=== PATIENT | female | born 1935 | race Caucasian/White ===

== ENCOUNTER 2025-04-20 13:11 | Outpatient (AMB) | payer MEDICARE, BC, SELFPAY ==
--- NOTE | 2025-04-20 13:12 | HO.SPINEOV ---
Intake Visit Reasons: low back pain Intake Note: Mrs. Lozoya is here today c/o low back pain. MRI done @ [facility] (brought disc). 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 HPI: This 89-year-old female states that she is having difficulty with her left leg since approximately 1-2 years. She has radiating pain from the left side order back radiating to the lower leg into her foot. The pain is severe with walking and standing. Sitting down or leaning forward alleviates his symptoms. She had a spinal cord stimulator placed in September 2024 that initially gave her some relief but this has stopped working. She is under the care of Dr. Milton, who apparently did aMILD procedure without success. She had an L4-5 fusion done in the past. She comes into see me for 2nd opinion. The following conservative treatment options were tried without success antiinflammatories, tylenol, physical therapy, cortisone shots Physical Exam: Pleasant female. She is describing the pattern of pain in the left leg. She can reproduce it when standing. Sitting down she seems comfortable. On inspection of the lumbar spine there is a well-healed midline incision and a small right side incision around L3-4 with a spinal cord stimulator was placed. 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 In addition there is a lumbar degenerative scoliosis with the apex at L2-3 and L3-4. Impression/Plan: This patient is suffering from unilateral neurogenic claudication most likely related to the severe L3-4 spinal stenosis. I think a small laminotomy may be beneficial in this patient. I would not recommend a correction of the scoliosis. I would like to discuss the case with Dr. Milton to see if he agrees with my observation and findings and possible treatment plan. I will call the patient afterwards. Thank you for allowing me to participate in your patients care. 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
--- OUTSIDE RECORDS SUMMARY | 2025-04-20 13:29 | XMS_ITS | Data Portability ---
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 Her strength has been gradually improving. Pain control and swelling control have been variable. She is completing her HEP as well as riding a stationary bicycle and walking. She feels comfortable and confident that she can continue with her current program independently. No further PT is planned. isabel Not available 10/02/2016 15:04:11 Plan of Treatment Reminders Order Date Submit Date Provider Last Modified By Organization Details Last Modified Time Details Appointments None recorded. Lab None recorded. Referral None recorded. Procedures None recorded. Surgeries None recorded. Imaging None recorded. Medication Orders temazepam 15 mg capsule 2021 022 XIMENA Amado [id number] ([facility]), [address] [place] [address], [id number], 14:16:29 Patient Targets Encounter Date Encounter Id Patient Goals Patient Target Last Modified By Organization Details Last Modified Time 10/02/2016 [id number] Mobility, walking and moving around ([id number]) 0 CH % limitation Not available Not available Not available Patient Instructions Encounter Date Encounter Id Patient Instructions Last Modified By Organization Details Last Modified Time 08/22/2020 [id number] After a discussi on of treatment options, which included consideration of best practices and patient preferences, the following treatment plan and objectives were adopted: as above. [email or web address] Not available 08/22/2020 15:35:18 10/01/2022 [id number] high blood pressure: care instructions yoli Not available 10/01/2022 14:14:12 learning about high blood pressure yoli Not available 10/01/2022 14:14:12 Sleep hygiene advice: Read in another room before bed, not in the bed. Bedroom is for sleep. No TV in the bedroom! No TV, computer, iPad, phone 30-60 min prior to bed, consider f-lux for computer Turn down ambient light in house 1 hour before bed, avoid fluorescents Develop a routine and stick to it. Herbal tea (sleepy time type blend) 30 to 120 min before bed, avoid too much volume though. Consider a ? W orry Journal? to be done 1 hour before bed. Bedroom should be Cool, Quiet, Dark and Safe feeling. Avoid exercise late in the evening. Conceal clocks in the bedroom. Continue this routine even on weekends. yoli Not available 10/01/2022 14:06:07 CCM: The provide r and patient discussed the Chronic Care Management program, including the services provided, and any fees associated with them. Not available 10/01/2022 08:13:33 Reason for Referral None Reported. Results Created Date Observation Date Name Description Value Unit Range Abnormal Flag Note LastModifiedBy Organization Detail LastModifiedTime 10/03/20 22 10/03/2022 LIPID PANEL HDL 88 mg/dL Inter preta tion <40 mg/dL : Low HDL fernie stero l (huseyin r risk facto r for CHD) Great er than or equal to 60 mg/dL : High HDL fernie stero l ( neg ative risk facto r for CHD) HDL - fernie stero l is affec ellen by cosmo gonge christopher of facto rs, e.g. heriberto pino, robert dempsey, sex and age. Not Available [facility] (Outpatient) [address] [place], [address], 10/03/2022 14:02:31 10/03/20 22 10/03/2022 LIPID PANEL cholesterol 173 mg/dL 0-240 Not Available [facility] (Outpatient) [address] [place], [address], 10/03/2022 14:02:31 10/03/20 22 10/03/2022 LIPID PANEL triglyceride s 99 mg/dL 30-160 Not Available [facility] (Outpatient) [address] [place], [address], 10/03/2022 14:02:31 10/03/20 22 10/03/2022 LIPID PANEL LDL 65 mg/dL 50-129 LDL level s in terms of risk for coron nai heart disea se: <100 mg/dL : Optim al 100-1 29 mg/dL : Near or above optim al 130-1 59 mg/dL : Borde rline high 160-1 89 mg/dL : High >190 mg/dL : Very High Not Available [facility] (Outpatient) [address] [place], [address], 10/03/2022 14:02:31 10/03/20 22 10/03/2022 LIPID PANEL cardiac risk ratio 2.0 3.3-4. 4 low Not Available [facility] (Outpatient) [address] [place], [address], 10/03/2022 14:02:31 10/03/20 22 10/03/2022 BASIC METAB OLIC PANEL sodium 133 mmol/ L 133-14 6 Not Available [facility] (Outpatient) [address] [place], [address], 10/03/2022 14:08:04 10/03/20 22 10/03/2022 BASIC METAB OLIC PANEL chloride 98 mmol/ L 96-108 Not Available [facility] (Outpatient) [address] [place], [address], 10/03/2022 14:08:04 10/03/20 22 10/03/2022 BASIC METAB OLIC PANEL potassium 4.3 mmol/ L 3.3-5. 1 Not Available [facility] (Outpatient) [address] [place], [address], 10/03/2022 14:08:04 10/03/20 22 10/03/2022 BASIC METAB OLIC PANEL CO2 27 mmol/ L 21-35 Not Available [facility] (Outpatient) [address] [place], [address], 10/03/2022 14:08:04 10/03/20 22 10/03/2022 BASIC METAB OLIC PANEL BUN 29 mg/dL 6-19 high Not Available [facility] (Outpatient) [address] [place], [address], 10/03/2022 14:08:04 10/03/20 22 10/03/2022 BASIC METAB OLIC PANEL creatinine 0.80 mg/dL 0.5-1. 5 Not Available [facility] (Outpatient) [address] [place], [address], 10/03/2022 14:08:04 10/03/20 22 10/03/2022 BASIC METAB OLIC PANEL glucose 121 mg/dL 70-99 high Not Available [facility] (Outpatient) [address] [place], [address], 10/03/2022 14:08:04 10/03/20 22 10/03/2022 BASIC METAB OLIC PANEL calcium 9.7 mg/dL 8.4-10 .3 Not Available [facility] (Outpatient) [address] [place], [address], 10/03/2022 14:08:04 10/03/20 22 10/03/2022 BASIC METAB OLIC PANEL eGFR 72 mL/mi n/1.7 3m2 >59 Estim ated glome rular filtr ation rate calcu lated using the CKD-E PI refit equat ion. Not Available [facility] (Outpatient) [address] [place], [address], 10/03/2022 14:08:04 10/03/20 22 10/03/2022 BASIC METAB OLIC PANEL anion gap 12 mmol/ L 10-20 Not Available [facility] (Outpatient) [address] [place], [address], 10/03/2022 14:08:04 10/03/20 22 10/03/2022 TSH TSH 0.75 uIU/m L 0.27-4 .20 Not Available [facility] (Outpatient) [address] [place], [address], 10/03/2022 14:08:05 10/03/20 22 10/03/2022 URIC ACID uric acid 3.6 mg/dL 2.4-7. 0 Not Available [facility] (Outpatient) [address] [place], [address], 10/03/2022 14:08:07 10/03/20 22 10/03/2022 URINA LYSIS color Yellow yellow Not Available [facility] (Outpatient) [address] [place], [address], 10/03/2022 14:31:04 10/03/20 22 10/03/2022 URINA LYSIS clarity Clear Not Available [facility] (Outpatient) [address] [place], [address], 10/03/2022 14:31:04 10/03/20 22 10/03/2022 URINA LYSIS glucose Negati ve negati ve Not Available [facility] (Outpatient) [address] [place], [address], 10/03/2022 14:31:04 10/03/20 22 10/03/2022 URINA LYSIS bili Negati ve negati ve Not Available [facility] (Outpatient) [address] [place], [address], 10/03/2022 14:31:04 10/03/20 22 10/03/2022 URINA LYSIS ketones Negati ve negati ve Not Available [facility] (Outpatient) [address] [place], [address], 10/03/2022 14:31:04 10/03/20 22 10/03/2022 URINA LYSIS specific gravity 1.015 1.005- 1.030 Not Available [facility] (Outpatient) [address] [place], [address], 10/03/2022 14:31:04 10/03/20 22 10/03/2022 URINA LYSIS blood Negati ve negati ve Not Available [facility] (Outpatient) [address] [place], [address], 10/03/2022 14:31:04 10/03/20 22 10/03/2022 URINA LYSIS pH 6.0 5.0-8. 0 Not Available [facility] (Outpatient) [address] [place], [address], 10/03/2022 14:31:04 10/03/20 22 10/03/2022 URINA LYSIS protein Negati ve negati ve Not Available [facility] (Outpatient) [address] [place], [address], 10/03/2022 14:31:04 10/03/20 22 10/03/2022 URINA LYSIS nitrite Negati ve negati ve Not Available [facility] (Outpatient) [address] [place], [address], 10/03/2022 14:31:04 10/03/20 22 10/03/2022 URINA LYSIS leukocyte esterase, ur Negati ve negati ve Not Available [facility] (Outpatient) [address] [place], [address], 10/03/2022 14:31:04 10/03/20 22 10/03/2022 OSMOL INÉS GARCIA M URINE urine osmolality 677 mOsm/ kg_wa ter Not Available [facility] (Outpatient) [address] [place], [address], 10/03/2022 14:45:04 10/03/20 22 10/03/2022 CREAT ININÉS RUGGIERO URINE urine creatinine 64 mg/dL Not Available [facility] (Outpatient) [address] [place], [address], 10/03/2022 14:53:02 10/03/20 22 10/03/2022 SODIU INÉS Garcia URINE urine sodium 67 mmol/ L Not Available [facility] (Outpatient) [address] [place], [address], 10/03/2022 14:53:04 06/07/20 22 06/06/2022 US, retro perit oneum CLINIC AL HISTOR Y: Urinar y retent ion TECHNI QUE: 2D sonogr aphy of the kidney s and bladde r. COMPAR DEO: None. FINDIN GS: Right kidney 4.1 x 10.5 cm The right kidney is normal in echote xture. There are no solid masses , stones , or hydron ephros is. There is a 1.4 x 1.1 x 1.0 cm simple appear ing interp olar region cyst. There are additi onal smalle r simple appear ing cysts. Left kidney 4.6 x 9.7 cm The left kidney is normal in echote xture. There are no solid masses , stones , or hydron ephros is. There is a 7 mm simple appear ing exophy tic upper pole cyst. There are additi onal smalle r simple appear ing cysts. Ureter al jets are not visual ized. The bladde r is normal in appear ance. The prevoi d bladde r volume is 453.5 mL. The post void bladde r volume is 288.9 mL. IMPRES KLEBER: 1. Bilate ral renal cysts, at least 5 on the right and 3 on the left 2. 288.9 mL postvo id residu al. Readin g Physic rolanda: Remington Yost ms [facility] (Imaging) [address] [place], [address], 06/07/2022 10:46:17 08/07/20 23 08/07/2023 US, retro perit oneum CLINIC AL HISTOR Y: Histor y of renal cysts. Incomp lete bladde r emptyi ng. TECHNI QUE: 2D sonogr aphy of the kidney s and bladde r. COMPAR DEO: 022 FINDIN GS: Right kidney 4.1 x 10.5 cm The right kidney is normal in echote xture. There are no solid masses , stones , or hydron ephros is. There is a 0.8 x 0.5 x 0.6 cm simple -appea ring upper pole cyst. Left kidney 5.6 x 11.4 cm The left kidney is normal in echote xture. There are no solid masses , stones , or hydron ephros is. There is a 0.7 x 0.6 x 1.0 cm simple appear ing exophy tic interp olar region cyst. Ureter al jets are not visual ized. The bladde r appear s trabec ulated . No focal wall lesion is seen. The prevoi d bladde r volume is 325.1 mL. The post void bladde r volume is 179.2 mL. IMPRES KLEBER: 1. Bilate ral simple renal cysts. Bladde r trabec ulatio n. 2. Abnorm ally large 179.2 mL postvo id residu al. Readin g Physic rolanda: Remington Yost ms [facility] (Imaging) [address] [place], [address], 08/07/2023 13:25:14 Result Notes None recorded. Problems Name Problem SNOMED Code Status Onset Date Resolution Date Notes Provider Name and Address Organization Details Recorded Time Benign essential hypertensio n 3360358 Active 2019 Janny Hernández MD [address] [place] [address] [place], [address] , [facility] 15:31:56 Gastroesoph ageal reflux disease without esophagitis 144039372 Active 2019 Janny Hernández MD [address] [place] [address] [place], [address], [facility] 0 15:32:06 Persistent insomnia 848362811 Active 2021 Janny Hernández MD [address] [place], [place] [address], [address], [facility] 2 14:05:18 Left side sciatica 9270171071999 04 Active 2021 Janny Hernández MD [address] [place], [address], [facility] 2 14:11:41 Problem Notes None recorded. Procedures Surgical History Date Name Laterality Status Provider Name and Address Organization Details Recorded Time 6 45596: Therapeutic Exercise completed Shukri Bloom, PT [address] [place], [address], [facility] 10/02/2016 14:59:19 6 Treatment and Advice completed Shukri Bloom, PT [address] [place], [address], [facility] 10/02/2016 14:56:15 6 [address]: Therapeutic Exercise completed Shukri Bloom, PT [address] [place], [address], [facility] 09/25/2016 14:10:58 6 Treatment and Advice completed Shukri Bloom, PT [address] [place], [address], [facility] 09/25/2016 14:39:41 6 26518: Therapeutic Exercise completed Shukri Bloom, PT [address] [place], [address], [facility] 09/19/2016 11:03:51 6 Treatment and Advice completed Shukri Bloom, PT [address] [place], [address], [facility] 09/19/2016 11:05:46 6 81063: Therapeutic Exercise completed Shukri Bloom, PT [address] [place], [address], [facility] 09/16/2016 13:39:54 6 Treatment and Advice completed Shukri Bloom, PT [address] [place], [address], [facility] 09/16/2016 13:38:05 6 [address]97: Therapeutic Exercise completed Shukri Bloom, PT [address] [place], [address], [facility] 09/12/2016 11:03:22 6 [address]79[address]: Manual Therapy completed Shukri Bloom, PT [address] [place], [address], [facility] 09/12/2016 11:04:03 6 Treatment and Advice completed Shukri Bloom, PT [address] [place], [address], [facility] 09/12/2016 11:02:04 6 26102: Therapeutic Exercise completed Shukri Bloom, PT [address] [place], [address], [facility] 09/09/2016 14:04:15 6 Treatment and Advice completed Shukri Bloom, PT [address] [place], [address], [facility] 09/09/2016 14:27:21 6 [address]80: Therapeutic Exercise completed Shukri Bloom, PT [address] [place], [address], [facility] 09/04/2016 09:13:46 6 Treatment and Advice completed Shukri Bloom, PT [address] [place], [address], [facility] 09/04/2016 09:14:25 6 [address]96: PT Evaluation completed Shukri Bloom, PT [address] [place], [address], [facility] 09/02/2016 13:45:02 6 Physical Activity Counselling completed Shukri Bloom, PT [address] [facility], [place], [address], [facility] 09/02/2016 13:45:05 Imaging Results None recorded. Procedure Notes None recorded. Medical Equipment None Reported. Allergies No known drug allergies Medications Name Sig Start Date Stop Date Status Note LastModified by Organization Details LastModified Time p-4 k-10 pain formulation w/o bupivacaine ssls APPLY TWO GRAMS TO THE AFFECTED AREA FOUR TIMES DAILY. APPLY FIRST, RUB IN WELL active Not Available Not Available No t Available amoxicillin 500 mg capsule TAKE 4 CAPSULES BY MOUTH 1 HOUR BEFORE INJECTION active Not Available Not Available No t Available atorvastati n 80 mg tablet TK 1 T PO D 08/22 completed Not Available Not Available Not Available esterified estrogens-m ethyltestos terone 0.625 mg-1.25 mg tablet TK 1 T PO QD 08/22 completed Not Available Not Available Not Available clindamycin HCl 300 mg capsule STARTING 5 DAYS BEFORE SURGERY TK 1 C PO TID UNTIL FINISHED. USE WITH PROBIOTIC S. 08/22 completed Not Available Not Available Not Available atorvastati n 10 mg tablet TAKE 1 TABLET BY MOUTH EVERY DAY active Not Available Not Available No t Available azithromyci n 250 mg tablet 08/22 completed Not Available Not Available Not Available meloxicam 15 mg tablet TAKE 1 TABLET BY MOUTH EVERY DAY 10/01 completed Not Available Not Available Not Available sucralfate 1 gram tablet TK 1 T PO B MEALS 08/22 completed Not Available Not Available Not Available ondansetron HCl 4 mg tablet TK 1 T PO UP TO TID PRF NAUSEA 10/01 completed prn Not Available Not Available Not Available famotidine 40 mg tablet TAKE 2 TABLETS BY MOUTH EVERY DAY AT BEDTIME active Not Available Not Available No t Available isosorbide mononitrate ER 30 mg tablet,exte nded release 24 hr TK 1 T PO D HS 08/22 completed Not Available Not Available Not Available clonazepam 0.5 mg tablet TK 1 T PO QD PRN 08/22 completed Not Available Not Available Not Available valsartan 80 mg tablet 08/22 completed Not Available Not Available Not Available amlodipine 2.5 mg tablet 08/22 completed Not Available Not Available Not Available amlodipine 5 mg tablet 10/06 /2020 completed Not Available Not Available Not Available aspirin 81 mg tablet,melisa yed release TK 1 T PO QD 08/22 completed Not Available Not Available Not Available tramadol 50 mg tablet TAKE 1 TABLET BY MOUTH EVERY 6 HOURS NEEDED FOR PAIN 10/01 completed Not Available Not Available Not Available spironolact one 25 mg tablet TAKE 1 TABLET BY MOUTH EVERY MORNING 10/01 completed Not Available Not Available Not Available amoxicillin 500 mg tablet TAKE 1 TABLET BY MOUTH THREE TIMES DAILY 10/01 completed Not Available Not Available Not Available amoxicillin 875 mg tablet TAKE 1 TABLET BY MOUTH TWICE DAILY active Not Available Not Available No t Available Vitamin D3 10 mcg (400 unit) tablet TAKE 2 TABLETS BY MOUTH EVERY DAY active Not Available Not Available No t Available temazepam 15 mg capsule active Not Available Not Available Not Available lidocaine HCl 4 % (40 mg/mL) mucosal solution APPLY A QUARTER SIZED DOLLUP MIXED WITH DICLOFENA C GEL TO AFFECTED AREA THREE TIMES DAILY 10/01 completed Not Available Not Available Not Available tamsulosin 0.4 mg capsule TAKE 1 CAPSULE BY MOUTH AT BEDTIME active Not Available Not Available No t Available trazodone 100 mg tablet TK 1 T PO HS PRF M[employer]IC[employer] JUDGE 08/22 completed Not Available Not Available Not Available temazepam 30 mg capsule TK 1 C PO QHS UTD 08/22 completed Not Available Not Available Not Available cephalexin 500 mg capsule TAKE 1 CAPSULE BY MOUTH TWICE DAILY active Not Available Not Available No t Available esomeprazol e magnesium 40 mg capsule,del ayed release TAKE 1 CAPSULE BY MOUTH TWICE DAILY active Not Available Not Available No t Available ranitidine 150 mg tablet 08/22 completed Not Available Not Available Not Available lidocaine 5 % topical patch PLACE 1 PATCH ONTO SKIN DAILY FOR 12 HOURS THEN REMOVE FOR 12 HOURS DIRECTED BY 10/01 completed Not Available Not Available Not Available valsartan 320 mg tablet TAKE 1 TABLET BY MOUTH EVERY EVENING active Not Available Not Available No t Available Menest 0.625 mg tablet TK 1 T PO D 08/22 completed Not Available Not Available Not Available docusate sodium 100 mg capsule TAKE 1 CAPSULE BY MOUTH TWICE DAILY. 10/01 completed Not Available Not Available Not Available oxybutynin chloride ER 5 mg tablet,exte nded release 24 hr TK 1 T PO QD 08/22 completed Not Available Not Available Not Available omeprazole 20 mg capsule,del ayed release TK 1 C PO TID 08/22 completed Not Available Not Available Not Available morphine ER 15 mg tablet,exte nded release TK 1 T PO BID 08/22 completed Not Available Not Available Not Available hydrochloro thiazide 25 mg tablet 08/22 completed Not Available Not Available Not Available zolpidem 5 mg tablet TK 1 T PO HS PRF SLEEP 08/22 completed Not Available Not Available Not Available gabapentin 100 mg capsule active Not Available Not Available Not Available metoprolol succinate ER 25 mg tablet,exte nded release 24 hr TAKE 1 TABLET BY MOUTH EVERY DAY active Not Available Not Available No t Available warfarin 1 mg tablet 08/22 completed Not Available Not Available Not Available methylpredn isolone 4 mg tablets in a dose pack TAKE 1 TABLET BY MOUTH DIRECTED. FOLLOW PACKAGE DIRECTION S. 10/01 completed Not Available Not Available Not Available ketoconazol e 2 % topical cream 08/22 completed Not Available Not Available Not Available diazepam 5 mg tablet TAKE 1 TABLET BY MOUTH AT ARRIVAL THE DAY OF PROCEDURE 10/01 completed Not Available Not Available Not Available valsartan 160 mg tablet TK 1 T PO D 08/22 completed Not Available Not Available Not Available ciclopirox 0.77 % topical suspension APPLY TO AFFETED TOENAILS ONE TIME DAILY active Not Available Not Available No t Available cyclobenzap rine 5 mg tablet TK 1 T PO TID WITH FOOD PRF MUSCLE SPASMS 08/22 completed Not Available Not Available Not Available cholestyram ine (with sugar) 4 gram powder for susp in a packet MIX 1 PACKET WITH LIQUID AND DRINK BY MOUTH ONCE A DAY 10/01 completed Not Available Not Available Not Available temazepam 22.5 mg capsule TAKE 1 CAPSULE BY MOUTH EVERY NIGHT AT BEDTIME NEEDED FOR ANXIETY OR INSOMNIA active Not Available Not Available No t Available chlorhexidi ne gluconate 0.12 % mouthwash SWISH AND SPIT 10 ML BY MOUTH THREE TIMES DAILY 10/01 completed Not Available Not Available Not Available diclofenac 1 % topical gel APPLY A QUARTER SIZED DOLLUP MIXED WITH LIDOCAINE TO AFFECTED AREA THREE TIMES DAILY 10/01 completed Not Available Not Available Not Available Butrans 5 mcg/hour transdermal patch APPLY 1 PATCH TO SKIN ONCE Q WEEK 08/22 completed Not Available Not Available Not Available lidocaine 5 % topical ointment APPLY 1-3G (INCHES) TO THE AFFECTED AREA 3-4 TIMES A DAY (SHOULDER S/ARMS) APPLY SECOND active Not Available Not Available No t Available Myrbetriq 50 mg tablet,exte nded release TK 1 T PO QD 10/01 completed Not Available Not Available Not Available Spiriva Respimat 2.5 mcg/actuati on solution for inhalation 08/22 completed Not Available Not Available Not Available Paxlovid 300 mg (150 mg x 2)-100 mg tablets in a dose pack TAKE 3 TABLETS BY MOUTH 2 (TWO) TIMES A DAY FOR 5 DAYS. 10/01 completed Not Available Not Available Not Available Vitals Date Recorded Body weight Body mass index (BMI) Body height Heart rate Systolic blood pressure Diastolic blood pressure Provider Name and Address Organization Details Last Updated DateTime 0 [address]05.0 5 g 22.9 kg/m2 157.48 cm 60 /min 157 mm[Hg] 77 mm[Hg] KHANH Pastrana [facility] 0 15:20:56 Date Recorded Body height Body mass index (BMI) Body weight Body temperature Oxygen saturation Oxygen saturation in Arterial blood by Pulse oximetry Heart rate Systolic blood pressure Diastolic blood pressure Provider Name and Address Organization Details Last Updated DateTime 2 157.48 cm 22 kg/m2 84227.1 8 g 96.8 [degF] 96 % 96 % 73 /min 128 mm[Hg] 64 mm[Hg] Janny Lopez MA [facility] 2 13:48:58 Social History Question Answer Notes LastModified by Organizat ion Details LastModified Time Tobacco Smoking Status Never Smoker KHANH Pastrana [facility] 08/22/2020 15:17:17 What Is Your Level Of Caffeine Consumption? None Information not available 08/22/2020 What Type Of Diet Are You Following? REGULAR Information not available 08/22/2020 Which Illicit Or Recreational Drugs Have You Used? No Information not available 08/22/2020 Are There Any Guns Present In Your Home? No Information not available 08/22/2020 Live Alone Or With Others? With Others Information not available 08/22/2020 CCM Consent Discussion 10/01/2022 [email or web address] Information not available 10/08/2022 Marital Status Informatio n not available 08/22/2020 Mosquito Repellent Used Routinely Yes Information not available 08/22/2020 What Was The Date Of Your Most Recent Tobacco Screening? 10/01/2022 Information not available 10/01/2022 How Many Children Do You Have? 3 Information not available 08/22/2020 Do You Use Your Seat Belt Or Car Seat Routinely? Yes Information not available 10/01/2022 Seat Belts Used Routinely Yes Information not available 08/22/2020 Smoke Alarm In Home Yes Information not available 08/22/2020 General Stress Level Low Information not available 08/22/2020 Do You Use Sunscreen Routinely? Yes Information not available 08/22/2020 Sex: Unknown Functional Status Question Answer Note LastModified by Organizat ion Details LastModified Time Do you or have you ever used any other forms of tobacco or nicotine? No Information not available 10/01/2022 What is your level of alcohol consumption? None Information not available 08/22/2020 Do you or have you ever used smokeless tobacco? Never used smokeless tobacco Information not available 08/22/2020 What is your occupation? retired Information not available 08/22/2020 Do you or have you ever used e-cigarettes or vape? Never used electronic cigarettes Information not available 08/22/2020 Mental Status None recorded. Family History Nothing Reported. Medical History No medical history recorded. Gynecological HistoryNo gynecological history recorded. Obstetrics History GPAL:G 0 P 0 0 0 0 Immunizations Vaccine Type Date Status Note Provider Nam e and Address Organization Details Recorded Time COVID-19, mRNA, LNP-S, PF, 100 mcg/0.5mL dose or 50 mcg/0.25mL dose [facility]21[facility]2020 [facility] 10:[facility]:12 COVID-19, mRNA, LNP-S, PF, 100 mcg/0.5mL dose or 50 mcg/0.25mL dose 01/18/2021 completed Jamaica Urena LPN null, [facility] 01/18/2021 11:46:29 Influenza, high-dose, quadrivalent, PF 08/31/2022 completed LAURA Rob, [facility] 08/31/2022 15:26:01 COVID-19, mRNA, LNP-S, bivalent, PF, 50 mcg/0.5 mL or 25mcg/0.25 mL dose 09/06/2022 completed NAVEEN Roper, [facility] 09/06/2022 13:45:10 Past Encounters Encounter ID Performer Location Encounter Start Date Encounter Closed Date Diagnosis/Indication Diagnosis SNOMED-CT Code Diagnosis ICD10 Code Diagnosis Note [id number] Shukri Bloom , PT Physical Therapy, [address] [address] 09/02/2016 13:18:27 09/04/2016 07:06:17 Replacement of total knee joint 509628531 Z96.134 [id number] Shukri Bloom , PT Physical Therapy, [address] [address] 09/04/2016 08:26:55 09/04/2016 09:16:28 Replacement of total knee joint 940085835 Z96.512 [id number] Shukri Bloom , PT Physical Therapy, [address] [address] 09/09/2016 13:59:59 09/09/2016 15:26:27 Replacement of total knee joint 037735518 Z96.268 [id number] Shukri Bloom , PT Physical Therapy, [address] [address] 09/12/2016 10:20:07 09/12/2016 11:13:56 Replacement of total knee joint 992100303 Z96.584 [id number] Shukri Bloom , PT Physical Therapy, [address] [address] 09/16/2016 12:39:12 09/16/2016 13:43:59 Replacement of total knee joint 212894911 Z96.135 [id number] hSukri Bloom , PT Physical Therapy, [address] [address] 09/19/2016 10:24:57 09/19/2016 11:07:02 Replacement of total knee joint 721474263 Z96.347 [id number] Shukri Bloom , PT Physical Therapy, [facility] [address] [place] [address] 09/25/2016 13:48:14 09/25/2016 14:52:03 Replacement of total knee joint 433326444 Z96.216 [id number] Shukri Bloom , PT Physical Therapy, [facility] [address] [place] [address] 10/02/2016 10:58:32 10/02/2016 15:31:02 Replacement of total knee joint 229357312 Z96.487 [id number] Skip Carrillo MD , [facility], OFFICE [address] [place] [address] 08/22/2020 15:04:02 08/23/2020 09:39:33 Benign essential hypertension 0496801 I10 reports tx with Dr Solis appt with him this weekshe will think about wether to continue care with Dr Webb or transfer to [facility] transfer she will need to get her medical records sentrather poor historian Gastroesop hageal reflux disease without esophagitis 210205460 K21.9 reports hard to controlmul tiple agents Dyspnea 120922859 R06.00 pt reports SOB and weakness for about four years with various medication s and tx and testswould need medical reacods to evalpt unclear she is not staying with Dr Benjamin d to please choose PCPwe are happy to care for her if she transfers and she would need in person exam in addition to records sent [id number] Juancarlos Phillips MD , [facility], [address] [place] [address] 08/31/2022 10:16:31 09/30/2022 12:15:30 Active or passive immunization [id number] Z23 [id number] Juancarlos Phillips MD , [facility], [address] [place] [address] 09/06/2022 13:23:13 09/06/2022 17:38:17 Active immunization 22736292 Z23 [id number] Janny Hernández MD , [facility], [address] [place] [address] 10/01/2022 13:29:49 10/01/2022 14:13:40 Persistent insomnia 354564240 G47.09 reports 60 years hx on tranquili zers or sleep medicinere ports last MD increased dosereport s she has been referred to sleep doctor, see HPI, but didn't like the therapy, felt they were regurgita ting her past to hershe denies depression or anxietyand reports good mental funciton and capacity for ageshe drivesshe has not done other non pharm tx for sleepintro to CBT todaycould resume therapy with sleep doctor or otherhando ut givenwill wean temazepami nstr NO benadryl/a dvil PMinstr can discuss other safer sleep med options in futuref/u 3 weeks Benign ess ential hypertension 5954291 I10 at goalno changes mgmtget labsgoal < 130/80 Left side sciatica 07055 39792 70943 M54.32 reports by hxfrom 1980sstate s sleep medicine helps her not have pain at night Active or passive immunization 582229067 Z23 Health Concerns Section Related Observation LastModified by Organization Detai ls LastModified Time None Recorded Concern Status LastModified by Organization Details LastModified Time None Recorded Advance Directives Directive None Recorded Payers Encounter Date Sequence Insurance Name Policy Number Policy Coy Covered Member ID Coy Member ID Guarantor Name 10/02/2016 1 [place] Shay Lozoya [id number] Shay Lozoya 10/02/2016 2 [place] Shay Lozoya [id number] Shay Lozoya 08/22/2020 2 [place] Shay Lozoya [id number] Shay Lozoya 08/22/2020 1 [place] Shay Lozoya [id number] Shay Lozoya 08/31/2022 2 [place] Shay Lozoya [id number] Shay Lozoya 08/31/2022 1 [place] [facility] Shay Lozoya [id number] Shay Lozoya 09/06/2022 2 [place] Edjoann Lozoya [id number] Shay Lozoya 09/06/2022 1 [place] [facility] Shay Lozoya [id number] Shay Lozoya 10/01/2022 2 [place] Edjoann Lozoya [id number] Shay Lozoya 10/01/2022 1 [place] [facility] Shay Lozoya [id number] 5 Shay Lozoya Notes Date Note Type Note Provider Name and Address Organization Details Recorded Time 10/02/2016 text/html Daily progress note*Reported bypatient.How are you feeling?I was able to walk around [place] with a few stops and it felt OK. I ma still having good and bad days Function:sleeping poorly due to symptoms Medications:still waiting for medication adjustments from Dr. Webb. Home program:Performing regularly (also using the stationary bike and walking)PT Functional and ADL Assessment*Reported bypatient.Pyxgdzut00-23 % limitation (OPTIMAL: Walk long distances and kneeling with 50% difficulty) Shukri Bloom, PT [address] [place], [address], [facility] 10/02/2016 15:05:36 08/22/2020 text/html Patient agreed t o this visit via phone or secure telehealth platform due to the COVID -19 pandemic. Patient understands this is a scheduled visit and the usual procedures with regard to billing and confidentiality apply. Patient was notified that the provider location is home Patient location: home During the visit the patient? s medical history and medical record were reviewed. The patient was notified to call our office for worsening or urgent symptoms. To establish care today. Was a patient of Dr Webb. Hasn't seen him since before COVID. He has been managing her HTN. Had knee replacement four years ago and things have changed so much. Has a hard time breathing and has severe GERD. Looking for a good physical by a good female doctor. She has an appointment of Dr Webb this Friday. Has had some SOB over that past four years. Not new. Doesn't have new symptoms. Notes activity intolerance. Doesn't sleep well. She has an inhaler that Dr Webb gave her but says she was tried on different things that didn't work; doesn't think she has asthma. Reports terrible nausea for a year that resolved. Janny Hernández MD [address] [place], [address], [facility] 08/22/2020 15:38:14 10/01/2022 text/html pt is here to es kingsley yenifer was seen her virtually in 2019she was seeing Dr Webb who left and then she saw another provider Dr Bella is here today regarding temazepam prescriptionstates she has one pill left for tonightshe states she has read about it that it is not great for elders and not useful after a whileshe went up from 15 mg to 22.[address] [facility] Advil PM in addition to the temazepamher sleep is okay with both the medicationswithout her eyes are open all night longhas not tried nonpharm measures for sleep she states her cognition is good for her ageshe lives with her hsbdshe has some forgetfulnessbut not impairing her functionshe and her hsbd are independent at homeshe manages some finances, he does manage the household moniesshe does the cooking and cleaningshe is driving and no accidents no other active complaints today she wishes she could conk out and go to sleep like her hsbd denies anxiety or depression she has seen a sleep therapist in the past states she has been on some sort of tranquilizers or sleep medicine for 60 yearsstates she has a hx of sciatica that caused pain at night she states she did see a sleep doctor Dr Acevedo stopped the tx, didn't find it helpful Janny Hernández MD [address] [place], [address], [facility] 10/01/2022 14:16:40 OBGyn Episode No OBEpisode recorded.
== END 2025-04-20 13:57 | disposition home or self-care (01) ==
PROVIDERS: Visit Provider Neurological Surgery
DX: M48.061 Spinal stenosis, lumbar region without neurogenic claudication (principal); M51.369 Other intervertebral disc degeneration, lumbar region without mention of lumbar back pain or lower extremity pain; Z98.1 Arthrodesis status
CPT/HCPCS: 99204

== ENCOUNTER → 2025-04-20 13:11 | Outpatient (BNVA) | payer MEDICARE, BC, SELFPAY | PROVIDERS: Visit Provider Neurological Surgery | DX: M48.061 Spinal stenosis, lumbar region without neurogenic claudication (principal); M51.369 Other intervertebral disc degeneration, lumbar region without mention of lumbar back pain or lower extremity pain; Z98.1 Arthrodesis status | CPT/HCPCS: 99202 ==

== ENCOUNTER 2025-07-13 05:54 | Day surgery (SDC) | payer MEDICARE, BC, SELFPAY ==
--- OUTSIDE RECORDS SUMMARY | 2025-07-05 16:14 | XMS_ITS | Encounter Summary ---
Author Organization [facility] Address [address] [place] [address] Phone Care Team Providers Care Early Childhood Coordinator Name Role Phone Larisa Treviño Primary Care Provider [phone] Encounter Details Date Type Department Care Team (Late st Contact Info) Description 10/03/2022 Telephone [facility] [address] [place] [address] Luis Miguel Long MD Social History Tobacco Use Types Packs/Day Years Used Date Smoking Tobacco: Never Smokeless Tobacco: Never Alcohol Use Standard Drinks/Week Comments Never 0 (1 standard drink = 0.6 oz pur e alcohol) Comments Unknown Sex and Gender Information Value Date Recorded Sex Assigned at Not on file Legal Sex Female 4:46 PM EST Gender Identity Not on file Sexual Orientation Not on file documented as of this encounter Miscellaneous Notes * Telephone Encounter - Maggie Pacheco - 10/03/2022 1:18 PM EST Please advise * Telephone Encounter - Ciera Viera - 10/03/2022 11:59 AM EST Pt called, she had to r/s her appt from 10/17/22 to December. She would like to know if she can be booked sooner because Dr. Langston requested to see her in 4 weeks from her August appt. Please advise Thank you documented in this encounter Plan of Treatment Not on file documented as of this encounter Visit Diagnoses Not on filedocumented in this encounter Care Teams Early Childhood Coordinator Relationship Specialty Start Date End Date Larisa Treviño [address] [id number] PCP - General 08/13/22 documented as of this encounter
--- OUTSIDE RECORDS SUMMARY | 2025-07-05 16:14 | XMS_ITS ---
[facility] Name [facility] Encounters Encounter Type Encounter Reason Primary Diagnosis Location Date Ambulatory [facility] 05/26/2023 Ambulatory [facility] 05/14/2023 Care Team Organization Name Specialty Phone Email Start Date End Adalberto maria [facility] 07/03/2023 07/03/2023
--- OUTSIDE RECORDS SUMMARY | 2025-07-05 16:14 | XMS_ITS | Encounter Summary ---
Author Organization [facility] Address [address] [place] [address] Phone Care Team Providers Care Machine Sander Name Role Phone JonShay MD Unavailable [phone] Jaiden Esparza DO Unavailable [phone] Larisa Navarro MD Unavailable [phone] Colt Steele APPLICATIONS SYSTEMS ANALYST Primary Care Provider [phone] Rocco Alvarenga DO Unavailable Encounter Details Date Type Department Care Team (Latest Contact Info) Description 04/21/2025 Transcribe Orders Virtual Department [address] [place] [address] Cedric Milton MD [address] [place] [address] [phone] Low back pain, unspecified back pain laterality, unspecified chronicity, unspecified whether sciatica present (Primary Dx) Social History Tobacco Use Types Packs/Day Years Used Date Smoking Tobacco: Never Smokeless Tobacco: Never Alcohol Use Standard Drinks/Week Comments Not Currently 0 (1 standard drink = 0.6 oz pur e alcohol) Child or Family Care Answer Date Record ed Do you have problems with on e of the following making it difficult for you to work, study, or receive health care? No 05/12/2023 Education Answer Date Recorded Are you interested in more education? Not on moises e 04/25/2024 Are you concerned about learning? Not on file 04/25/2024 No 04/25/2024 No 04/25/2024 Food Answer Date Recorded Worried food would run out Not on file 05/12 Within the past 6 months the food we bought just didn't last and we didn't have enough money to get more. Never True 04/18 Residential Stability Answer Date Recor ded What is your housing situation today? I have darryl sing 05/12/2023 How many times have you move d in the past 12 months? Zero (I did not move) 05/12/2023 Paying for Meds Answer Date Recorded Do you have trouble paying for medicines? No 05/12/2023 Paying Utility Bills Answer Date Record ed Do you have trouble paying your heating or elect ricity bill? No 05/12/2023 Transportation Answer Date Recorded Has the lack of transportati on kept you from medical appointments or from getting medications? No 05/12/2023 Unemployment Answer Date Recorded Are you currently unemployed or working on a part-time or temporary basis, and looking for work? No 04/19/2022 Digital Access Answer Date Recorded No 05/12/2023 Yes 05/12/2023 Do you have reliable internet access at home? Ye s 05/12/2023 Do you have a device (e.g., phone, tablet, computer) with a working camera? Yes 05/12/2023 Intimate Partner Violence Answer Date R ecorded Are you denied basic needs s uch as food, clothing, or medical care? No 01/05/2024 In the past 12 months have y ou been in a relationship with a person who hurts, threatens, or tries to control you? No 01/05/2024 Are you denied basic needs s uch as food, clothing, or medical care? No 01/05/2024 In the past 12 months have y ou been in a relationship with a person who hurts, threatens, or tries to control you? No 01/05/2024 Comments No Sex and Gender Information Value Date Recorded Sex Assigned at Female 01/05/2024 5:36 PM EST Legal Sex Female 5:40 PM EST Gender Identity Female 01/05/2024 5:36 PM EST Sexual Orientation Straight 01/05/2024 5: 36 PM EST documented as of this encounter Plan of Treatment Scheduled Orders Name Type Priority Associated Diagnoses Orde r Schedule XR Lumbar Spine Imaging Routine Low back pain, unspecified back pain laterality, unspecified chronicity, unspecified whether sciatica present Expected: 04/21/2025, Expires: 04/21/2026 documented as of this encounter Visit Diagnoses Diagnosis Low back pain, unspecified back pain laterality, unspecified chronicity, unspecified whether sciatica present- Primary documented in this encounter Additional Health Concerns Assessment Noted Time PHQ-2 Depression Total Score: 0 04/19/20 12:42 PM EDT documented as of this encounter Care Teams Machine Sander Relationship Specialty Start Date End Date Colt Steele CNP [address] [facility] [place] [address] PCP - General Family Medicine 10/22/22 Jon, Shay Garcia MD [address] [address] [email or web address] Historical LMR Provider 09/02/17 Jaiden Esparza DO [address] [place] [address] Orthopedics & Sports Medicine, [facility] [place] [address] Historical LMR Provider 09/02/17 Larisa Navarro MD [address], [place] [address] Historical LMR Provider 09/02/17 Rocco Alvarenga DO [address] [place] [address] [email or web address] Geriatric Medicine 05/23/25 documented as of this encounter Additional Source Comments The information contained in this document represents components of the legal health record. It is not the complete legal health record.[facility]
--- OUTSIDE RECORDS SUMMARY | 2025-07-05 16:14 | XMS_ITS | Clinical Summary ---
Author Organization [facility] Address [facility] [place] [address] Care Team Providers Care Landscape Manager Name Role Phone Jon, Shay MOSQUERA Primary Care Provider Allergies Active Allergy Reactions Criticality Noted Date Comments Codeine Phosphate Rash Gluten Milk Mold Extracts Other (See Comments) Low 08/11/2012 SINUSES Nsaids (Non-Steroidal Anti-Inflammatory Drug) Opioids-Methadone And Related Medium Nausea/Vomiting Phenazopyridine Hcl High Hives Sulfa (Sulfonamide Antibiotics) High Hives Unclassified Drug 08/11/2012 COX1 ACTING NSAIDS, TOLERATES CELEBREX Medications esomeprazole (NEXIUM) 40 mg capsule 03/30/2010 Active temazepam (RESTORIL) 30 mg capsule 03/30/2010 Active clonAZEpam (KLONOPIN) 1 mg tablet 03/30/2010 Active ESTROGEN,MARIA ELENA/M E-TESTOSTERONE (ESTRATEST ORAL) Take by mouth. Active aspirin 81 mg tablet Take 81 mg by mouth daily. Active Cholecalciferol, Vitamin D3, (VITAMIN D-3) 2,000 unit Tab Take by mouth. Active DOCOSAHEXANOIC ACID/EPA (FISH OIL ORAL) Take by mouth. Active Active Problems Problem Noted Date Diagnosed Date History of total knee arthroplasty 08/11/2012 Overview (08/11/2012): Dr. Parks 2004- right Social History Tobacco Use Types Packs/Day Years Used Date Smoking Tobacco: Former Cigarettes 0 11/17/1958 - 11/17/1959 Smokeless Tobacco: Never Comments:VERY LITTLE Alcohol Use Standard Drinks/Week Comments Yes 0 (1 standard drink = 0.6 oz pur e alcohol) ONCE EVERY THREE MONTHS Comments Unknown Sex and Gender Information Value Date Recorded Sex Assigned at Not on file Legal Sex Female 6:41 AM EST Gender Identity Not on file Sexual Orientation Not on file Last Filed Vital Signs Vital Sign Reading Time Taken Comments Blood Pressure 140/84 08/11/2012 2:46 PM EDT Pulse 67 08/11/2012 2:46 PM EDT Temperature - - Respiratory Rate - - Oxygen Saturation - - Inhaled Oxygen Concentration - - Weight 60.6 kg (133 lb 9.6 oz) 08/11/2012 2:46 P M EDT Height 162.6 cm (5' 4 ) 08/11/2012 2:46 PM EDT Body Mass Index 22.93 08/11/2012 2:46 PM EDT Plan of Treatment Health Maintenance Due Date Last Done Comments Tetanus/Diphtheria/Pertussis Vaccines (1 - Tdap) 08/16 Pneumoccocal Vaccine: 50+ (1 of 1 - PCV) 1987 Zoster vaccine (1 of 2) 1987 Advance Directive 1992 Bone Density Scan 2002 RSV Vaccine (1 - 1-dose 75+ series) 2012 Covid-19 Vaccine (1 - season) 2024 Influenza (Flu) vaccine (1 o f 1 - Influenza standard series) 07/18/2025 Care Teams Landscape Manager Relationship Specialty Start Date End Date JonShay MD [address] [address] PCP - General 10/09/10
[2025-07-06 13:40] VITALS: BMI 24.7
--- NOTE | 2025-07-12 09:25 | HO.ANESPROP2 ---
Documented by User: Nely Nye NP 07/12/25 09:32 HPI - Anesthesia Eval Consult details Narrative: 89yo F for L3-4 decompression and SCS Exploration Medically optimized per PCP PONV: good effect with zofran. 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 Spinal stenosis of lumbar region without neurogenic claudication Chronic back pain Surgical History Surgical History (Updated 07/06/25 @ 13:38 by Merari Najera, JOSEFA) Hx of cervical spine surgery (~1993) Hx of shoulder surgery Hx of elbow surgery (~1999) Hx of hysterectomy (~1991) Hx of cholecystectomy History of lateral meniscus repair of right knee History of lateral meniscus repair of left knee Hx of spinal surgery (09/2024) History of back surgery History of total bilateral knee replacement (TKR) Social History Social History Are you a primary rn managed care to a significant other at home: No Do you presently have visiting nurse or other home services: No Patient Tobacco Use Status: Never used Tobacco Use of substances other than those prescribed or required for medical reasons: No Have you been hit, kicked, punched, or otherwise hurt by someone within the past year? If so, by whom?: No Are you DNR?: No Advance Directives: No Advance Directives Information Provided: Yes Advance Directives on File: No Poor oral hygiene: No Meds Allergies Allergy/AdvReac Type Severity Reaction Status Date / Time No Known Allergies Allergy Verified 07/06/25 13:07 Home Medications ?Medication ?Instructions ?Recorded ?Confirmed ?Last Taken ?Type alendronate 70 mg tablet 70 mg PO QWEEK 07/05/25 07/13/25 07/12/25 History amlodipine 5 mg tablet 5 mg PO BEDTIME 07/05/25 07/13/25 07/12/25 History atorvastatin 10 mg tablet 10 mg PO BEDTIME 07/05/25 07/13/25 07/12/25 History famotidine 40 mg tablet 80 mg PO BEDTIME 07/05/25 07/13/25 07/12/25 History metoprolol succinate 25 mg 25 mg PO DAILY 07/05/25 07/13/25 07/12/25 History tablet,extended release 24 hr temazepam 22.5 mg capsule 22.5 mg PO BEDTIME PRN anxiety 07/05/25 07/13/25 07/12/25 History valsartan 320 mg tablet 320 mg PO DAILY 07/05/25 07/13/25 07/12/25 History cholecalciferol (vitamin D3) 125 125 mcg PO DAILY 07/06/25 07/13/25 07/12/25 History mcg (5,000 unit) tablet (Vitamin D3) multivitamin 1 tab PO DAILY 07/06/25 07/13/25 07/12/25 History zinc 07/06/25 Unknown History Exam Height,Weight and Vital Signs: Height 5 ft 2 in Weight 61.235 kg Pertinent Lab Results Pertinent Lab Results: CBC 06/27/25 from outside facility: WNL BMP 06/27/25 from outside facility: Na @ 132, Cl @ 92 Narrative Narrative: EKG 06/2025 SR @ 61 Low volt QRS Assessment and Plan Assessment Anesthesia Assessment: Chart Reviewed Documented by User: Antonieta Mercedes MD 07/13/25 07:29 [facility] Past Medical History Medical History (Updated 07/06/25 @ 13:40 by Merari Najera, JOSEFA) Hx of bad fall (~2022) Back pain Spinal stenosis GERD (gastroesophageal reflux disease) HLD (hyperlipidemia) HTN (hypertension) PONV (postoperative nausea and vomiting) Pancreatic cyst 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 Spinal stenosis of lumbar region without neurogenic claudication Chronic back pain Family History Family history of problems with anesthesia: No Surgical History Surgical History (Updated 07/06/25 @ 13:38 by Merari Najera, JOSEFA) Hx of cervical spine surgery (~1993) Hx of shoulder surgery Hx of elbow surgery (~1999) Hx of hysterectomy (~1991) Hx of cholecystectomy History of lateral meniscus repair of right knee History of lateral meniscus repair of left knee Hx of spinal surgery (09/2024) History of back surgery History of total bilateral knee replacement (TKR) History of Problems with Anesthesia: No Social History Social History Are you a primary rn managed care to a significant other at home: No Do you presently have visiting nurse or other home services: No Patient Tobacco Use Status: Never used Tobacco Use of substances other than those prescribed or required for medical reasons: No Have you been hit, kicked, punched, or otherwise hurt by someone within the past year? If so, by whom?: No Are you DNR?: No Advance Directives: No Advance Directives Information Provided: Yes Advance Directives on File: No Poor oral hygiene: No Meds Allergies Allergy/AdvReac Type Severity Reaction Status Date / Time No Known Allergies Allergy Verified 07/06/25 13:07 Home Medications ?Medication ?Instructions ?Recorded ?Confirmed ?Last Taken ?Type alendronate 70 mg tablet 70 mg PO QWEEK 07/05/25 07/13/25 07/12/25 History amlodipine 5 mg tablet 5 mg PO BEDTIME 07/05/25 07/13/25 07/12/25 History atorvastatin 10 mg tablet 10 mg PO BEDTIME 07/05/25 07/13/25 07/12/25 History famotidine 40 mg tablet 80 mg PO BEDTIME 07/05/25 07/13/25 07/12/25 History metoprolol succinate 25 mg 25 mg PO DAILY 07/05/25 07/13/25 07/12/25 History tablet,extended release 24 hr temazepam 22.5 mg capsule 22.5 mg PO BEDTIME PRN anxiety 07/05/25 07/13/25 07/12/25 History valsartan 320 mg tablet 320 mg PO DAILY 07/05/25 07/13/25 07/12/25 History cholecalciferol (vitamin D3) 125 125 mcg PO DAILY 07/06/25 07/13/25 07/12/25 History mcg (5,000 unit) tablet (Vitamin D3) multivitamin 1 tab PO DAILY 07/06/25 07/13/25 07/12/25 History zinc 07/06/25 Unknown History Exam Airway Mallampati Class: III (small mouth opening, implants top, ) TM Dist: >3cm Neck ROM: Limited Heart: rrr Lungs: cta Assessment and Plan Assessment Anesthesia Assessment: Anesthesia Plan Discussed Final Anesthetic Review Family History of Problems with Anesthesia: No History of Problems with Anesthesia: No NPO: Yes ASA Class: III Final Preanesthetic Review: No Changes in Pt Med Stat, Meds/Allgs Chart Reviewed and Consent Obtained/Reviewed Patient Risk: Intermediate Procedure Risk: Low Anesthetic Plan Anesthetic Plan: GA Disposition: Standard PACU
[2025-07-13] VITALS (11 sets, daily range): BP systolic 110–159; BP diastolic 51–83; PULSE 59–85; RESP 13–18; TEMP 36.1–36.2; O2SAT 96–100
--- NOTE | ~2025-07-13 | FL_ITS ---
EXAMINATION: FL GUIDANCE ONLY HISTORY: l3-4 decompression, left COMPARISON: None available. TECHNIQUE: Fluoroscopy time: 4.7 seconds. Cumulative Dose: 1.5096 mGy. DAP: 0.514 mGym2 Images: 1. FINDINGS: A single fluoroscopic spot film of the lumbar spine demonstrates a probe directed toward the lower lumbar vertebral body. It is difficult to determine the exact level on the basis of this image. FL/FL guidance in OR IMPRESSION: Fluoroscopy during procedure. Please see procedure report for additional information. Electronically signed by: Regis Lara MD 07/13/2025 09:04 AM EDT
[2025-07-13] MEDS: Lactated Ringers 1,000 ML 100 ML IVCONT (06:53)
--- NOTE | 2025-07-13 06:57 | MHC.SHP ---
Pre-Procedural Eval Section A - 24 Hr Update-Section A only Date of Service: 07/13/25 Section B - Complete if H&P > 30 days Chief Complaint: Lumbar Stenosis, Disc degeneration, Low back Pain Allergies: Allergies Allergy/AdvReac Type Severity Reaction Status Date / Time No Known Allergies Allergy Verified 07/06/25 13:07 Review of Systems Sugical H&P ROS: Negative: Constitution, Cardiovascular, Respiratory, Neurological, Psychiatric, Hem-Onc, Allergic/Immunologic, Gastrointestinal, Genitourinary, Musculoskeletal, Integumentary, Endocrine and Eyes/Ears/Nose/Throat Exam Surgical H&P Exam: Not Evaluated: HEENT, Not Evaluated: Heart, Not Evaluated: Lungs, Not Evaluated: Extremities, Not Evaluated: Abdomen, Not Evaluated: Skin and Not Evaluated: Neurological Exam Comment: The patient is awake, alert, no acute distress. Proposed surgical incision site is clean, dry, with no signs of recent trauma. Plan Diagnosis/Plan: Unchanged I have reviewed the history and physical and performed a pertinent physical examination on my patient. No changes have occurred unless specified. Plan remains the same, L3-4 lumbar decompression with SCS exploration Time Spent With Patient Time: Total time managing care of this patient today __7__ minutes.
--- NOTE | 2025-07-13 09:21 | PM.DS ---
DS: Providers Provider Date of Service: 07/13/25 Date of discharge: 07/13/25 Primary care physician: FLAKITA Mahan DS: Summary Time Attestation Discharge Coordination Time (in mins): 15 Quality: Safe Use of Opioids Does Pt have an Active Cancer Diagnosis on the Problem List?: No Quality: Stroke Does the patient have a stroke diagnosis?: No Physical Exam Vital Signs: Vital Signs: Last Vital Signs Temp 97.2 F 07/13/25 06:40 Pulse 60 07/13/25 06:40 Resp 16 07/13/25 06:40 BP 155/83 H 07/13/25 06:40 Pulse Ox 99 07/13/25 06:40 O2 Del Method Room Air 07/13/25 06:40 BMI result Body Mass Index 24.7 Discharge Plan Discharge Patient Disposition: Home, Self-Care Referrals: Rodney Steele FNP-BC [Primary Care Provider, Internal Medicine] - 1 Week Discharge Medications: New tramadol 50 mg tablet 50 mg PO Q6H PRN (Reason: pain) Qty: 30 0RF Continued atorvastatin 10 mg tablet 10 mg PO BEDTIME famotidine 40 mg tablet 80 mg PO BEDTIME alendronate 70 mg tablet 70 mg PO QWEEK amlodipine 5 mg tablet 5 mg PO BEDTIME valsartan 320 mg tablet 320 mg PO DAILY metoprolol succinate 25 mg tablet extended release 24 hr 25 mg PO DAILY temazepam 22.5 mg capsule 22.5 mg PO BEDTIME PRN (Reason: anxiety) multivitamin Tablet 1 tab PO DAILY cholecalciferol (vitamin D3) [Vitamin D3] 125 mcg (5,000 unit) Tablet 125 mcg PO DAILY zinc Discharge Orders: Discharge Order (Routine); Ordered 07/13/25 Ordered By: Anthony Rees Diet: Advance to usual diet Activity on Discharge: As tolerated Activity Restrictions/Additional Instructions: After your spinal surgery we ask you to observe the following restrictions/guidelines: Activity: It is normal to feel some discomfort as you increase your activity, but that will improve with time. We ask you avoid heavy lifting or acitivities that cause pain. As a general rule, 8lbs is a safe limit for lifting right after surgery. Walk as much as you feel comfortable but not to exhaustion. You will feel extra tired the first few days after surgery. Stay well hydrated. It is OK to walk up and down stairs You may return to driving when you are off narcotics (such as vicodin, oxycodone, dilaudid, etc), and you are back to normal functional capacity. If you have any concerns please check with office before driving. Return to work is specific to each patient and each surgery, so please speak with your doctor/PA at first follow up. Please bring paperwork such as FMLA at that time if you need it filled out. Medications: We recommend you take 1,000mg Tylenol every 8 hours for the first few weeks after surgery, if you do not have any liver issues and can tolerate this medication. Do not exceed 4,000mg daily. You may also use Advil starting tomorrow (07/13/25) if this medication is tolerated well and not contraindicated. We will also give you a short supply of narcotics after surgery (usually one weeks worth). If you need more please call the office but do not use more than prescribed. You will need to give our office 48 hours notice if you need narcotics refilled and we do not fill narcotics on weekends or evenings. If you are on a narcotic, it is a good idea to take a stool softener such as colace or senna to avoid constipation If you take blood thinner such as aspirin, Plavix, Coumadin, Effient, Eliquis etc for conditions such as Afib, DVT, Pulmonary embolus, coronary disease, stents etc please speak with your surgeon about specific details as to when you can resume these medications. You can resume NSAIDs on post op day 1 (eg: Motrin, Naproxen, etc). Follow up: Please call the office, , after surgery to arrange a 3 week follow up for wound check. Wound Care: You may remove your dressing on the first day after surgery. ?You may ?leave open to air. Please do not remove the steri strips underneath. they will fall off on their own in one week. IT IS NORMAL FOR THE WOUND TO OOZE OR BE BLOODY FOR A FEW DAYS AFTER SURGERY. ?IF THIS HAPPENS JUST PLACE NEW DRESSING OVER IT TO AVOID STAINING CLOTHES. You may shower on post op day # 1 We ask that you do not let the water soak the wound. If it does get wet, just towel dry lightly. Please do not scrub your incision or place any type of chemical/ointment on the wound. No tub baths, pools or jacuzzis for one month. If you have any leaking or redness from your wound, or fevers, please call the office. Print Language: [place] Korean
--- NOTE | 2025-07-13 09:24 | W.PM.OPN ---
Operative Note Operative Note Date of Service: 07/13/25 Narrative: Preop diagnosis: NALO generator dysfunction Postop diagnosis: Same Procedure: Spinal cord stimulator battery replacement Surgeon: Claudio Gonzalez MD Assist: LASHAWN Dsouza Description of procedure: This 89-year-old female had a NALU spinal cord stimulator inserted in [place]. She came to see me for symptoms of neurogenic claudication which were explained from severe L3-4 spinal stenosis. She then told me that the spinal cord stimulator has not been working due to kinking of the subcutaneous battery paddle. I offered her to reposition the paddle during the surgery for the spinal stenosis. The procedure and complications were explained. The patient was consented. The patient was brought to the operating room and intubated Patient was turned in a prone position. Prepping and draping was done followed by time-out. A horizontal incision was made over the paddle with the leads. The paddle with the extension leads were exposed and taken out. The wires were disconnected and a new paddle with battery was connected then secured. It was tested intraoperatively and working appropriately. A subcutaneous paddle was made in a vertical position paraspinal on the right side and the battery with extension paddles were placed in the subcutaneous pocket. The product representative of the company tested the device again and everything was working appropriately. The physician assistant reading teacher close the incision with an 0 Vicryl and a 3-0 Vicryl for the subdermal layer. Steri-Strips were used to approximate the incision. An upside were taken down was used to cover the incision. Anesthesia: General Estimated blood loss: Minimal Surgical time: 30 minutes Deposition: Discharged home
--- NOTE | 2025-07-13 09:31 | P.OP_ITS ---
Operative Note Operative Note Date of Service: 07/13/25 Narrative: Preoperative Diagnosis: L3-4 spinal stenosis/lateral recess stenosis/neural foraminal stenosis Operation: Left L3-4 Laminotomy, Partial facetectomy and foraminotomy with use of microscope Consent Informed Consent was obtained for this operation. I have explained the nature, purpose and benefits of the operation. I have discussed the risks and benefit of the operation including possible complications or adverse events with patient/family. Alternative(s) were discussed with the patient with their relative benefits and risks as well as the consequences of not accepting the operation were included in obtaining consent. Surgeon: RUSTY FAROQO MD, PHD Procedure Assisted By: LASHAWN Dsouza Description of Procedure This 89-year-old female suffering from unilateral neurogenic claudication due to severe L3-4 spinal stenosis seen on MRI. She is status post L4-5 lumbar fusion. The patient was offered a left-sided decompression. The procedure complications were explained. The patient was consented. The patient was brought to the operating room and endotracheally intubated. The patient was turned in prone position on the Franky frame. Prep and drape was done followed by timeout. First, we revised a spinal cord generator which was dictated in his separate report. The Physician preschool teacher's assistant provided access. A mid lumbar incision was made followed by release of the paravertebral muscle bilaterally to expose the left L3-4 lamina and facet joints. An intraoperative x-ray was obtained to confirm the correct level. The microscope was brought in. I took over the procedure. The high-speed drill was used to do a L3-4 laminotomy until flavum ligament was reached. A #2 Kerrison was used to expand the laminotomy near flush to the pedicles and to include a partial facetectomy. The flavum ligament was opened and resected with a #3 Kerrison to decompress the underlying thecal sac. The flavum ligament was removed to decompress the lateral recess and the exiting L4 nerve root. A long nerve hook could be easily passed along the medial side of the pedicle as a sign of adequate decompression. The microscope was removed. Hemostasis was done. The physician preschool teacher's assistant close the Incision in 2 layers. Steri-Strips were used to approximate incision. An OpSite with Tegaderm was used to cover the incision. All sponge needle counts were correct. Patient was extubated and transported in stable is to recovery room. Anesthesia: General Estimated Blood Loss (ml): Minimal Complications: None Duration of Surgery: Under 60 Minutes Postoperative Plan: Discharge to home
== END 2025-07-13 12:15 | disposition home or self-care (01) ==
PROVIDERS: PCP Registered Nurse; Visit Provider Neurological Surgery
PROC: (CPT 63047; principal; 2025-07-13 07:30)
DX: M48.062 Spinal stenosis, lumbar region with neurogenic claudication (principal); M51.360 Other intervertebral disc degeneration, lumbar region with discogenic back pain only; Z98.1 Arthrodesis status; I25.10 Atherosclerotic heart disease of native coronary artery without angina pectoris; I10 Essential (primary) hypertension; F51.04 Psychophysiologic insomnia; Z79.899 Other long term (current) drug therapy
CPT/HCPCS: 63047; 63688; 99499; C1778; C1820; J0131; J0690; J1100; J2003; J2250; J2405; J2704; J3010

== ENCOUNTER → 2025-07-13 05:54 | Outpatient (BNV) | payer MEDICARE, BC, SELFPAY | PROVIDERS: PCP Registered Nurse; Visit Provider Neurological Surgery | DX: M48.062 Spinal stenosis, lumbar region with neurogenic claudication (principal); T85.113A Breakdown (mechanical) of implanted electronic neurostimulator, generator, initial encounter | CPT/HCPCS: 63047; 63688 ==

== ENCOUNTER 2025-08-10 14:03 | Outpatient (AMB) | payer MEDICARE, BC, SELFPAY ==
--- NOTE | 2025-08-10 14:54 | A.SPINEOV_ITS ---
Intake Visit Reasons: 1st post op Intake Note: Mrs. Lozoya is here today for her 1st post op. 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 She is status post left L3-4 laminotomy to decompress the L4 nerve root and a repositioning of her spinal cord stimulator for back pain. She states that the left leg pain has not improved. However, she moves much better in the office and her facial expression is less painful than it was preoperatively. The spinal cord stimulator has not been turned on as of yet. On exam, the incisions are healed. I would like to follow-up in 6 weeks for 2nd postoperative visit . Thank you for allowing me take care of your patient. 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
--- OUTSIDE RECORDS SUMMARY | 2025-08-10 16:30 | XMS_ITS | Encounter Summary ---
Author Organization [facility] Address [address] [place] [address] Phone Care Team Providers Care Long Winder Tender Name Role Phone Shay Webb MD Unavailable [phone] Jaiden Esparza DO Unavailable Larisa Navarro MD Unavailable [phone] Colt Steele [facility] Primary Care Provider [phone] Rao Arzate DO Unavailable Rocco Alvarenga DO Unavailable Encounter Details Date Type Department Care Team (Latest Contact Info) Description 07/06/2024 Transcribe Orders [facility] Laboratory [address] [address] Regis Montanez MD [address] [place] [address] Osteoporosis, senile (Primary Dx) Social History Tobacco Use Types [...] as of this encounter Plan of Treatment Not on file documented as of this encounter Results * ALKALINE PHOSPHATASE, BONE (07/06/2024 10:56 AM EDT) Pathologist [facility] BONE ALKALINE PHOS 19 mcg/L [facility] Comment: (NOTE) REFERENCE VALUE <=14 (Premenopausal) <=22 (Postmenopausal) ADDITIONAL INFORMATION Liver-derived alkaline phosphatase (ALP) increases apparent measured bone alkaline phosphatase (BAP) in this assay by 2.5 mcg/L to 5.8 mcg/L for every 100 U/L of liver ALP. Accordingly, serum specimens with significant elevations of liver ALP activity may yield artificially elevated results in the BAP assay. Blood 07/06/2024 10:5 6 AM EDT 07/06/2024 11:02 AM EDT us Regis Montanez MD LAB BLOOD ORDERABLES Final Resu lt Performing Organization Address City/[facility]/ZIP Co de Phone Number [facility] MED/[facility] [address] [place] [address] * Calcium (07/06/2024 10:56 AM EDT) Pathologist [facility] CALCIUM 9.3 8.4 - 10.3 mg/dL [facility] Blood 07/06/2024 10:5 6 AM EDT 07/06/2024 11:03 AM EDT Regis Montanez MD LAB BLOOD ORDERABLES Final Resu lt [address] [address] * 25-OH vitamin D (07/06/2024 10:56 AM EDT) 25 OH VIT D (TOTAL) 54 30 - 60 ng/mL [facility] Blood 07/06/2024 10:5 6 AM EDT 07/06/2024 11:03 AM EDT us Regis Montanez MD LAB BLOOD ORDERABLES Final Resu lt Performing Organization Address City/[facility]/ZIP Co de Phone Number [address] [address] * Parathyroid hormone (PTH) (07/06/2024 10:56 AM EDT) PARATHYROID HORMONE 47 15 - 65 pg/mL [facility] Blood 07/06/2024 10:5 6 AM EDT 07/06/2024 11:02 AM EDT us Regis Montanez MD LAB BLOOD ORDERABLES Final Resu lt Performing Organization Address City/[facility]/ZIP Co de Phone Number [address] [address] documented in this encounter Visit Diagnoses Diagnosis Osteoporosis, senile- Primary Senile osteoporosis documented in this encounter Additional Health Concerns Assessment Noted Time PHQ-2 Depression Total Score: 0 04/19/20 22 12:42 PM EDT documented as of this encounter Care Teams Long Winder Tender Relationship Specialty Start Date End Date Colt Steele CNP [address] [facility] [place] [address] [email or web address] PCP - General Family Medicine 10/22/22 Jon, Shay Garcia MD [address] [facility] [address] [place] [address] [email or web address] Historical LMR Provider 09/02/17 Jaiden Esparza DO [address] [place] [address] Orthopedics & Sports Medicine, [place] [address] Historical LMR Provider 09/02/17 Larisa Navarro MD [address] [place] [id number] Historical LMR Provider 09/02/17 Rao Arzate DO [address] [place] [address] Insurance Assigned Provider 02/21/24 11/22/24 Rocco Alvarenga DO [address] [place] [address] Geriatric Medicine 05/23/25 documented as of this encounter Additional Source Comments The information contained in this document represents components of the legal health record. It is not the complete legal health record.[facility]
--- OUTSIDE RECORDS SUMMARY | 2025-08-10 16:30 | XMS_ITS | Encounter Summary ---
Author Organization [facility] Address [address] [place] [address] Phone Care Team Providers Care Appraisal Specialist Name Role Phone JonShay MD Unavailable [phone] Jaiden Esparza DO Unavailable Larisa Navarro MD Unavailable [phone] Colt Steele [facility] Primary Care Provider [phone] Rocco Alvarenga DO Unavailable [phone] Encounter Details Date Type Department Care Team (Latest Contact Info) Description 06/02/2025 Ancillary Orders [address] [address] Madelaine Piña MD [address] [place] [address] Orthopedics & Sports Medicine, [facility] [place], [place] [id number] [email or web address] Osteoarthritis of left hip, unspecified osteoarthritis type (Primary Dx) Social History Tobacco Use Types [...] 04/19/2022 Digital Access Answer Date Recorded No 05/17/2025 No 05/17/2025 Reliable internet access at home? Not on file 05/17/2025 Device with a working camera? Not on file Intimate Partner Violence Answer Date R ecorded [...] as of this encounter Plan of Treatment Pending Results Name Type Priority Associated Diagnoses Date /Time FL Guidance Needle Placement Non-Spine Imaging Routine Osteoarthritis of left hip, unspecified osteoarthritis type 06/07/2025 10:25 AM EDT Scheduled Orders Name Type Priority Associated Diagnoses Orde r Schedule FL Guidance Needle Placement Non-Spine Imaging Routine Osteoarthritis of left hip, unspecified osteoarthritis type 1 Occurrences starting 06/02/2025 until 09/02/2025 documented as of this encounter Visit Diagnoses Diagnosis Osteoarthritis of left hip, unspecified osteoarthritis type- Primary documented in this encounter Additional Health Concerns Assessment Noted Time PHQ-2 Depression Total Score: 0 04/19/20 12:42 PM EDT documented as of this encounter Care Teams Appraisal Specialist Relationship Specialty Start Date End Date Colt Steele CNP 29 [facility] [place] [address] PCP - General Family Medicine 10/22/22 Jon, Shay Garcia MD [address] [address] [email or web address] Historical LMR Provider 09/02/17 Jaiden Esparza DO [address] [place] [address] [facility] [place] [address] Historical LMR Provider 09/02/17 Larisa Navarro MD [address] [address] Historical LMR Provider 09/02/17 Rocco Alvarenga DO [address] [place] [address] [email or web address] Geriatric Medicine 05/23/25 documented as of this encounter Additional Source Comments The information contained in this document represents components of the legal health record. It is not the complete legal health record.[facility]
--- OUTSIDE RECORDS SUMMARY | 2025-08-10 16:30 | XMS_ITS | Encounter Summary ---
Author Organization [facility] Address [address] [place] [address] Phone Care Team Providers Care Customer Training Specialist Name Role Phone Shay Webb MD Unavailable [phone] Jaiden Esparza DO Unavailable Larisa Navarro MD Unavailable [phone] Colt Steele [facility] Primary Care Provider [phone] Rao Arzate DO Unavailable Rocco Alvarenga DO Unavailable [phone] Encounter Details Date Type Department Care Team (Latest Contact Info) Description 05/07/2024 Transcribe Orders [facility] [address] [place] [address] Oralia Kaur MD [address] [facility] 3 [place], [place] [id number] Micturition frequency (Primary Dx) Social History Tobacco Use Types [...] documented as of this encounter Results * (ABNORMAL) Urine Culture (05/07/2024 3:19 PM EDT) Special Requests None 05/07/2024 3:19 PM EDT [facility] Urine Culture >100,000 colony forming units per mL MIXED VIRGILIO (3 OR MORE COLONY TYPES) Culture indicates contamination . Please resubmit if necessary.(A) 05/09/2024 10:10 AM EDT [facility] Urine (Urine) 05/07/2024 3:1 9 PM EDT 05/07/2024 3:27 PM EDT Oralia Kaur MD MICROBIOLOGY - GENERAL ORD ERABLES Final Result Performing Organization Address City/[facility]/ZIP Co de Phone Number [address] [address] * Urinalysis (05/07/2024 3:19 PM EDT) COLOR Yellow Yellow [facility] CLARITY Clear [facility] GLUCOSE Negative Negative [facility] BILI Negative Negative [facility] KETONES Negative Negative [facility] SPECIFIC GRAVITY <1.005 1.005 - 1.030 [facility] BLOOD Negative Negative [facility] PH 6.0 5.0 - 8.0 [facility] Protein-UA Negative Negative [facility] NITRITE Negative Negative [facility] Leukocyte esterase, ur Negative Negative [facility] Urine (Urine) 05/07/2024 3:1 9 PM EDT 05/07/2024 7:07 PM EDT Oralia Kaur MD URINE ORDERABLES Final Res ult Performing Organization Address City/[facility]/ZIP Co de Phone Number [address] [address] documented in this encounter Visit Diagnoses Diagnosis Micturition frequency- Primary Urinary frequency documented in this encounter Additional Health Concerns Assessment Noted Time PHQ-2 Depression Total Score: 0 04/19/20 22 12:42 PM EDT documented as of this encounter Care Teams Customer Training Specialist Relationship Specialty Start Date End Date Colt SteeleDANIELLE [address] [place] [address] PCP - General Family Medicine 10/22/22 Shay Webb MD [address] [address] & [address] [place] [address] [email or web address] Historical LMR Provider 09/02/17 Jaiden Esparza DO [address] [place] [address] Orthopedics & Sports Medicine, [place] [address] Historical LMR Provider 09/02/17 Larisa Navarro MD [address], [place] [address] Historical LMR Provider 09/02/17 Rao Arzate DO [address] [place] [address] Insurance Assigned Provider 02/21/24 11/22/24 Rocco Alvarenga DO 22 [place] [address] Geriatric Medicine 05/23/25 documented as of this encounter Additional Source Comments The information contained in this document represents components of the legal health record. It is not the complete legal health record.[facility]
--- OUTSIDE RECORDS SUMMARY | 2025-08-10 16:30 | XMS_ITS | Encounter Summary ---
Author Organization [facility] Address [address] [place] [address] Phone Care Team Providers Care Ruffling Hemmer Automatic Name Role Phone JonShay MD Unavailable [phone] Jaiden Esparza DO Unavailable Larisa Navarro MD Unavailable [phone] Colt Steele MIX CRUSHER OPERATOR Primary Care Provider [phone] Rocco Alvarenga DO Unavailable [phone] Encounter Details Date Type Department Care Team (Latest Contact Info) Description 04/21/2025 Transcribe Orders Virtual Department 30 [place] [address] Cedric Milton MD [address] [place] [id number] Low back pain, unspecified back pain laterality, [...] documented as of this encounter Care Teams Ruffling Hemmer Automatic Relationship Specialty Start Date End Date Colt Steele CNP 29 [facility] [place] [address] [email or web address] PCP - General Family Medicine 10/22/22 Jon, Shay Garcia MD [address] [address] [email or web address] Historical LMR Provider 09/02/17 Jaiden Esparza DO [address] [place] [address] Orthopedics & Sports Medicine, [facility] [place] [address] Historical LMR Provider 09/02/17 Larisa Navarro MD [address], [place] [address] Historical LMR Provider 09/02/17 Rocco Alvarenga DO 22 [place] [address] [email or web address] Geriatric Medicine 05/23/25 documented as of this encounter Additional Source Comments The information contained in this document represents components of the legal health record. It is not the complete legal health record.[facility]
--- OUTSIDE RECORDS SUMMARY | 2025-08-10 16:30 | XMS_ITS | Encounter Summary ---
Author Organization [facility] Address [address] [place] [address] Phone Care Team Providers Care Childcare Teacher Name Role Phone Shay Webb MD Unavailable [phone] Jaiden Esparza DO Unavailable Larisa Navarro MD Unavailable [phone] Colt Steele SKETCH ARTIST Primary Care Provider [phone] Rao Arzate DO Unavailable Rocco Alvarenga DO Unavailable [phone] Encounter Details Date Type Department Care Team (Late st Contact Info) Description 05/12/2024 Ancillary Orders [facility], X-Ray - Alexia [address] [place] [address] Cedric Milton MD [address] [place] [address] Fracture of superior pubic ramus, left, closed, initial encounter (Primary Dx) Social History Tobacco Use Types [...] documented as of this encounter Results * XR HIP 2 VW LEFT PLUS PELVIS (05/13/2024 11:57 AM EDT) Anatomical Region Laterality Modality Hip, Pelvis Computed Radiogr aphy 05/16/2024 1:13 AM EDT Impressions 05/16/2024 1:15 AM EDT 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 Moderate sacroiliac joint bony proliferative change. Narrative 05/16/2024 1:15 AM EDT XR HIP 2 VW LEFT PLUS PELVIS Referring clinician's provided indication for this examination in Epic: Fracture REQUESTED INDICATION: Fracture COMPARISON: XR HIP 2 VW LEFT PLUS PELVIS FINDINGS: PELVIS: Pelvic ring intact. No displaced fracture. Degenerative changes of the lower lumbar spine, sacroiliac joints, and pubic symphysis. Moderate sacroiliac joint bony proliferative change. Gluteal enthesopathy at the iliac crests. Partially visualized dextroconvex lumbar scoliosis. Partially visualized L4-5 fixation construct. RIGHT HIP: Mild to moderate joint space narrowing. Lateral acetabular bony proliferative change. Chondrocalcinosis. Gluteal enthesopathy at the greater trochanter. LEFT HIP: Moderate hip joint space narrowing. Lateral acetabular bony proliferative change. Chondrocalcinosis. Gluteal enthesopathy at the greater trochanter. Moderate sacroiliac joint Procedure Note Romana Ayers MD - 05/16/2024 XR HIP 2 VW LEFT PLUS PELVIS Referring clinician's provided indication for this examination in [facility]:Fracture REQUESTED INDICATION: Fracture COMPARISON: XR HIP 2 VW LEFT PLUS PELVIS FINDINGS: PELVIS: Pelvic ring intact. No displaced fracture. Degenerative changes ofthe lower lumbar spine, sacroiliac joints, and pubic symphysis. Moderatesacroiliac joint bony proliferative change. Gluteal enthesopathy at theiliac crests. Partially visualized dextroconvex lumbar scoliosis.Partially visualized L4-5 fixation construct. RIGHT HIP: Mild to moderate joint space narrowing. Lateral acetabular bonyproliferative change. Chondrocalcinosis. Gluteal enthesopathy at thegreater trochanter. LEFT HIP: Moderate hip joint space narrowing. Lateral acetabular bonyproliferative change. Chondrocalcinosis. Gluteal enthesopathy at thegreater trochanter. 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 Moderate sacroiliac joint bony proliferative change. us Cedric Milton MD IMG XR PELVIS Final Re sult documented in this encounter Visit Diagnoses Diagnosis Fracture of superior pubic ramus, left, closed, initial encounter- Primary Fracture of superior pubic ramus, left, closed, initial encounter documented in this encounter Additional Health Concerns Assessment Noted Time PHQ-2 Depression Total Score: 0 04/19/20 22 12:42 PM EDT documented as of this encounter Care Teams Childcare Teacher Relationship Specialty Start Date End Date Colt Steele CNP 29 [facility] [place] [address] [email or web address] PCP - General Family Medicine 10/22/22 JonShay MD [address] [place] [address] & [address] [place] [address] [email or web address] Historical LMR Provider 09/02/17 Jaiden Esparza DO [address] [place] [address] [facility] [place] [address] Historical LMR Provider 09/02/17 Larisa Navarro MD [address] [place] [address] Historical LMR Provider 09/02/17 Rao Arzate DO [address] [place] [address] [email or web address] Insurance Assigned Provider 02/21/24 11/22/24 Rocco Alvarenga DO [address] [place] [address] [email or web address] Geriatric Medicine 05/23/25 documented as of this encounter Additional Source Comments The information contained in this document represents components of the legal health record. It is not the complete legal health record.[facility]
--- OUTSIDE RECORDS SUMMARY | 2025-08-10 16:31 | XMS_ITS | Encounter Summary ---
Author Organization [facility] Address [address] [place] [address] Phone Care Team Providers Care Credit Collections Rep Name Role Phone JonShay MD Unavailable [phone] Jaiden Esparza DO Unavailable Larisa Navarro MD Unavailable [phone] Colt Steele RIPRAP PLACING SUPERVISOR Primary Care Provider [phone] Rocco Alvarenga DO Unavailable [phone] Reason for Visit * Reason Onset Date Comments Pre-op Visit 06/21/2025 [facility] + 07/13 + Pop k surgery Encounter Details Date Type Department Care Team (Late st Contact Info) Description 06/21/[address] [facility] 29 [place] [address] Colt Steele, RIPRAP PLACING SUPERVISOR 29 [place], [place] [id number] [email or web address] Pre-op Visit ([facility] + 07/13 + Back surgery) Social History Tobacco Use Types Packs/Day Years [...] PM EST documented as of this encounter Progress Notes * Santa Allen - 06/21/2025 12:54 PM EDT [facility] PEN Top Smart Phrases: Pre-op Appointment Request Type of Anesthesia: n/a Procedure / Surgery Type: Back Surgery Location of Procedure: [facility] Is EKG needed:YES/NO: yes Is Lab Work needed:YES/NO: yes Procedure Date: 07/13 Name of Surgeon (First, Last): Dr. Dempsey Name of person to contact with Pre-op info, including contact number: n/a Confirm you have informed the patient that the Pre-op Paperwork must be faxed to the office before the appt.:yes or no or NA: N/A [facility] CSS Agent (Please do not reply to this user, as this inbox is not monitored.) Thank you documented in this encounter Plan of Treatment Not on file documented as of this encounter Visit Diagnoses Not on filedocumented in this encounter Additional Health Concerns Assessment Noted Time PHQ-2 Depression Total Score: 0 04/19/20 22 12:42 PM EDT documented as of this encounter Care Teams Credit Collections Rep Relationship Specialty Start Date End Date Colt Steele CNP 29 [facility] [place] [address] [email or web address] PCP - General Family Medicine 10/22/22 JonShay MD [address] [facility] [address] & [address] [place] [address] [email or web address] Historical LMR Provider 09/02/17 Jaiden Esparza DO [address] [place] [address] Orthopedics & Sports Medicine, [facility] [place] [address] [email or web address] Historical LMR Provider 09/02/17 Larisa Navarro MD [address] [place] [address] Historical LMR Provider 09/02/17 Rocco Alvarenga DO [address] [place] [address] [email or web address] Geriatric Medicine 05/23/25 documented as of this encounter Additional Source Comments The information contained in this document represents components of the legal health record. It is not the complete legal health record.[facility]
--- OUTSIDE RECORDS SUMMARY | 2025-08-10 16:31 | XMS_ITS | Encounter Summary ---
Author Organization [facility] Address [address] [place] [address] Phone Care Team Providers Care Quality Improvement Engineer Name Role Phone Shay Webb MD Unavailable [phone] Jaiden Esparza DO Unavailable Larisa Navarro MD Unavailable [phone] Colt Steele DISTRICT ADMINISTRATOR Primary Care Provider [phone] Rao Arzate DO Unavailable Rocco Alvarenga DO Unavailable Encounter Details Date Type Department Care Team (Latest Contact Info) Description 02/12/2023 Transcribe Orders Virtual Department 30 [place] [address] Colt Peters, PSYCHOLOGIST [address] [place] [address] [email or web address] Radiculopathy, lumbar region (Primary Dx) Social History Tobacco Use Types [...] work, study, or receive health care? No 04/19/2022 Education Answer Date Recorded Are you interested in help w ith more adult education (for example, completing high school, GED, job training, learning the Dominican language, technical skills, or developing parenting skills)? No 04/19/2022 Food Answer Date Recorded Within the past 6 months we worried whether our food would run out before we got money to buy more. Never True 04/19/2022 Within the past 6 months the food we bought just didn't last and we didn't have enough money to get more. Never True Residential Stability Answer Date Recor ded What is your housing situation today? I have darryl head 04/19/2022 How many times have you move d in the past 12 months? Zero (I did not move) 04/19/2022 Paying for Meds Answer Date Recorded Do you have trouble paying for medicines? No 04/19/2022 Paying Utility Bills Answer Date Record ed Do you have trouble paying your heating or elect ricity bill? No 04/19/2022 Transportation Answer Date Recorded Has the lack of transportati on kept you from medical appointments or from getting medications? No 04/19/2022 Unemployment Answer Date Recorded Are you currently unemployed or working on a part-time or temporary basis, and looking for work? No 04/19/2022 Comments No Sex and Gender Information Value Date Recorded Sex Assigned at Female 01/05/2024 5:36 PM EST Legal Sex Female 5:40 PM EST Gender Identity Female 01/05/2024 5:36 PM EST Sexual Orientation Straight 01/05/2024 5: 36 PM EST documented as of this encounter Plan of Treatment Not on file documented as of this encounter Visit Diagnoses Diagnosis Radiculopathy, lumbar region- Primary Thoracic or lumbosacral neuritis or radiculitis, unspecified documented in this encounter Additional Health Concerns Infection Onset Date Last Indicated Resolved Time CoV-Risk 07/18/2023 07/18/2023 07/29/2023 1:22 AM EDT CoV-Risk 10/06/2023 10/06/2023 10/17/2023 1:22 AM EST Assessment Noted Time PHQ-2 Depression Total Score: 0 04/19/20 12:42 PM EDT documented as of this encounter Care Teams Quality Improvement Engineer Relationship Specialty Start Date End Date Colt Steele CNP [address] [place] [address] PCP - General Family Medicine 10/22/22 JonShay MD [address] [address] & [address] [place] [address] [email or web address] Historical LMR Provider 09/02/17 Jaiden Esparza DO [address] [place] [address] Orthopedics & Sports Medicine, [place] [address] Historical LMR Provider 09/02/17 Larisa Navarro MD [address] [address] Historical LMR Provider 09/02/17 Rao Arzate DO [address] [place] [address] Insurance Assigned Provider 02/21/24 11/22/24 Rocco Alvarenga DO [address] [place] [address] Geriatric Medicine 05/23/25 documented as of this encounter Additional Source Comments The information contained in this document represents components of the legal health record. It is not the complete legal health record.[facility]
--- OUTSIDE RECORDS SUMMARY | 2025-08-10 16:31 | XMS_ITS | Encounter Summary ---
Author Organization [facility] Address [address] [place] [address] Phone Care Team Providers Care Brake Drum Molder Name Role Phone Shay Webb MD Unavailable [phone] Jaiden Esparza DO Unavailable Larisa Navarro MD Unavailable [phone] Colt Steele [facility] Primary Care Provider [phone] Rao Arzate DO Unavailable Rocco Alvarenga DO Unavailable Encounter Details Date Type Department Care Team (Late st Contact Info) Description 01/05/2024 Procedure [facility] Scan - [address] [address] Social History Tobacco Use Types Packs/Day Years [...] high school, GED, job training, learning the [place] language, technical skills, or developing parenting skills)? No 04/19/2022 Food Answer Date Recorded Worried food would run out Not on file 05/12 Within the past 6 months the food we bought just didn't last and we didn't have enough money to get more. Never True 04/18 Residential Stability Answer Date Recor ded What is your housing situation today? I have darryl head 05/12/2023 How many times have you move [...] PM EST documented as of this encounter Functional Status * Calculated C-SSRS Risk Score (Lifetime/Recent) Answer Date of Assessment Author No Risk Indicated 01/05/2024 7:12 PM EST Nerissa Castillo RN * [place] Suicide Severity Rating Scale (Screener/Recent Self-Report) Question Answer Date of Assessment Author 1. Wish to be (Past 1 Month) No 01/05/2024 7:12 PM Nerissa Zaidi RN 2. Non-Specific Active Suicidal Thoughts (Past 1 Month) No 01/05/2024 7:12 PM EST Nerissa Arriaga RN 6. Suicidal Behavior (Lifetime) No 01/05/2024 7:12 PM EST Nerissa Arriaga RN documented as of this encounter Plan of Treatment Not on file documented as of this encounter Visit Diagnoses Not on filedocumented in this encounter Additional Health Concerns Assessment Noted Time PHQ-2 Depression Total Score: 0 04/19/20 22 12:42 PM EDT documented as of this encounter Care Teams Brake Drum Molder Relationship Specialty Start Date End Date Colt Steele CNP 29 [facility] [place] [address] PCP - General Family Medicine 10/22/22 Jon, Shay Garcia MD [address] [address] & [address] [place] [address] [email or web address] Historical LMR Provider 09/02/17 Jaiden Esparza DO [address] [place] [address] Orthopedics & Sports [place], [place] [address] Historical LMR Provider 09/02/17 Larisa Navarro MD [address] [place] [address] Historical LMR Provider 09/02/17 Rao Arzate DO [address] [place] [address] [email or web address] Insurance Assigned Provider 02/21/24 11/22/24 Rocco Alvarenga DO [address] [place] [address] [email or web address] Geriatric Medicine 05/23/25 documented as of this encounter Additional Source Comments The information contained in this document represents components of the legal health record. It is not the complete legal health record.[facility]
--- OUTSIDE RECORDS SUMMARY | 2025-08-10 16:31 | XMS_ITS | Encounter Summary ---
Author Organization [facility] Address [address] [place] [address] Phone Care Team Providers Care Information Systems Operator Name Role Phone Shay Webb MD Primary Care Provider Stanley Castro MD Unavailable Shay Webb MD Unavailable [phone] Jaiden Esparza DO Unavailable Larisa Navarro MD Unavailable [phone] Oziel Archibald MD Unavailable [phone] Larisa Treviño MD Primary Care Provid er Janny Zavala MD Primary Care Provider [phone] Colt Steele CNP Primary Care Provider [phone] Rao Arzate DO Unavailable Rocco Alvarenga DO Unavailable Encounter Details Date Type Department Care Team (Late st Contact Info) Description 08/24/2021 Procedure Pass [facility], [address] [id number] Social History Tobacco Use Types Packs/Day Years Used Date Smoking Tobacco: Never Smokeless Tobacco: Never Alcohol Use Standard Drinks/Week Comments Not Currently 0 (1 standard drink = 0.6 oz pur e alcohol) Comments No Sex and Gender Information Value [...] filedocumented in this encounter Additional Health Concerns Infection Onset Date Last Indicated Resolved Time CoV-Risk 07/18/2023 07/18/2023 07/29/2023 1:22 AM EDT CoV-Risk 10/06/2023 10/06/2023 10/17/2023 1:22 AM EST documented as of this encounter Care Teams Information Systems Operator Relationship Specialty Start Date End Date JonShay MD [address] [place] [address] & [address] [place] [address] [email or web address] PCP - General 05/17/14 03/25/22 Larisa Treviño MD [address] [place] [address] [email or web address] PCP - General Family Medicine 03/26/22 09/19/22 Janny Zavala MD [address] [place] [email or web address] PCP - General Family Medicine 10/03/22 10/21/22 Colt Steele CNP 29 [facility] [place] [address] [email or web address] PCP - General Family Medicine 10/22/22 Stanley Castro MD 22 [place] [address] [email or web address] Historical LMR Provider 09/02/17 11/24/21 Shay Webb MD 264 [facility] [address] & [address] [place] [address] [email or web address] Historical LMR Provider 09/02/17 Jaiden Esparza DO [address] [place] [address] Orthopedics & Sports Medicine, [place] [address] [email or web address] Historical LMR Provider 09/02/17 Larisa Navarro MD [address], [place] [address] Historical LMR Provider 09/02/17 Oziel Archibald MD 22 [place] [address] Historical LMR Provider 09/02/17 2 Rao Arzate DO 29 [facility] [place] [address] [email or web address] Insurance Assigned Provider 02/21/24 11/22/24 Rocco Alvarenga DO 22 [place] [address] [email or web address] Geriatric Medicine 05/23/25 documented as of this encounter Additional Source Comments The information contained in this document represents components of the legal health record. It is not the complete legal health record.[facility]
--- OUTSIDE RECORDS SUMMARY | 2025-08-10 16:31 | XMS_ITS | Encounter Summary ---
Author Organization [facility] Address [address] [place] [address] Phone Care Team Providers Care Hemstitcher Name Role Phone JonShay MD Unavailable [phone] Jaiden Esparza DO Unavailable [phone] Larisa Navarro MD Unavailable [phone] Larisa Treviño MD Primary Care Provid er Janny Zavala MD Primary Care Provider Colt Steele [facility] Primary Care Provider [phone] Rao Arzate DO Unavailable Rocco Alvarenga DO Unavailable Encounter Details Date Type Department Care Team (Late st Contact Info) Description 08/07/2022 Procedure Pass [facility], Ct Scan - [address] [id number] Social History Tobacco Use Types Packs/Day Years [...] high school, GED, job training, learning the [place] language, technical skills, or developing parenting skills)? [...] housing situation today? I have darryl sing 04/19/2022 How many times have you move [...] documented as of this encounter Care Teams Hemstitcher Relationship Specialty Start Date End Date Safarpour, Larisa Ila, MD [address] [address] [email or web address] PCP - General Family Medicine 03/26/22 09/19/22 Janny Zavala MD [address] [address] [email or web address] PCP - General Family Medicine 10/03/22 10/21/22 Colt Steele CNP 29 [place] [address] PCP - General Family Medicine 10/22/22 Shay Webb MD [address] [place] [address] & [address] [place] [address] [email or web address] Historical LMR Provider 09/02/17 Jaiden Esparza DO [address] [place] [address] Orthopedics & Sports Medicine, [place] [address] [email or web address] Historical LMR Provider 09/02/17 Larisa Navarro MD [address] [place] [address] Historical LMR Provider 09/02/17 Rao Arzate DO 29 [place] [address] [email or web address] Insurance Assigned Provider 02/21/24 11/22/24 Rocco Alvarenga DO 22 [place] [address] [email or web address] Geriatric Medicine 05/23/25 documented as of this encounter Additional Source Comments The information contained in this document represents components of the legal health record. It is not the complete legal health record.[facility]
--- OUTSIDE RECORDS SUMMARY | 2025-08-10 16:31 | XMS_ITS | Encounter Summary ---
Author Organization [facility] Address [address] [place] [address] Phone Care Team Providers Care Cylinder Devalver Name Role Phone Shay Webb MD Unavailable [phone] Jaiden Esparza DO Unavailable Larisa Navarro MD Unavailable [phone] Colt Steele [facility] Primary Care Provider [phone] Rao Arzate DO Unavailable Rocco Alvarenga DO Unavailable [phone] Encounter Details Date Type Department Care Team (Latest Contact Info) Description 01/16/2023 Transcribe Orders Virtual Department [address] [place] [address] Kristina Denise MD [address] [place] [address] Loss of height (Primary Dx) Social History Tobacco Use Types [...] high school, GED, job training, learning the [place] language, technical skills, or developing parenting skills)? [...] documented as of this encounter Results * BD DXA SPINE AND HIP WITH FOREARM (06/03/2024 3:40 PM EDT) Anatomical Region Laterality Modality Bone Density Bone Density 06/03/2024 3:36 PM EDT Impressions 06/07/2024 7:59 AM EDT Interpretation: Osteoporosis. Narrative 06/07/2024 7:59 AM EDT Referred By: KRISTINA DENISE Scanner: [employer](BHI) A with serial# of [id number] located at [facility] Bone Density Scan (DXA) 06/03/24 Details of prior DXA scans are available by clicking View Image BMD T- Z- Skeletal Site gm/cm2 score score BMD Change Since Prior Scan ------ ----- ----- PA Spine (L1 L2 L3) 1.020 0.00 2.80 -0.147 (-12.6%)* since 07/11/2021 Total Hip (Left) 0.672 -2.20 0.10 -0.108 (-13.8%)* since 07/11/2021 Femoral Neck (Left) 0.551 -2.70 -0.20 -0.070 (-11.3%)* since 07/11/2021 1/3 Radius (Left) 0.560 -2.10 N/A -0.110 (-16.4%)* since 07/11/2021 ------ ----- ----- * Denotes significant change when >= 0.022 g/cm2 for the spine, 0.027 g/cm2 for the total hip, 0.029 g/cm2 for the femoral neck, 0.023 g/cm2 for the forearm (1/3 radius). Interpretation: Osteoporosis. Technical Quality: The PA Spine scan was of marginal quality because of scoliosis (which can decrease or increase BMD) and sclerosis or fracture (which increase BMD). FRAX: A FRAX(r) score is not provided because the patient has osteoporosis, which is generally an indication for treatment. Additional Information: -World Health Organization criteria classify adults based on lowest T-score at PA spine, hip or forearm: Normal (T-score >= -1.0), Osteopenia (T-score between -1 and -2.5), or Osteoporosis (T-score <= -2.5). At [facility], T-scores are compared to peak bone density of a young white gender matched reference population. - For premenopausal women and men under the age of 50, Z-scores (comparison to age, gender, and ethnicity matched reference population) are used: Above expected range for age (Z-score >= 2.0), Within expected range of age (Z-score 1.9 to -1.9), or Below expected range for age (Z-score <= -2.0). - The Bone Health and Osteoporosis Foundation recommends that treatment be considered in men aged more than 50 years and in postmenopausal women with ANY of the following: Prior hip or vertebral fractures; T-score of <= -2.5 at the PA spine or hip; or 10 year fracture probability by FRAX of >= 3% for the hip or >= 20% for major osteoporotic fracture. - The FRAX algorithm (https://www.eriberto.ac.uk/FRAX/tool.aspx) is designed to predict 10-year fracture risk in treatment-naive adults between the ages of 40 and 90. It is not intended to be used in those receiving pharmacologic osteoporosis treatment. - Including race/ethnicity in the generation of T- or Z-scores or in the FRAX calculation is complicated, and currently undergoing active review to ensure that we can give patients the best information on their risk of fracture. -Some prior studies may not be compatible with our comparison software. -Click on View Full Report to see subsequent pages with images and prior bone density results. Reviewed By: Paresh Burk MD on 06/07/2024 07:59:10 Procedure Note Paresh Burk MD - 06/07/2024 Referred By: KRISTINA DENISE Scanner: [employer](BHI) A with serial# of [id number] located at [facility] Bone Density Scan (DXA) 06/03/24 Details of prior DXA scans are available by clicking View Image BMD T- Z- Skeletal Site gm/cm2 score score BMD Change Since Prior Scan ------ ----- PA Spine (L1 L2 L3) 1.020 0.00 2.80 -0.147 (-12.6%)* 07/11/2021 Total Hip (Left) 0.672 -2.20 0.10 -0.108 (-13.8%)* 07/11/2021 Femoral Neck (Left) 0.551 -2.70 -0.20 -0.070 (-11.3%)* 07/11/2021 1/3 Radius (Left) 0.560 -2.10 N/A -0.110 (-16.4%)* 07/11/2021 ------ ----- * Denotes significant change when >= 0.022 g/cm2 for the spine, 0.027g/cm2 for the total hip, 0.029 g/cm2 for the femoral neck, 0.023 g/cm2 for the forearm (1/3 radius). Interpretation: Osteoporosis. Technical Quality: The PA Spine scan was of marginal quality because of scoliosis (which can decrease or increase BMD) and sclerosis or fracture (which increase BMD). FRAX: A FRAX(r) score is not provided because the patient hasosteoporosis, which is generally an indication for treatment. Additional Information: -World Health Organization criteria classify adults based on lowestT-score at PA spine, hip or forearm: Normal (T-score >= -1.0), Osteopenia (T-score between -1 and -2.5), or Osteoporosis (T-score <= -2.5). At [facility], T-scores are compared to peak bone density of a young white gender matched reference population. - For premenopausal women and men under the age of 50, Z-scores(comparison to age, gender, and ethnicity matched reference population) are used:Above expected range for age (Z-score >= 2.0), Within expected range of age (Z-score 1.9 to -1.9), or Below expected range for age (Z-score <= -2.0). - The Bone Health and Osteoporosis Foundation recommends that treatment be considered in men aged more than 50 years and in postmenopausal women with ANY of the following: Prior hip or vertebral fractures; T-score of <= -2.5 at the PA spine or hip; or 10 year fracture probability by FRAX of >= 3%for the hip or >= 20% for major osteoporotic fracture. - The FRAX algorithm (https://www.eriberto.ac.uk/FRAX/tool.aspx) is designed to predict 10-year fracture risk in treatment-naive adultsbetween the ages of 40 and 90. It is not intended to be used in those receiving pharmacologic osteoporosis treatment. - Including race/ethnicity in the generation of T- or Z-scores or in the FRAX calculation is complicated, and currently undergoing active review to ensure that we can give patients the best information on their risk of fracture. -Some prior studies may not be compatible with our comparison software. -Click on View Full Report to see subsequent pages with images and prior bone density results. Reviewed By: Paresh Burk MD on 06/07/2024 07:59:10 IMPRESSION: Interpretation: Osteoporosis. Kristina Denise MD [facility] BD BONE DENSITY DEXA Final Result documented in this encounter Visit Diagnoses Diagnosis Loss of height- Primary Loss of height documented in this encounter Additional Health Concerns Infection Onset Date Last Indicated Resolved Time CoV-Risk 07/18/2023 07/18/2023 07/29/2023 1:22 AM EDT CoV-Risk 10/06/2023 10/06/2023 10/17/2023 1:22 AM EST Assessment Noted Time PHQ-2 Depression Total Score: 0 04/19/20 12:42 PM EDT documented as of this encounter Care Teams Cylinder Devalver Relationship Specialty Start Date End Date Colt Steele CNP 29 [facility] [place] [address] [email or web address] PCP - General Family Medicine 10/22/22 JonShay MD 264 [facility] [address] [place] [address] [email or web address] Historical LMR Provider 09/02/17 Jaiden Esparza DO 4 [facility] Orthopedics & Sports Medicine, [facility] [place] [place] [address] [email or web address] Historical LMR Provider 09/02/17 Larisa Navarro MD [address] [place] [address] Historical LMR Provider 09/02/17 Rao Arzate DO [address] [place] [address] Insurance Assigned Provider 02/21/24 11/22/24 Rocco Alvarenga DO 22 [place] [address] Geriatric Medicine 05/23/25 documented as of this encounter Additional Source Comments The information contained in this document represents components of the legal health record. It is not the complete legal health record.[facility]
--- OUTSIDE RECORDS SUMMARY | 2025-08-10 16:31 | XMS_ITS | Encounter Summary ---
Author Organization [facility] Address [address] [place] [address] Phone Care Team Providers Care Green Jobs Trainer Name Role Phone JonShay MD Unavailable [phone] Jaiden Esparza DO Unavailable Larisa Navarro MD Unavailable [phone] Colt Steele [facility] Primary Care Provider [phone] Rao Arzate DO Unavailable Rocco Alvarenga DO Unavailable Reason for Referral * MRI/CAT Scan - Closed Specialty Diagnoses / Procedures Referred By Contac t Referred To Contact Radiology Diagnoses IPMN (intraductal papillary mucinous neoplasm) Procedures MRI Cholangiopancreatography (MRCP) Jaime Woodward MD Phone: tel: fax: [email or web address] Referral ID Status Reason Start Date Expiration Date Visits Re quested Visits Authorized [id number] Closed 10/20/2023 1 1 Encounter Details Date Type Department Care Team (Latest Contact Info) Description 10/20/2023 Transcribe Orders Virtual Department [address] [place] [address] Jaime Woodward MD [address] [place] [address] [email or web address] IPMN (intraductal papillary mucinous neoplasm) (Primary Dx) Social History Tobacco Use Types [...] high school, GED, job training, learning the [place]vian language, technical skills, or developing parenting skills)? No 04/19/2022 Food Answer Date Recorded Worried food would run out Not on file 05/12 Within the past 6 months the food we bought just didn't last and we didn't have enough money to get more. Never True 04/18 Residential Stability Answer Date Recor ded What is your housing situation today? I have darrly sing 05/12/2023 How many times have you [...] computer) with a working camera? Yes 05/12/2023 Comments No Sex and Gender Information Value Date Recorded Sex Assigned at Female 01/05/2024 5:36 PM EST Legal Sex Female 5:40 PM EST Gender Identity Female 01/05/2024 5:36 PM EST Sexual Orientation Straight 01/05/2024 5: 36 PM EST documented as of this encounter Plan of Treatment Not on file documented as of this encounter Results * MRI CHOLANGIOPANCREATOGRAPHY (MRCP) WITH AND WITHOUT CONTRAST (11/15/2023 8:34 AM EST) Anatomical Region Laterality Modality Pancreas, Biliary Magnetic Reson ance 11/17/2023 9:07 AM EST Impressions 11/18/2023 6:07 AM EST No significant change in 3.0 cm tubular cystic structure in pancreatic tail compared to 04/13/2023. This could represent a branch-duct IPMN or segmental involvement of the main duct IPMN. Additional smaller branch-duct IPMNs without worrisome features are also unchanged. Narrative 11/18/2023 6:07 AM EST MRI CHOLANGIOPANCREATOGRAPHY (MRCP) WITH AND WITHOUT CONTRAST Referring clinician's provided indication for this examination in Epic: Outside Radiology Order; IPMN TECHNIQUE: Multiplanar MR imaging of the abdomen was performed using T1, T2, fat saturated, and diffusion weighted techniques. 2D and 3D MRCP sequences were performed. Dynamic multiphase imaging was also performed after administration of an intravenous gadolinium contrast agent. COMPARISON: MRI CHOLANGIOPANCREATOGRAPHY (MRCP) WITH AND WITHOUT CONTRAST FINDINGS: Lower Chest: Within normal limits. Liver: No global signal abnormality or suspicious focal lesion. Biliary: Bile duct caliber is within normal limits for postcholecystectomy state with mild central intrahepatic and extrahepatic bile duct prominence. No biliary filling defect. Spleen: No splenomegaly or suspicious focal lesion. Pancreas: No solid mass. Unchanged tubular cystic structure in the pancreatic tail measuring 3.0 cm in length and 0.7 cm transverse diameter, not definitely separate from the main pancreatic duct. Additional smaller cysts measuring up to 0.9 cm in the body are also unchanged. No internal enhancement/solid components. Adrenal Glands: No nodule. Kidneys/Ureters: No solid renal mass or hydronephrosis. Simple appearing bilateral cortical cysts. Bowel: Colonic diverticula. Peritoneum/Retroperitoneum: No abdominal free fluid or mass. Lymph Nodes: No lymphadenopathy. Vessels: No abdominal aortic aneurysm. Bones/Soft Tissues: No suspicious osseous lesion. Degenerative changes. Susceptibility artifact related to lower lumbar fusion hardware. Small fat- containing umbilical hernia. Procedure Note Marc Bull MD - 11/18/2023 MRI CHOLANGIOPANCREATOGRAPHY (MRCP) WITH AND WITHOUT CONTRAST Referring clinician's provided indication for this examination in Epic:Outside Radiology Order; IPMN TECHNIQUE: Multiplanar MR imaging of the abdomen was performed using T1,T2, fat saturated, and diffusion weighted techniques. 2D and 3D MRCPsequences were performed. Dynamic multiphase imaging was also performedafter administration of an intravenous gadolinium contrast agent. COMPARISON: MRI CHOLANGIOPANCREATOGRAPHY (MRCP) WITH AND WITHOUT [id number] FINDINGS: Lower Chest: Within normal limits. Liver: No global signal abnormality or suspicious focal lesion. Biliary: Bile duct caliber is within normal limits for postcholecystectomystate with mild central intrahepatic and extrahepatic bile ductprominence. No biliary filling defect. Spleen: No splenomegaly or suspicious focal lesion. Pancreas: No solid mass. Unchanged tubular cystic structure in thepancreatic tail measuring 3.0 cm in length and 0.7 cm transverse diameter,not definitely separate from the main pancreatic duct. Additional smallercysts measuring up to 0.9 cm in the body are also unchanged. No internalenhancement/solid components. Adrenal Glands: No nodule. Kidneys/Ureters: No solid renal mass or hydronephrosis. Simple appearingbilateral cortical cysts. Bowel: Colonic diverticula. Peritoneum/Retroperitoneum: No abdominal free fluid or mass. Lymph Nodes: No lymphadenopathy. Vessels: No abdominal aortic aneurysm. Bones/Soft Tissues: No suspicious osseous lesion. Degenerative changes.Susceptibility artifact related to lower lumbar fusion hardware. Smallfat-containing umbilical hernia. IMPRESSION: No significant change in 3.0 cm tubular cystic structure in pancreatictail compared to 04/13/2023. This could represent a branch-duct IPMN orsegmental involvement of the main duct IPMN. Additional smallerbranch-duct IPMNs without worrisome features are also unchanged. us Jaime Woodward MD IMG MR ABDOMEN Final Result documented in this encounter Visit Diagnoses Diagnosis IPMN (intraductal papillary mucinous neoplasm)- Primary Neoplasm of unspecified nature of digestive system IPMN (intraductal papillary mucinous neoplasm) Neoplasm of unspecified nature of digestive system documented in this encounter Additional Health Concerns Assessment Noted Time PHQ-2 Depression Total Score: 0 04/19/20 22 12:42 PM EDT documented as of this encounter Care Teams Green Jobs Trainer Relationship Specialty Start Date End Date Colt Steele CNP [address] [place] [address] PCP - General Family Medicine 10/22/22 Shay Webb MD [address] [address] [email or web address] Historical LMR Provider 09/02/17 Jaiden Esparza DO [address] [place] [address] Orthopedics & Sports Medicine, [place] [address] Historical LMR Provider 09/02/17 Larisa Navarro MD [address] [place] [address] Historical LMR Provider 09/02/17 Rao Arzate DO [address] [place] [address] Insurance Assigned Provider 02/21/24 11/22/24 Rocco Alvarenga DO [address] [place] [address] [email or web address] Geriatric Medicine 05/23/25 documented as of this encounter Additional Source Comments The information contained in this document represents components of the legal health record. It is not the complete legal health record.[facility]
--- OUTSIDE RECORDS SUMMARY | 2025-08-10 16:31 | XMS_ITS | Encounter Summary ---
Author Organization [facility] Address [address] [place] [address] Phone Care Team Providers Care Band Sawyer Name Role Phone Shay Webb MD Primary Care Provider Stanley Castro MD Unavailable Shay Webb MD Unavailable [phone] Jaiden Esparza DO Unavailable Larisa Navarro MD Unavailable [phone] Oziel Archibald MD Unavailable [phone] Larisa Treviño MD Primary Care Provid er Janny Zavala MD Primary Care Provider Colt Steele [facility] Primary Care Provider Rao Arzate DO Unavailable Rocco Alvarenga DO Unavailable [phone] Reason for Referral * MRI/CAT Scan - Closed Specialty Diagnoses / Procedures Referred By Contac t Referred To Contact Radiology Diagnoses Post-traumatic headache, not intractable, unspecified chronicity pattern Procedures MRI Brain Shay Webb MD Phone: tel: fax: mailto:[email or web address] Referral ID Status Reason Start Date Expiration Date Visits Re quested Visits Authorized [id number] Closed 08/24/2021 08/24/2022 1 1 Encounter Details Date Type Department Care Team (Latest Contact Info) Description 08/24/2021 Transcribe Orders Virtual Department 30 [place] [address] Shay Webb MD 264 [facility] 10 & [address] [place] [address] [email or web address] Left shoulder pain, unspecified chronicity (Primary Dx); Post-traumatic headache, not intractable, unspecified chronicity pattern Social History Tobacco Use Types Packs/Day Years [...] as of this encounter Results * MRI BRAIN WITHOUT CONTRAST (09/07/2021 8:29 PM EDT) Anatomical Region Laterality Modality Head Magnetic Resonan ce 09/08/2021 3:34 PM EDT Impressions 09/08/2021 4:02 PM EDT 1.No evidence of acute infarction, hemorrhage, or a mass lesion. Chronic changes as described above. Narrative 09/08/2021 4:02 PM EDT MRI BRAIN WITHOUT CONTRAST TECHNIQUE: Multi-sequence, multi-planar MRI of the brain was performed without intravenous contrast. COMPARISON: CT HEAD WITHOUT CONTRAST ; CT HEAD WO ; MR BRAIN C- FINDINGS: Brain Parenchyma: No evidence of acute infarct, mass lesion, or hemorrhage. There is prominence of ventricles and sulci likely representing age-related parenchymal volume loss. There is no evidence of focal or disproportionate volume loss involving any of the lobes to suggest a specific neurodegenerative process. There are scattered foci of T2/FLAIR hyperintensity in subcortical and periventricular white matter that likely represent chronic microangiopathic white matter ischemic changes in a patient of this age. The perimesencephalic cisterns are patent. A punctate focus of susceptibility within the left periventricular white matter likely represents a chronic microhemorrhage. A small focus of susceptibility is also noted within the right thalamus. Otherwise, there is no evidence of sulcal or parenchymal susceptibility within the visualized brain parenchyma to suggest an acute process. Ventricular System and Extra-Axial Spaces: There is no evidence of hydrocephalus, midline shift, or mass effect from any lesion. Extracranial Structures: Arterial flow voids in the skull base are present. There have been bilateral lens implants. The globes and orbits are otherwise unremarkable. The visualized temporal bone structures are normal. The mastoid air cells are clear. Procedure Note Montez Bravo MD, PhD - 09/08/2021 MRI BRAIN WITHOUT CONTRAST TECHNIQUE: Multi-sequence, multi-planar MRI of the brain was performed withoutintravenous contrast. COMPARISON: CT HEAD WITHOUT CONTRAST ; CT HEAD WO ;MR BRAIN C- FINDINGS: Brain Parenchyma: No evidence of acute infarct, mass lesion, orhemorrhage. There is prominence of ventricles and sulci likely representingage-related parenchymal volume loss. There is no evidence of focal ordisproportionate volume loss involving any of the lobes to suggest aspecific neurodegenerative process. There are scattered foci of T2/FLAIR hyperintensity in subcortical andperiventricular white matter that likely represent chronicmicroangiopathic white matter ischemic changes in a patient of this age. The perimesencephalic cisterns are patent. A punctate focus ofsusceptibility within the left periventricular white matter likelyrepresents a chronic microhemorrhage. A small focus of susceptibility isalso noted within the right thalamus. Otherwise, there is no evidence ofsulcal or parenchymal susceptibility within the visualized brainparenchyma to suggest an acute process. Ventricular System and Extra-Axial Spaces: There is no evidence ofhydrocephalus, midline shift, or mass effect from any lesion. Extracranial Structures: Arterial flow voids in the skull base arepresent. There have been bilateral lens implants. The globes and orbitsare otherwise unremarkable. The visualized temporal bone structures are normal. The mastoid air cells are clear. IMPRESSION: 1.No evidence of acute infarction, hemorrhage, or a mass lesion. Chronicchanges as described above. Shay Webb MD IMG MR HEAD/NECK Final Result * XR SHOULDER 2 VIEWS (LEFT) (08/24/2021 3:56 PM EDT) Anatomical Region Laterality Modality Shoulder Left Computed Radiogr aphy 08/24/2021 4:11 PM EDT Impressions 08/24/2021 4:13 PM EDT 1.Nondisplaced distal clavicle fracture of indeterminate age. 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 Narrative 08/24/2021 4:13 PM EDT HISTORY: As above. COMPARISON: 09/01/2018. LEFT SHOULDER RADIOGRAPH FINDINGS: 4 images obtained. Stable osteopenia. New nondisplaced fracture of the distal clavicle. No malalignment. Joint spaces are preserved. No destructive or suspicious bone lesions. Stable AC joint and glenohumeral joint and rotator cuff soft tissue calcification. Imaged left lung is clear. Procedure Note Daniel Baldears MD - 08/24/2021 HISTORY: As above. COMPARISON: 09/01/2018. LEFT SHOULDER RADIOGRAPH FINDINGS: 4 images obtained. Stable osteopenia. New nondisplaced fracture of the distal clavicle. Nomalalignment. Joint spaces are preserved. No destructive or suspiciousbone lesions. Stable AC joint and glenohumeral joint and rotator cuff softtissue calcification. Imaged left lung is clear. IMPRESSION: 1.Nondisplaced distal clavicle fracture of indeterminate age. 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 Shay Webb MD IMG XR UPPER EXTREMITY Final Re sult documented in this encounter Visit Diagnoses Diagnosis Left shoulder pain, unspecified chronicity- Primary Post-traumatic headache, not intractable, unspecified chronicity pattern Left shoulder pain, unspecified chronicity Post-traumatic headache, not intractable, unspecified chronicity pattern documented in this encounter Additional Health Concerns Infection Onset Date Last Indicated Resolved Time CoV-Risk 07/18/2023 07/18/2023 07/29/2023 1:22 AM EDT CoV-Risk 10/06/2023 10/06/2023 10/17/2023 1:22 AM EST documented as of this encounter Care Teams Band Sawyer Relationship Specialty Start Date End Date Jon, Shay Garcia MD [address] [place] [address] [address] [place] [address] [email or web address] PCP - General 05/17/14 03/25/22 Larisa Treviño MD [address] [place] [address] [email or web address] PCP - General Family Medicine 03/26/22 09/19/22 Janny Zavala MD [address] [place] [address] [email or web address] PCP - General Family Medicine 10/03/22 10/21/22 Colt Steele CNP 29 [place] [address] PCP - General Family Medicine 10/22/22 Stanley Castro MD [address] [place] [address] [email or web address] Historical LMR Provider 09/02/17 11/24/21 Shay Webb MD [address] [address] & [address] [place] [address] [email or web address] Historical LMR Provider 09/02/17 Jaiedn Esparza DO [address] [place] [address] Orthopedics [facility] Sports Medicine, [place] [address] [email or web address] Historical LMR Provider 09/02/17 Larisa Navarro MD [address], [place] [address] Historical LMR Provider 09/02/17 Oziel Archibald MD [address] [place] [address] Historical LMR Provider 09/02/17 2 Rao Arzate DO [address] [place] [address] [email or web address] Insurance Assigned Provider 02/21/24 11/22/24 Rocco Alvarenga DO 22 [place] [address] [email or web address] Geriatric Medicine 05/23/25 documented as of this encounter Additional Source Comments The information contained in this document represents components of the legal health record. It is not the complete legal health record.[facility]
--- OUTSIDE RECORDS SUMMARY | 2025-08-10 16:31 | XMS_ITS | Encounter Summary ---
Author Organization [facility] Address [address] [place] [address] Phone Care Team Providers Care Photographer Apprentice Lithographic Name Role Phone Shay Webb MD Primary Care Provider Stanley Castro MD Unavailable Shay Webb MD Unavailable [phone] Jaiden Esaprza DO Unavailable Larisa Navarro MD Unavailable [phone] Oziel Archibald MD Unavailable [phone] Larisa Treviño MD Primary Care Provid er Janny Zavala MD Primary Care Provider Colt Steele CNP Primary Care Provider [phone] Rao Arzate DO Unavailable Rocco Alvarenga DO Unavailable Encounter Details Date Type Department Care Team (Latest Contact Info) Description 10/10/2021 Transcribe Orders [facility] [address] [phone] Shay Webb MD [address] [place] [address] 10 & 12 [place] [address] [email or web address] Hypertension, unspecified type (Primary Dx) Social History Tobacco Use [...] as of this encounter Results * (ABNORMAL) Basic metabolic panel (10/10/2021 8:31 AM EST) SODIUM 128(L) 133 - 146 mmol/L [facility] CHLORIDE 90(L) 96 - 108 mmol/L [facility] POTASSIUM 4.4 3.3 - 5.1 mmol/L [facility] CO2 27 21 - 35 mmol/L [facility] BUN 11 6 - 19 mg/dL [facility] CREATININE 0.70 0.5 - 1.5 mg/dL [facility] GLUCOSE 91 70 - 99 mg/dL [facility] CALCIUM 9.5 8.4 - 10.3 mg/dL [facility] EGFR 80 >59 mL/min/1.7 3m2 [facility] Comment:Estimated glomerular filtration rate calculated using the CKD-EPI equation. ANION GAP 15 10 - 20 mmol/L [facility] Blood 10/10/2021 8:31 AM EST 10/10/2021 8:35 AM EST us Shay Webb MD LAB BLOOD ORDERABLES Final Resu lt [facility] 30 [place] [address] documented in this encounter Visit Diagnoses Diagnosis Hypertension, unspecified type- Primary documented in this encounter Additional Health Concerns Infection Onset Date Last Indicated Resolved Time CoV-Risk 07/18/2023 07/18/2023 07/29/2023 1:22 AM EDT CoV-Risk 10/06/2023 10/06/2023 10/17/2023 1:22 AM EST documented as of this encounter Care Teams Photographer Apprentice Lithographic Relationship Specialty Start Date End Date Shay Webb MD [address] [address] & [address] [place] [address] [email or web address] PCP - General 05/17/14 03/25/22 Larisa Treviño MD [address] [address] [email or web address] PCP - General Family Medicine 03/26/22 09/19/22 Janny Zavala MD [address] [place] [address] [email or web address] PCP - General Family Medicine 10/03/22 10/21/22 Colt Steele CNP 29 [facility] [place] [address] [email or web address] PCP - General Family Medicine 10/22/22 Stanley Castro MD [address] [place] [address] [email or web address] Historical LMR Provider 09/02/17 11/24/21 Shay Webb MD [address] [place] [address] & [address] [place] [address] [email or web address] Historical LMR Provider 09/02/17 Jaiden Esparza DO [address] [place] [address] Orthopedics & Sports Medicine, [place] [address] Historical LMR Provider 09/02/17 Larisa Navarro MD [address], [place] [address] Historical LMR Provider 09/02/17 Oziel Archibald MD 22 [place] [address] Historical LMR Provider 09/02/17 2 Rao Arzate DO [address] [place] [address] Insurance Assigned Provider 02/21/24 11/22/24 Rocco Alvarenga DO 22 [place] [address] Geriatric Medicine 05/23/25 documented as of this encounter Additional Source Comments The information contained in this document represents components of the legal health record. It is not the complete legal health record.[facility]
--- OUTSIDE RECORDS SUMMARY | 2025-08-10 16:31 | XMS_ITS | Encounter Summary ---
Author Organization [facility] Address [address] [place] [address] Phone Care Team Providers Care Chemical Plant Worker Name Role Phone Shay Webb MD Unavailable [phone] Jaiden Esparza DO Unavailable Larisa Navarro MD Unavailable [phone] Colt Steele NURSING ADMIN Primary Care Provider [phone] Rocco Alvarenga DO Unavailable [phone] Reason for Visit * Reason Comments Medication Refill Encounter Details Date Type Department Care Team (Late st Contact Info) Description 06/29/2025 Refill [facility] 29 [place], [place] [phone] Colt Steele, NURSING ADMIN 29 [place] [address] [email or web address] Medication Refill Social History Tobacco Use Types Packs/Day Years [...] as of this encounter Visit Diagnoses Diagnosis Chronic insomnia Insomnia, unspecified documented in this encounter Additional Health Concerns Assessment Noted Time PHQ-2 Depression Total Score: 0 04/19/20 12:42 PM EDT documented as of this encounter Care Teams Chemical Plant Worker Relationship Specialty Start Date End Date Colt Steele CNP 29 [facility] [place] [address] [email or web address] PCP - General Family Medicine 10/22/22 Shay Webb MD [address] [address] & [address] [place] [address] [email or web address] Historical LMR Provider 09/02/17 Jaiden Esparza DO [address] [place] [address] Orthopedics & Sports Medicine, [place] [address] Historical LMR Provider 09/02/17 Larisa Navarro MD [address] [place] [address] Historical LMR Provider 09/02/17 Rocco Alvarenga DO 22 [place] [address] Geriatric Medicine 05/23/25 documented as of this encounter Additional Source Comments The information contained in this document represents components of the legal health record. It is not the complete legal health record.[facility]
--- OUTSIDE RECORDS SUMMARY | 2025-08-10 16:31 | XMS_ITS | Encounter Summary ---
Author Organization [facility] Address [address] [place] [address] Phone Care Team Providers Care Geophysical Prospecting Permit Agent Name Role Phone Shay Webb MD Unavailable [phone] Jaiden Esparza DO Unavailable [phone] Larisa Navarro MD Unavailable [phone] Colt Steele [facility] Primary Care Provider [phone] Rao Arzate DO Unavailable Rocco Alvarenga DO Unavailable [phone] Encounter Details Date Type Department Care Team (Late st Contact Info) Description 10/20/2023 Procedure Pass [facility], [address] [address] Social History Tobacco Use Types Packs/Day Years [...] high school, GED, job training, learning the Georgian language, technical skills, or developing parenting skills)? [...] documented as of this encounter Care Teams Geophysical Prospecting Permit Agent Relationship Specialty Start Date End Date Colt Steele CNP 29 [facility] [place] [address] [email or web address] PCP - General Family Medicine 10/22/22 Shay Webb MD 264 [facility] [address] [place] [address] [email or web address] Historical LMR Provider 09/02/17 Jaiden Esparza DO [address] [place] [address] Orthopedics & Sports Medicine, [facility] [place] [address] Historical LMR Provider 09/02/17 Larisa Navarro MD [address] [place] [address] Historical LMR Provider 09/02/17 Rao Arzate DO 29 [place] [address] Insurance Assigned Provider 02/21/24 11/22/24 Rocco Alvarenga DO 22 [place] [address] Geriatric Medicine 05/23/25 documented as of this encounter Additional Source Comments The information contained in this document represents components of the legal health record. It is not the complete legal health record.[facility]
--- OUTSIDE RECORDS SUMMARY | 2025-08-10 16:31 | XMS_ITS | Encounter Summary ---
Author Organization [facility] Address [address] [place] [address] Phone Care Team Providers Care Fac Engineer Name Role Phone JonShay MD Unavailable [phone] Jaiden Esparza DO Unavailable Larisa Navarro MD Unavailable [phone] Colt Steele [facility] Primary Care Provider [phone] Rocco Alvarenga DO Unavailable [phone] Reason for Referral * MRI/CAT Scan - Closed Specialty Diagnoses / Procedures Referred By Contac t Referred To Contact Radiology Diagnoses IPMN (intraductal papillary mucinous neoplasm) Procedures MRI Cholangiopancreatography (MRCP) Jaime Woodward MD Phone: tel: fax: [email or web address] Referral ID Status Reason Start Date Expiration Date Visits Re quested Visits Authorized [id number] Closed 01/17/2025 01/17/2026 1 1 Encounter Details Date Type Department Care Team (Latest Contact Info) Description 01/17/2025 Transcribe Orders Virtual Department 30 [place] [address] Jaime Woodward MD [address] [address] [email or web address] IPMN (intraductal papillary mucinous neoplasm) (Primary Dx) [...] MRI CHOLANGIOPANCREATOGRAPHY (MRCP) WITH AND WITHOUT CONTRAST (03/23/2025 11:53 AM EDT) Anatomical Region Laterality Modality Pancreas, Biliary Magnetic Reson ance 03/28/2025 1:03 PM EDT Impressions 03/28/2025 1:15 PM EDT 1. Tubulocystic structure of the pancreatic tail is similar to May 2022. Other small unilocular cystic lesions of the pancreatic body and head are similar to May 2022. None of these have enhancing components or other suspicious features. Narrative 03/28/2025 1:15 PM EDT MRI CHOLANGIOPANCREATOGRAPHY (MRCP) WITH AND WITHOUT CONTRAST INDICATION: Pancreatic lesion. IPMN TECHNIQUE: Multiplanar MR imaging of the abdomen was performed using T1, T2, fat saturated, and diffusion weighted techniques. 2D and 3D MRCP sequences were performed. Dynamic multiphase imaging was also performed after administration of an intravenous gadolinium contrast agent. COMPARISON: MRI abdomen from October 2023. MRI abdomen from May 2022. FINDINGS: Lower Chest: No effusion. Liver: No global signal abnormality or no new focal lesion. Biliary: Unchanged prominent intrahepatic and extrahepatic bile ducts after cholecystectomy. No choledocholithiasis. Spleen: Normal. Pancreas: No solid mass or other abnormal enhancement. Unchanged tubulocystic structure in the tail measuring up to 0.7 cm caliber which could be segmental dilatation of the main pancreatic duct or a separate lesion. Other small cystic foci, including a 9 mm unilocular T2 hyperintense lesion in the body (3:21) are also unchanged. Adrenal Glands: No nodule. Kidneys/Ureters: Both kidneys have small benign cysts. No hydronephrosis. Bowel: No abnormal dilatation. Colonic diverticulosis. Peritoneum/Retroperitoneum: Trace free intraperitoneal fluid in the low pelvis. Lymph Nodes: No adenopathy. Vessels: No AAA. Bones/Soft Tissues: No suspicious bone lesion. Postoperative findings in the spine. Scoliosis. Trace joint effusion of the left hip. Procedure Note Jamie Hernandez MD - 03/28/2025 MRI CHOLANGIOPANCREATOGRAPHY (MRCP) WITH AND WITHOUT CONTRAST INDICATION: Pancreatic lesion. IPMN TECHNIQUE: Multiplanar MR imaging of the abdomen was performed using T1,T2, fat saturated, and diffusion weighted techniques. 2D and 3D MRCPsequences were performed. Dynamic multiphase imaging was also performedafter administration of an intravenous gadolinium contrast agent. COMPARISON: MRI abdomen from October 2023. MRI abdomen from May 2022. FINDINGS: Lower Chest: No effusion. Liver: No global signal abnormality or no new focal lesion. Biliary: Unchanged prominent intrahepatic and extrahepatic bile ductsafter cholecystectomy. No choledocholithiasis. Spleen: Normal. Pancreas: No solid mass or other abnormal enhancement. Unchangedtubulocystic structure in the tail measuring up to 0.7 cm caliber whichcould be segmental dilatation of the main pancreatic duct or a separatelesion. Other small cystic foci, including a 9 mm unilocular H0cziyvxirhnch lesion in the body (3:21) are also unchanged. Adrenal Glands: No nodule. Kidneys/Ureters: Both kidneys have small benign cysts. Nohydronephrosis. Bowel: No abnormal dilatation. Colonic diverticulosis. Peritoneum/Retroperitoneum: Trace free intraperitoneal fluid in the lowpelvis. Lymph Nodes: No adenopathy. Vessels: No AAA. Bones/Soft Tissues: No suspicious bone lesion. Postoperative findings inthe spine. Scoliosis. Trace joint effusion of the left hip. IMPRESSION: 1. Tubulocystic structure of the pancreatic tail is similar to May 2022.Other small unilocular cystic lesions of the pancreatic body and head aresimilar to May 2022. None of these have enhancing components or othersuspicious features. us Jaime Woodward MD IMG MR ABDOMEN [...] documented as of this encounter Care Teams Fac Engineer Relationship Specialty Start Date End Date Colt Steele CNP 29 [facility] [place] [address] [email or web address] PCP - General Family Medicine 10/22/22 JonShay MD [address] [address] & [address] [place] [address] [email or web address] Historical LMR Provider 09/02/17 Jaiden Esparza DO 4 [facility] Orthopedics & Sports Medicine, [facility] [place] [address] Historical LMR Provider 09/02/17 Larisa Navarro MD [address] [place] [address] Historical LMR Provider 09/02/17 Rocco Alvarenga DO 22 [place] [address] Geriatric Medicine 05/23/25 documented as of this encounter Additional Source Comments The information contained in this document represents components of the legal health record. It is not the complete legal health record.[facility]
--- OUTSIDE RECORDS SUMMARY | 2025-08-10 16:31 | XMS_ITS | Encounter Summary ---
Author Organization [facility] Address [address] [place] [address] Phone Care Team Providers Care Cane Flume Watchman Name Role Phone Shay Webb MD Unavailable [phone] Jaiden Esparza DO Unavailable [phone] Larisa Navarro MD Unavailable [phone] Colt Steele [facility] Primary Care Provider [phone] Rao Arzate DO Unavailable Rocco Alvarenga DO Unavailable Encounter Details Date Type Department Care Team (Late st Contact Info) Description 07/18/2023 Procedure Pass [facility], Ct Scan - [address] [address] Social History Tobacco Use Types Packs/Day Years [...] high school, GED, job training, learning the Malagasy language, technical skills, or developing parenting skills)? [...] Date of Assessment Author No Risk Indicated 07/18/2023 11:21 AM Celena Staton RN * [place] Suicide Severity Rating Scale (Screener/Recent Self-Report) Question Answer Date of Assessment Author 1. Wish to be (Past 1 Month) No 07/18/2023 11:21 AM Celena Staton RN 2. Non-Specific Active Suici nathalie Thoughts (Past 1 Month) No 07/18/2023 11:21 AM EDT Loreta Gillette RN 6. Suicidal Behavior (Lifetime) No 11:21 AM EDT Celena Gillette RN documented as of this encounter Plan [...] documented as of this encounter Care Teams Cane Flume Watchman Relationship Specialty Start Date End Date Colt Steele CNP [address] [place] [address] PCP - General Family Medicine 10/22/22 JonShay MD [address] [address] [email or web address] Historical LMR Provider 09/02/17 Jaiden Esparza DO [address] [place] [address] Orthopedics & Sports Medicine, [place] [address] Historical LMR Provider 09/02/17 Larisa Navarro MD [address], [place] [address] Historical LMR Provider 09/02/17 Rao Arzate DO [address] [place] [address] Insurance Assigned Provider 02/21/24 11/22/24 Rocco Alvarenga DO [address] [place] [address] [email or web address] Geriatric Medicine 05/23/25 documented as of this encounter Additional Source Comments The information contained in this document represents components of the legal health record. It is not the complete legal health record.[facility]
--- OUTSIDE RECORDS SUMMARY | 2025-08-10 16:31 | XMS_ITS | Encounter Summary ---
Author Organization [facility] Address [address] [place] [address] Phone Care Team Providers Care Family Development Specialist Name Role Phone Shay Webb MD Unavailable [phone] Jaiden Esparza DO Unavailable Larisa Navarro MD Unavailable [phone] Colt Steele [facility] Primary Care Provider [phone] Rao Arzate DO Unavailable Rocco Alvarenga DO Unavailable Encounter Details Date Type Department Care Team (Late st Contact Info) Description 07/18/2023 Procedure Pass [facility], Ct Scan - [address] [address] Social History Tobacco Use Types Packs/Day Years [...] high school, GED, job training, learning the Macedonian language, technical skills, or developing parenting skills)? [...] 07/18/2023 11:21 AM Celena Staton RN * [place] Suicide Severity Rating Scale (Screener/Recent Self-Report) Question [...] documented as of this encounter Care Teams Family Development Specialist Relationship Specialty Start Date End Date Colt Steele CNP [address] [place] [address] PCP - General Family Medicine 10/22/22 JonShay MD [address] [address] [email or web address] Historical LMR Provider 09/02/17 Jaiden Esparza DO [address] [place] [address] Orthopedics & Sports Medicine, [place] [address] Historical LMR Provider 09/02/17 Larisa Navarro MD [address], [place] [address] Historical LMR Provider 09/02/17 Rao Arzate DO [address] [place] [address] Insurance Assigned Provider 02/21/24 11/22/24 Rocco Alvarenga DO [address] [place] [address] [email or web address] Geriatric Medicine 05/23/25 documented as of this encounter Additional Source Comments The information contained in this document represents components of the legal health record. It is not the complete legal health record.[facility]
--- OUTSIDE RECORDS SUMMARY | 2025-08-10 16:31 | XMS_ITS | Encounter Summary ---
Author Organization [facility] Address [address] [place] [address] Phone Care Team Providers Care Mainspring Torque Tester Name Role Phone Shay Webb MD Primary Care Provider Stanley Castro MD Unavailable Shay Webb MD Unavailable [phone] Jaiden Esparza DO Unavailable Larisa Navarro MD Unavailable [phone] Oziel Archibald MD Unavailable [phone] Larisa Treviño MD Primary Care Provid er Janny Zavala MD Primary Care Provider Colt Steele [facility] Primary Care Provider Rao Arzate DO Unavailable Rocco Alvarenga DO Unavailable [phone] Reason for Referral * Physical Therapy (Routine) - Closed Specialty Diagnoses / Procedures Referred By Contac t Referred To Contact Physical Therapy Diagnoses Encounter for rehabilitation System, Provider Not In, PhD [place] [address] [place] [address] Phone: tel: Referral ID Status Reason Start Date Expiration Date Visits Re quested Visits Authorized [id number] Closed 07/11/2021 11/16/2022 41 41 Encounter Details Date Type Department Care Team (Latest Contact Info) Description 07/11/2021 Transcribe Orders [facility] [address] [place] [address] System, Provider Not In, PhD Partners [address] [address] Encounter for rehabilitation (Primary Dx) Social History Tobacco Use Types [...] on file documented as of this encounter Procedures Procedure Name Priority Date/Time Associated Diagnosis Comments AMB REFERRAL TO [facility] PHYSICAL THERAPY Routine 07/30/2021 11:30 AM EDT Encounter for rehabilitation documented in this encounter Results * Ambulatory referral to [facility] Physical Therapy (07/30/2021 11:30 AM EDT) Other us Provider Not In System PhD AMB [facility] REFERRALS Fin al Result documented in this encounter Visit Diagnoses Diagnosis Encounter for rehabilitation- Primary documented in this encounter Additional Health Concerns Infection Onset Date Last Indicated Resolved Time CoV-Risk 07/18/2023 07/18/2023 07/29/2023 1:22 AM EDT CoV-Risk 10/06/2023 10/06/2023 10/17/2023 1:22 AM EST documented as of this encounter Care Teams Mainspring Torque Tester Relationship Specialty Start Date End Date Jon, Shay Garcia MD [address] [place] [address] [address] [place] [address] [email or web address] PCP - General 05/17/14 03/25/22 Larisa Treviño MD [address] [address] [email or web address] PCP - General Family Medicine 03/26/22 09/19/22 Janny Zavala MD [address] [address] [email or web address] PCP - General Family Medicine 10/03/22 10/21/22 Colt Steele CNP [address] [place] [address] [place] [address] [email or web address] PCP - General Family Medicine 10/22/22 Stanley Castro MD [address] [place] [address] [email or web address] Historical LMR Provider 09/02/17 11/24/21 Shay Webb MD [address] [place] [address] & [address] [place] [address] [email or web address] Historical LMR Provider 09/02/17 Jaiden Esparza DO [address] [place] [address] Orthopedics & Sports Medicine, [facility] [place] [address] [email or web address] Historical LMR Provider 09/02/17 Larisa Navarro MD [address] [place] [address] Historical LMR Provider 09/02/17 Oziel Archibald MD [address] [place] [address] Historical LMR Provider 09/02/17 2 Rao Arzate DO [address] [place] [address] [email or web address] Insurance Assigned Provider 02/21/24 11/22/24 Rocco Alvarenga DO [address] [place] [address] Geriatric Medicine 05/23/25 documented as of this encounter Additional Source Comments The information contained in this document represents components of the legal health record. It is not the complete legal health record.[facility]
--- OUTSIDE RECORDS SUMMARY | 2025-08-10 16:31 | XMS_ITS | Encounter Summary ---
Author Organization [facility] Address [address] [place] [address] Phone Care Team Providers Care Deputy Fire Marshal Name Role Phone JonShay MD Unavailable [phone] Jaiden Esparza DO Unavailable Larisa Navarro MD Unavailable [phone] Colt Steele MEDICAL NURSE Primary Care Provider [phone] Rocco Alvarenga DO Unavailable Reason for Visit * Reason Onset Date Comments Nausea 06/09/2025 Encounter Details Date Type Department Care Team (Late st Contact Info) Description 06/09/2025 Nurse Triage [address] [address] Colt Steele, MEDICAL NURSE [address] [place] [address] [email or web address] Nausea Social History Tobacco Use Types Packs/Day Years [...] as of this encounter Progress Notes * Chanda Gates RN - 06/09/2025 4:43 PM EDT Spoke with Pratima, updated her on prescription for zofran being sent to [facility]. Will call back ifshe is not improving. Also asked about handi-cap placalexa, she has filled out the form and is wondering if PCP is okay signing it. * Colt Steele CNP - 06/09/2025 4:39 PM EDT Ok for Zofran, rx sent. Use sparingly. Follow-up if no improvement and/or worsening symptoms * Chanda Gates RN - 06/09/2025 4:30 PM EDT Spoke with Pratima, patient's daughter (on reg and consent). Reports Reji has had nausea all day, and diarrhea. Is able to eat small bland foods, and some fluids. Denies any fevers, abdominal pain or vomiting. Reports she has had zofran before, because she gets severe nausea. Is asking for a prescription to be called into [facility] since they can't deliver after 6 pm. Nurse Triage Encounter Note Reason for Triage Pratima Lara contacted office for Nausea Call Disposition See Within 2 Weeks In Office Disposition Comments: Patient/caregiver understands and will follow disposition: Yes Care Advice Patient/Caregiver understands and will follow care advice?: Yes, plans to follow advice [id number] Chanda Gaets RN [facility] Jun 09, 2025 04:34 PM Care Advice CLEAR FLUIDS: * Take clear fluids in small amounts until the nausea is resolved for 8 hours: * Sip water or rehydration liquid (Gatorade or Powerade) * Other options: 1/2 strength flat lemon-hoonah soda or cortez bernabe SOLIDS: * Gradually return to a normal diet. Start with saltine crackers, white bread, rice, mashed potatoes, cereal, apple sauce etc. Patient will call back with additional questions or if symptoms change or worsen Chanda Gates RN Reason for Disposition and Assessment Reason for Disposition Nausea is a chronic symptom (recurrent or ongoing AND present > 4 weeks) Protocols used: [id number] * Paresh Chisholm - 06/09/2025 3:54 PM EDT Yellow Call Intake Call Back Number: (if not patient, name/relationship) Pratima [phone] Yellow Symptom: Triage (Yellow call - severe nausea today with diarrhea. ) When did these symptoms start? today Have you ever experienced these symptoms before? YES Any additional information: Want to know if ondansetron (ZOFRAN) 4 MG tablet is appropriate. Route Normal Priority Encounter to senior materials planner Reason for Call = TRIAGE Comment = YELLOW + symptom Scripting: We're creating a note and routing it to your care team. They will contact you as soon as possible. If your symptoms worsen or change before your visit, please call back. documented in this encounter Plan of Treatment Not on file documented as of this encounter Visit Diagnoses Diagnosis Nausea- Primary Nausea alone documented in this encounter Additional Health Concerns Assessment Noted Time PHQ-2 Depression Total Score: 0 04/19/20 22 12:42 PM EDT documented as of this encounter Care Teams Deputy Fire Marshal Relationship Specialty Start Date End Date Colt Steele CNP [address] [facility] [place] [address] PCP - General Family Medicine 10/22/22 Shay Webb MD 264 [facility] [address] [place] [address] [email or web address] Historical LMR Provider 09/02/17 Jaiden Esparza DO [address] [place] [address] Orthopedics & Sports Medicine, [place] [address] [email or web address] Historical LMR Provider 09/02/17 Larisa Navarro MD [address] [place] [address] Historical LMR Provider 09/02/17 Rocco Alvarenga DO [address] [place] [address] [email or web address] Geriatric Medicine 05/23/25 documented as of this encounter Additional Source Comments The information contained in this document represents components of the legal health record. It is not the complete legal health record.[facility]
--- OUTSIDE RECORDS SUMMARY | 2025-08-10 16:32 | XMS_ITS | Encounter Summary ---
Author Organization [facility] Address [address] [place] [address] [place] [address] Phone Care Team Providers Care Flight Software Test Engineer Name Role Phone Shay Webb MD Primary Care Provider Stanley Castro MD Unavailable Shay Webb MD Unavailable [phone] Jaiden Esparza DO Unavailable Larisa Navarro MD Unavailable [phone] Oziel Archibald MD Unavailable [phone] Larisa Treviño MD Primary Care Provid er Janny Zavala MD Primary Care Provider Colt Steele CNP Primary Care Provider [phone] Rao Arzate DO Unavailable Rocco Alvarenga DO Unavailable Encounter Details Date Type Department Care Team (Latest Contact Info) Description 08/19/2018 Transcribe Orders [facility] [address] [place] [address] Shay Webb MD [address] [place] [address] [address] [place] [address] [email or web address] Low sodium levels (Primary Dx) Social History Tobacco Use Types Packs/Day Years Used Date Smoking Tobacco: Never Smokeless Tobacco: Never Alcohol Use Standard Drinks/Week Comments Not Asked 0 (1 standard drink = 0.6 oz [...] encounter Results * (ABNORMAL) Basic metabolic panel (08/19/2018 12:38 PM EDT) SODIUM 133 133 - 146 mmol/L [facility] CHLORIDE 94(L) 96 - 108 mmol/L [facility] POTASSIUM 4.5 3.3 - 5.1 mmol/L [facility] CO2 25 21 - 35 mmol/L [facility] BUN 14 6 - 19 mg/dL [facility] CREATININE 0.60 0.5 - 1.5 mg/dL [facility] GLUCOSE 117(H) 70 - 99 mg/dL [facility] CALCIUM 9.3 8.4 - 10.3 mg/dL [facility] EGFR 85 >59 mL/min/1.7 3m2 [facility] Comment:If patient is black, multiply result by 1.159. Estimated glomerular filtration rate calculated using the CKD-EPI equation. ANION GAP 19 10 - 20 mmol/L [facility] Blood 08/19/2018 12:3 8 PM EDT 08/19/2018 12:41 PM EDT Shay Webb MD LAB BLOOD ORDERABLES Final Resu lt [facility] [address] [place] [address] documented in this encounter Visit Diagnoses Diagnosis Low sodium levels- Primary Hyposmolality and/or hyponatremia documented in this encounter Additional Health Concerns Infection Onset Date Last Indicated Resolved Time CoV-Exposed Comment:Recent close contact documented in the COVID-19 PCR/PRO order Pt denied exposure 12/13/2020 12/13/2020 12/18/2020 10:54 AM EST CoV-Risk 07/18/2023 07/18/2023 07/29/2023 1:22 AM EDT CoV-Risk 10/06/2023 10/06/2023 10/17/2023 1:22 AM EST documented as of this encounter Care Teams Flight Software Test Engineer Relationship Specialty Start Date End Date JonShay MD 264 [facility] [address] [place] [address] [email or web address] PCP - General 05/17/14 03/25/22 Larisa Treviño MD [address] [place] [address] [email or web address] PCP - General Family Medicine 03/26/22 09/19/22 Janny Zavala MD [address] [place] [address] [email or web address] PCP - General Family Medicine 10/03/22 10/21/22 Colt Steele, DANIELLE [address] [place] [address] [email or web address] PCP - General Family Medicine 10/22/22 Stanley Castro MD 22 [place] [address] [email or web address] Historical LMR Provider 09/02/17 11/24/21 Shay Webb MD 264 [facility] [address] [place] [address] [email or web address] Historical LMR Provider 09/02/17 Jaiden Esparza DO [address] [place] [address] Orthopedics & Sports Medicine, [place] [address] Historical LMR Provider 09/02/17 Larisa Navarro MD [address], [place] [address] Historical LMR Provider 09/02/17 Oziel Archibald MD 22 [place] [address] Historical LMR Provider 09/02/17 2 Rao Arzate DO [address] [place] [address] Insurance Assigned Provider 02/21/24 11/22/24 Rocco Alvarenga DO 22 [place] [address] Geriatric Medicine 05/23/25 documented as of this encounter Additional Source Comments The information contained in this document represents components of the legal health record. It is not the complete legal health record.[facility]
--- OUTSIDE RECORDS SUMMARY | 2025-08-10 16:32 | XMS_ITS | Encounter Summary ---
Author Organization [facility] Address [address] [place] [address] Phone Care Team Providers Care Stitch Welder Name Role Phone Shay Webb MD Unavailable [phone] Jaiden Esparza DO Unavailable Larisa Navarro MD Unavailable [phone] Colt Steele [facility] Primary Care Provider [phone] Rao Arzate DO Unavailable Rocco Alvarenga DO Unavailable Encounter Details Date Type Department Care Team (Late st Contact Info) Description 03/04/2024 Procedure Pass [facility], Ct Scan - [address] [address] Social History Tobacco Use Types Packs/Day Years [...] high school, GED, job training, learning the Emirati language, technical skills, or developing parenting skills)? [...] documented as of this encounter Care Teams Stitch Welder Relationship Specialty Start Date End Date Cedric Colt WeissDANIELLE [address] [place] [address] PCP - General Family Medicine 10/22/22 Shay Webb MD [address] [address] [email or web address] Historical LMR Provider 09/02/17 Jaiden Esparza DO [address] [place] [address] Orthopedics & Sports Medicine, [place] [address] Historical LMR Provider 09/02/17 Larisa Navarro MD [address], [place] [address] Historical LMR Provider 09/02/17 Rao Arzate DO [address] [place] [address] Insurance Assigned Provider 02/21/24 11/22/24 Rocco Alvarenga DO [address] [place] [address] Geriatric Medicine 05/23/25 documented as of this encounter Additional Source Comments The information contained in this document represents components of the legal health record. It is not the complete legal health record.[facility]
--- OUTSIDE RECORDS SUMMARY | 2025-08-10 16:32 | XMS_ITS | Encounter Summary ---
Author Organization [facility] Address [address] [place] [address] Phone Care Team Providers Care Transition Lead Name Role Phone Shay Webb MD Primary Care Provider Stanley Castro MD Unavailable Shay Webb MD Unavailable [phone] Jaiden Esparza DO Unavailable [phone] Larisa Navarro MD Unavailable [phone] Oziel Archibald MD Unavailable [phone] Larisa Treviño MD Primary Care Provid er Janny Zavala MD Primary Care Provider Colt Steele CNP Primary Care Provider [phone] Rao Arzate DO Unavailable Rocco Alvarenga DO Unavailable Encounter Details Date Type Department Care Team (Late st Contact Info) Description 01/09/2018 Procedure Pass [facility], Ct Scan - [address] [address] Social History Tobacco Use Types Packs/Day Years [...] documented as of this encounter Care Teams Transition Lead Relationship Specialty Start Date End Date JonShay gamez MD [address] [place] [address] [address] [place] [address] [email or web address] [facility] PCP - General 05/17/14 03/25/22 Larisa Treviño MD [address] [place] [address] [email or web address] PCP - General Family Medicine 03/26/22 09/19/22 Janny Zavala MD [address] [place] [address] [email or web address] PCP - General Family Medicine 10/03/22 10/21/22 Colt Steele, CHEESE GRADER [address] [place] [address] [email or web address] PCP - General Family Medicine 10/22/22 Stanley Castro MD [address] [place] [address] [email or web address] Historical LMR Provider 09/02/17 11/24/21 Shay Webb MD [address] [place] [address] [address] [place] [address] [email or web address] Historical LMR Provider 09/02/17 Jaiden Esparza DO [address] [place] [address] Orthopedics & Sports Medicine, [place] [address] [email or web address] Historical LMR Provider 09/02/17 Larisa Navarro MD [address] [place] [address] Historical LMR Provider 09/02/17 Oziel Archibald MD 22 [place] [address] Historical LMR Provider 09/02/17 2 Rao Arzate DO [address] [place] [address] [email or web address] Insurance Assigned Provider 02/21/24 11/22/24 Rocco Alvarenga DO 22 [place] [address] [email or web address] Geriatric Medicine 05/23/25 documented as of this encounter Additional Source Comments The information contained in this document represents components of the legal health record. It is not the complete legal health record.[facility]
--- OUTSIDE RECORDS SUMMARY | 2025-08-10 16:32 | XMS_ITS | Encounter Summary ---
Author Organization [facility] Address [address] [place] [address] [place] [address] Phone Care Team Providers Care Pot Maker Name Role Phone Shay Webb MD Primary Care Provider Stanley Castro MD Unavailable Sahy Webb MD Unavailable [phone] Jaiden Esparza DO Unavailable Larisa Navarro MD Unavailable [phone] Oziel Archibald MD Unavailable [phone] Larisa Treviño MD Primary Care Provid er Janny Zavala MD Primary Care Provider Colt Steele CNP Primary Care Provider [phone] Rao Arzate DO Unavailable Rocco Alvarenga DO Unavailable Encounter Details Date Type Department Care Team (Late st Contact Info) Description 12/08/2017 Ancillary Orders Virtual Department 30 [place] [address] Shay Webb MD 264 [facility] [address] [place] [address] [email or web address] Breast screening Social History Tobacco Use Types Packs/Day Years [...] documented as of this encounter Results * BI MAMMOGRAM SCREENING WITH TOMOSYNTHESIS WITH CAD (BILATERAL) (01/14/2018 2:42 PM EST) Anatomical Region Laterality Modality Breast Left, Breast Right, Breast Bilateral Bila teral Mammography 01/14/2018 4:54 PM EST Impressions 01/14/2018 5:01 PM EST No mammographic signs of malignancy. Annual screening is recommended. BI-RADS CATEGORY: 2 - Benign finding. DENSITY: There are scattered fibroglandular densities. POS - CDHMAMA Narrative 01/14/2018 5:01 PM EST Bilateral mammography is performed in conjunction with computed aided detection. 3-D tomography along with 2-D C view imaging was also performed. Comparison made to previous dated as far back as 11/19/2011 and as recent as 01/13/2017 . No suspicious masses, areas of architectural distortion or suspicious microcalcifications. Stable vascular calcifications on the right. Procedure Note Jaime Case MD - 01/14/2018 Bilateral mammography is performed in conjunction with computed aideddetection. 3-D tomography along with 2-D C view imaging was alsoperformed. Comparison made to previous dated as far back as 11/19/2011 andas recent as 01/13/2017 . No suspicious masses, areas of architectural distortion or suspiciousmicrocalcifications. Stable vascular calcifications on the right. IMPRESSION: No mammographic signs of malignancy. Annual screening is recommended. BI-RADS CATEGORY: 2 - Benign finding. DENSITY: There are scattered fibroglandular densities. POS - CDHMAMA Shay Webb MD IMG MG EXAMS Final Result documented in this encounter Visit Diagnoses Diagnosis Breast screening Breast screening, unspecified Breast screening Breast screening, unspecified documented in this encounter Additional Health Concerns Infection Onset Date Last Indicated Resolved Time CoV-Exposed Comment:Recent close contact documented in the COVID-19 PCR/PRO order Pt denied exposure 12/13/2020 12/13/2020 12/18/2020 10:54 AM EST CoV-Risk 07/18/2023 07/18/2023 07/29/2023 1:22 AM EDT CoV-Risk 10/06/2023 10/06/2023 10/17/2023 1:22 AM EST documented as of this encounter Care Teams Pot Maker Relationship Specialty Start Date End Date Shay Webb MD 264 [facility] [address] [place] [address] [email or web address] PCP - General 05/17/14 03/25/22 Larisa Treviño MD 22 [facility] 201 [place] [address] [email or web address] PCP - General Family Medicine 03/26/22 09/19/22 Janny Zavala MD 22 [facility] 201 [place] [address] [email or web address] PCP - General Family Medicine 10/03/22 10/21/22 Colt Steele, DANIELLE 29 [facility] [place] [address] [email or web address] PCP - General Family Medicine 10/22/22 Stanley Castro MD 22 [place] [address] [email or web address] Historical LMR Provider 09/02/17 11/24/21 Shay Webb MD 264 [facility] [address] [place] [address] [email or web address] Historical LMR Provider 09/02/17 Jaiden Esparza DO [address] [place] [address] Orthopedics & Sports Medicine, [place] [address] [email or web address] Historical LMR Provider 09/02/17 Larisa Navarro MD [address] [place] [address] Historical LMR Provider 09/02/17 Oziel Archibald MD 22 [place] [address] Historical LMR Provider 09/02/17 2 Rao Arzate DO [address] [place] [address] [email or web address] Insurance Assigned Provider 02/21/24 11/22/24 Rocco Alvarenga DO 22 [place] [address] [email or web address] Geriatric Medicine 7/7/25 documented as of this encounter Additional Source Comments The information contained in this document represents components of the legal health record. It is not the complete legal health record.[facility]
--- OUTSIDE RECORDS SUMMARY | 2025-08-10 16:32 | XMS_ITS | Encounter Summary ---
Author Organization [facility] Address [address] [place] [address] Phone Care Team Providers Care Turnaround Engineer Name Role Phone Shay Webb MD Primary Care Provider Stanley Castro MD Unavailable Shay Webb MD Unavailable [phone] Jaiden Esparza DO Unavailable Larisa Navarro MD Unavailable Oziel Archibald MD Unavailable [phone] Larisa Treviño MD Primary Care Provid er Janny Zavala MD Primary Care Provider Colt Steele CNP Primary Care Provider [phone] Rao Arzate DO Unavailable Rocco Alvarenga DO Unavailable Encounter Details Date Type Department Care Team (Late st Contact Info) Description 12/16/2017 Ancillary Orders Virtual Department 30 [place] [address] Oralia Kaur MD [address] [place] [address] [email or web address] Urgency of urination; Frequency of urination; Acquired cyst of kidney Social History Tobacco Use Types Packs/Day Years [...] documented as of this encounter Results * US Kidneys and Bladder (01/20/2018 10:34 AM EST) Anatomical Region Laterality Modality Abdomen, Kidney Ultrasound 01/20/2018 11:0 6 AM EST Impressions 01/20/2018 11:13 AM EST No hydronephrosis or nephrolithiasis. Decreasing size of a complex right renal cyst which now has the appearance of a simple cyst. Subcentimeter cyst again noted on the left. Urinary retention with post void residual bladder volume of 72%. POS - [id number] Narrative 01/20/2018 11:13 AM EST COMPARISON: None FINDINGS: Kidneys are within normal limits for size measuring 11.4 x 4.2 cm on the right and 11.5 x 5.8 cm on the left. Cortical thickness and echogenicity are within normal limits. No hydronephrosis or shadowing stones. Decreasing size of a complex cyst in the right upper/mid kidney which now has the appearance of a simple cyst and measures up to 0.7 cm. No significant change in a subcentimeter mid left kidney cyst allowing for normal variant in measurement. Prevoid bladder volume measures 196 cc and post void measures 140 cc for a 72% post void residual bladder volume. No evidence of an intraluminal mass or stone. No definite bladder wall thickening. Both ureteral jets are visualized. Procedure Note Dannielle Winchester MD - 01/20/2018 COMPARISON: None FINDINGS: Kidneys are within normal limits for size measuring 11.4 x 4.2 cm on theright and 11.5 x 5.8 cm on the left. Cortical thickness and echogenicityare within normal limits. No hydronephrosis or shadowing stones.Decreasing size of a complex cyst in the right upper/mid kidney which nowhas the appearance of a simple cyst and measures up to 0.7 cm. Nosignificant change in a subcentimeter mid left kidney cyst allowing fornormal variant in measurement. Prevoid bladder volume measures 196 cc and post void measures 140 cc for a72% post void residual bladder volume. No evidence of an intraluminalmass or stone. No definite bladder wall thickening. Both ureteral jetsare visualized. IMPRESSION: No hydronephrosis or nephrolithiasis. Decreasing size of a complex right renal cyst which now has the appearanceof a simple cyst. Subcentimeter cyst again noted on the left. Urinary retention with post void residual bladder volume of 72%. POS - [id number] Oralia Kaur MD [facility] Final Resu lt documented in this encounter Visit Diagnoses Diagnosis Urgency of urination Frequency of urination Urinary frequency Acquired cyst of kidney Urgency of urination Frequency of urination Urinary frequency Acquired cyst of kidney documented in this encounter Additional Health Concerns Infection Onset Date Last Indicated Resolved Time CoV-Exposed Comment:Recent close contact documented in the COVID-19 PCR/PRO order Pt denied exposure 12/13/2020 12/13/2020 12/18/2020 10:54 AM EST CoV-Risk 07/18/2023 07/18/2023 07/29/2023 1:22 AM EDT CoV-Risk 10/06/2023 10/06/2023 10/17/2023 1:22 AM EST documented as of this encounter Care Teams Turnaround Engineer Relationship Specialty Start Date End Date Jon, Shay Garcia MD [address] [place] [address] [address] [place] [address] [email or web address] PCP - General 05/17/14 03/25/22 Larisa Treviño MD [address] [address] [email or web address] PCP - General Family Medicine 03/26/22 09/19/22 Janny Zavala MD [address] [place] [address] [email or web address] PCP - General Family Medicine 10/03/22 10/21/22 Colt Steele CNP 29 [place] [address] [email or web address] PCP - General Family Medicine 10/22/22 Stanley Castro MD [address] [place] [address] [email or web address] Historical LMR Provider 09/02/17 11/24/21 Shay Webb MD [address] [place] [address] [address] [place] [address] [email or web address] Historical LMR Provider 09/02/17 Jaiden Esparza DO [address] [place] [address] Orthopedics & Sports Medicine, [place] [address] [email or web address] Historical LMR Provider 09/02/17 Larisa Navarro MD [address] [place] [address] Historical LMR Provider 09/02/17 Oziel Archibald MD 22 [place] [address] Historical LMR Provider 09/02/17 2 Rao Arzate DO [address] [place] [address] [email or web address] Insurance Assigned Provider 02/21/24 11/22/24 Rocco Alvarenga DO [address] [place] [address] [email or web address] Geriatric Medicine 05/23/25 documented as of this encounter Additional Source Comments The information contained in this document represents components of the legal health record. It is not the complete legal health record.[facility]
--- OUTSIDE RECORDS SUMMARY | 2025-08-10 16:32 | XMS_ITS | Encounter Summary ---
Author Organization [facility] Address [address] [place] [address] Phone Care Team Providers Care Chip Machine Operator Name Role Phone Shay Webb MD Primary Care Provider Stanley Castro MD Unavailable Shay Webb MD Unavailable [phone] Jaiden Esparza DO Unavailable Larisa Navarro MD Unavailable [phone] Oziel Archibald MD Unavailable [phone] Larisa Treviño MD Primary Care Provid er Janny Zavala MD Primary Care Provider Colt Steele CNP Primary Care Provider [phone] Rao Arzate DO Unavailable Rocco Alvarenga DO Unavailable Encounter Details Date Type Department Care Team (Latest Contact Info) Description 09/22/2020 Transcribe Orders Virtual Department [address] [place] [address] Shay Webb MD [address] [place] [address] [address] [place] [address] [email or web address] Low back pain, unspecified back pain laterality, unspecified chronicity, unspecified whether sciatica present (Primary Dx); Leg pain, bilateral Social History Tobacco Use Types Packs/Day Years [...] as of this encounter Results * XR LUMBOSACRAL SPINE 4 OR MORE VIEWS (09/26/2020 11:50 AM EST) Anatomical Region Laterality Modality L-spine Computed Radiogr aphy 09/26/2020 12:0 4 PM EST Impressions 09/26/2020 12:20 PM EST Progressive lumbar scoliosis, interval L4-5 posterior fusion and new severe L2-3 disc disease since 2012 as above. Narrative 09/26/2020 12:20 PM EST HISTORY: As above. COMPARISON: Lumbar spine x-rays 02/17/2013. LUMBAR SPINE RADIOGRAPH FINDINGS: 8 images obtained. Chronic osteopenia. Progressive moderate mid lumbar dextroscoliosis. Interval posterior fusion hardware at L4-5. No hardware fracture or evidence of loosening. Chronic severe L5-S1 disc space narrowing, new severe L2-3 disc space narrowing. Stable grade 1 spondylolisthesis of L4 (5 mm) and multilevel facet arthropathy. No compression fractures. 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 No destructive or suspicious bone lesions. Right upper quadrant cholecystectomy clips. Procedure Note Daniel Baldears MD - 09/26/2020 HISTORY: As above. COMPARISON: Lumbar spine x-rays 02/17/2013. LUMBAR SPINE RADIOGRAPH FINDINGS: 8 images obtained. Chronic osteopenia. Progressive moderate mid lumbar dextroscoliosis.Interval posterior fusion hardware at L4-5. No hardware fracture orevidence of loosening. Chronic severe L5-S1 disc space narrowing, newsevere L2-3 disc space narrowing. Stable grade 1 spondylolisthesis of L4(5 mm) and multilevel facet arthropathy. No compression fractures. Stablemild bilateral inferior SI joint arthritis. No destructive or suspiciousbone lesions. Right upper quadrant cholecystectomy clips. IMPRESSION: Progressive lumbar scoliosis, interval L4-5 posterior fusion and newsevere L2-3 disc disease since 2012 as above. Shay Webb MD IMG XR SPINE Final Result documented in this encounter Visit Diagnoses Diagnosis Low back pain, unspecified back pain laterality, unspecified chronicity, unspecified whether sciatica present- Primary Leg pain, bilateral Pain in soft tissues of limb Low back pain, unspecified back pain laterality, unspecified chronicity, unspecified whether sciatica present Leg pain, bilateral Pain in soft tissues of limb documented in this encounter Additional Health Concerns Infection Onset Date Last Indicated Resolved Time CoV-Exposed Comment:Recent close contact documented in the COVID-19 PCR/PRO order Pt denied exposure 12/13/2020 12/13/2020 12/18/2020 10:54 AM EST CoV-Risk 07/18/2023 07/18/2023 07/29/2023 1:22 AM EDT CoV-Risk 10/06/2023 10/06/2023 10/17/2023 1:22 AM EST documented as of this encounter Care Teams Chip Machine Operator Relationship Specialty Start Date End Date Jon, Shay Garcia MD [address] [place] [address] [address] [place] [address] [email or web address] PCP - General 05/17/14 03/25/22 Larisa Treviño MD [address] [place] [address] [email or web address] PCP - General Family Medicine 03/26/22 09/19/22 Janny Zavala MD [address] [address] [email or web address] PCP - General Family Medicine 10/03/22 10/21/22 Colt Steele CNP [address] [place] [address] [email or web address] PCP - General Family Medicine 10/22/22 Stanley Castro MD 22 [place] [address] [email or web address] Historical LMR Provider 09/02/17 11/24/21 Shay Webb MD 264 [facility] [address] [place] [address] [email or web address] Historical LMR Provider 09/02/17 Jaiden Esparza DO [address] [place] [address] Orthopedics & Sports Medicine, [facility] [place] [address] [email or web address] Historical LMR Provider 09/02/17 Larisa Navarro MD [address], [place] [address] Historical LMR Provider 09/02/17 Oziel Archibald MD 22 [place] [address] Historical LMR Provider 09/02/17 2 Rao Arzate DO [address] [place] [address] [email or web address] Insurance Assigned Provider 02/21/24 11/22/24 Rocco Alvarenga DO 22 [place] [address] [email or web address] Geriatric Medicine 05/23/25 documented as of this encounter Additional Source Comments The information contained in this document represents components of the legal health record. It is not the complete legal health record.[facility]
--- OUTSIDE RECORDS SUMMARY | 2025-08-10 16:32 | XMS_ITS | Encounter Summary ---
Author Organization [facility] Address [address] [place] [address] Phone Care Team Providers Care Corporate Director Name Role Phone Shay Webb MD Primary Care Provider Stanley Castro MD Unavailable Shay Webb MD Unavailable [phone] Jaiden Esparza DO Unavailable Larisa Navarro MD Unavailable [phone] Oziel Archibald MD Unavailable [phone] Larisa Treviño MD Primary Care Provid er Janny Zavala MD Primary Care Provider Colt Steele CNP Primary Care Provider [phone] Rao Arzate DO Unavailable Rocco Alvarenga DO Unavailable Encounter Details Date Type Department Care Team (Latest Contact Info) Description 07/28/2018 Ancillary Orders Virtual Department 30 [place] [address] Cedric Milton MD [address] [place] [address] Age-related osteoporosis without current pathological fracture Social History Tobacco Use Types Packs/Day Years [...] BD DXA SPINE AND HIP WITH FOREARM (12/03/2018 3:45 PM EST) Anatomical Region Laterality Modality Bone Density Bone Density 12/03/2018 3:53 PM EST Impressions 12/03/2018 3:57 PM EST Osteopenia evident in both hips with a statistically significant improvement in bone density in the right hip and lumbar spine since the last exam. S/S: Estrogen deficiency, bone density screening, height loss, osteopenia POS - [id number] Narrative 12/03/2018 3:57 PM EST This is a 83-year-old postmenopausal patient with 2 inches of height loss reported.. Evaluation of the lumbar spine, left forearm and both hips is obtained and appears appropriate. The lumbar spine from L1 through L3 discloses a total bone mineral density of 1.021 g/cm2 with a T-score of 0.0. This is in the normal range. The change in bone mineral density since January 11, 2005 is 12.5% and is significant. The increase of bone density may be secondary to some minor sclerosis. The right hip has a total bone mineral density of 0.772 g/cm2 with a T-score of -1.4 this is in the osteopenia range. The change in bone mineral density since January 11, 2005 is 6.0% and is significant. The left hip has a total bone mineral density of 0.784 g/cm2 for a T-score of -1.3. This is in the osteopenia range. The change in bone mineral density since 03/11/2005 is 1.1% and is not significant. The left forearm has a total bone mineral density of 0.513 g/cm2 for a T-score of -1.0. This is in the normal range. Procedure Note Hola Scherer MD - 12/03/2018 This is a 83-year-old postmenopausal patient with 2 inches of height lossreported.. Evaluation of the lumbar spine, left forearm and both hips is obtained andappears appropriate. The lumbar spine from L1 through L3 discloses a total bone mineral densityof 1.021 g/cm2 with a T-score of 0.0. This is in the normal range. Thechange in bone mineral density since January 11, 2005 is 12.5% and issignificant. The increase of bone density may be secondary to some minorsclerosis. The right hip has a total bone mineral density of 0.772 g/cm2 with aT-score of - 1.4 this is in the osteopenia range. The change in bonemineral density since January 11, 2005 is 6.0% and is significant. The left hip has a total bone mineral density of 0.784 g/cm2 for a T-scoreof - 1.3. This is in the osteopenia range. The change in bone mineraldensity since 03/11/2005 is 1.1% and is not significant. The left forearm has a total bone mineral density of 0.513 g/cm2 for aT-score of -1.0. This is in the normal range. IMPRESSION: Osteopenia evident in both hips with a statistically significantimprovement in bone density in the right hip and lumbar spine since thelast exam. S/S: Estrogen deficiency, bone density screening, height loss, osteopenia POS - [id number] Cedric Milton MD IM BD BONE DENSITY DEXA Final Result documented in this encounter Visit Diagnoses Diagnosis Age-related osteoporosis without current pathological fracture Age-related osteoporosis without current pathological fracture documented in this encounter Additional Health Concerns Infection Onset Date Last Indicated Resolved Time CoV-Exposed Comment:Recent close contact documented in the COVID-19 PCR/PRO order Pt denied exposure 12/13/2020 12/13/2020 12/18/2020 10:54 AM EST CoV-Risk 07/18/2023 07/18/2023 07/29/2023 1:22 AM EDT CoV-Risk 10/06/2023 10/06/2023 10/17/2023 1:22 AM EST documented as of this encounter Care Teams Corporate Director Relationship Specialty Start Date End Date Shay Webb MD [address] [place] [address] [address] [place] [address] [email or web address] PCP - General 05/17/14 03/25/22 Larisa Treviño MD [address] [address] [email or web address] PCP - General Family Medicine 03/26/22 09/19/22 Janny Zavala MD [address] [address] [email or web address] PCP - General Family Medicine 10/03/22 10/21/22 Colt Steele CNP 29 [facility] [place] [address] [email or web address] PCP - General Family Medicine 10/22/22 Stanley Castro MD 22 [place] [address] [email or web address] Historical LMR Provider 09/02/17 11/24/21 Shay Webb MD [address] [place] [address] & [address] [place] [address] [email or web address] Historical LMR Provider 09/02/17 Jaiden Esparza DO [address] [place] [address] Orthopedics & Sports Medicine, [facility] [place] [address] Historical LMR Provider 09/02/17 Larisa Navarro MD [address] [address] Historical LMR Provider 09/02/17 Oziel Archibald MD 22 [place] [address] Historical LMR Provider 09/02/17 2 Rao Arzate DO [address] [place] [address] Insurance Assigned Provider 02/21/24 11/22/24 Rocco Alvarenga DO 22 [place] [address] Geriatric Medicine 05/23/25 documented as of this encounter Additional Source Comments The information contained in this document represents components of the legal health record. It is not the complete legal health record.[facility]
--- OUTSIDE RECORDS SUMMARY | 2025-08-10 16:32 | XMS_ITS | Encounter Summary ---
Author Organization [facility] Address [address] [place] [address] [place] [address] Phone Care Team Providers Care Quarantine Officer Name Role Phone Shay Webb MD Primary Care Provider Stanley Castro MD Unavailable Shay Webb MD Unavailable [phone] Jaiden Esparza DO Unavailable Larisa Navarro MD Unavailable [phone] Oziel Archibald MD Unavailable [phone] Larisa Treviño MD Primary Care Provid er Janny Zavala MD Primary Care Provider Colt Steele CNP Primary Care Provider [phone] Rao Arzate DO Unavailable Rocco Alvarenga DO Unavailable Encounter Details Date Type Department Care Team (Late st Contact Info) Description 10/10/2020 Ancillary Orders Virtual Department 30 [place] [address] Shay Webb MD 264 [facility] [address] [place] [address] [email or web address] Neck pain; Thoracic back pain, unspecified back pain laterality, unspecified chronicity; Rib pain Social History Tobacco Use Types Packs/Day Years [...] as of this encounter Results * XR RIBS 3 OR MORE VIEWS WITH PA CHEST (RIGHT) (10/13/2020 11:53 AM EST) Anatomical Region Laterality Modality Chest Computed Radiogr aphy 10/13/2020 12:0 0 PM EST Impressions 10/13/2020 12:04 PM EST No acute cardiopulmonary process. No right rib abnormalities. Narrative 10/13/2020 12:04 PM EST EXAM: XR RIBS 3 OR MORE VIEWS WITH PA CHEST (RIGHT) Comparison: None Study notes from technologist: Right posterior rib pain, marked with BB marker. FINDINGS: Lines and tubes/ support devices/ implants: None Lungs and pleura: No confluent lung consolidations or lung masses. No pneumothorax or pleural effusion. No pulmonary vascular congestion. Cardiomediastinal silhouette: Cardiomediastinal silhouette is within normal limits. Bones: Osseous structures are grossly intact. Surgical anchors in the right humeral head. Right ribs appear unremarkable, without fractures. Miscellaneous findings: None Procedure Note Ryan Iqbal MD - 10/13/2020 EXAM: XR RIBS 3 OR MORE VIEWS WITH PA CHEST (RIGHT) Comparison: None Study notes from technologist: Right posterior rib pain, marked with BBmarker. FINDINGS: Lines and tubes/ support devices/ implants: None Lungs and pleura: No confluent lung consolidations or lung masses. Nopneumothorax or pleural effusion. No pulmonary vascular congestion. Cardiomediastinal silhouette: Cardiomediastinal silhouette is withinnormal limits. Bones: Osseous structures are grossly intact. Surgical anchors in theright humeral head. Right ribs appear unremarkable, without fractures. Miscellaneous findings: None IMPRESSION: No acute cardiopulmonary process. No right rib abnormalities. us Sahy Webb MD IMG XR CHEST Final Result * XR THORACIC SPINE 3 VIEW (10/13/2020 11:51 AM EST) Anatomical Region Laterality Modality T-spine Computed Radiogr aphy 10/13/2020 12:1 2 PM EST Impressions 10/13/2020 12:15 PM EST Mild degenerative changes. Narrative 10/13/2020 12:15 PM EST EXAM: XR THORACIC SPINE 3 VIEW COMPARISON: Chest CT on April 19, 2020 FINDINGS: Respiratory motion and overlapping structures partially limit evaluation on the lateral views. The scoliotic curvature of the included thoracolumbar spine. No compression fracture deformities. No definite anterior/posterior subluxations. Disc spaces appear preserved. Small marginal osteophytes at multiple levels. Included portions of the lungs are clear. Procedure Note Ryan Iqbal MD - 10/13/2020 EXAM: XR THORACIC SPINE 3 VIEW COMPARISON: Chest CT on April 19, 2020 FINDINGS: Respiratory motion and overlapping structures partially limit evaluationon the lateral views. The scoliotic curvature of the included thoracolumbar spine. Nocompression fracture deformities. No definite anterior/posteriorsubluxations. Disc spaces appear preserved. Small marginal osteophytes atmultiple levels. Included portions of the lungs are clear. IMPRESSION: Mild degenerative changes. us Shay PRADHAN XR SPINE Final Result * XR CERVICAL SPINE 4-5 VIEWS (10/13/2020 11:50 AM EST) Anatomical Region Laterality Modality C-spine Computed Radiogr aphy 10/13/2020 12:0 4 PM EST Impressions 10/13/2020 12:11 PM EST Overall unchanged from 2018, with fusion at C5-C7, mild anterolisthesis of the upper cervical spine and neuroforaminal narrowing on the left at C5-C6. Narrative 10/13/2020 12:11 PM EST EXAM: XR CERVICAL SPINE 4-5 VIEWS COMPARISON: Prior cervical spine radiographs on June 16, 2018 FINDINGS: Stable fusion of C5-C6-C7 vertebral bodies. Mild anterolisthesis of C4 on C5 and minimal anterolisthesis of C3 on C4 are similar to 2018. Mild neuroforaminal narrowing on the left at C5-C6, similar to 2018. Visualized portion of the odontoid process appears unremarkable. Prevertebral soft tissues are unremarkable. Lung apices are clear. Procedure Note Ryan Iqbal MD - 10/13/2020 EXAM: XR CERVICAL SPINE 4-5 VIEWS COMPARISON: Prior cervical spine radiographs on June 16, 2018 FINDINGS: Stable fusion of C5-C6-C7 vertebral bodies. Mild anterolisthesis of C4 onC5 and minimal anterolisthesis of C3 on C4 are similar to 2018. Mildneuroforaminal narrowing on the left at C5-C6, similar to 2018. Visualizedportion of the odontoid process appears unremarkable. Prevertebral softtissues are unremarkable. Lung apices are clear. IMPRESSION: Overall unchanged from 2018, with fusion at C5-C7, mild anterolisthesis ofthe upper cervical spine and neuroforaminal narrowing on the left atC5-C6. us Shay Webb MD IMG XR SPINE Final Result documented in this encounter Visit Diagnoses Diagnosis Neck pain Cervicalgia Thoracic back pain, unspecified back pain laterality, unspecified chronicity Rib pain Unspecified chest pain Neck pain Cervicalgia Thoracic back pain, unspecified back pain laterality, unspecified chronicity Rib pain Unspecified chest pain documented in this encounter Additional Health Concerns Infection Onset Date Last Indicated Resolved Time CoV-Exposed Comment:Recent close contact documented in the COVID-19 PCR/PRO order Pt denied exposure 12/13/2020 12/13/2020 12/18/2020 10:54 AM EST CoV-Risk 07/18/2023 07/18/2023 07/29/2023 1:22 AM EDT CoV-Risk 10/06/2023 10/06/2023 10/17/2023 1:22 AM EST documented as of this encounter Care Teams Quarantine Officer Relationship Specialty Start Date End Date Shay Webb MD 264 [facility] [address] [place] [address] [email or web address] PCP - General 05/17/14 03/25/22 Larisa Treviño MD [address] [address] [email or web address] PCP - General Family Medicine 03/26/22 09/19/22 Janny Zavala MD [address] [place] [address] [email or web address] PCP - General Family Medicine 10/03/22 10/21/22 Colt Steele CNP 29 [place] [address] [email or web address] PCP - General Family Medicine 10/22/22 Stanley Castro MD [address] [place] [address] [email or web address] Historical LMR Provider 09/02/17 11/24/21 Shay Webb MD 264 [facility] [address] [place] [address] [email or web address] Historical LMR Provider 09/02/17 Jaiden Esparza DO 4 [facility], [facility] [place] [address] Historical LMR Provider 09/02/17 Larisa Navarro MD [address] [place] [address] Historical LMR Provider 09/02/17 Oziel Archibald MD 22 [place] [address] Historical LMR Provider 09/02/17 2 Rao Arzate DO 29 [place] [address] Insurance Assigned Provider 02/21/24 11/22/24 Rocco Alvarenga DO 22 [place] [address] Geriatric Medicine 05/23/25 documented as of this encounter Additional Source Comments The information contained in this document represents components of the legal health record. It is not the complete legal health record.[facility]
--- OUTSIDE RECORDS SUMMARY | 2025-08-10 16:32 | XMS_ITS | Encounter Summary ---
Author Organization [facility] Address [address] [place] [address] [place] [address] Phone Care Team Providers Care Repair Clerk Name Role Phone Shay Webb MD Primary Care Provider Stanley Castro MD Unavailable Shay Webb MD Unavailable [phone] Jaiden Esparza DO Unavailable Larisa Navarro MD Unavailable [phone] Oziel Archibald MD Unavailable Larisa Treviño MD Primary Care Provid er Janny Zavala MD Primary Care Provider [phone] Colt Steele CNP Primary Care Provider [phone] Rao Arzate DO Unavailable Rocco Alvarenga DO Unavailable Encounter Details Date Type Department Care Team (Latest Contact Info) Description 07/13/2018 Transcribe Orders [facility] [address] [address] Shay Webb MD [address] [place] [address] [address] [place] [address] [email or web address] Routine general medical examination at a health care facility (Primary Dx); Fatigue, unspecified type; High cholesterol Social History Tobacco Use Types Packs/Day Years [...] as of this encounter Results * (ABNORMAL) CBC and differential (07/13/2018 8:42 AM EDT) WBC 4.94 3.40 - 11.20 K/uL [facility] RBC 4.62 3.80 - 4.80 M/uL [facility] HGB 13.9 12.0 - 15.0 g/dL [facility] HCT 40.2 36.0 - 46.0 % [facility] PLT 282 130 - 400 K/uL [facility] MCV 87.0 79.0 - 98.0 fL [facility] MCH 30.1 27.0 - 34.8 pg [facility] MCHC 34.6 31.5 - 36.0 g/dL [facility] RDW 12.6 10.8 - 14.6 % [facility] MPV 8.6(L) 9.4 - 12.4 fl [facility] NRBC 0.00 /100 WBCs [facility] ABSOLUTE NRBC 0.00 K/uL [facility] DIFF METHOD Auto [facility] NEUTS 53.7 45.30 - 77.70 % [facility] LYMPHS 34.2 12.30 - 39.70 % [facility] MONOS 8.7 4.10 - 12.80 % [facility] EOS 2.4 0 - 7.2 % [facility] BASOS 0.8 0 - 2.80 % [facility] Granulocytes, immature (%) 0.2 0.0 - 0.9 % [facility] ABSOLUTE NEUTS 2.65 1.40 - 7.70 K/uL [facility] ABSOLUTE LYMPHS 1.69 0.60 - 3.20 K/uL [facility] ABSOLUTE MONOS 0.43 0.11 - 0.59 K/uL [facility] ABSOLUTE EOS 0.12 0.01 - 0.50 K/uL [facility] ABSOLUTE BASOS 0.04 0.00 - 0.08 K/uL [facility] Granulocytes, immature 0.01 0.00 - 0.05 K/uL [facility] Blood 07/13/2018 8:42 AM EDT 07/13/2018 8:47 AM EDT Shay Webb MD LAB BLOOD ORDERABLES Final Resu lt Performing Organization Address [facility] Co de Phone Number [address] [address] * TSH with reflex (07/13/2018 8:42 AM EDT) TSH 1.20 0.27 - 4.20 uIU/mL [facility] Blood 07/13/2018 8:42 AM EDT 07/13/2018 8:47 AM EDT Shay Webb MD LAB BLOOD ORDERABLES Final Resu lt Performing Organization Address City/[facility] Co de Phone Number [address] [address] * (ABNORMAL) Lipid panel (07/13/2018 8:42 AM EDT) HDL 114 mg/dL [facility] Comment: Interpretation: Risk Level Females Decreased >55mg/dL Average 50-55 mg/dL Increased <50 mg/dL CHOLESTEROL 207 0 - 240 mg/dL [facility] TRIGLYCERIDES 85 30 - 160 mg/dL [facility] LDL 76 50 - 129 mg/dL [facility] Comment: LDL levels in terms of risk for coronary heart disease: <100 mg/dL: Optimal 100-129 mg/dL: Near or above optimal 130-159 mg/dL: Borderline high 160-189 mg/dL: High >190 mg/dL: Very High CARDIAC RISK RATIO 1.8(L) 3.3 - 4.4 C [facility] Blood 07/13/2018 8:42 AM EDT 07/13/2018 8:47 AM EDT us Shay Webb MD LAB BLOOD ORDERABLES Final Resu lt [facility] [address] [place] [address] * (ABNORMAL) Comprehensive metabolic panel (07/13/2018 8:42 AM EDT) SODIUM 130(L) 133 - 146 mmol/L [facility] POTASSIUM 4.5 3.3 - 5.1 mmol/L [facility] CHLORIDE 94(L) 96 - 108 mmol/L [facility] CO2 22 21 - 35 mmol/L [facility] BUN 18 6 - 19 mg/dL [facility] CREATININE 0.60 0.5 - 1.5 mg/dL [facility] GLUCOSE 100(H) 70 - 99 mg/dL [facility] ALBUMIN 3.7(L) 3.9 - 4.8 g/dL [facility] TOTAL PROTEIN 6.7 6.5 - 8.0 g/dL [facility] CALCIUM 9.0 8.4 - 10.3 mg/dL [facility] ALKALINE PHOSPHATASE 70 39 - 117 U/L [facility] TOTAL BILIRUBIN 0.4 0.0 - 1.2 mg/dL [facility] AST 21 0 - 37 U/L [facility] ALT 17 0 - 40 U/L [facility] GLOBULIN 3.0 1 - 4.8 g/dL [facility] EGFR 86 >59 mL/min/1.7 3m2 [facility] Comment:If patient is black, multiply result by 1.159. Estimated glomerular filtration rate calculated using the CKD-EPI equation. ANION GAP 19 10 - 20 mmol/L [facility] Blood 07/13/2018 8:42 AM EDT 07/13/2018 8:47 AM EDT Shay Webb MD LAB BLOOD ORDERABLES Final Resu lt [facility] [address] [place] [address] documented in this encounter Visit Diagnoses Diagnosis Routine general medical examination at a health care facility- Primary Fatigue, unspecified type High cholesterol Pure hypercholesterolemia documented in this encounter Additional Health Concerns Infection Onset Date Last Indicated Resolved Time CoV-Exposed Comment:Recent close contact documented in the COVID-19 PCR/PRO order Pt denied exposure 12/13/2020 12/13/2020 12/18/2020 10:54 AM EST CoV-Risk 07/18/2023 07/18/2023 07/29/2023 1:22 AM EDT CoV-Risk 10/06/2023 10/06/2023 10/17/2023 1:22 AM EST documented as of this encounter Care Teams Repair Clerk Relationship Specialty Start Date End Date Shay Webb MD 264 [facility] [address] [place] [address] [email or web address] PCP - General 05/17/14 03/25/22 Larisa Treviño MD [address] [address] [email or web address] PCP - General Family Medicine 03/26/22 09/19/22 Janny Zavala MD 22 [facility] [address] [place] [address] [email or web address] PCP - General Family Medicine 10/03/22 10/21/22 Colt Steele, DANIELLE 29 [facility] [place] [address] [email or web address] PCP - General Family Medicine 10/22/22 Stanley [place] MD 22 [place] [address] [email or web address] Historical LMR Provider 09/02/17 11/24/21 Shay Webb MD 264 [place] [address] [address] [place] [address] [email or web address] Historical LMR Provider 09/02/17 Jaiden Esparza DO [address] [place] [address] Orthopedics & Sports Medicine, [place] [address] [email or web address] Historical LMR Provider 09/02/17 Larisa Navarro MD [address] [address] Historical LMR Provider 09/02/17 Oziel Archibald MD 22 [place] [address] Historical LMR Provider 09/02/17 2 Rao Arzate DO 29 [place] [address] [email or web address] Insurance Assigned Provider 02/21/24 11/22/24 Rocco Alvarenga DO 22 [place] [address] Geriatric Medicine 05/23/25 documented as of this encounter Additional Source Comments The information contained in this document represents components of the legal health record. It is not the complete legal health record.[facility]
--- OUTSIDE RECORDS SUMMARY | 2025-08-10 16:32 | XMS_ITS | Encounter Summary ---
Author Organization [facility] Address [address] [place] [address] Phone Care Team Providers Care Radiology Technician Name Role Phone Shay Webb MD Primary Care Provider Stanley Castro MD Unavailable Shay Webb MD Unavailable [phone] Jaiden Esparza DO Unavailable [phone] Larisa Navaror MD Unavailable [phone] Oziel Archibald MD Unavailable [phone] Larisa Treviño MD Primary Care Provid er Janny Zavala MD Primary Care Provider Colt Steele CNP Primary Care Provider [phone] Rao Arzate DO Unavailable Rocco Alvarenga DO Unavailable Encounter Details Date Type Department Care Team (Latest Contact Info) Description 01/26/2018 Transcribe Orders [facility] [address] [place] [address] Shay Webb MD [address] [place] [address] 10 [address] [place] [address] [email or web address] hospital MCGRAW (dyspnea on exertion) (Primary Dx) Social History Tobacco Use Types [...] as of this encounter Visit Diagnoses Diagnosis MCGRAW (dyspnea on exertion)- Primary Other dyspnea and respiratory abnormality documented in this encounter Additional Health Concerns Infection Onset Date Last Indicated Resolved Time CoV-Exposed Comment:Recent close contact documented in the COVID-19 PCR/PRO order Pt denied exposure 12/13/2020 12/13/2020 12/18/2020 10:54 AM EST CoV-Risk 07/18/2023 07/18/2023 07/29/2023 1:22 AM EDT CoV-Risk 10/06/2023 10/06/2023 10/17/2023 1:22 AM EST documented as of this encounter Care Teams Radiology Technician Relationship Specialty Start Date End Date JonShay MD [address] [place] [address] [address] [place] [address] [email or web address] PCP - General 05/17/14 03/25/22 Larisa Treviño MD [address] [place] [address] [email or web address] PCP - General Family Medicine 03/26/22 09/19/22 Janny Zavala MD [address] [place] [address] [email or web address] PCP - General Family Medicine 10/03/22 10/21/22 Colt Steele CNP [address] [place] [address] [email or web address] PCP - General Family Medicine 10/22/22 Stanley Castro MD 22 [place] [address] [email or web address] Historical LMR Provider 09/02/17 11/24/21 Shay Webb MD 264 [facility] [address] [place] [address] [email or web address] Historical LMR Provider 09/02/17 Jaiden Esparza DO [address] [place] [address] Orthopedics & Sports Medicine, [place] [address] [email or web address] Historical LMR Provider 09/02/17 Larisa Navarro MD [address] [place] [address] Historical LMR Provider 09/02/17 Oziel Archibald MD 22 [place] [address] Historical LMR Provider 09/02/17 2 Rao Arzate DO 29 [place] [address] [email or web address] Insurance Assigned Provider 02/21/24 11/22/24 Rocco Alvarenga DO [address] [place] [address] [email or web address] Geriatric Medicine 05/23/25 documented as of this encounter Additional Source Comments The information contained in this document represents components of the legal health record. It is not the complete legal health record.[facility]
--- OUTSIDE RECORDS SUMMARY | 2025-08-10 16:32 | XMS_ITS | Encounter Summary ---
Author Organization [facility] Address [address] [place] [address] Phone Care Team Providers Care Senior Regulatory Affairs Specialist Name Role Phone Shay Webb MD Primary Care Provider Stanley Castro MD Unavailable Shay Webb MD Unavailable [phone] Jaiden Esparza DO Unavailable Larisa Navarro MD Unavailable [phone] Oziel Archibald MD Unavailable [phone] Larisa Treviño MD Primary Care Provid er Janny Zavala MD Primary Care Provider [phone] Colt Steele CNP Primary Care Provider [phone] Rao Arzate DO Unavailable Rocco Alvarenga DO Unavailable Encounter Details Date Type Department Care Team (Latest Contact Info) Description 12/12/2020 Transcribe Orders [facility] Department [address] [place] [address] Shay Webb MD 264 [facility] 10 [address] [place] [address] [email or web address] Exposure to SARS-associated coronavirus (Primary Dx) Social History Tobacco Use Types [...] documented as of this encounter Results * COVID-19 PCR Order (12/16/2020 7:58 AM EST) COVID Testing Status Specimen received in analyzing lab. Results should be available within 24 to 48 hrs. [facility] Symptomatic? NO [facility] 12/16/2020 7:58 AM EST 12/16/2020 12:14 PM EST Shay Webb MD BODY FLUIDS AND STOOLS ORDERABL ES Final Result Performing Organization Address City/State/[facility] Co de Phone Number [facility] [address] [place] [address] [facility] [address] [place] [address] documented in this encounter Visit Diagnoses Diagnosis Exposure to SARS-associated coronavirus- Primary documented in this encounter Additional Health Concerns Infection Onset Date Last Indicated Resolved Time CoV-Exposed Comment:Recent close contact documented in the COVID-19 PCR/PRO order Pt denied exposure 12/13/2020 12/13/2020 12/18/2020 10:54 AM EST CoV-Risk 07/18/2023 07/18/2023 07/29/2023 1:22 AM EDT CoV-Risk 10/06/2023 10/06/2023 10/17/2023 1:22 AM EST documented as of this encounter Care Teams Senior Regulatory Affairs Specialist Relationship Specialty Start Date End Date Shay Webb MD 264 [facility] [address] [place] [address] [email or web address] PCP - General 05/17/14 03/25/22 Larisa Treviño MD [address] [address] [email or web address] PCP - General Family Medicine 03/26/22 09/19/22 Janny Zavala MD [address] [address] [email or web address] PCP - General Family Medicine 10/03/22 10/21/22 Colt Steele [facility] 29 [place] [address] [email or web address] PCP - General Family Medicine 10/22/22 Stanley Castro MD [address] [place] [address] [email or web address] Historical LMR Provider 09/02/17 11/24/21 Shay Webb MD 264 [facility] [address] [place] [address] [email or web address] Historical LMR Provider 09/02/17 Jaiden Esparza DO [address] [place] [address] [facility] [place] [address] Historical LMR Provider 09/02/17 Larisa Navarro MD [address] [place] [address] Historical LMR Provider 09/02/17 Oziel Archibald MD 22 [place] [address] Historical LMR Provider 09/02/17 2 Rao Arzate DO [address] [place] [address] [email or web address] Insurance Assigned Provider 02/21/24 11/22/24 Rococ Alvarenga DO [address] [place] [address] [email or web address] Geriatric Medicine 05/23/25 documented as of this encounter Additional Source Comments The information contained in this document represents components of the legal health record. It is not the complete legal health record.[facility]
--- OUTSIDE RECORDS SUMMARY | 2025-08-10 16:32 | XMS_ITS | Encounter Summary ---
Author Organization [facility] Address [address] [place] [address] Phone Care Team Providers Care Pipe Smoking Machine Operator Name Role Phone Shay Webb MD Primary Care Provider Stanley Castro MD Unavailable Shay Webb MD Unavailable [phone] Jaiden Esparza DO Unavailable Larisa Navarro MD Unavailable [phone] Oziel Archibald MD Unavailable [phone] Larisa Treviño MD Primary Care Provid er Janny Zavala MD Primary Care Provider Colt Steele CNP Primary Care Provider [phone] Rao Arzate DO Unavailable Rocco Alvarenga DO Unavailable Encounter Details Date Type Department Care Team (Late st Contact Info) Description 12/23/2020 Procedure Pass [facility], [address] [id number] Social History Tobacco Use Types Packs/Day Years [...] documented as of this encounter Care Teams Pipe Smoking Machine Operator Relationship Specialty Start Date End Date JonShay MD [address] [place] [address] & [address] [place] [address] [email or web address] PCP - General 05/17/14 03/25/22 Larisa Treviño MD [address] [place] [address] [email or web address] PCP - General Family Medicine 03/26/22 09/19/22 Janny Zavala MD [address] [place] [email or web address] PCP - General Family Medicine 10/03/22 10/21/22 Colt Steele CNP [address] [facility] [place] [address] PCP - General Family Medicine 10/22/22 Stanley Castro MD [address] [place] [address] [email or web address] Historical LMR Provider 09/02/17 11/24/21 Shay Webb MD 264 [facility] [address] [place] [address] [email or web address] Historical LMR Provider 09/02/17 Jaiden Esparza DO [address] [place] [address] [facility], [place] [address] [email or web address] Historical LMR Provider 09/02/17 Larisa Navarro MD [address], [place] [address] Historical LMR Provider 09/02/17 Oziel Archibald MD [address] [place] [address] Historical LMR Provider 09/02/17 2 Rao Arzate DO [address] [facility] [place] [address] [email or web address] Insurance Assigned Provider 02/21/24 11/22/24 Rocco Alvarenga DO 22 [place] [address] [email or web address] Geriatric Medicine 05/23/25 documented as of this encounter Additional Source Comments The information contained in this document represents components of the legal health record. It is not the complete legal health record.[facility]
--- OUTSIDE RECORDS SUMMARY | 2025-08-10 16:32 | XMS_ITS | Encounter Summary ---
Author Organization [facility] Address [address] [place] [address] Phone Care Team Providers Care Machine Castings Plasterer Name Role Phone JonShay MD Unavailable [phone] Jaiden Esparza DO Unavailable Larisa Navarro MD Unavailable [phone] Colt Steele [facility] Primary Care Provider [phone] Rao Arzate DO Unavailable Rocco Alvarenga DO Unavailable Reason for Referral * MRI/CAT Scan - Closed Specialty Diagnoses / Procedures Referred By Contac t Referred To Contact Radiology Diagnoses IPMN (intraductal papillary mucinous neoplasm) Procedures MRI Cholangiopancreatography (MRCP) Jaime Woodward MD Phone: tel: fax: [email or web address] Referral ID Status Reason Start Date Expiration Date Visits Re quested Visits Authorized [id number] Closed 03/20/2023 1 1 Encounter Details Date Type Department Care Team (Latest Contact Info) Description 03/20/2023 Transcribe Orders Virtual Department [address] [place] [address] Jaime Woodward MD [address] [place] [id number] IPMN (intraductal papillary mucinous neoplasm) (Primary Dx) [...] high school, GED, job training, learning the Ukrainian language, technical skills, or developing parenting skills)? [...] MRI CHOLANGIOPANCREATOGRAPHY (MRCP) WITH AND WITHOUT CONTRAST (04/13/2023 8:11 AM EDT) Anatomical Region Laterality Modality Pancreas, Biliary Magnetic Reson ance 04/13/2023 8:53 PM EDT Impressions 04/14/2023 5:24 AM EDT Since 11/29/2022: -Similar 3.0 cm tubular cystic pancreatic tail lesion, with slight measurement differences from prior likely related to incomplete inclusion of the lesion in the mhuom-km-iqzo on prior MRCP. 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 Consider continued surveillance in 6 months. 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 Narrative 04/14/2023 5:24 AM EDT MRI CHOLANGIOPANCREATOGRAPHY (MRCP) WITH AND WITHOUT CONTRAST TECHNIQUE: Multiplanar MR imaging of the abdomen was performed using T1, T2, fat saturated, and diffusion weighted techniques. 2D and 3D MRCP sequences were performed. Dynamic multiphase imaging was also performed after administration of an intravenous gadolinium contrast agent. COMPARISON: MRCP 05/29/2022. FINDINGS: Lower Chest: Normal. No effusions. Liver: Normal. No focal lesions. Biliary: Prior cholecystectomy. Similar expected mild bile duct prominence. Spleen: Normal. No splenomegaly or focal lesions. Pancreas: A tubular, lobulated cystic lesion pancreatic tail measures approximately 3.0 x 0.8 cm on 401:1077, and is likely not significant changed since 11/29/2022, allowing for incomplete measurement of the lesion on prior imaging due to ksthq-fl-jcvy on MRCP images. As before, whether this is a branch duct lesion communicating with the main duct, or reflects a dilated main duct itself, is not well discerned by MRI. Additional cystic lesions are not significant changed, for example a 1.0 cm cystic focus in the pancreatic body is not significantly changed since 06/21/2021 (2:12). Adrenal Glands: Normal. No nodules. Kidneys/Ureters: Benign renal cysts. No solid masses or hydronephrosis. Bowel: Normal. No dilatation or wall thickening. Peritoneum/Retroperitoneum: Normal. No masses or fluid. Lymph Nodes: Normal. No lymphadenopathy. Vessels: Normal. No abdominal aortic aneurysm. Bones/Soft Tissues: Lumbar spinal fusion hardware. No focal marrow replacing lesions. Procedure Note Kj Jenkins MD - 04/14/2023 MRI CHOLANGIOPANCREATOGRAPHY (MRCP) WITH AND WITHOUT CONTRAST TECHNIQUE: Multiplanar MR imaging of the abdomen was performed using T1,T2, fat saturated, and diffusion weighted techniques. 2D and 3D MRCPsequences were performed. Dynamic multiphase imaging was also performedafter administration of an intravenous gadolinium contrast agent. COMPARISON: MRCP 05/29/2022. FINDINGS: Lower Chest: Normal. No effusions. Liver: Normal. No focal lesions. Biliary: Prior cholecystectomy. Similar expected mild bile ductprominence. Spleen: Normal. No splenomegaly or focal lesions. Pancreas: A tubular, lobulated cystic lesion pancreatic tail measuresapproximately 3.0 x 0.8 cm on 401:1077, and is likely not significantchanged since 11/29/2022, allowing for incomplete measurement of the lesionon prior imaging due to llntx-ae-ahra on MRCP images. As before, whetherthis is a branch duct lesion communicating with the main duct, or reflectsa dilated main duct itself, is not well discerned by MRI. Additionalcystic lesions are not significant changed, for example a 1.0 cm cysticfocus in the pancreatic body is not significantly changed since 06/21/2021(2:12). Adrenal Glands: Normal. No nodules. Kidneys/Ureters: Benign renal cysts. No solid masses or hydronephrosis. Bowel: Normal. No dilatation or wall thickening. Peritoneum/Retroperitoneum: Normal. No masses or fluid. Lymph Nodes: Normal. No lymphadenopathy. Vessels: Normal. No abdominal aortic aneurysm. Bones/Soft Tissues: Lumbar spinal fusion hardware. No focal marrowreplacing lesions. IMPRESSION: Since 11/29/2022: -Similar 3.0 cm tubular cystic pancreatic tail lesion, with slightmeasurement differences from prior likely related to incomplete inclusionof the lesion in the rwjff-kj-fhqy on prior MRCP. This is almost certainlyan IPMN; whether this is a branch duct lesion communicating with the mainduct, versus a dilated main duct itself (therefore a main duct IPMN)itself, is not well discerned by MRI, though statistically this is morelikely a branch duct IPMN. Consider continued surveillance in 6 months. 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 us Jaime Woodward MD IMG MR [...] as of this encounter Care Teams Machine Castings Plasterer Relationship Specialty Start Date End Date Colt Steele CNP 29 [facility] [place] [address] [email or web address] PCP - General Family Medicine 10/22/22 JonShay MD [address] [place] [address] 10 & [address] [place] [address] [email or web address] Historical LMR Provider 09/02/17 Jaiden Esparza DO [address] [place] [address] [facility] [place] [address] [email or web address] Historical LMR Provider 09/02/17 Larisa Navarro MD [address] [place] [address] Historical LMR Provider 09/02/17 Rao Arzate DO 29 [place] [address] [email or web address] Insurance Assigned Provider 02/21/24 11/22/24 Rocco Alvarenga DO [address] [place] [address] [email or web address] Geriatric Medicine 05/23/25 documented as of this encounter Additional Source Comments The information contained in this document represents components of the legal health record. It is not the complete legal health record.[facility]
--- OUTSIDE RECORDS SUMMARY | 2025-08-10 16:32 | XMS_ITS | Encounter Summary ---
Author Organization [facility] Address [address] [place] [address] Phone Care Team Providers Care Brake Lining Finisher Name Role Phone Shay Webb MD Primary Care Provider Stanley Castro MD Unavailable Shay Webb MD Unavailable [phone] Jaiden Esparza DO Unavailable Larisa Navarro MD Unavailable [phone] Oziel Archibald MD Unavailable [phone] Larisa Treviño MD Primary Care Provid er Janny Zavala MD Primary Care Provider Colt Steele CNP Primary Care Provider [phone] Rao Arzate DO Unavailable Rocco Alvarenga DO Unavailable Encounter Details Date Type Department Care Team (Latest Contact Info) Description 01/26/2018 Transcribe Orders [facility] PFT Lab [address] [place] [address] Shay Webb MD [address] [place] [address] 10 & [address] [place] [address] [email or web address] MCGRAW (dyspnea on exertion) (Primary Dx) [...] documented as of this encounter Results * Pulmonary Function Test Reason for Exam: Dyspnea/Shortness of Breath; Type of PFT Test: Spirometry with bronchodilator, Spirometry while seated and supine; Performing Location: [facility] (02/06/2018 10:33 AM EDT) FEV1 liters FVC liters FEV1/FVC liters TLC liters DLCO ml/mmHg sec Anatomical Region Laterality Modality Other Impressions 02/06/2018 10:33 AM EDT METHACHOLINE CHALLENGE TESTING A standard methacholine challenge study was performed according to ATS criteria on this 82 y.o. year-old female for evaluation of dyspnea on exertion. TECHNIQUE: After measurements of baseline spirometry, serial spirometry measurements were performed with the intervening administration of serially increasing doses of methacholine. RESULTS: Baseline spirometry is essentially normal, with an FEV1/FVC ratio of 71% and an FEV1 of 1.67 L or 98% predicted, though mid flows are moderately impaired. After the administration of serially increasing doses of methacholine, the FEV1 dropped by 21% after a dose of 2.5 mg/mL. PC-20 is reached at that dose. Spirometry performed in recovery is again normal, and grossly unchanged from baseline. IMPRESSION: This or presence of positive methacholine challenge study, with a PC 2 0 of 2.5 mg/mL. us Provider Not In System PhD PFT ORDERABLES Final Result documented in this encounter Visit Diagnoses Diagnosis MCGRAW (dyspnea on exertion)- Primary Other dyspnea and respiratory abnormality MCGRAW (dyspnea on exertion) Other dyspnea and respiratory abnormality documented in this encounter Additional Health Concerns Infection Onset Date Last Indicated Resolved Time CoV-Exposed Comment:Recent close contact documented in the COVID-19 PCR/PRO order Pt denied exposure 12/13/2020 12/13/2020 12/18/2020 10:54 AM EST CoV-Risk 07/18/2023 07/18/2023 07/29/2023 1:22 AM EDT CoV-Risk 10/06/2023 10/06/2023 10/17/2023 1:22 AM EST documented as of this encounter Care Teams Brake Lining Finisher Relationship Specialty Start Date End Date Shay Webb MD [address] [address] & [address] [place] [address] [email or web address] PCP - General 05/17/14 03/25/22 Larisa Treviño MD [address] [address] [email or web address] PCP - General Family Medicine 03/26/22 09/19/22 Janny Zavala MD [address] [address] [email or web address] PCP - General Family Medicine 10/03/22 10/21/22 Colt Steele CNP [address] [place] [address] [email or web address] PCP - General Family Medicine 10/22/22 Stanley Castro MD [address] [place] [address] [email or web address] Historical LMR Provider 09/02/17 11/24/21 Shay Webb MD 264 [facility] [address] & [address] [place] [address] [email or web address] Historical LMR Provider 09/02/17 Jaiden Esparza DO [address] [place] [address] [facility], [place] [address] [email or web address] Historical LMR Provider 09/02/17 Larisa Navarro MD [address] [place] [address] Historical LMR Provider 09/02/17 Oziel Archibald MD [address] [place] [address] Historical LMR Provider 09/02/17 2 Rao Arzate DO [address] [place] [address] Insurance Assigned Provider 02/21/24 11/22/24 oRcco Alvarenga DO 22 [place] [address] Geriatric Medicine 05/23/25 documented as of this encounter Additional Source Comments The information contained in this document represents components of the legal health record. It is not the complete legal health record.[facility]
--- OUTSIDE RECORDS SUMMARY | 2025-08-10 16:32 | XMS_ITS | Encounter Summary ---
Author Organization [facility] Address [address] [place] [address] Phone Care Team Providers Care Director Business Management Name Role Phone Shay Webb MD Primary Care Provider Shay Webb MD Unavailable [phone] Jaiden Esparza DO Unavailable [phone] Larisa Navarro MD Unavailable [phone] Larisa Treviño MD Primary Care Provid er Janny Zavala MD Primary Care Provider Colt Steele CNP Primary Care Provider [phone] Rao Arzate DO Unavailable Rocco Alvarenga DO Unavailable Encounter Details Date Type Department Care Team (Late st Contact Info) Description 01/16/2022 Procedure Pass [facility], [address] [address] Social History Tobacco Use Types Packs/Day Years [...] documented as of this encounter Care Teams Director Business Management Relationship Specialty Start Date End Date Shay Webb MD [address] [place] [address] & [address] [place] [address] [email or web address] PCP - General 05/17/14 03/25/22 Larisa Treviño MD [address] [address] [email or web address] PCP - General Family Medicine 03/26/22 09/19/22 Janny Zavala MD [address] [place] [address] [email or web address] PCP - General Family Medicine 10/03/22 10/21/22 Colt Steele CNP 29 [facility] [place] [address] PCP - General Family Medicine 10/22/22 Shay Webb MD [address] [place] [address] [address] [place] [address] [email or web address] Historical LMR Provider 09/02/17 Jaiden Esparza DO 4 [facility] [place] [address] [email or web address] Historical LMR Provider 09/02/17 Larisa Navarro MD [address] [place] [address] Historical LMR Provider 09/02/17 Rao Arzate DO 29 [place] [address] Insurance Assigned Provider 02/21/24 11/22/24 Rocco Alvarenga DO 22 [place] [address] Geriatric Medicine 05/23/25 documented as of this encounter Additional Source Comments The information contained in this document represents components of the legal health record. It is not the complete legal health record.[facility]
--- OUTSIDE RECORDS SUMMARY | 2025-08-10 16:32 | XMS_ITS | Encounter Summary ---
Author Organization [facility] Address [address] [place] [address] Phone Care Team Providers Care Brass Reclaimer Name Role Phone Shay Webb MD Unavailable [phone] Jaiden Esparza DO Unavailable [phone] Larisa Navarro MD Unavailable [phone] Colt Steele [facility] Primary Care Provider [phone] Rao Arzate DO Unavailable Rocco Alvarenga DO Unavailable Encounter Details Date Type Department Care Team (Late st Contact Info) Description 03/20/2023 Procedure Pass [facility], [address] [address] Social History Tobacco Use Types Packs/Day Years [...] high school, GED, job training, learning the Cambodian language, technical skills, or developing parenting skills)? [...] documented as of this encounter Care Teams Brass Reclaimer Relationship Specialty Start Date End Date Colt Steele CNP 29 [facility] [place] [address] PCP - General Family Medicine 10/22/22 JonShay MD [address] [address] [email or web address] Historical LMR Provider 09/02/17 Jaiden Esparza DO [address] [place] [address] Orthoped[facility], [facility] [place] [address] Historical LMR Provider 09/02/17 Larisa Navarro MD [address] [place] [address] Historical LMR Provider 09/02/17 Rao Arzate DO 29 [place] [address] Insurance Assigned Provider 02/21/24 11/22/24 Rocco Alvarenga DO 22 [place] [address] Geriatric Medicine 05/23/25 documented as of this encounter Additional Source Comments The information contained in this document represents components of the legal health record. It is not the complete legal health record.[facility]
--- OUTSIDE RECORDS SUMMARY | 2025-08-10 16:32 | XMS_ITS | Encounter Summary ---
Author Organization [facility] Address [address] [place] [address] Phone Care Team Providers Care Rest Room Attendant Name Role Phone Shay Webb MD Primary Care Provider Stanley Castro MD Unavailable Shay Webb MD Unavailable [phone] Jaiden Esparza DO Unavailable Larisa Navarro MD Unavailable [phone] Oziel Archibald MD Unavailable [phone] Larisa Treviño MD Primary Care Provid er Janny Zavala MD Primary Care Provider [phone] Colt Steele CNP Primary Care Provider Rao Arzate DO Unavailable Rocco Alvarenga DO Unavailable [phone] Reason for Referral * MRI/CAT Scan - Closed Specialty Diagnoses / Procedures Referred By Contac t Referred To Contact Radiology Diagnoses MCGRAW (dyspnea on exertion) Atypical chest pain Hormone replacement therapy (HRT) Procedures CT Angio Chest Shay Webb MD Phone: tel: fax: [email or web address] Referral ID Status Reason Start Date Expiration Date Visits Re quested Visits Authorized [id number] Closed 01/09/2018 01/09/2019 1 1 Encounter Details Date Type Department Care Team (Late st Contact Info) Description 01/09/2018 Ancillary Orders Virtual Department 30 [place] [address] Shay Webb MD [address] [facility] [address] [place] [address] [email or web address] MCGRAW (dyspnea on exertion); Atypical chest pain; Hormone replacement therapy (HRT) Social History Tobacco Use Types Packs/Day Years [...] documented as of this encounter Results * CT ANGIO CHEST WITH AND WITHOUT CONTRAST (01/12/2018 10:00 AM EST) Anatomical Region Laterality Modality Chest, Thoracic Vasculature Comp uted Tomography 01/12/2018 9:54 AM EST Impressions 01/12/2018 10:07 AM EST 1. No evidence of pulmonary embolism. 2. New mild cardiomegaly. 3. Stable 5 mm left lower lobe pulmonary nodule. TOTAL CTDIvol: 46.5 mGy N.B.: Calcification in the coronary arteries does not in itself have a high positive predictive value for near term cardiac events; however, in the appropriate clinical setting it may be an indication for further evaluation or cardiology consultation depending on the patient?s cardiac risk factors. POS - [id number] Narrative 01/12/2018 10:07 AM EST COMPARISON: Chest x-ray 07/23/2017. No prior chest CT. CT abdomen pelvis 07/29/2011. TECHNIQUE: Precontrast views were obtained for planning purposes. High density intravenous contrast is then administered and scanning obtained from lung apex to base. Multiplanar reformats and 3-D vascular reformats generated and study evaluated for specific evidence of pulmonary embolus. Automated exposure control utilized. CT PULMONARY ANGIOGRAM FINDINGS: Cardiovascular: New mild cardiomegaly. Trace pericardial effusion. Aortic tortuosity and ascending aortic ectasia. No aneurysm. Main pulmonary arteries are normal in size. No evidence of embolism. Mild aortic calcified plaque and mild coronary artery calcified plaque. Mediastinum: Esophagus is normal. No enlarged mediastinal or hilar lymph nodes. Abdomen: No acute findings. Musculoskeletal: No thyroid nodules. No supraclavicular or axillary lymphadenopathy. Mild thoracic kyphosis. Right rotator cuff postsurgical changes. No compression deformities or destructive bone lesions. Lungs: No airway masses or bronchiectasis. Mild bilateral bronchial wall thickening. No pulmonary masses or consolidation. Trace right pleural effusion. Bilateral dependent atelectasis. Stable 5 mm left lower lobe nodule. No new nodules. Procedure Note Pradip Balderas MD - 01/12/2018 COMPARISON: Chest x-ray 07/23/2017. No prior chest CT. CT abdomen pelvis07/29/2011. TECHNIQUE: Precontrast views were obtained for planning purposes. Highdensity intravenous contrast is then administered and scanning obtainedfrom lung apex to base. Multiplanar reformats and 3-D vascular reformatsgenerated and study evaluated for specific evidence of pulmonary embolus.Automated exposure control utilized. CT PULMONARY ANGIOGRAM FINDINGS: Cardiovascular: New mild cardiomegaly. Trace pericardial effusion.Aortic tortuosity and ascending aortic ectasia. No aneurysm. Mainpulmonary arteries are normal in size. No evidence of embolism. Mildaortic calcified plaque and mild coronary artery calcified plaque. Mediastinum: Esophagus is normal. No enlarged mediastinal or hilar lymphnodes. Abdomen: No acute findings. Musculoskeletal: No thyroid nodules. No supraclavicular or axillarylymphadenopathy. Mild thoracic kyphosis. Right rotator cuff postsurgicalchanges. No compression deformities or destructive bone lesions. Lungs: No airway masses or bronchiectasis. Mild bilateral bronchial wallthickening. No pulmonary masses or consolidation. Trace right pleuraleffusion. Bilateral dependent atelectasis. Stable 5 mm left lower lobenodule. No new nodules. IMPRESSION: 1. No evidence of pulmonary embolism. 2. New mild cardiomegaly. 3. Stable 5 mm left lower lobe pulmonary nodule. TOTAL CTDIvol: 46.5 mGy N.B.: Calcification in the coronary arteries does not in itself have ahigh positive predictive value for near term cardiac events; however, inthe appropriate clinical setting it may be an indication for furtherevaluation or cardiology consultation depending on the patient?s cardiacrisk factors. POS - [id number] Shay Webb MD IMG CT CHEST Final Result documented in this encounter Visit Diagnoses Diagnosis MCGRAW (dyspnea on exertion) Other dyspnea and respiratory abnormality Atypical chest pain Other chest pain Hormone replacement therapy (HRT) MCGRAW (dyspnea on exertion) Other dyspnea and respiratory abnormality Atypical chest pain Other chest pain Hormone replacement therapy (HRT) documented in this encounter Additional Health Concerns Infection Onset Date Last Indicated Resolved Time CoV-Exposed Comment:Recent close contact documented in the COVID-19 PCR/PRO order Pt denied exposure 12/13/2020 12/13/2020 12/18/2020 10:54 AM EST CoV-Risk 07/18/2023 07/18/2023 07/29/2023 1:22 AM EDT CoV-Risk 10/06/2023 10/06/2023 10/17/2023 1:22 AM EST documented as of this encounter Care Teams Rest Room Attendant Relationship Specialty Start Date End Date Shay Webb MD [address] [place] [address] & [address] [place] [phone] [email or web address] PCP - General 05/17/14 03/25/22 Larisa Treviño MD [address] [address] [email or web address] PCP - General Family Medicine 03/26/22 09/19/22 Janny Zavala MD [address] [address] [email or web address] PCP - General Family Medicine 10/03/22 10/21/22 Colt Steele, DANIELLE [address] [place] [address] [email or web address] PCP - General Family Medicine 10/22/22 Stanley Castro MD [address] [place] [address] [email or web address] Historical LMR Provider 09/02/17 11/24/21 Shay Webb MD [address] [place] [address] & [address] [place] [address] [email or web address] Historical LMR Provider 09/02/17 Jaiden Esparza DO [address] [place] [address] Orthopedics & Sports Medicine, [place] [address] [email or web address] Historical LMR Provider 09/02/17 Larisa Navarro MD [address] [address] Historical LMR Provider 09/02/17 Oziel Archibald MD [address] [place] [address] Historical LMR Provider 09/02/17 2 Rao Arzate DO [address] [place] [phone] [email or web address] Insurance Assigned Provider 02/21/24 11/22/24 Rocco Alvarenga DO 22 [place] [address] [email or web address] Geriatric Medicine 05/23/25 documented as of this encounter Additional Source Comments The information contained in this document represents components of the legal health record. It is not the complete legal health record.[facility]
--- OUTSIDE RECORDS SUMMARY | 2025-08-10 16:32 | XMS_ITS | Encounter Summary ---
Author Organization [facility] Address [address] [place] [address] [place] [address] Phone Care Team Providers Care Assistant To The Ceo Name Role Phone Shay Webb MD Primary Care Provider Stanley Castro MD Unavailable Shay Webb MD Unavailable [phone] Jaiden Esparza DO Unavailable Larisa Navarro MD Unavailable [phone] Oziel Archibald MD Unavailable [phone] Larisa Treviño MD Primary Care Provid er Janny Zavala MD Primary Care Provider Colt Steele CNP Primary Care Provider [phone] Rao Arzate DO Unavailable Rocco Alvarenga DO Unavailable Encounter Details Date Type Department Care Team (Latest Contact Info) Description 01/08/2018 Transcribe Orders [facility] Laboratory [address] [place] [address] Shay Webb MD [address] [place] [address] [address] [place] [address] [email or web address] Dyspnea, unspecified type (Primary Dx); Routine general medical examination at a health care facility; Fatigue, unspecified type Social History Tobacco Use Types Packs/Day Years [...] documented as of this encounter Results * Magnesium (01/08/2018 2:09 PM EST) MAGNESIUM 1.9 1.6 - 2.6 mg/dL [facility] Blood 01/08/2018 2:09 PM EST 01/08/2018 2:14 PM EST us Shay Webb MD LAB BLOOD ORDERABLES Final Resu lt Performing Organization Address City/State/[facility] Co de Phone Number [facility] [address] [place] [address] * (ABNORMAL) CBC and differential (01/08/2018 2:09 PM EST) WBC 7.39 3.40 - 11.20 K/uL [facility] RBC 4.66 3.80 - 4.80 M/uL [facility] HGB 13.9 12.0 - 15.0 g/dL [facility] HCT 41.3 36.0 - 46.0 % [facility] PLT 325 130 - 400 K/uL [facility] MCV 88.6 79.0 - 98.0 fL [facility] MCH 29.8 27.0 - 34.8 pg [facility] MCHC 33.7 31.5 - 36.0 g/dL [facility] RDW 12.7 10.8 - 14.6 % [facility] MPV 8.9(L) 9.4 - 12.4 fl [facility] NRBC 0.00 /100 WBCs [facility] ABSOLUTE NRBC 0.00 K/uL [facility] DIFF METHOD Auto [facility] NEUTS 65.8 45.30 - 77.70 % [facility] LYMPHS 25.2 12.30 - 39.70 % [facility] MONOS 7.0 4.10 - 12.80 % [facility] EOS 0.9 0 - 7.2 % [facility] BASOS 0.7 0 - 2.80 % [facility] Granulocytes, immature (%) 0.4 0.0 - 0.9 % [facility] ABSOLUTE NEUTS 4.86 1.40 - 7.70 K/uL [facility] ABSOLUTE LYMPHS 1.86 0.60 - 3.20 K/uL [facility] ABSOLUTE MONOS 0.52 0.11 - 0.59 K/uL [facility] ABSOLUTE EOS 0.07 0.01 - 0.50 K/uL [facility] ABSOLUTE BASOS 0.05 0.00 - 0.08 K/uL [facility] Granulocytes, immature 0.03 0.00 - 0.05 K/uL [facility] Blood 01/08/2018 2:09 PM EST 01/08/2018 2:14 PM EST Shay Webb MD LAB BLOOD ORDERABLES Final Resu lt [address] [address] * TSH with reflex (01/08/2018 2:09 PM EST) TSH 0.54 0.27 - 4.20 uIU/mL [facility] Blood 01/08/2018 2:09 PM EST 01/08/2018 2:14 PM EST Shay Webb MD LAB BLOOD ORDERABLES Final Resu lt [address] [address] * (ABNORMAL) Comprehensive metabolic panel (01/08/2018 2:09 PM EST) SODIUM 134 133 - 146 mmol/L [facility] POTASSIUM 4.5 3.3 - 5.1 mmol/L [facility] CHLORIDE 95(L) 96 - 108 mmol/L [facility] CO2 27 21 - 35 mmol/L [facility] BUN 18 6 - 19 mg/dL [facility] CREATININE 0.50 0.5 - 1.5 mg/dL [facility] GLUCOSE 87 70 - 99 mg/dL [facility] ALBUMIN 4.2 3.9 - 4.8 g/dL [facility] TOTAL PROTEIN 6.9 6.5 - 8.0 g/dL [facility] CALCIUM 8.9 8.4 - 10.3 mg/dL [facility] ALKALINE PHOSPHATASE 60 39 - 117 U/L [facility] TOTAL BILIRUBIN 0.5 0 - 1.2 mg/dL [facility] AST 22 0 - 37 U/L [facility] ALT 21 0 - 40 U/L [facility] GLOBULIN 2.7 1 - 4.8 g/dL [facility] EGFR >60 mL/min/1.7 3m2 [facility] Comment:Abnormal if <60. If patient is -Guamanian, multiply the result by 1.21. ANION GAP 17 10 - 20 mmol/L [facility] Blood 01/08/2018 2:09 PM EST 01/08/2018 2:14 PM EST us Shay Webb MD LAB BLOOD ORDERABLES Final Resu lt [address] [address] documented in this encounter Visit Diagnoses Diagnosis Dyspnea, unspecified type- Primary Routine general medical examination at a health care facility Fatigue, unspecified type documented in this encounter Additional Health Concerns Infection Onset Date Last Indicated Resolved Time CoV-Exposed Comment:Recent close contact documented in the COVID-19 PCR/PRO order Pt denied exposure 12/13/2020 12/13/202012/18/2020 10:54 AM EST CoV-Risk 07/18/2023 07/18/2023 07/29/2023 1:22 AM EDT CoV-Risk 10/06/2023 10/06/2023 10/17/2023 1:22 AM EST documented as of this encounter Care Teams Assistant To The Ceo Relationship Specialty Start Date End Date Shay Webb MD [address] [address] & [address] [place] [address] [email or web address] PCP - General 05/17/14 03/25/22 Larisa Treviño MD [address] [place] [address] [email or web address] PCP - General Family Medicine 03/26/22 09/19/22 Janny Zavala MD [address] [place] [email or web address] PCP - General Family Medicine 10/03/22 10/21/22 Colt Steele CNP 29 [facility] [place] [address] [email or web address] PCP - General Family Medicine 10/22/22 Stanley Castro MD [address] [place] [address] [email or web address] Historical LMR Provider 09/02/17 11/24/21 Shay Webb MD [address] [place] [address] & [address] [place] [address] [email or web address] Historical LMR Provider 09/02/17 Jaiden Esparza DO 4 [facility] Orthopedics & Sports Medicine, [place] [address] Historical LMR Provider 09/02/17 Larisa Navarro MD [address], [place] [address] Historical LMR Provider 09/02/17 Oziel Archibald MD [address] [place] [address] Historical LMR Provider 09/02/17 2 Rao Arzate DO [address] [place] [address] Insurance Assigned Provider 02/21/24 11/22/24 Rocco Alvarenga DO [address] [place] [address] Geriatric Medicine 05/23/25 documented as of this encounter Additional Source Comments The information contained in this document represents components of the legal health record. It is not the complete legal health record.[facility]
--- OUTSIDE RECORDS SUMMARY | 2025-08-10 16:32 | XMS_ITS | Encounter Summary ---
Author Organization [facility] Address [address] [place] [address] [place] [address] Phone Care Team Providers Care B2B Outside Sales Representative Name Role Phone Shay Webb MD Primary Care Provider Stanley Castro MD Unavailable Shay Webb MD Unavailable [phone] Jaiden Esparza DO Unavailable Larisa Navarro MD Unavailable [phone] Oziel Archibald MD Unavailable [phone] Larisa Treviño MD Primary Care Provid er Janny Zavala MD Primary Care Provider Colt Steele CNP Primary Care Provider [phone] Rao Arzate DO Unavailable Rocco Alvarenga DO Unavailable Encounter Details Date Type Department Care Team (Late st Contact Info) Description 01/16/2018 Ancillary Orders Virtual Department [address] [place] [address] Shay Webb MD 264 [facility] [address] [place] [address] [email or web address] Cardiomegaly Social History Tobacco Use Types Packs/Day Years [...] documented as of this encounter Results * TTE COMPREHENSIVE (01/22/2018 11:25 AM EST) Body Surface Area 1.6 m2 Height 161 m Weight 58 kg Systolic BP 110 mmHg Diastolic BP 70 mmHg Interventricular Septum Thickness 9 mm Left Ventricle Internal Diameter End Diastole 38 37 - 52 mm Left Ventricle Internal Diameter End Systole 23 22 - 35 mm Left Ventricular Outflow Tract Diameter 13.00 mm LVOT VTI REST 198.00 mm Left Ventricular Outflow Tract Velocity 931.00 mm/s Left Ventricular Outflow Tract Gradient at Rest 3.00 mmHg Left Ventricular Posterior Wall Thickness 10 mm Ejection Fraction 65 50 - 75 Percent Aortic Valve Mean Gradient 5.00 mmHg Aortic Valve Time Velocity Integral 337.00 mm Aortic Valve Peak Velocity 1,440.00 mm/s Aortic Valve Peak Gradient 8.00 mmHg Aortic Sinus Diameter 19 mm Ascending Aorta Diameter 28 mm Inferior Vena Cava Diameter 15 0.0 - 21 mm Mitral Valve Deceleration Time 327.00 ms Mitral Valve A Wave Speed 1,220.00 mm/s Mitral Valve E Wave Speed 827.00 mm/s Right Ventricle Basal Diameter 32.90 25 - 41 mm Tricuspid Valve Peak Velocity 2.66 mm/s Raw LV EF% 63 % Aortic Valve Sinus Index 1 12 20 - 32 mm Ascending Aorta Diameter 18 mm Aortic Sinus Index 12 mm Ascending Aorta Index 18 mm Anatomical Region Laterality Modality Heart Ultrasound Narrative 01/22/2018 3:11 PM EST Normal LV size and function EF 65%. There is mild left upper septal thickening. Trace mitral regurgitation. Mild tricuspid regurgitation with normal PA pressure. Left Ventricle The left ventricular cavity size and wall thickness are normal. Left ventricular systolic function is normal. The estimated ejection fraction is 65% (Normal 50- 75%). The left ventricular ejection fraction was measured by the bi-plane method of discs. Doppler profiles appear consistent with impaired left ventricular relaxation (a sign of diastolic dysfunction). Right Ventricle The right ventricular size is normal. Left Atrium The left atrium is normal in size. Right Atrium The right atrium is normal in size. Mitral Valve The mitral valve appears normal. MV E/A 0.7 There is trace mitral regurgitation detected by spectral and color Doppler. The jet of the mitral regurgitation is centrally directed. Tricuspid Valve The tricuspid valve appears normal. TV pk Nehemias 266 cm/s pk PG 28 mm Hg. Assuming RAP of 3 the RVSP is calculated at 31 mm Hg. Normal pulmonary artery pressures. There is evidence of trace to mild tricuspid regurgitation by color and spectral Doppler. Aortic Valve The aortic valve appears abnormal. The aortic valve is tricuspid. There is mild thickening of multiple aortic leaflets. The visualized portions of the thoracic aorta appear normal. Pulmonic Valve The pulmonary valve appears normal. There is evidence of trace to mild pulmonary regurgitation by color and spectral Doppler. Pericardium There is no evidence of pericardial effusion. There no evidence of a pleural effusion. Interatrial Septum The interatrial septum appears normal. Interventricular Septum Interventricular septal motion appears normal. General Findings The image quality was good (2). Comparison Findings No prior studies for comparison. Shay Webb MD CV ECHO ORDERABLES Final Result documented in this encounter Visit Diagnoses Diagnosis Cardiomegaly Cardiomegaly documented in this encounter Additional Health Concerns Infection Onset Date Last Indicated Resolved Time CoV-Exposed Comment:Recent close contact documented in the COVID-19 PCR/PRO order Pt denied exposure 12/13/2020 12/13/2020 12/18/2020 10:54 AM EST CoV-Risk 07/18/2023 07/18/2023 07/29/2023 1:22 AM EDT CoV-Risk 10/06/2023 10/06/2023 10/17/2023 1:22 AM EST documented as of this encounter Care Teams B2B Outside Sales Representative Relationship Specialty Start Date End Date Shay Webb MD [address] [place] [address] 10 & [address] [place] [address] [email or web address] PCP - General 05/17/14 03/25/22 Larisa Treviño MD [address] [place] [address] [email or web address] PCP - General Family Medicine 03/26/22 09/19/22 Janny Zavala MD [address] [place] [email or web address] PCP - General Family Medicine 10/03/22 10/21/22 Colt Steele [facility] [address] [place] [address] [place] [address] [email or web address] PCP - General Family Medicine 10/22/22 Stanley Castro MD [address] [place] [address] [email or web address] Historical LMR Provider 09/02/17 11/24/21 Shay Webb MD [address] [place] [address] [address] & [address] [place] [address] [email or web address] Historical LMR Provider 09/02/17 Jaiden Esparza DO [address] [place] [address] Orthopedics & Sports Medicine, [facility] [place] [address] Historical LMR Provider 09/02/17 Larisa Navarro MD [address] [place] [address] Historical LMR Provider 09/02/17 Oziel Archibald MD [address] [place] [address] Historical LMR Provider 09/02/17 2 Rao Arzate DO [address] [place] [address] [email or web address] Insurance Assigned Provider 02/21/24 11/22/24 Rocco Alvarenga DO [address] [place] [address] [email or web address] Geriatric Medicine 05/23/25 documented as of this encounter Additional Source Comments The information contained in this document represents components of the legal health record. It is not the complete legal health record.[facility]
--- OUTSIDE RECORDS SUMMARY | 2025-08-10 16:32 | XMS_ITS | Encounter Summary ---
Author Organization [facility] Address [address] [place] [address] Phone Care Team Providers Care Community Organization Worker Name Role Phone Shay Webb MD Unavailable [phone] Jaiden Esparza DO Unavailable [phone] Larisa Navarro MD Unavailable [phone] Colt Steele [facility] Primary Care Provider [phone] Rao Arzate DO Unavailable Rocco Alvarenga DO Unavailable [phone] Encounter Details Date Type Department Care Team (Late st Contact Info) Description 04/22/2023 Ancillary Orders [facility], X-Ray - [address] [address] Cedric Milton MD [address] [place] [address] [id number] Closed fracture of one rib of right side, initial encounter Social History Tobacco Use Types Packs/Day Years [...] high school, GED, job training, learning the [place]onese language, technical skills, or developing parenting skills)? [...] 04/19/2022 Digital Access Answer Date Recorded No 04/08/2023 No 04/08/2023 Reliable internet access at home? Not on file 04/08/2023 Device with a working camera? Not on file Comments No Sex and Gender Information Value [...] OR MORE VIEWS WITH PA CHEST (RIGHT) (04/22/2023 4:10 PM EDT) Anatomical Region Laterality Modality Chest Computed Radiogr aphy 04/24/2023 5:36 PM EDT Impressions 04/24/2023 5:37 PM EDT No displaced rib fracture. Narrative 04/24/2023 5:37 PM EDT XR RIBS 3 OR MORE VIEWS WITH PA CHEST (RIGHT) COMPARISON: XR RIBS 3 OR MORE VIEWS WITH PA CHEST (RIGHT) FINDINGS: No displaced rib fracture. PA evaluation of the chest demonstrates no focal consolidation, pleural effusion, pulmonary edema, or pneumothorax. Cardiomediastinal silhouette is normal. Incompletely visualized lumbar spine fixation hardware. Dextroconvex scoliosis of the upper lumbar spine. Procedure Note Rick Taveras MD - 04/24/2023 XR RIBS 3 OR MORE VIEWS WITH PA CHEST (RIGHT) COMPARISON: XR RIBS 3 OR MORE VIEWS WITH PA CHEST (RIGHT) FINDINGS: No displaced rib fracture. PA evaluation of the chest demonstrates no focal consolidation, pleuraleffusion, pulmonary edema, or pneumothorax. Cardiomediastinal silhouetteis normal. Incompletely visualized lumbar spine fixation hardware. Dextroconvexscoliosis of the upper lumbar spine. IMPRESSION: No displaced rib fracture. Cedric Milton MD IMG XR CHEST Final Re sult documented in this encounter Visit Diagnoses Diagnosis Closed fracture of one rib of right side, initial encounter Closed fracture of one rib of right side, initial encounter documented in this encounter Additional Health Concerns Infection Onset Date Last Indicated Resolved Time CoV-Risk 07/18/2023 07/18/2023 07/29/2023 1:22 AM EDT CoV-Risk 10/06/2023 10/06/2023 10/17/2023 1:22 AM EST Assessment Noted Time PHQ-2 Depression Total Score: 0 04/19/20 12:42 PM EDT documented as of this encounter Care Teams Community Organization Worker Relationship Specialty Start Date End Date Colt Steele CNP [address] [email or web address] PCP - General Family Medicine 10/22/22 Shay Webb MD [address] [address] [email or web address] Historical LMR Provider 09/02/17 Jaiden Esparza DO [address] [place] [address] Orthopedics & Sports Medicine, [place] [address] Historical LMR Provider 09/02/17 Larisa Navarro MD [address] [place] [address] Historical LMR Provider 09/02/17 Rao Arzate DO [address] [place] [address] Insurance Assigned Provider 02/21/24 11/22/24 Rocco Alvarenga DO [address] [place] [address] Geriatric Medicine 05/23/25 documented as of this encounter Additional Source Comments The information contained in this document represents components of the legal health record. It is not the complete legal health record.[facility]
--- OUTSIDE RECORDS SUMMARY | 2025-08-10 16:32 | XMS_ITS | Encounter Summary ---
Author Organization [facility] Address [address] [place] [address] Phone Care Team Providers Care Well Shooter Name Role Phone Shay Webb MD Primary Care Provider Stanley Castro MD Unavailable Shay Webb MD Unavailable [phone] Jaiden Esparza DO Unavailable Larisa Navarro MD Unavailable [phone] Oziel Archibald MD Unavailable [phone] Larisa Treviño MD Primary Care Provid er Janny Zavala MD Primary Care Provider Colt Steele CNP Primary Care Provider [phone] Rao Arzate DO Unavailable Rocco Alvarenga DO Unavailable Encounter Details Date Type Department Care Team (Late st Contact Info) Description 04/10/2018 Ancillary Orders [facility], X-Ray - [address] [id number] Cedric Milton MD [address] [place] [address] Incomplete tear of right rotator cuff Social History Tobacco Use Types Packs/Day Years [...] as of this encounter Results * XR SHOULDER 2 VIEWS (RIGHT) (04/10/2018 11:57 AM EDT) Anatomical Region Laterality Modality Shoulder Right Radiographic Laura ging 04/10/2018 12:3 7 PM EDT Impressions 04/10/2018 12:40 PM EDT Postsurgical changes evident without current significant subluxation or displacement seen. No acute bony injury is evident. Mild degenerative changes noted with periarticular calcifications seen. S/S: Right shoulder pain, incomplete tear of rotator cuff clinically, no trauma POS - [id number] Narrative 04/10/2018 12:40 PM EDT COMPARISON: Right shoulder x-ray May 03, 2013 FINDINGS: 4 views of the right shoulder are obtained. There is minimal spurring in the AC joint. The patient has had prior right shoulder surgery. No acute bony injury or bony displacement is noted. There are minimal degenerative changes in the glenohumeral articulation. Minor periarticular calcifications are present suggesting articular surface calcification. Procedure Note Hola Scherer MD - 04/10/2018 COMPARISON: Right shoulder x-ray May 03, 2013 FINDINGS: 4 views of the right shoulder are obtained. There is minimal spurring in the AC joint. The patient has had prior right shoulder surgery. No acute bony injury or bony displacement is noted. There are minimal degenerative changes in the glenohumeral articulation. Minor periarticular calcifications are present suggesting articularsurface calcification. IMPRESSION: Postsurgical changes evident without current significant subluxation ordisplacement seen. No acute bony injury is evident. Mild degenerative changes noted with periarticular calcifications seen. S/S: Right shoulder pain, incomplete tear of rotator cuff clinically, notrauma POS - [id number] Cedric Milton MD IMG XR UPPER EXTREMITY F inal Result documented in this encounter Visit Diagnoses Diagnosis Incomplete tear of right rotator cuff Incomplete tear of right rotator cuff documented in this encounter Additional Health Concerns Infection Onset Date Last Indicated Resolved Time CoV-Exposed Comment:Recent close contact documented in the COVID-19 PCR/PRO order Pt denied exposure 12/13/2020 12/13/2020 12/18/2020 10:54 AM EST CoV-Risk 07/18/2023 07/18/2023 07/29/2023 1:22 AM EDT CoV-Risk 10/06/2023 10/06/2023 10/17/2023 1:22 AM EST documented as of this encounter Care Teams Well Shooter Relationship Specialty Start Date End Date Jon, Shay Garcia MD [address] [facility] [address] [place] [address] [email or web address] PCP - General 05/17/14 03/25/22 Larisa Treviño MD [address] [place] [address] [email or web address] PCP - General Family Medicine 03/26/22 09/19/22 Janny Zavala MD [address] [place] [address] [email or web address] PCP - General Family Medicine 10/03/22 10/21/22 Colt Steele [facility] [address] [place] [address] [email or web address] PCP - General Family Medicine 10/22/22 Stanley Castro MD [address] [place] [address] [email or web address] Historical LMR Provider 09/02/17 11/24/21 Shay Webb MD [address] [address] & [address] [place] [address] [email or web address] Historical LMR Provider 09/02/17 Jaiden Esparza DO [address] [place] [address] Orthopedics & Sports Medicine, [place] [address] [email or web address] Historical LMR Provider 09/02/17 Larisa Navarro MD [address] [place] [address] Historical LMR Provider 09/02/17 Oziel Archibald MD [address] [place] [address] Historical LMR Provider 09/02/17 2 Rao Arzate DO [address] [place] [address] [email or web address] Insurance Assigned Provider 02/21/24 11/22/24 Rocco Alvarenga DO [address] [place] [address] [email or web address] Geriatric Medicine 05/23/25 documented as of this encounter Additional Source Comments The information contained in this document represents components of the legal health record. It is not the complete legal health record.[facility]
--- OUTSIDE RECORDS SUMMARY | 2025-08-10 16:32 | XMS_ITS | Encounter Summary ---
Author Organization [facility] Address [address] [place] [address] Phone Care Team Providers Care Librarian Specialist Name Role Phone Shay Webb MD Unavailable [phone] Jaiden Esparza DO Unavailable Larisa Navarro MD Unavailable [phone] Colt Steele [facility] Primary Care Provider [phone] Rao Arzate DO Unavailable Rocco Alvarenga DO Unavailable Encounter Details Date Type Department Care Team (Latest Contact Info) Description 03/20/2023 Transcribe Orders [facility] Laboratory [address] [place] [address] Jaime Woodward MD [address] [facility] [address] [place], [place] [id number] [email or web address] Chronic hyponatremia (Primary Dx); Malignant neoplasm of pancreatic duct Social History Tobacco Use Types Packs/Day Years [...] high school, GED, job training, learning the [place] language, technical skills, or developing parenting skills)? [...] documented as of this encounter Results * CA-19-9 (03/20/2023 2:20 PM EDT) CA 19-9 7 <35 U/mL [facility] Blood 03/20/2023 2:20 PM EDT 03/20/2023 2:25 PM EDT us Jaime Woodward MD LAB BLOOD ORDERABLES Final R esult [address] [address] * Lipase (03/20/2023 2:20 PM EDT) LIPASE 46 16 - 63 U/L [facility] Blood 03/20/2023 2:20 PM EDT 03/20/2023 2:25 PM EDT us Jaime Woodward MD LAB BLOOD ORDERABLES Final R esult Performing Organization Address [facility] Co de Phone Number [address] [address] * (ABNORMAL) Comprehensive metabolic panel (03/20/2023 2:20 PM EDT) SODIUM 122(L) 133 - 146 mmol/L [facility] POTASSIUM 4.4 3.3 - 5.1 mmol/L [facility] CHLORIDE 88(L) 96 - 108 mmol/L [facility] CO2 23 21 - 35 mmol/L [facility] BUN 21(H) 6 - 19 mg/dL [facility] CREATININE 0.70 0.5 - 1.5 mg/dL [facility] GLUCOSE 102(H) 70 - 99 mg/dL [facility] ALBUMIN 4.3 3.9 - 4.8 g/dL [facility] TOTAL PROTEIN 6.8 6.5 - 8.0 g/dL [facility] CALCIUM 9.2 8.4 - 10.3 mg/dL [facility] ALKALINE PHOSPHATASE 104 39 - 117 U/L [facility] TOTAL BILIRUBIN 0.4 0.0 - 1.2 mg/dL [facility] AST 34 0 - 37 U/L [facility] ALT 31 0 - 40 U/L [facility] GLOBULIN 2.5 1 - 4.8 g/dL [facility] EGFR 85 >59 mL/min/1.7 3m2 [facility] Comment:Estimated glomerular filtration rate calculated using the CKD-EPI refit equation. ANION GAP 15 10 - 20 mmol/L [facility] Blood 03/20/2023 2:20 PM EDT 03/20/2023 2:25 PM EDT us Jaime Woodward MD LAB BLOOD ORDERABLES Final R esult Performing Organization Address [facility] Co de Phone Number [address] [address] * CBC (03/20/2023 2:20 PM EDT) WBC 7.57 4.00 - 11.00 K/uL [facility] RBC 4.64 3.72 - 5.30 M/uL [facility] HGB 13.9 11.4 - 15.9 g/dL [facility] HCT 42.4 34.2 - 46.8 % [facility] PLT 345 140 - 430 K/uL [facility] MCV 91.4 78.0 - 97.0 fL [facility] MCH 30.0 25.0 - 33.0 pg [facility] MCHC 32.8 32.0 - 36.0 g/dL [facility] RDW 13.1 11.0 - 16.0 % [facility] MPV 9.3 8.4 - 12.8 fl [facility] Blood 03/20/2023 2:20 PM EDT 03/20/2023 2:25 PM EDT us Jaime Woodward MD LAB BLOOD ORDERABLES Final R esult Performing Organization Address City/[facility]/ZIP Co de Phone Number [address] [address] documented in this encounter Visit Diagnoses Diagnosis Chronic hyponatremia- Primary Hyposmolality and/or hyponatremia Malignant neoplasm of pancreatic duct documented in this encounter Additional Health Concerns Infection Onset Date Last Indicated Resolved Time CoV-Risk 07/18/2023 07/18/2023 07/29/2023 1:22 AM EDT CoV-Risk 10/06/2023 10/06/2023 10/17/2023 1:22 AM EST Assessment Noted Time PHQ-2 Depression Total Score: 0 04/19/20 12:42 PM EDT documented as of this encounter Care Teams Librarian Specialist Relationship Specialty Start Date End Date Colt SteeleDANIELLE [address] [place] [address] PCP - General Family Medicine 10/22/22 JonShay MD [address] [address] & [address] [place] [address] [email or web address] Historical LMR Provider 09/02/17 Jaiden Esparza DO [address] [place] [address] Orthopedics & Sports Medicine, [place] [address] Historical LMR Provider 09/02/17 Larisa Navarro MD [address] [place] [address] Historical LMR Provider 09/02/17 Rao Arzate DO [address] [place] [address] Insurance Assigned Provider 02/21/24 11/22/24 Rocco Alvarenga DO [address] [place] [address] Geriatric Medicine 05/23/25 documented as of this encounter Additional Source Comments The information contained in this document represents components of the legal health record. It is not the complete legal health record.[facility]
--- OUTSIDE RECORDS SUMMARY | 2025-08-10 16:32 | XMS_ITS | Encounter Summary ---
Author Organization [facility] Address [address] [place] [address] Phone Care Team Providers Care Senior Cognos Developer Name Role Phone JonShay MD Unavailable [phone] Jaiden Esparza DO Unavailable [phone] Larisa Navarro MD Unavailable [phone] Colt Steele [employer]IE[employer] POWER DISPATCH[employer] Primary Care Provider [phone] Rocco Alvarenga DO Unavailable Encounter Details Date Type Department Care Team (Latest Contact Info) Description 01/20/2025 Transcribe Orders Virtual Department [address] [place] [address] Cedric Milton MD [address] [place] [address] [phone] Low back pain, unspecified back pain laterality, [...] this encounter Results * XR LUMBOSACRAL SPINE 2-3 VIEWS (01/20/2025 1:20 PM EST) Anatomical Region Laterality Modality L-spine Computed Radiogr aphy 01/21/2025 1:20 PM EST Impressions 01/21/2025 1:22 PM EST Posterior fusion hardware at L4-5. Hardware appears intact and grossly well-positioned presumably with associated laminectomies. The hardware stabilizes grade 1 anterolisthesis at L4-5. Partial imaging of emergency medical tech lead extending proximally, likely a neurostimulator device. Moderate scoliosis. Moderate degenerative changes throughout the lumbar spine with most significant disc degeneration and disc space narrowing at L5-S1 and L2-3. Qualitative osteopenia with probable mild compression fracture involving the superior endplate of L1, without change in appearance compared to lumbar MR of 2021. Narrative 01/21/2025 1:22 PM EST XR LUMBOSACRAL SPINE 2-3 VIEWS Referring clinician's provided indication for this examination in [facility]: Outside Radiology Order; please place marker over site of max pain right mid lumbar COMPARISON: MRI LUMBAR SPINE (NEURO) WITH AND WITHOUT CONTRAST Procedure Note Paresh Burk MD - 01/21/2025 XR LUMBOSACRAL SPINE 2-3 VIEWS Referring clinician's provided indication for this examination in [facility]:Outside Radiology Order; please place marker over site of max pain rightmid lumbar COMPARISON: MRI LUMBAR SPINE (NEURO) WITH AND WITHOUT [id number] IMPRESSION: Posterior fusion hardware at L4-5. Hardware appears intact and grosslywell- positioned presumably with associated laminectomies. The hardwarestabilizes grade 1 anterolisthesis at L4-5. Partial imaging of medicaldevice lead extending proximally, likely a neurostimulator device.Moderate scoliosis. Moderate degenerative changes throughout the lumbarspine with most significant disc degeneration and disc space narrowing atL5-S1 and L2-3. Qualitative osteopenia with probable mild compressionfracture involving the superior endplate of L1, without change inappearance compared to lumbar MR of 2021. Cedric Milton MD IMG XR SPINE Final Re sult documented in this encounter Visit Diagnoses Diagnosis Low back pain, unspecified back pain laterality, unspecified chronicity, unspecified whether sciatica present- Primary Low back pain, unspecified back pain laterality, unspecified chronicity, unspecified whether sciatica present documented in this encounter Additional Health Concerns Assessment Noted Time PHQ-2 Depression Total Score: 0 04/19/20 12:42 PM EDT documented as of this encounter Care Teams Senior Cognos Developer Relationship Specialty Start Date End Date Colt Steele CNP [address] [facility] [place] [address] PCP - General Family Medicine 10/22/22 JonShay MD [address] [address] & [address] [place] [address] [email or web address] Historical LMR Provider 09/02/17 Jaiden Esparza DO [address] [place] [address] Orthopedics & Sports Medicine, [facility] [place] [address] Historical LMR Provider 09/02/17 Larisa Navarro MD [address] [place] [address] Historical LMR Provider 09/02/17 Rocco Alvarenga DO [address] [place] [address] Geriatric Medicine 7/7/25 documented as of this encounter Additional Source Comments The information contained in this document represents components of the legal health record. It is not the complete legal health record.[facility]
--- OUTSIDE RECORDS SUMMARY | 2025-08-10 16:32 | XMS_ITS | Encounter Summary ---
Author Organization [facility] Address [address] [place] [address] Phone Care Team Providers Care Dinkey Brakeman Name Role Phone Shay Webb MD Primary Care Provider Stanley Castro MD Unavailable Shay Webb MD Unavailable [phone] Jaiden Esparza DO Unavailable Larisa Navarro MD Unavailable [phone] Oziel Archibald MD Unavailable [phone] Larisa Treviño MD Primary Care Provid er Janny Zavala MD Primary Care Provider Colt Steele CNP Primary Care Provider [phone] Rao Arzate DO Unavailable Rocco Alvarenga DO Unavailable Encounter Details Date Type Department Care Team (Latest Contact Info) Description 06/05/2018 Ancillary Orders Virtual Department 30 [place] [address] Cedric Milton MD [address] [place] [address] Spondylosis of cervical region without myelopathy or radiculopathy Social History Tobacco Use Types Packs/Day Years [...] as of this encounter Results * XR CERVICAL SPINE 6 0R MORE VIEWS (06/16/2018 2:20 PM EDT) Anatomical Region Laterality Modality C-spine Radiographic Laura ging 06/16/2018 2:26 PM EDT Impressions 06/16/2018 2:30 PM EDT Cervical spondylosis with prior C5-C7 vertebral body centrum fusion noted. No abnormal motion is seen on flexion and extension views. The appearance is unchanged relative to prior imaging. S/S: Cervical spondylosis, prior cervical spinal fusion, neck pain times months POS - [id number] Narrative 06/16/2018 2:30 PM EDT COMPARISON: Cervical spine x-rays April 17, 2010 FINDINGS: Lateral neutral, flexion, and extension views are obtained as well as AP, both oblique, and odontoid views of the cervical spine. The odontoid appears intact. There has been prior fusion of the C5, C6, and C7 vertebral bodies. This is unchanged. There is facet joint sclerosis at C3-4 and C4-5 which is unchanged. Minor grade 1 anterior spondylolisthesis of C4 on C5 is evident and is unchanged. On lateral flexed extension views no abnormal motion is seen. On oblique views there is minor neural foraminal encroachment evident on the left at C5-6. This is unchanged. The lung apices are clear. Procedure Note Hola Scherer MD - 06/16/2018 COMPARISON: Cervical spine x-rays April 17, 2010 FINDINGS: Lateral neutral, flexion, and extension views are obtained as well as AP,both oblique, and odontoid views of the cervical spine. The odontoid appears intact. There has been prior fusion of the C5, C6, and C7 vertebral bodies. Thisis unchanged. There is facet joint sclerosis at C3-4 and C4-5 which is unchanged. Minor grade 1 anterior spondylolisthesis of C4 on C5 is evident and isunchanged. On lateral flexed extension views no abnormal motion is seen. On oblique views there is minor neural foraminal encroachment evident onthe left at C5-6. This is unchanged. The lung apices are clear. IMPRESSION: Cervical spondylosis with prior C5-C7 vertebral body centrum fusion noted.No abnormal motion is seen on flexion and extension views. The appearanceis unchanged relative to prior imaging. 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 documented in this encounter Additional Health Concerns Infection Onset Date Last Indicated Resolved Time CoV-Exposed Comment:Recent close contact documented in the COVID-19 PCR/PRO order Pt denied exposure 12/13/2020 12/13/2020 12/18/2020 10:54 AM EST CoV-Risk 07/18/2023 07/18/2023 07/29/2023 1:22 AM EDT CoV-Risk 10/06/2023 10/06/2023 10/17/2023 1:22 AM EST documented as of this encounter Care Teams Dinkey Brakeman Relationship Specialty Start Date End Date Jon, Shay Garcia MD [address] [place] [address] & [address] [place] [address] [email or web address] PCP - General 05/17/14 03/25/22 Larisa Treviño MD [address] [address] [email or web address] PCP - General Family Medicine 03/26/22 09/19/22 Janny Zavala MD [address] [address] PCP - General Family Medicine 10/03/22 10/21/22 Colt Steele CNP 29 [place] [address] [email or web address] PCP - General Family Medicine 10/22/22 Stanley Castro MD 22 [place] [address] [email or web address] Historical LMR Provider 09/02/17 11/24/21 Shay Webb MD 264 [facility] [address] & [address] [place] [address] [email or web address] Historical LMR Provider 09/02/17 Jaiden Esparza DO [address] [place] [address] Orthopedics [facility] Sports Medicine, [place] [address] [email or web address] Historical LMR Provider 09/02/17 Larisa Navarro MD [address], [place] [address] Historical LMR Provider 09/02/17 Oziel Archibald MD [address] [place] [address] Historical LMR Provider 09/02/17 2 Rao Arzate DO [address] [place] [address] [email or web address] Insurance Assigned Provider 02/21/24 11/22/24 Rocco Alvarenga DO 22 [place] [address] [email or web address] Geriatric Medicine 05/23/25 documented as of this encounter Additional Source Comments The information contained in this document represents components of the legal health record. It is not the complete legal health record.[facility]
--- OUTSIDE RECORDS SUMMARY | 2025-08-10 16:32 | XMS_ITS | Encounter Summary ---
Author Organization [facility] Address [address] [place] [address] Phone Care Team Providers Care Parking Attendant Name Role Phone Shay Webb MD Unavailable [phone] Jaiden Esparza DO Unavailable [phone] Larisa Navarro MD Unavailable [phone] Colt Steele BAG BLEACHER Primary Care Provider [phone] Rocco Alvarenga DO Unavailable [phone] Encounter Details Date Type Department Care Team (Late st Contact Info) Description 02/09/2025 Telephone Virtual [facility] 29 [place], [place] [id number] Colt Steele, BAG BLEACHER 29 [place] [address] [email or web address] Social History Tobacco Use Types Packs/Day Years [...] documented as of this encounter Care Teams Parking Attendant Relationship Specialty Start Date End Date Colt Steele CNP 29 [facility] [place] [address] [email or web address] PCP - General Family Medicine 10/22/22 Shay Webb MD [address] [address] & [address] [place] [address] [email or web address] Historical LMR Provider 09/02/17 Jaiden Esparza DO [address] [place] [address] Orthopedics & Sports Medicine, [place] [address] Historical LMR Provider 09/02/17 Larisa Navarro MD [address] [place] [address] Historical LMR Provider 09/02/17 Rocco Alvarenga DO 22 [place] [address] Geriatric Medicine 05/23/25 documented as of this encounter Additional Source Comments The information contained in this document represents components of the legal health record. It is not the complete legal health record.[facility]
--- OUTSIDE RECORDS SUMMARY | 2025-08-10 16:32 | XMS_ITS | Encounter Summary ---
Author Organization [facility] Address [address] [place] [address] Phone Care Team Providers Care Product Safety Technician Name Role Phone Shay Webb MD Primary Care Provider [phone] Stanley Castro MD Unavailable [phone] Shay Webb MD Unavailable [phone] Jaiden Esparza DO Unavailable Larisa Navarro MD Unavailable [phone] Oziel Archibald MD Unavailable [phone] Larisa Treviño MD Primary Care Provid er Janny Zavala MD Primary Care Provider Colt Steele CNP Primary Care Provider [phone] Rao Arzate DO Unavailable Rocco Alvarenga DO Unavailable [phone] Reason for Referral * Physical Therapy (Routine) - Closed Specialty Diagnoses / Procedures Referred By Contac t Referred To Contact Physical Therapy Diagnoses Encounter for rehabilitation Back Procedures Evaluate & Treat Shay Webb MD Phone: tel: fax: [email or web address] [facility] 30 [place] [address] Phone: tel: Referral ID Status Reason Start Date Expiration Date Visits Re quested Visits Authorized [id number] Closed 01/17/2021 03/17/2021 25 25 Encounter Details Date Type Department Care Team (Latest Contact Info) Description 01/16/2021 Transcribe Orders [facility] [address] [place] [address] Shay Webb MD 264 [facility] 10 & 12 [place] [address] [email or web address] Encounter for rehabilitation (Primary Dx) Social History [...] Date/Time Associated Diagnosis Comments AMB REFERRAL TO [facility] PHYSICAL THERAPY Routine 01/21/2021 8:39 PM EST Encounter for rehabilitation documented in this encounter Results * Ambulatory referral to [facility] Physical Therapy (01/21/2021 8:39 PM EST) Shay Webb MD AMB [facility] REFERRALS Final Result documented in this encounter Visit Diagnoses Diagnosis Encounter for rehabilitation- Primary documented in this encounter Additional Health Concerns Infection Onset Date Last Indicated Resolved Time CoV-Risk 07/18/2023 07/18/2023 07/29/2023 1:22 AM EDT CoV-Risk 10/06/2023 10/06/2023 10/17/2023 1:22 AM EST documented as of this encounter Care Teams Product Safety Technician Relationship Specialty Start Date End Date Shay Webb MD [address] [address] & [address] [place] [address] [email or web address] PCP - General 05/17/14 03/25/22 Larisa Treviño MD [address] [address] [email or web address] PCP - General Family Medicine 03/26/22 09/19/22 Janny Zavala MD [address] [place] [address] [email or web address] PCP - General Family Medicine 10/03/22 10/21/22 Colt Steele CNP 29 [facility] [place] [address] [email or web address] PCP - General Family Medicine 10/22/22 Stanley Castro MD [address] [place] [address] [email or web address] Historical LMR Provider 09/02/17 11/24/21 Shay Webb MD [address] [address] & [address] [place] [address] [email or web address] Historical LMR Provider 09/02/17 Jaiden Esparza DO [address] [place] [address] Orthopedics & Sports Medicine, [facility] [place] [address] Historical LMR Provider 09/02/17 Larisa Navarro MD [address] [place] [address] Historical LMR Provider 09/02/17 Oziel Archibald MD 22 [place] [address] Historical LMR Provider 09/02/17 2 Rao Arzate DO [address] [place] [address] Insurance Assigned Provider 02/21/24 11/22/24 Rocco Alvarenga DO [address] [place] [address] Geriatric Medicine 05/23/25 documented as of this encounter Additional Source Comments The information contained in this document represents components of the legal health record. It is not the complete legal health record.[facility]
--- OUTSIDE RECORDS SUMMARY | 2025-08-10 16:32 | XMS_ITS | Encounter Summary ---
Author Organization [facility] Address [address] [place] [address] Phone Care Team Providers Care Belt Machine Operator Name Role Phone Shay Webb MD Primary Care Provider Shay Webb MD Unavailable [phone] Jaiden Esparza DO Unavailable Larisa Navarro MD Unavailable Larisa Treviño MD Primary Care Provid er Janny Zavala MD Primary Care Provider Colt Steele CNP Primary Care Provider [phone] Rao Arzate DO Unavailable Rocco Alvarenga DO Unavailable Encounter Details Date Type Department Care Team (Late st Contact Info) Description 02/19/2022 Procedure Pass [facility], Ct Scan - [address] [address] Social History Tobacco Use Types Packs/Day Years [...] documented as of this encounter Care Teams Belt Machine Operator Relationship Specialty Start Date End Date Shay Webb MD [address] [place] [address] & [address] [place] [address] [email or web address] PCP - General 05/17/14 03/25/22 Larisa Treviño MD [address] [address] [email or web address] PCP - General Family Medicine 03/26/22 09/19/22 Janny Zavala MD [address] [place] [address] PCP - General Family Medicine 10/03/22 10/21/22 Colt Steele CNP 29 [facility] [place] [address] PCP - General Family Medicine 10/22/22 Shay Webb MD [address] [place] [address] & [address] [place] [address] [email or web address] Historical LMR Provider 09/02/17 Jaiden Esparza DO 4 [facility] Orthopedics & Sports Medicine, [facility] [place] [place] [address] Historical LMR Provider 09/02/17 Larisa Navarro MD [address] [place] [address] Historical LMR Provider 09/02/17 Rao Arzate DO 29 [place] [address] Insurance Assigned Provider 02/21/24 11/22/24 Rocco Alvarenga DO 22 [place] [address] Geriatric Medicine 05/23/25 documented as of this encounter Additional Source Comments The information contained in this document represents components of the legal health record. It is not the complete legal health record.[facility]
--- OUTSIDE RECORDS SUMMARY | 2025-08-10 16:32 | XMS_ITS | Encounter Summary ---
Author Organization [facility] Address [address] [place] [address] Phone Care Team Providers Care Creasing And Cutting Press Feeder Name Role Phone Shay Webb MD Primary Care Provider Shay Webb MD Unavailable [phone] Jaiden Esparza DO Unavailable Larisa Navarro MD Unavailable [phone] Larisa Treviño MD Primary Care Provid er Janny Zavala MD Primary Care Provider Colt Steele CNP Primary Care Provider [phone] Rao Arzate DO Unavailable Rocco Alvarenga DO Unavailable Encounter Details Date Type Department Care Team (Latest Contact Info) Description 01/22/2022 Transcribe Orders Virtual Department 30 [place] [address] Shay Webb MD 264 [facility] [address] [place] [address] [email or web address] Right foot pain (Primary Dx); Metatarsalgia, unspecified laterality Social History Tobacco Use Types Packs/Day Years [...] as of this encounter Results * XR FOOT 3 OR MORE VIEWS (RIGHT) (02/07/2022 11:12 AM EDT) Anatomical Region Laterality Modality Foot Right Computed Radiogr aphy 02/07/2022 3:55 PM EDT Impressions 02/07/2022 3:59 PM EDT No explanation for foot pain. Narrative 02/07/2022 3:59 PM EDT HISTORY: Pain. COMPARISON: None VIEWS: 3 views. FINDINGS: Joint spaces well-maintained. Minimal degenerative spurring. No evidence of erosions. No subluxations or dislocations. No suspicious lytic or blastic lesions within the bones. Enthesopathy at the distal Achilles tendon. No suspicious soft tissue calcifications. Procedure Note Jaime Moran MD - 02/07/2022 HISTORY: Pain. COMPARISON: None VIEWS: 3 views. FINDINGS: Joint spaces well-maintained. Minimal degenerative spurring. No evidenceof erosions. No subluxations or dislocations. No suspicious lytic orblastic lesions within the bones. Enthesopathy at the distal Achillestendon. No suspicious soft tissue calcifications. IMPRESSION: No explanation for foot pain. Shay Webb MD IMG XR LOWER EXTREMITY Final Re sult documented in this encounter Visit Diagnoses Diagnosis Right foot pain- Primary Pain in soft tissues of limb Metatarsalgia, unspecified laterality Right foot pain Pain in soft tissues of limb Metatarsalgia, unspecified laterality documented in this encounter Additional Health Concerns Infection Onset Date Last Indicated Resolved Time CoV-Risk 07/18/2023 07/18/2023 07/29/2023 1:22 AM EDT CoV-Risk 10/06/2023 10/06/2023 10/17/2023 1:22 AM EST documented as of this encounter Care Teams Creasing And Cutting Press Feeder Relationship Specialty Start Date End Date Shay Webb MD [address] [address] & [address] [place] [address] [email or web address] PCP - General 05/17/14 03/25/22 Larisa Treviño MD [address] [address] [email or web address] PCP - General Family Medicine 03/26/22 09/19/22 Janny Zavala MD [address] [place] [address] [email or web address] PCP - General Family Medicine 10/03/22 10/21/22 Colt Steele CNP 29 [facility] [place] [address] [email or web address] PCP - General Family Medicine 10/22/22 Shay Webb MD [address] [address] [email or web address] Historical LMR Provider 09/02/17 Jaiden Esparza DO [address] [place] [address] [facility] [place] [address] Historical LMR Provider 09/02/17 Larisa Navarro MD [address] [place] [address] Historical LMR Provider 09/02/17 Rao Arzate DO [address] [place] [address] Insurance Assigned Provider 02/21/24 11/22/24 Rocco Alvarenga DO [address] [place] [address] Geriatric Medicine 05/23/25 documented as of this encounter Additional Source Comments The information contained in this document represents components of the legal health record. It is not the complete legal health record.[facility]
--- OUTSIDE RECORDS SUMMARY | 2025-08-10 16:33 | XMS_ITS | Encounter Summary ---
Author Organization [facility] Address [address] [place] [address] Phone Care Team Providers Care Oval Or Circular Glass Cutter Name Role Phone Shay Webb MD Primary Care Provider Stanley Castro MD Unavailable Shay Webb MD Unavailable [phone] Jaiden Esparza DO Unavailable Larisa Navarro MD Unavailable [phone] Oziel Archibald MD Unavailable [phone] Larisa Treviño MD Primary Care Provid er Janny Zavala MD Primary Care Provider Colt Steele CNP Primary Care Provider [phone] Rao Arzate DO Unavailable Rocco Alvarenga DO Unavailable Encounter Details Date Type Department Care Team (Latest Contact Info) Description 06/14/2021 Transcribe Orders Virtual Department 30 [place] [address] Silver Tomlin, DO [address] [place] [address] [email or web address] Post laminectomy syndrome (Primary Dx); Neck pain Social History Tobacco Use Types Packs/Day [...] Date of Assessment Author No Risk Indicated 06/15/2021 10:11 PM EDT Hector Isaac, JOSEFA * [place] Suicide Severity Rating Scale (Screener/Recent Self-Report) Question Answer Date of Assessment Author 1. Wish to be (Past 1 Month) No 021 10:11 PM EDT Hector Isaac RN 2. Non-Specific Active Suici nathalie Thoughts (Past 1 Month) No 06/15/2021 10:11 PM EDT Joanne Isaac ea, RN 6. Suicidal Behavior (Lifetime) No 10:11 PM EDT Hector Isaac, JOSEFA documented as of this encounter Plan of Treatment Not on file documented as of this encounter Visit Diagnoses Diagnosis Post laminectomy syndrome- Primary Postlaminectomy syndrome, unspecified region Neck pain Cervicalgia documented in this encounter Additional Health Concerns Infection Onset Date Last Indicated Resolved Time CoV-Risk 07/18/2023 07/18/2023 07/29/2023 1:22 AM EDT CoV-Risk 10/06/2023 10/06/2023 10/17/2023 1:22 AM EST documented as of this encounter Care Teams Oval Or Circular Glass Cutter Relationship Specialty Start Date End Date JonShay MD [address] [place] [address] & [address] [place] [address] [email or web address] PCP - General 05/17/14 03/25/22 Larisa Treviño MD [address] [address] [email or web address] PCP - General Family Medicine 03/26/22 09/19/22 Janny Zavala MD [address] [place] [address] [email or web address] PCP - General Family Medicine 10/03/22 10/21/22 Colt Steele CNP [address] [place] [address] [email or web address] PCP - General Family Medicine 10/22/22 Stanley Castro MD [address] [place] [address] [email or web address] Historical LMR Provider 09/02/17 11/24/21 Shay Webb MD [address] [place] [address] [address] & [address] [place] [address] [email or web address] Historical LMR Provider 09/02/17 Jaiden Esparza DO [address] [place] [address] Orthopedics & Sports Medicine, [place] [address] [email or web address] Historical LMR Provider 09/02/17 Larisa Navarro MD [address] [place] [address] Historical LMR Provider 09/02/17 Oziel Archibald MD 22 [place] [address] Historical LMR Provider 09/02/17 2 Rao Arzate DO [address] [place] [address] [email or web address] Insurance Assigned Provider 02/21/24 11/22/24 Rocco Alvarenga DO [address] [place] [address] [email or web address] Geriatric Medicine 05/23/25 documented as of this encounter Additional Source Comments The information contained in this document represents components of the legal health record. It is not the complete legal health record.[facility]
--- OUTSIDE RECORDS SUMMARY | 2025-08-10 16:33 | XMS_ITS | Encounter Summary ---
Author Organization [facility] Address [address] [place] [address] Phone Care Team Providers Care Systems Technologist Name Role Phone JonShay MD Unavailable [phone] Jaiden Esparza DO Unavailable Larisa Navarro MD Unavailable [phone] Larisa Treviño MD Primary Care Provid er Janny Zavala MD Primary Care Provider Colt Steele [facility] Primary Care Provider [phone] Rao Arzate DO Unavailable Rocco Alvarenga DO Unavailable [phone] Encounter Details Date Type Department Care Team (Late st Contact Info) Description 05/09/2022 Procedure Pass [facility], [address] [address] Social History Tobacco Use Types Packs/Day Years [...] high school, GED, job training, learning the [place] language, technical skills, or developing parenting [...] documented as of this encounter Care Teams Systems Technologist Relationship Specialty Start Date End Date Safarpour, Larisa Ila, MD [address] [address] [email or web address] PCP - General Family Medicine 03/26/22 09/19/22 Janny Zavala MD [address] [address] [email or web address] PCP - General Family Medicine 10/03/22 10/21/22 Colt Steele CNP [address] [place] [address] PCP - General Family Medicine 10/22/22 Shay Webb MD [address] [address] & [address] [place] [address] [email or web address] Historical LMR Provider 09/02/17 Jaiden Esparza DO [address] [place] [address] Orthopedics & Sports Medicine, [place] [address] [email or web address] Historical LMR Provider 09/02/17 Larisa Navarro MD [address] [place] [address] Historical LMR Provider 09/02/17 Rao Arzate DO [address] [place] [address] [email or web address] Insurance Assigned Provider 02/21/24 11/22/24 Rocco Alvarenga DO 22 [place] [address] [email or web address] Geriatric Medicine 05/23/25 documented as of this encounter Additional Source Comments The information contained in this document represents components of the legal health record. It is not the complete legal health record.[facility]
--- OUTSIDE RECORDS SUMMARY | 2025-08-10 16:33 | XMS_ITS | Encounter Summary ---
Author Organization [facility] Address [address] [place] [address] Phone Care Team Providers Care Federal Air Marshal Name Role Phone Shay Webb MD Primary Care Provider Stanley Castro MD Unavailable Shay Webb MD Unavailable [phone] Jaiden Esparza DO Unavailable Larisa Navarro MD Unavailable [phone] Oziel Archibald MD Unavailable [phone] Larisa Treviño MD Primary Care Provid er Janny Zavala MD Primary Care Provider Colt Steele [facility] Primary Care Provider Rao Arzate DO Unavailable Rocco Alvarenga DO Unavailable [phone] Reason for Referral * MRI/CAT Scan - Closed Specialty Diagnoses / Procedures Referred By Contac t Referred To Contact Radiology Diagnoses Post laminectomy syndrome Neck pain Spondylosis of cervical region without myelopathy or radiculopathy Procedures MRI Cervical Spine MRI Cervical Spine Silver Tomlin DO Phone: tel: fax: [email or web address] Referral ID Status Reason Start Date Expiration Date Visits Re quested Visits Authorized [id number] Closed 06/14/2021 06/14/2022 1 1 Encounter Details Date Type Department Care Team (Latest Contact Info) Description 06/14/2021 Ancillary Orders Virtual Department 30 [place] [address] Silver Tomlin DO [address] [place] [address] [email or web address] Post laminectomy syndrome; Neck pain; Spondylosis of cervical region without myelopathy or [...] 10:11 PM EDT Hector Isaac, JOSEFA * [place] Suicide Severity Rating Scale (Screener/Recent Self-Report) Question Answer Date of Assessment Author 1. Wish to be (Past 1 Month) No 021 10:11 PM ROJELIOT Hector Isaac, JOSEFA 2. Non-Specific Active Suici nathalie Thoughts (Past 1 Month) No 06/15/2021 10:11 PM EDT Joanne Isaac ea, RN 6. Suicidal Behavior (Lifetime) No 10:11 PM ROJELIOT Hector Isaac, RN documented as of this encounter Plan of Treatment Not on file documented as of this encounter Results * MRI CERVICAL SPINE (NEURO) FOCUS WITHOUT CONTRAST (06/29/2021 6:42 PM EDT) Anatomical Region Laterality Modality C-spine Magnetic Resonan ce 06/29/2021 7:20 PM EDT Impressions 06/29/2021 8:00 PM EDT 1.Anterolisthesis of C4 on C5 and C7 on T1, minimally progressed from 2009. 2.Multilevel degenerative changes, not significantly progressed from 2009. 3.Moderate canal stenosis at C7-T1, improved from 2009. Narrative 06/29/2021 8:00 PM EDT MRI CERVICAL SPINE (NEURO) FOCUS WITHOUT CONTRAST TECHNIQUE: Multi-sequence, multi-planar MRI of the cervical spine was performed without intravenous contrast. COMPARISON: Radiographs of the cervical spine on October 13, 2020. Cervical spine MRI on May 18, 2010. FINDINGS: Motion degrades some of the images. CERVICAL SPINE: Vertebrae: Fusion of the C5-C6-C7 vertebral bodies. No compression fracture. No bone marrow replacing lesion. No scoliosis. Spinal Cord: No spinal cord compression. No abnormal signal cord. Prominence of the central canal at T4-T5 level appears similar to 2010. Soft Tissue: Normal. No prevertebral edema, mass or fluid collection. Findings by level: C2-C3: Normal disc height and contour. Normal uncovertebral and facet joints. No listhesis. No bone marrow edema. No stenosis or nerve impingement. C3-C4: Normal disc height. Small central disc protrusion. Right facet arthropathy contributes to mild right neuroforaminal stenosis. No listhesis. No bone marrow edema. No left foraminal or canal stenosis. C4-C5: Normal disc height and contour. Normal uncovertebral and facet joints. Minimal anterolisthesis of C4 on C5. No bone marrow edema. No stenosis or nerve impingement. C5-C6: Fused vertebral bodies. Posterior spurring and facet arthropathy contributes to moderate bilateral neuroforaminal stenosis. No listhesis. No bone marrow edema. No canal stenosis. C6-C7: Fused vertebral bodies. Facet arthropathy contributes to mild bilateral neuroforaminal stenosis. No listhesis. No bone marrow edema. No canal stenosis. C7-T1: Mild loss of discal height. Mild anterolisthesis and bilateral facet arthropathy contributes to mild bilateral neuroforaminal stenosis and moderate canal stenosis. Note that the degree of canal stenosis has mildly improved from 2010. No bone marrow edema. Procedure Note Ryan Iqbal MD - 06/29/2021 MRI CERVICAL SPINE (NEURO) FOCUS WITHOUT CONTRAST TECHNIQUE: Multi-sequence, multi-planar MRI of the cervical spine was performedwithout intravenous contrast. COMPARISON: Radiographs of the cervical spine on October 13, 2020.Cervical spine MRI on May 18, 2010. FINDINGS: Motion degrades some of the images. CERVICAL SPINE: Vertebrae: Fusion of the C5-C6-C7 vertebral bodies. No compressionfracture. No bone marrow replacing lesion. No scoliosis. Spinal Cord: No spinal cord compression. No abnormal signal cord.Prominence of the central canal at T4-T5 level appears similar to 2010. Soft Tissue: Normal. No prevertebral edema, mass or fluid collection. Findings by level: C2-C3: Normal disc height and contour. Normal uncovertebral and facetjoints. No listhesis. No bone marrow edema. No stenosis or nerveimpingement. C3-C4: Normal disc height. Small central disc protrusion. Right facetarthropathy contributes to mild right neuroforaminal stenosis. Nolisthesis. No bone marrow edema. No left foraminal or canal stenosis. C4-C5: Normal disc height and contour. Normal uncovertebral and facetjoints. Minimal anterolisthesis of C4 on C5. No bone marrow edema. Nostenosis or nerve impingement. C5-C6: Fused vertebral bodies. Posterior spurring and facet arthropathycontributes to moderate bilateral neuroforaminal stenosis. No listhesis.No bone marrow edema. No canal stenosis. C6-C7: Fused vertebral bodies. Facet arthropathy contributes to mildbilateral neuroforaminal stenosis. No listhesis. No bone marrow edema. Nocanal stenosis. C7-T1: Mild loss of discal height. Mild anterolisthesis and bilateralfacet arthropathy contributes to mild bilateral neuroforaminal stenosisand moderate canal stenosis. Note that the degree of canal stenosis hasmildly improved from 2010. No bone marrow edema. IMPRESSION: 1.Anterolisthesis of C4 on C5 and C7 on T1, minimally progressed [id number]. 2.Multilevel degenerative changes, not significantly progressed [id number]. 3.Moderate canal stenosis at C7-T1, improved from 2009. Silver Tomlin DO IMG MR XSPECIALTY Final Resu lt documented in this encounter Visit Diagnoses Diagnosis Post laminectomy syndrome Postlaminectomy syndrome, unspecified region Neck pain Cervicalgia Spondylosis of cervical region without myelopathy or radiculopathy Post laminectomy syndrome Postlaminectomy syndrome, unspecified region Neck pain Cervicalgia Spondylosis of cervical region without myelopathy or radiculopathy documented in this encounter Additional Health Concerns Infection Onset Date Last Indicated Resolved Time CoV-Risk 07/18/2023 07/18/2023 07/29/2023 1:22 AM EDT CoV-Risk 10/06/2023 10/06/2023 10/17/2023 1:22 AM EST documented as of this encounter Care Teams Federal Air Marshal Relationship Specialty Start Date End Date Jon, Shay Garcia MD 264 [facility] 10 & [address] [place] [address] [email or web address] PCP - General 05/17/14 03/25/22 Larisa Treviño MD [address] [address] [email or web address] PCP - General Family Medicine 03/26/22 09/19/22 Janny Zavala MD [address] [address] [email or web address] PCP - General Family Medicine 10/03/22 10/21/22 Colt Steele, DANIELLE [address] [place] [address] [email or web address] PCP - General Family Medicine 10/22/22 Stanley Castro MD 22 [place] [address] [email or web address] Historical LMR Provider 09/02/17 11/24/21 Shay Webb MD [address] [address] & [address] [place] [address] [email or web address] Historical LMR Provider 09/02/17 Jaiden Esparza DO [address] [place] [address] Orthopedics & Sports Medicine, [place] [address] [email or web address] Historical LMR Provider 09/02/17 Larisa Navarro MD [address] [place] [address] Historical LMR Provider 09/02/17 Oziel Archibald MD [address] [place] [address] Historical LMR Provider 09/02/17 2 Rao Arzate DO [address] [place] [address] [email or web address] Insurance Assigned Provider 02/21/24 11/22/24 oRcco Alvarenga DO 22 [place] [address] [email or web address] Geriatric Medicine 05/23/25 documented as of this encounter Additional Source Comments The information contained in this document represents components of the legal health record. It is not the complete legal health record.[facility]
--- OUTSIDE RECORDS SUMMARY | 2025-08-10 16:33 | XMS_ITS | Encounter Summary ---
Author Organization [facility] Address [address] [place] [address] Phone Care Team Providers Care Loop Puller Name Role Phone Shay Webb MD Primary Care Provider Stanley Castro MD Unavailable Shay Webb MD Unavailable [phone] Jaiden Esparza DO Unavailable [phone] Larisa Navarro MD Unavailable [phone] Oziel Archibald MD Unavailable [phone] Larisa Treviño MD Primary Care Provid er Janny Zavala MD Primary Care Provider Colt Steele CNP Primary Care Provider [phone] Rao Arzate DO Unavailable Rocco Alvarenga DO Unavailable Encounter Details Date Type Department Care Team (Late st Contact Info) Description 06/15/2021 Procedure Pass [facility], Ct Scan - [address] [id number] Social History Tobacco Use Types Packs/Day Years [...] Risk Indicated 06/15/2021 10:11 PM EDT Hector Isaac RN * [place] Suicide Severity Rating Scale (Screener/Recent Self-Report) Question Answer Date of Assessment Author 1. Wish to be (Past 1 Month) No 021 10:11 PM ROJELIOT Hector Isaac RN 2. Non-Specific Active Suici nathalie Thoughts (Past 1 Month) No 06/15/2021 10:11 PM EDT Joanne Isaac ea, RN 6. Suicidal Behavior (Lifetime) No 10:11 PM EDT Hector Isaac RN documented as of this encounter Plan of Treatment Not on file documented as of this encounter Visit Diagnoses Not on filedocumented in this encounter Additional Health Concerns Infection Onset Date Last Indicated Resolved Time CoV-Risk 07/18/2023 07/18/2023 07/29/2023 1:22 AM EDT CoV-Risk 10/06/2023 10/06/2023 10/17/2023 1:22 AM EST documented as of this encounter Care Teams Loop Puller Relationship Specialty Start Date End Date JonShay MD [address] [place] [address] 10 [address] [place] [address] [email or web address] [email or web address] PCP - General 05/17/14 03/25/22 Larisa Treviño MD [address] [place] [address] [email or web address] PCP - General Family Medicine 03/26/22 09/19/22 Janny Zavala MD [address] [address] PCP - General Family Medicine 10/03/22 10/21/22 Colt Steele CNP [address] [facility] [place] [address] PCP - General Family Medicine 10/22/22 Stanley Castro MD 22 [place] [address] [email or web address] Historical LMR Provider 09/02/17 11/24/21 Shay Webb MD 264 [facility] [address] [place] [address] [email or web address] Historical LMR Provider 09/02/17 Jaiden Esparza DO [address] [place] [address] Orthopedics & Sports Medicine, [place] [address] [email or web address] Historical LMR Provider 09/02/17 Larisa Navarro MD [address], [place] [address] Historical LMR Provider 09/02/17 Oziel Archibald MD 22 [place] [address] Historical LMR Provider 09/02/17 2 Rao Arzate DO 29 [place] [address] [email or web address] Insurance Assigned Provider 02/21/24 11/22/24 Rocco Alvarenga DO 22 [place] [address] [email or web address] Geriatric Medicine 05/23/25 documented as of this encounter Additional Source Comments The information contained in this document represents components of the legal health record. It is not the complete legal health record.[facility]
--- OUTSIDE RECORDS SUMMARY | 2025-08-10 16:33 | XMS_ITS | Encounter Summary ---
Author Organization [facility] Address [address] [place] [address] Phone Care Team Providers Care Social Media Analyst Name Role Phone Shay Webb MD Primary Care Provider Stanley Castro MD Unavailable Shay Webb MD Unavailable [phone] Jaiden Esparza DO Unavailable [phone] Larisa Navarro MD Unavailable [phone] Oziel Archibald MD Unavailable [phone] Larisa Treviño MD Primary Care Provid er Janny Zavala MD Primary Care Provider Colt Steele CNP Primary Care Provider [phone] Rao Arzate DO Unavailable Rocco Alvarenga DO Unavailable [phone] Reason for Referral * Physical Therapy (Routine) - Closed Specialty Diagnoses / Procedures Referred By Contac t Referred To Contact Physical Therapy Diagnoses Encounter for rehabilitation Shay Webb MD Phone: tel: fax: [email or web address] [address] [place] [address] Phone: tel: Referral ID Status Reason Start Date Expiration Date Visits Re quested Visits Authorized [id number] Closed 06/21/2021 11/16/2021 25 25 Encounter Details Date Type Department Care Team (Latest Contact Info) Description 06/21/2021 Transcribe Orders [facility] [address] [place] [address] Shay Webb MD [address] [place] [address] & [address] [place] [address] [email or web address] Encounter for rehabilitation (Primary Dx) Social History [...] of this encounter Plan of Treatment Scheduled Referrals Name Type Priority Associated Diagnoses Orde r Schedule Ambulatory referral to [facility] Physical Therapy Outpatient Referral Routine Encounter for rehabilitation Ordered: 06/21/2021 documented as of this encounter Visit Diagnoses Diagnosis Encounter for rehabilitation- Primary documented in this encounter Additional Health Concerns Infection Onset Date Last Indicated Resolved Time CoV-Risk 07/18/2023 07/18/2023 07/29/2023 1:22 AM EDT CoV-Risk 10/06/2023 10/06/2023 10/17/2023 1:22 AM EST documented as of this encounter Care Teams Social Media Analyst Relationship Specialty Start Date End Date Shay Webb MD 264 [facility] [address] & [address] [place] [address] [email or web address] PCP - General 05/17/14 03/25/22 Larisa Treviño MD [address] [address] [email or web address] PCP - General Family Medicine 03/26/22 09/19/22 Janny Zavala MD [address] [place] [address] [email or web address] PCP - General Family Medicine 10/03/22 10/21/22 Colt Steele CNP [address] [place] [address] [email or web address] PCP - General Family Medicine 10/22/22 Stanley Castro MD [address] [place] [address] [email or web address] Historical LMR Provider 09/02/17 11/24/21 Shay Webb MD [address] [place] [address] & [address] [place] [address] [email or web address] Historical LMR Provider 09/02/17 Jaiden Esparza DO [address] [place] [address] Orthopedics & Sports Medicine, [place] [address] [email or web address] Historical LMR Provider 09/02/17 Larisa Navarro MD [address] [place] [address] Historical LMR Provider 09/02/17 Oziel Archibald MD [address] [place] [address] Historical LMR Provider 09/02/17 2 Rao Arzate DO [address] [place] [address] Insurance Assigned Provider 02/21/24 11/22/24 Rocco Alvarenga DO [address] [place] [address] Geriatric Medicine 05/23/25 documented as of this encounter Additional Source Comments The information contained in this document represents components of the legal health record. It is not the complete legal health record.[facility]
--- OUTSIDE RECORDS SUMMARY | 2025-08-10 16:33 | XMS_ITS | Encounter Summary ---
Author Organization [facility] Address [address] [place] [address] Phone Care Team Providers Care Making Department Preparer Name Role Phone JonShay MD Unavailable [phone] Jaiden Esparza DO Unavailable [phone] Larisa Navarro MD Unavailable [phone] Larisa Treviño MD Primary Care Provid er Janny Zavala MD Primary Care Provider Colt Steele [facility] Primary Care Provider [phone] Rao Arzate DO Unavailable Rocco Alvarenga DO Unavailable Encounter Details Date Type Department Care Team (Late st Contact Info) Description 04/03/2022 Procedure Pass [facility], [address] [address] Social History Tobacco Use Types [...] PM EST documented as of this encounter Last Filed Vital Signs Vital Sign Reading Time Taken Comments Blood Pressure - - Pulse - - Temperature - - Respiratory Rate - - Oxygen Saturation - - Inhaled Oxygen Concentration - - Weight 53.1 kg (117 lb) 04/04/2022 9:03 AM EDT Height 154.9 cm (5' 1 ) 04/04/2022 9:03 AM EDT Body Mass Index 22.11 04/04/2022 9:03 AM EDT documented in this encounter Plan of Treatment Not on file documented as of this encounter Visit Diagnoses Not on filedocumented in this encounter Additional Health Concerns Infection Onset Date Last Indicated Resolved Time CoV-Risk 07/18/2023 07/18/2023 07/29/2023 1:22 AM EDT CoV-Risk 10/06/2023 10/06/2023 10/17/2023 1:22 AM EST documented as of this encounter Care Teams Making Department Preparer Relationship Specialty Start Date End Date Larisa Treviño MD [address] [address] [email or web address] PCP - General Family Medicine 03/26/22 09/19/22 Janny Zavala MD [address] [place] [address] PCP - General Family Medicine 10/03/22 10/21/22 Colt Steele CNP 29 [facility] [place] [address] PCP - General Family Medicine 10/22/22 Shay Webb MD [address] [place] [address] [place] [address] [email or web address] Historical LMR Provider 09/02/17 Jaiden Esparza DO 4 [facility] [place] [address] Historical LMR Provider 09/02/17 Larisa Navarro MD [address] [place] [address] Historical LMR Provider 09/02/17 Rao Arzate DO 29 [place] [address] Insurance Assigned Provider 02/21/24 11/22/24 Rocco Alvarenga DO [address] [place] [address] Geriatric Medicine 05/23/25 documented as of this encounter Additional Source Comments The information contained in this document represents components of the legal health record. It is not the complete legal health record.[facility]
--- OUTSIDE RECORDS SUMMARY | 2025-08-10 16:33 | XMS_ITS | Encounter Summary ---
Author Organization [facility] Address [address] [place] [address] [place] [address] Phone Care Team Providers Care Medical Record Consultant Name Role Phone Shay Webb MD Primary Care Provider Stanley Castro MD Unavailable Shay Webb MD Unavailable [phone] Jaiden Esparza DO Unavailable Larisa Navarro MD Unavailable [phone] Oziel Archibald MD Unavailable Larisa Treviño MD Primary Care Provid er Janny Zavala MD Primary Care Provider Colt Steele CNP Primary Care Provider [phone] Rao Arzate DO Unavailable Rocco Alvarenga DO Unavailable Encounter Details Date Type Department Care Team (Latest Contact Info) Description 10/29/2018 Ancillary Orders Virtual Department 30 [place] [address] Shay Webb MD 264 [facility] 10 & 12 [place] [address] [email or web address] Gastroesophageal reflux disease, esophagitis presence not specified; Dysphagia, unspecified type Social History Tobacco Use Types [...] documented as of this encounter Results * FL BARIUM SWALLOW ESOPHAGRAM SINGLE CONTRAST (11/06/2018 10:21 AM EST) Anatomical Region Laterality Modality Chest Radiographic Laura ging 11/06/2018 9:52 AM EST Impressions 11/06/2018 10:27 AM EST Severe gastroesophageal reflux and small hiatal hernia. FLUOROSCOPY TIME: 2 min. 42 sec; 33 IMAGES/FRAMES POS - [id number] Narrative 11/06/2018 10:27 AM EST COMPARISON: No prior barium swallow. CTPA 01/12/2018. Cervical spine radiographs 06/16/2018. BARIUM SWALLOW FINDINGS: House Decorator lateral neck radiograph was obtained. Prevertebral soft tissues are normal. Stable osteopenia, multilevel facet arthropathy C5-C7 fusion and retrolisthesis. A double contrast barium swallow was performed. Low dose pulsed fluoroscopy was utilized with limited exposures to reduce radiation dose. Small hiatal hernia. Small cricopharyngeal bar. No stricture, ulceration or mass. Normal motility. Severe gastroesophageal reflux with barium extending up to the upper thoracic esophagus. Patient was then administered a barium tablet. She could not initially swallow tablet and it remained in the patient's mouth but she subsequently was able to swallow it and it migrated into the stomach without difficulty. Procedure Note Pradip Balderas MD - 11/06/2018 COMPARISON: No prior barium swallow. CTPA 01/12/2018. Cervical spineradiographs 06/16/2018. BARIUM SWALLOW FINDINGS: House Decorator lateral neck radiograph was obtained. Prevertebral soft tissues arenormal. Stable osteopenia, multilevel facet arthropathy C5-C7 fusion andretrolisthesis. A double contrast barium swallow was performed. Low dosepulsed fluoroscopy was utilized with limited exposures to reduce radiationdose. Small hiatal hernia. Small cricopharyngeal bar. No stricture,ulceration or mass. Normal motility. Severe gastroesophageal reflux withbarium extending up to the upper thoracic esophagus. Patient was thenadministered a barium tablet. She could not initially swallow tablet andit remained in the patient's mouth but she subsequently was able toswallow it and it migrated into the stomach without difficulty. IMPRESSION: Severe gastroesophageal reflux and small hiatal hernia. FLUOROSCOPY TIME: 2 min. 42 sec; 33 IMAGES/FRAMES POS - [id number] Shay Webb MD IMG FL MISC Final Result documented in this encounter Visit Diagnoses Diagnosis Gastroesophageal reflux disease, esophagitis presence not specified Dysphagia, unspecified type Gastroesophageal reflux disease, esophagitis presence not specified Dysphagia, unspecified type documented in this encounter Additional Health Concerns Infection Onset Date Last Indicated Resolved Time CoV-Exposed Comment:Recent close contact documented in the COVID-19 PCR/PRO order Pt denied exposure 12/13/2020 12/13/2020 12/18/2020 10:54 AM EST CoV-Risk 07/18/2023 07/18/2023 07/29/2023 1:22 AM EDT CoV-Risk 10/06/2023 10/06/2023 10/17/2023 1:22 AM EST documented as of this encounter Care Teams Medical Record Consultant Relationship Specialty Start Date End Date Shay Webb MD [address] [place] [address] & [address] [place] [address] [email or web address] PCP - General 05/17/14 03/25/22 Larisa Treviño MD [address] [address] [email or web address] PCP - General Family Medicine 03/26/22 09/19/22 Janny Zavala MD [address] [address] [email or web address] PCP - General Family Medicine 10/03/22 10/21/22 Colt Steele, [employer] SALESPERSON [address] [place] [address] [email or web address] PCP - General Family Medicine 10/22/22 Stanley Castro MD [address] [place] [address] [email or web address] Historical LMR Provider 09/02/17 11/24/21 Shay Webb MD [address] [place] [address] & [address] [place] [address] [email or web address] Historical LMR Provider 09/02/17 Jaiden Esparza DO [address] [place] [address] [facility], [place] [address] [email or web address] Historical LMR Provider 09/02/17 Larisa Navarro MD [address] [place] [address] Historical LMR Provider 09/02/17 Oziel Archibald MD 22 [place] [address] Historical LMR Provider 09/02/17 2 Rao Arzate DO [address] [place] [address] [email or web address] Insurance Assigned Provider 02/21/24 11/22/24 Rocco Alvarenga DO 22 [place] [address] [email or web address] Geriatric Medicine 05/23/25 documented as of this encounter Additional Source Comments The information contained in this document represents components of the legal health record. It is not the complete legal health record.[facility]
--- OUTSIDE RECORDS SUMMARY | 2025-08-10 16:33 | XMS_ITS | Encounter Summary ---
Author Organization [facility] Address [address] [place] [address] Phone Care Team Providers Care Design Printer Balloon Name Role Phone Shay Webb MD Primary Care Provider Stanley Castro MD Unavailable Shay Webb MD Unavailable [phone] Jaiden Esparza DO Unavailable Larisa Navarro MD Unavailable Oziel Archibald MD Unavailable [phone] Larisa Treviño MD Primary Care Provid er Janny Zavala MD Primary Care Provider Colt Steele CNP Primary Care Provider [phone] Rao Arzate DO Unavailable Rocco Alvarenga DO Unavailable Encounter Details Date Type Department Care Team (Latest Contact Info) Description 03/01/2019 Transcribe Orders [facility] Department [address] [place] [address] Shay Webb MD 264 [facility] [address] [place] [address] [email or web address] Dyspnea, unspecified type (Primary Dx) Social History Tobacco [...] as of this encounter Results * XR CHEST PA AND LATERAL 2 VIEWS (03/08/2019 10:48 AM EDT) Anatomical Region Laterality Modality Chest Radiographic Laura ging 03/08/2019 11:4 0 AM EDT Impressions 03/08/2019 11:41 AM EDT No acute process. . . . . . . . . . . . . . . . . . . . . . . POS [id number] Narrative 03/08/2019 11:41 AM EDT PA and lateral chest, 2 views. Compared to 07/23/2017. . . . . . . . . . . . . . . . . . . . . . Heart and mediastinum are normal in size and contour. No infiltrate, effusion or interstitial changes. No nodules or masses. No pneumothorax. No acute or worrisome bony abnormalities. Procedure Note Reji Perrin MD - 03/08/2019 PA and lateral chest, 2 views. Compared to 07/23/2017. . . . . . . . . . . . . . . . . . . .. . Heart and mediastinum are normal in size and contour. No infiltrate, effusion or interstitial changes. No nodules or masses. No pneumothorax. No acute or worrisome bony abnormalities. IMPRESSION: No acute process. . . . . . . . . . . . . . . . . . . .. . . POS [id number] Shay Webb MD IMG XR CHEST Final Result documented in this encounter Visit Diagnoses Diagnosis Dyspnea, unspecified type- Primary Dyspnea, unspecified type documented in this encounter Additional Health Concerns Infection Onset Date Last Indicated Resolved Time CoV-Exposed Comment:Recent close contact documented in the COVID-19 PCR/PRO order Pt denied exposure 12/13/2020 12/13/2020 12/18/2020 10:54 AM EST CoV-Risk 07/18/2023 07/18/2023 07/29/2023 1:22 AM EDT CoV-Risk 10/06/2023 10/06/2023 10/17/2023 1:22 AM EST documented as of this encounter Care Teams Design Printer Balloon Relationship Specialty Start Date End Date Jon, Shay Garcia MD [address] [place] [address] & [address] [place] [address] [email or web address] PCP - General 05/17/14 03/25/22 Larisa Treviño MD [address] [place] [address] [email or web address] PCP - General Family Medicine 03/26/22 09/19/22 Janny Zavala MD [address] [address] [email or web address] PCP - General Family Medicine 10/03/22 10/21/22 Colt Steele, DANIELLE [address] [place] [address] PCP - General Family Medicine 10/22/22 Stanley Castro MD 22 [place] [address] [email or web address] Historical LMR Provider 09/02/17 11/24/21 Shay Webb MD [address] [place] [address] & [address] [place] [address] [email or web address] Historical LMR Provider 09/02/17 Jaiden Esparza DO [address] [place] [address] Orth[facility] Sports Medicine, [place] [address] [email or web address] Historical LMR Provider 09/02/17 Larisa Navarro MD [address], [place] [address] Historical LMR Provider 09/02/17 Oziel Archibald MD 22 [place] [address] Historical LMR Provider 09/02/17 2 Rao Arzate DO 29 [place] [address] [email or web address] Insurance Assigned Provider 02/21/24 11/22/24 Rocco Alvarenga DO 22 [place] [address] [email or web address] Geriatric Medicine 05/23/25 documented as of this encounter Additional Source Comments The information contained in this document represents components of the legal health record. It is not the complete legal health record.[facility]
--- OUTSIDE RECORDS SUMMARY | 2025-08-10 16:33 | XMS_ITS | Encounter Summary ---
Author Organization [facility] Address [address] [place] [address] Phone Care Team Providers Care Fish Hatchery Man Name Role Phone Shay Webb MD Primary Care Provider Stanley Castro MD Unavailable Shay Webb MD Unavailable [phone] Jaiden Esparza DO Unavailable Larisa Navarro MD Unavailable [phone] Oziel Archibald MD Unavailable [phone] Larisa Treviño MD Primary Care Provid er Janny Zavala MD Primary Care Provider [phone] Colt Steele SENIOR PRODUCT DESIGNER Primary Care Provider [phone] Rao Arzate DO Unavailable Rocco Alvarenga DO Unavailable [phone] Reason for Referral * MRI/CAT Scan - Closed Specialty Diagnoses / Procedures Referred By Contac t Referred To Contact Radiology Diagnoses Pancreatic ductal abnormality Gastroesophageal reflux disease, unspecified whether esophagitis present Dysphagia, pharyngoesophageal phase Procedures MRI Cholangiopancreatography (MRCP) Chanda Koroma PA-C Phone: tel: fax: mailto: . org Referral ID Status Reason Start Date Expiration Date Visits Re quested Visits Authorized [id number] Closed 06/04/2021 06/04/2022 1 1 Encounter Details Date Type Department Care Team (Latest Contact Info) Description 06/04/2021 Transcribe Orders Virtual Department 30 [place] [address] Chanda Koroma PA-C 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 Follow-up study in one year recommended. Other findings as above. Narrative 06/21/2021 10:24 AM EDT HISTORY: As provided COMPARISON: No prior abdominal imaging available TECHNIQUE: Exam performed on a 1.5 Vanesa high-field MRI scanner. The following sequences were obtained: Axial T1 in and out of phase and T2, coronal T2, radial thick slab MRCP, coronal oblique thin section 3-D MRCP sequences. Axial T1 in and out of phase, T1 with fat suppression and T2 with fat suppression, coronal T1 in and out of phase and T1 with fat suppression, followed by post-gadolinium multi-phase T1 series with fat suppression and coronal T1 with fat suppression sequences. Radial thick slab MRCP, coronal oblique thin section MRCP sequences were obtained. Reformatted axial and cholangiographic MIP images are available for review. FINDINGS: Lung bases: No findings of concern. Pancreas: Pancreatic body is a nonenhancing fluid intensity area consistent with pancreatic cyst, possibly range. Lesion measuring 9.8 x 6.0 mm. No other pancreatic masses seen. Follow-up MRI in one year is recommended. Gallbladder and biliary tree: Patient appears to be status-post cholecystectomy. No biliary dilatation of concern. No biliary stones seen. Liver: No findings of concern. Spleen: No finding of concern. Adrenals:No adrenal masses. Kidneys: Septated right renal cysts in the interpolar region does not have suspicious features. There may be a parapelvic cyst or slight calyceal dilatation in the interpolar right kidney. No worrisome masses or obstruction. Nodes: No ines lymphadenopathy is detected. Bowel: Very limited assessment by this technique. No obstruction. Vascular: No abdominal aortic aneurysm. Preserved portal venous and hepatic venous enhancement. Soft tissue: No ascites. No fluid collections or prominent inflammatory changes appreciated. Patient appears to be status-post hysterectomy on limited visualization of the pelvis on coronal T2 sequence. Musculoskeletal: Postoperative changes in the lumbar spine. Scoliosis and associated degenerative change. Procedure Note Stanley Portillo MD - 06/21/2021 HISTORY: As provided COMPARISON: No prior abdominal imaging available TECHNIQUE: Exam performed on a 1.5 Vanesa high-field MRI scanner. Thefollowing sequences were obtained: Axial T1 in and out of phase and T2,coronal T2, radial thick slab MRCP, coronal oblique thin section 3-D MRCPsequences. Axial T1 in and out of phase, T1 with fat suppression and T2with fat suppression, coronal T1 in and out of phase and T1 with fatsuppression, followed by post-gadolinium multi-phase T1 series with fatsuppression and coronal T1 with fat suppression sequences. Radial thickslab MRCP, coronal oblique thin section MRCP sequences were obtained.Reformatted axial and cholangiographic MIP images are available forreview. FINDINGS: Lung bases: No findings of concern. Pancreas: Pancreatic body is a nonenhancing fluid intensity areaconsistent with pancreatic cyst, possibly range. Lesion measuring 9.8 x6.0 mm. No other pancreatic masses seen. Follow-up MRI in one year isrecommended. Gallbladder and biliary tree: Patient appears to be status-postcholecystectomy. No biliary dilatation of concern. No biliary stonesseen. Liver: No findings of concern. Spleen: No finding of concern. Adrenals:No adrenal masses. Kidneys: Septated right renal cysts in the interpolar region does not havesuspicious features. There may be a parapelvic cyst or slight calycealdilatation in the interpolar right kidney. No worrisome masses orobstruction. Nodes: No ines lymphadenopathy is detected. Bowel: Very limited assessment by this technique. No obstruction. Vascular: No abdominal aortic aneurysm. Preserved portal venous andhepatic venous enhancement. Soft tissue: No ascites. No fluid collections or prominent inflammatorychanges appreciated. Patient appears to be status-post hysterectomy onlimited visualization of the pelvis on coronal T2 sequence. Musculoskeletal: Postoperative changes in the lumbar spine. Scoliosis andassociated degenerative change. 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 Follow-up study in one yearrecommended. Other findings as above. Chanda Koroma PA-C IMJose MR ABDOMEN Final Result documented in this encounter Visit Diagnoses Diagnosis Pancreatic ductal abnormality- Primary Gastroesophageal reflux disease, unspecified whether esophagitis present Dysphagia, pharyngoesophageal phase Pancreatic ductal abnormality Gastroesophageal reflux disease, unspecified whether esophagitis present Dysphagia, pharyngoesophageal phase documented in this encounter Additional Health Concerns Infection Onset Date Last Indicated Resolved Time CoV-Risk 07/18/2023 07/18/2023 07/29/2023 1:22 AM EDT CoV-Risk 10/06/2023 10/06/2023 10/17/2023 1:22 AM EST documented as of this encounter Care Teams Fish Hatchery Man Relationship Specialty Start Date End Date Shay Webb MD [address] [place] [address] & [address] [place] [address] [email or web address] PCP - General 05/17/14 03/25/22 Larisa Treviño MD [address] [place] [address] [email or web address] PCP - General Family Medicine 03/26/22 09/19/22 Janny Zavala MD [address] [place] [address] [email or web address] PCP - General Family Medicine 10/03/22 10/21/22 Colt Steele CNP [address] [place] [address] [place] [address] [email or web address] PCP - General Family Medicine 10/22/22 Stanley Castro MD [address] [place] [address] [email or web address] Historical LMR Provider 09/02/17 11/24/21 Shay Webb MD [address] [place] [address] & [address] [place] [address] [email or web address] Historical LMR Provider 09/02/17 Jaiden Esparza DO [address] [place] [address] [facility] [place] [address] Historical LMR Provider 09/02/17 Larisa Navarro MD [address] [place] [address] Historical LMR Provider 09/02/17 Oziel Archibald MD 22 [place] [address] Historical LMR Provider 09/02/17 2 aRo Arzate DO [address] [place] [address] [email or web address] Insurance Assigned Provider 02/21/24 11/22/24 Rocco Alvarenga DO 22 [place] [address] Geriatric Medicine 05/23/25 documented as of this encounter Additional Source Comments The information contained in this document represents components of the legal health record. It is not the complete legal health record.[facility]
--- OUTSIDE RECORDS SUMMARY | 2025-08-10 16:33 | XMS_ITS | Clinical Summary ---
Author Organization [facility] Address [facility] [place] [address] Care Team Providers Care Edi Manager Name Role Phone Jon, Shay MOSQUERA Primary Care Provider [phone] Allergies Active Allergy Reactions Criticality Noted Date [...] series) 2012 Covid-19 Vaccine (1 - season) 2025 Influenza (Flu) vaccine (1 o f 1 - Influenza standard series) 07/18/2025 Care Teams Edi Manager Relationship Specialty Start Date End Date JonShay MD [address] [address] PCP - General 10/09/10
--- OUTSIDE RECORDS SUMMARY | 2025-08-10 16:33 | XMS_ITS | Encounter Summary ---
Author Organization [facility] Address [address] [place] [address] Phone Care Team Providers Care Continuous Mining Machine Operator Name Role Phone Shay Webb MD Primary Care Provider Stanley Castro MD Unavailable Shay Webb MD Unavailable [phone] Jaiden Esparza DO Unavailable Larisa Navarro MD Unavailable [phone] Oziel Archibald MD Unavailable [phone] Larisa Treviño MD Primary Care Provid er Janny Zavala MD Primary Care Provider [phone] Colt Steele CNP Primary Care Provider [phone] Rao Arzate DO Unavailable Rocco Alvarenga DO Unavailable Encounter Details Date Type Department Care Team (Late st Contact Info) Description 06/15/2021 Procedure [facility], Ct Scan - [address] [id number] Social History Tobacco Use Types Packs/Day Years [...] 10:11 PM EDT Hector Isaac RN * [place] Suicide Severity Rating Scale (Screener/Recent Self-Report) Question [...] documented as of this encounter Care Teams Continuous Mining Machine Operator Relationship Specialty Start Date End Date JonShay MD [address] [place] [address] [address] [place] [address] [email or web address] PCP - General 05/17/14 03/25/22 Larisa Treviño MD [address] [place] [address] [email or web address] PCP - General Family Medicine 03/26/22 09/19/22 Janny Zavala MD [address] [address] PCP - General Family Medicine 10/03/22 10/21/22 Colt Steele CNP 29 [facility] [place] [place] [address] PCP - General Family Medicine 10/22/22 Stanley Castro MD 22 [place] [address] [email or web address] Historical LMR Provider 09/02/17 11/24/21 Shay Webb MD 264 [facility] [address] [place] [address] [email or web address] Historical LMR Provider 09/02/17 Jaiden Esparza DO [address] [place] [address] [facility], [place] [address] [email or web address] Historical LMR Provider 09/02/17 Larisa Navarro MD [address], [place] [address] Historical LMR Provider 09/02/17 Oziel Archibald MD 22 [place] [address] Historical LMR Provider 09/02/17 2 Rao Arzate DO 29 [place] [address] [email or web address] Insurance Assigned Provider 02/21/24 11/22/24 Rocco Alvarenga DO 22 [place] [address] [email or web address] Geriatric Medicine 05/23/25 documented as of this encounter Additional Source Comments The information contained in this document represents components of the legal health record. It is not the complete legal health record.[facility]
--- OUTSIDE RECORDS SUMMARY | 2025-08-10 16:33 | XMS_ITS | Encounter Summary ---
Author Organization [facility] Address [address] [place] [address] [place] [address] Phone Care Team Providers Care Tinner Automatic Name Role Phone Shay Webb MD Primary Care Provider Stanley Castro MD Unavailable Shay Webb MD Unavailable [phone] Jaiden Esparza DO Unavailable Larisa Navarro MD Unavailable [phone] Oziel Archibald MD Unavailable [phone] Larisa Treviño MD Primary Care Provid er Janny Zavala MD Primary Care Provider [phone] Colt Steele CNP Primary Care Provider [phone] Rao Arzate DO Unavailable Rocco Alvarenga DO Unavailable Encounter Details Date Type Department Care Team (Latest Contact Info) Description 02/19/2019 Transcribe Orders [facility] Laboratory [address] [address] Shay Webb MD [address] [place] [address] 10 & 12 [place] [address] [email or web address] Fatigue, unspecified type (Primary Dx); Dyspnea, unspecified type; Elevated cholesterol Social History Tobacco Use Types Packs/Day [...] as of this encounter Results * Magnesium (02/19/2019 7:46 AM EDT) MAGNESIUM 2.1 1.6 - 2.6 mg/dL [facility] Blood 02/19/2019 7:46 AM EDT 02/19/2019 8:00 AM EDT Shay Webb MD LAB BLOOD ORDERABLES Final Resu lt [facility] [address] [place] [address] * (ABNORMAL) CBC and differential (02/19/2019 7:46 AM EDT) WBC 5.12 3.40 - 11.20 K/uL [facility] RBC 4.82(H) 3.80 - 4.80 M/uL [facility] HGB 14.1 12.0 - 15.0 g/dL [facility] HCT 41.8 36.0 - 46.0 % [facility] PLT 296 130 - 400 K/uL [facility] MCV 86.7 79.0 - 98.0 fL [facility] MCH 29.3 27.0 - 34.8 pg [facility] MCHC 33.7 31.5 - 36.0 g/dL [facility] RDW 12.9 10.8 - 14.6 % [facility] MPV 9.4 9.4 - 12.4 fl [facility] NRBC 0.00 0.00 /100 WBCs [facility] ABSOLUTE NRBC 0.00 0.00 K/uL [facility] DIFF METHOD Auto [facility] NEUTS 50.9 45.30 - 77.70 % [facility] LYMPHS 36.5 12.30 - 39.70 % [facility] MONOS 9.4 4.10 - 12.80 % [facility] EOS 1.8 0 - 7.2 % [facility] BASOS 1.4 0 - 2.80 % [facility] Granulocytes, immature (%) 0.0 0.0 - 0.9 % [facility] ABSOLUTE NEUTS 2.61 1.40 - 7.70 K/uL [facility] ABSOLUTE LYMPHS 1.87 0.60 - 3.20 K/uL [facility] ABSOLUTE MONOS 0.48 0.11 - 0.59 K/uL [facility] ABSOLUTE EOS 0.09 0.01 - 0.50 K/uL [facility] ABSOLUTE BASOS 0.07 0.00 - 0.08 K/uL [facility] Granulocytes, immature 0.00 0.00 - 0.05 K/uL [facility] Blood 02/19/2019 7:46 AM EDT 02/19/2019 8:00 AM EDT Shay Webb MD LAB BLOOD ORDERABLES Final Resu lt [facility] [address] [place] [address] * (ABNORMAL) Lipid panel (02/19/2019 7:46 AM EDT) HDL 101 mg/dL [facility] Comment: Interpretation <40 mg/dL: Low HDL cholesterol (major risk factor for CHD) Greater than or equal to 60 mg/dL: High HDL cholesterol ( negative risk factor for CHD) HDL - cholesterol is affected by a number of factors, e.g. smoking, excerise, hormones, sex and age. CHOLESTEROL 210 0 - 240 mg/dL [facility] TRIGLYCERIDES 81 30 - 160 mg/dL [facility] LDL 93 50 - 129 mg/dL [facility] Comment: LDL levels in terms of risk for coronary heart disease: <100 mg/dL: Optimal 100-129 mg/dL: Near or above optimal 130-159 mg/dL: Borderline high 160-189 mg/dL: High >190 mg/dL: Very High CARDIAC RISK RATIO 2.1(L) 3.3 - 4.4 C [facility] Blood 02/19/2019 7:46 AM EDT 02/19/2019 8:00 AM EDT Shay Webb MD LAB BLOOD ORDERABLES Final Resu lt Performing Organization Address City/[facility]/ZIP Co de Phone Number [address] [address] * TSH with reflex (02/19/2019 7:46 AM EDT) TSH 1.73 0.27 - 4.20 uIU/mL [facility] Blood 02/19/2019 7:46 AM EDT 02/19/2019 8:00 AM EDT Shay Webb MD LAB BLOOD ORDERABLES Final Resu lt Performing Organization Address [facility] Co de Phone Number [address] [address] * (ABNORMAL) Comprehensive metabolic panel (02/19/2019 7:46 AM EDT) SODIUM 126(L) 133 - 146 mmol/L [facility] POTASSIUM 4.1 3.3 - 5.1 mmol/L [facility] CHLORIDE 87(L) 96 - 108 mmol/L [facility] CO2 28 21 - 35 mmol/L [facility] BUN 16 6 - 19 mg/dL [facility] CREATININE 0.70 0.5 - 1.5 mg/dL [facility] GLUCOSE 89 70 - 99 mg/dL [facility] ALBUMIN 4.2 3.9 - 4.8 g/dL [facility] TOTAL PROTEIN 7.0 6.5 - 8.0 g/dL [facility] CALCIUM 9.3 8.4 - 10.3 mg/dL [facility] ALKALINE PHOSPHATASE 64 39 - 117 U/L [facility] TOTAL BILIRUBIN 0.7 0.0 - 1.2 mg/dL [facility] Comment: Results from certain multiple myeloma patients may show a positive bias in recovery. Not all multiple myeloma patients show the bias and severity of the bias may vary between patients. In very rare cases, gammopathy, in particular type IgM (Waldenstrom's macroglobulinemia), may cause unreliable results. AST 28 0 - 37 U/L [facility] ALT 16 0 - 40 U/L [facility] GLOBULIN 2.8 1 - 4.8 g/dL [facility] EGFR 81 >59 mL/min/1.7 3m2 [facility] Comment:If patient is black, multiply result by 1.159. Estimated glomerular filtration rate calculated using the CKD-EPI equation. ANION GAP 15 10 - 20 mmol/L [facility] Blood 02/19/2019 7:46 AM EDT 02/19/2019 8:00 AM EDT us Shay Webb MD LAB BLOOD ORDERABLES Final Resu lt Performing Organization Address City/State/[facility] Co de Phone Number [address] [address] documented in this encounter Visit Diagnoses Diagnosis Fatigue, unspecified type- Primary Dyspnea, unspecified type Elevated cholesterol Pure hypercholesterolemia documented in this encounter Additional Health Concerns Infection Onset Date Last Indicated Resolved Time CoV-Exposed Comment:Recent close contact documented in the COVID-19 PCR/PRO order Pt denied exposure 12/13/2020 12/13/2020 12/18/2020 10:54 AM EST CoV-Risk 07/18/2023 07/18/2023 07/29/2023 1:22 AM EDT CoV-Risk 10/06/2023 10/06/2023 10/17/2023 1:22 AM EST documented as of this encounter Care Teams Tinner Automatic Relationship Specialty Start Date End Date Jon, Shay Garcia MD [address] [place] [address] [email or web address] PCP - General 05/17/14 03/25/22 Larisa Treviño MD [address] [address] [email or web address] PCP - General Family Medicine 03/26/22 09/19/22 Janny Zavala MD [address] [address] [email or web address] PCP - General Family Medicine 10/03/22 10/21/22 Colt Steele CNP [address] [place] [address] [email or web address] PCP - General Family Medicine 10/22/22 Stanley Castro MD [address] [place] [address] [email or web address] Historical LMR Provider 09/02/17 11/24/21 Shay Webb MD [address] [place] [address] [address] & [address] [place] [address] [email or web address] Historical LMR Provider 09/02/17 Jaiden Esparza DO [address] [place] [address] Orthopedics & Sports Medicine, [facility] [place] [address] [email or web address] Historical LMR Provider 09/02/17 Larisa Navarro MD [facility] [place] [address] Historical LMR Provider 09/02/17 Oziel Archibald MD [address] [place] [address] Historical LMR Provider 09/02/17 2 Rao Arzate DO [address] [place] [address] Insurance Assigned Provider 02/21/24 11/22/24 Rocco Alvarenga DO [address] [place] [address] Geriatric Medicine 05/23/25 documented as of this encounter Additional Source Comments The information contained in this document represents components of the legal health record. It is not the complete legal health record.[facility]
--- OUTSIDE RECORDS SUMMARY | 2025-08-10 16:33 | XMS_ITS | Encounter Summary ---
Author Organization [facility] Address [address] [place] [address] Phone Care Team Providers Care Steam Turbine Assembler Name Role Phone Shay Webb MD Primary Care Provider Stanley Castro MD Unavailable Shay Webb MD Unavailable [phone] Jaiedn Esparza DO Unavailable Larisa Navarro MD Unavailable [phone] Oziel Archibald MD Unavailable [phone] Larisa Treviño MD Primary Care Provid er Janny Zavala MD Primary Care Provider Colt Steele CNP Primary Care Provider [phone] Rao Arzate DO Unavailable Rocco Alvarenga DO Unavailable Encounter Details Date Type Department Care Team (Late st Contact Info) Description 10/23/2018 Ancillary Orders Virtual Department [address] [place] [address] Larisa Navarro MD [address] [place] [address] Visit for screening mammogram Social History Tobacco Use Types Packs/Day Years [...] MAMMOGRAM SCREENING WITH TOMOSYNTHESIS WITH CAD (BILATERAL) (01/15/2019 10:19 AM EST) Anatomical Region Laterality Modality Breast Left, Breast Right, Breast Bilateral Bila teral Mammography 01/15/2019 11:0 5 AM EST Impressions 01/15/2019 11:07 AM EST Stable appearance relative to prior imaging. No findings suggestive of malignancy are seen. BI-RADS CATEGORY: 2 - Benign finding. DENSITY: There are scattered fibroglandular densities. POS - [id number] Narrative 01/15/2019 11:07 AM EST Full-field digital mammography is obtained with computer-aided detection. Comparison with prior imaging from 01/14/2018 is made with older imaging dating back as far as 12/21/2012 also reviewed. There is scattered fibroglandular density evident in the breasts. In addition to 2-D C view imaging, tomosynthesis images are obtained in two projections of each breast. There are minor scattered punctate and vascular calcifications bilaterally.. No dominant soft tissue mass of concern, suspicious cluster of calcifications, significant interval skin changes, or architectural distortion is identified. Procedure Note Hola Scherer MD - 01/15/2019 Full-field digital mammography is obtained with computer-aided detection.Comparison with prior imaging from 01/14/2018 is made with older imagingdating back as far as 12/21/2012 also reviewed. There is scattered fibroglandular density evident in the breasts. Inaddition to 2-D C view imaging, tomosynthesis images are obtained in twoprojections of each breast. There are minor scattered punctate and vascular calcificationsbilaterally.. No dominant soft tissue mass of concern, suspicious clusterof calcifications, significant interval skin changes, or architecturaldistortion is identified. IMPRESSION: Stable appearance relative to prior imaging. No findings suggestive ofmalignancy are seen. BI-RADS CATEGORY: 2 - Benign finding. DENSITY: There are scattered fibroglandular densities. POS - [id number] Larisa Navarro MD IMG MG EXAMS Final Result documented in this encounter Visit Diagnoses Diagnosis Visit for screening mammogram Visit for screening mammogram documented in this encounter Additional Health Concerns Infection Onset Date Last Indicated Resolved Time CoV-Exposed Comment:Recent close contact documented in the COVID-19 PCR/PRO order Pt denied exposure 12/13/2020 12/13/2020 12/18/2020 10:54 AM EST CoV-Risk 07/18/2023 07/18/2023 07/29/2023 1:22 AM EDT CoV-Risk 10/06/2023 10/06/2023 10/17/2023 1:22 AM EST documented as of this encounter Care Teams Steam Turbine Assembler Relationship Specialty Start Date End Date Jon, Shay Garcia MD [address] [place] [address] 10 & 12 [place] [address] [email or web address] PCP - General 05/17/14 03/25/22 Larisa Treviño MD [address] [place] [address] [email or web address] PCP - General Family Medicine 03/26/22 09/19/22 Janny Zavala MD [address] [place] [address] [email or web address] PCP - General Family Medicine 10/03/22 10/21/22 Colt Steele CNP [address] [place] [address] [email or web address] PCP - General Family Medicine 10/22/22 Stanley Castro MD [address] [place] [address] [email or web address] Historical LMR Provider 09/02/17 11/24/21 Shay Webb MD [address] [address] & [address] [place] [address] [email or web address] Historical LMR Provider 09/02/17 Jaiden Esparza DO [address] [place] [address] Orthopedics & Sports Medicine, [place] [address] [email or web address] Historical LMR Provider 09/02/17 Larisa Navarro MD [address] [place] [address] Historical LMR Provider 09/02/17 Oziel Archibald MD [address] [place] [address] Historical LMR Provider 09/02/17 2 Rao Arzate DO [address] [place] [address] [email or web address] Insurance Assigned Provider 4/6/24 1/6/25 Rocco Alvarenga DO [address] [place] [address] [email or web address] Geriatric Medicine 05/23/25 documented as of this encounter Additional Source Comments The information contained in this document represents components of the legal health record. It is not the complete legal health record.[facility]
--- OUTSIDE RECORDS SUMMARY | 2025-08-10 16:33 | XMS_ITS | Encounter Summary ---
Author Organization [facility] Address [address] [place] [address] Phone Care Team Providers Care Geophysical Computer Name Role Phone Shay Webb MD Primary Care Provider Stanley Castro MD Unavailable Shay Webb MD Unavailable [phone] Jaiden Esparza DO Unavailable Larisa Navarro MD Unavailable [phone] Oziel Archibald MD Unavailable [phone] Larisa Treviño MD Primary Care Provid er Janny Zavala MD Primary Care Provider Colt Steele CNP Primary Care Provider [phone] Rao Arzate DO Unavailable Rocco Alvarenga DO Unavailable Encounter Details Date Type Department Care Team (Late st Contact Info) Description 06/04/2021 Procedure Pass [facility], [address] [id number] Social History Tobacco Use Types Packs/Day Years [...] as of this encounter Care Teams Geophysical Computer Relationship Specialty Start Date End Date JonShay MD [address] [place] [address] & [address] [place] [address] [email or web address] PCP - General 05/17/14 03/25/22 Larisa Treviño MD [address] [place] [address] [email or web address] PCP - General Family Medicine 03/26/22 09/19/22 Janny Zavala MD [address] [place] [address] [email or web address] PCP - General Family Medicine 10/03/22 10/21/22 Colt Steele CNP 29 [facility] [place] [address] PCP - General Family Medicine 10/22/22 Stanley Castro MD 22 [place] [address] [email or web address] Historical LMR Provider 09/02/17 11/24/21 Shay Webb MD [address] [facility] 10 & [address] [place] [address] [email or web address] Historical LMR Provider 09/02/17 Jaiden Esparza DO [address] [place] [address] Orthopedics & Sports Medicine, [place] [address] [email or web address] Historical LMR Provider 09/02/17 Larisa Navarro MD [address], [place] [address] Historical LMR Provider 09/02/17 Oziel Archibald MD 22 [place] [address] Historical LMR Provider 09/02/17 2 Rao Arzate DO 29 [facility] [place] [place] [address] [email or web address] Insurance Assigned Provider 02/21/24 11/22/24 Rocco Alvarenga DO 22 [place] [address] [email or web address] Geriatric Medicine 05/23/25 documented as of this encounter Additional Source Comments The information contained in this document represents components of the legal health record. It is not the complete legal health record.[facility]
--- OUTSIDE RECORDS SUMMARY | 2025-08-10 16:35 | XMS_ITS | Encounter Summary ---
Author Organization [facility] Address [address] [place] [address] [place] [address] Phone Care Team Providers Care Printed Circuit Photographer Name Role Phone Shay Webb MD Primary Care Provider Stanley Castro MD Unavailable Shay Webb MD Unavailable [phone] Jaiden Esparza DO Unavailable Larisa Navarro MD Unavailable [phone] Oziel Archibald MD Unavailable [phone] Larisa Treviño MD Primary Care Provid er Janny Zavala MD Primary Care Provider Colt Steele CNP Primary Care Provider [phone] Rao Arzate DO Unavailable Rocco Alvarenga DO Unavailable Encounter Details Date Type Department Care Team (Latest Contact Info) Description 04/15/2019 Transcribe Orders [facility] Laboratory [address] [address] Shay Webb MD [address] [place] [address] 10 & 12 [place] [address] [email or web address] Fatigue, unspecified type (Primary Dx) Social History Tobacco [...] encounter Results * (ABNORMAL) CBC and differential (04/15/2019 3:05 PM EDT) WBC 6.38 3.40 - 11.20 K/uL [facility] RBC 4.46 3.80 - 4.80 M/uL [facility] HGB 13.0 12.0 - 15.0 g/dL [facility] HCT 39.0 36.0 - 46.0 % [facility] PLT 345 130 - 400 K/uL [facility] MCV 87.4 79.0 - 98.0 [facility] MCH 29.1 27.0 - 34.8 pg [facility] MCHC 33.3 31.5 - 36.0 g/dL [facility] RDW 13.5 10.8 - 14.6 % [facility] MPV 9.2(L) 9.4 - 12.4 [facility] NRBC 0.00 0.00 /100 WBCs [facility] ABSOLUTE NRBC 0.00 0.00 K/uL [facility] DIFF METHOD Auto [facility] NEUTS 71.5 45.30 - 77.70 % [facility] LYMPHS 18.7 12.30 - 39.70 % [facility] MONOS 7.2 4.10 - 12.80 % [facility] EOS 1.4 0 - 7.2 % [facility] BASOS 0.9 0 - 2.80 % [facility] Granulocytes, immature (%) 0.3 0.0 - 0.9 % [facility] ABSOLUTE NEUTS 4.56 1.40 - 7.70 K/uL [facility] ABSOLUTE LYMPHS 1.19 0.60 - 3.20 K/uL [facility] ABSOLUTE MONOS 0.46 0.11 - 0.59 K/uL [facility] ABSOLUTE EOS 0.09 0.01 - 0.50 K/uL [facility] ABSOLUTE BASOS 0.06 0.00 - 0.08 K/uL [facility] Granulocytes, immature 0.02 0.00 - 0.05 K/uL [facility] Blood 04/15/2019 3:05 PM EDT 04/15/2019 3:08 PM EDT Shay Webb MD LAB BLOOD ORDERABLES Final Resu lt Performing Organization Address [facility]/ZIP Co de Phone Number [address] [address] * TSH with reflex (04/15/2019 3:05 PM EDT) TSH 0.75 0.27 - 4.20 uIU/mL [facility] Blood 04/15/2019 3:05 PM EDT 04/15/2019 3:08 PM EDT Shay Webb MD LAB BLOOD ORDERABLES Final Resu lt Performing Organization Address City/[facility]/ZIP Co de Phone Number [address] [address] * (ABNORMAL) Basic metabolic panel (04/15/2019 3:05 PM EDT) SODIUM 130(L) 133 - 146 mmol/L [facility] CHLORIDE 90(L) 96 - 108 mmol/L [facility] POTASSIUM 4.9 3.3 - 5.1 mmol/L [facility] CO2 28 21 - 35 mmol/L [facility] BUN 16 6 - 19 mg/dL [facility] CREATININE 0.70 0.5 - 1.5 mg/dL [facility] GLUCOSE 102(H) 70 - 99 mg/dL [facility] CALCIUM 9.6 8.4 - 10.3 mg/dL [facility] EGFR 81 >59 mL/min/1.7 3m2 [facility] Comment:If patient is black, multiply result by 1.159. Estimated glomerular filtration rate calculated using the CKD-EPI equation. ANION GAP 17 10 - 20 mmol/L [facility] Blood 04/15/2019 3:05 PM EDT 04/15/2019 3:08 PM EDT us Shay Webb MD LAB BLOOD ORDERABLES Final Resu lt [address] [address] documented in this encounter Visit Diagnoses Diagnosis Fatigue, unspecified type- Primary documented in this encounter Additional Health Concerns Infection Onset Date Last Indicated Resolved Time CoV-Exposed Comment:Recent close contact documented in the COVID-19 PCR/PRO order Pt denied exposure 12/13/2020 12/13/2020 12/18/2020 10:54 AM EST CoV-Risk 07/18/2023 07/18/2023 07/29/2023 1:22 AM EDT CoV-Risk 10/06/2023 10/06/2023 10/17/2023 1:22 AM EST documented as of this encounter Care Teams Printed Circuit Photographer Relationship Specialty Start Date End Date JonShay gamez MD [address] [place] [address] & [address] [place] [address] [email or web address] PCP - General 05/17/14 03/25/22 Larisa Treviño MD [address] [place] [address] [email or web address] PCP - General Family Medicine 03/26/22 09/19/22 Janny Zvaala MD [address] [place] [address] [email or web address] PCP - General Family Medicine 10/03/22 10/21/22 Colt Steele CNP [address] [place] [address] [email or web address] PCP - General Family Medicine 10/22/22 Stanley Castro MD [address] [place] [address] [email or web address] Historical LMR Provider 09/02/17 11/24/21 Shay Webb MD [address] [place] [address] 10 & [address] [place] [address] [email or web address] Historical LMR Provider 09/02/17 Jaiden Esparza DO [address] [place] [address] Orthopedics & Sports Medicine, [place] [address] [email or web address] Historical LMR Provider 09/02/17 Larisa Navarro MD [address] [place] [address] Historical LMR Provider 09/02/17 Oziel Archibald MD [address] [place] [address] Historical LMR Provider 09/02/17 2 Rao Arzate DO [address] [place] [address] [email or web address] Insurance Assigned Provider 02/21/24 11/22/24 Rocco Alvarenga DO [address] [place] [address] [email or web address] Geriatric Medicine 05/23/25 documented as of this encounter Additional Source Comments The information contained in this document represents components of the legal health record. It is not the complete legal health record.[facility]
--- OUTSIDE RECORDS SUMMARY | 2025-08-10 16:36 | XMS_ITS | Encounter Summary ---
Author Organization [facility] Address [address] [place] [address] [place] [address] Phone Care Team Providers Care Senior Project Engineer Name Role Phone Shay Webb MD Primary Care Provider Stanley Castro MD Unavailable Shay Webb MD Unavailable [phone] Jaiden Esparza DO Unavailable Larisa Navarro MD Unavailable [phone] Oziel Archibald MD Unavailable [phone] Larisa Treviño MD Primary Care Provid er Janny Zavala MD Primary Care Provider Colt Steele CNP Primary Care Provider [phone] Rao Arzate DO Unavailable Rocco Alvarenga DO Unavailable Encounter Details Date Type Department Care Team (Late st Contact Info) Description 10/26/2019 Ancillary Orders Virtual Department 30 [place] [address] Shay Webb MD 264 [facility] [address] [place] [address] [email or web address] Breast screening Social History Tobacco Use Types [...] MAMMOGRAM SCREENING WITH TOMOSYNTHESIS WITH CAD (BILATERAL) (01/20/2020 2:38 PM EST) Anatomical Region Laterality Modality Breast Left, Breast Right, Breast Bilateral Bila teral Mammography 01/21/2020 9:02 AM EST Impressions 01/21/2020 9:05 AM EST No mammographic signs of malignancy. Annual screening is recommended. BI-RADS CATEGORY: 2 - Benign finding. DENSITY: There are scattered fibroglandular densities. POS - [id number] Narrative 01/21/2020 9:05 AM EST Bilateral mammography is performed in conjunction with computed aided detection. 3-D tomography along with 2-D C view imaging was also performed. Comparison made to previous dated as far back as 01/04/2014 and as recent as 01/15/2019. No suspicious masses, areas of architectural distortion or suspicious microcalcifications. A few scattered bilateral microcalcifications with benign characteristics are stable. Procedure Note Jaime Case MD - 01/21/2020 Bilateral mammography is performed in conjunction with computed aideddetection. 3-D tomography along with 2-D C view imaging was alsoperformed. Comparison made to previous dated as far back as 01/04/2014 andas recent as 01/15/2019. No suspicious masses, areas of architectural distortion or suspiciousmicrocalcifications. A few scattered bilateral microcalcifications withbenign characteristics are stable. IMPRESSION: No mammographic signs of malignancy. Annual screening is recommended. BI-RADS CATEGORY: 2 - Benign finding. DENSITY: There are scattered fibroglandular densities. POS - [id number] Shay Webb MD IMG MG EXAMS Final [...] as of this encounter Care Teams Senior Project Engineer Relationship Specialty Start Date End Date Jon, Shay Garcia MD 264 [facility] [address] [place] [address] [email or web address] [email or web address] PCP - General 05/17/14 03/25/22 Larisa Treviño MD [address] [place] [address] [email or web address] PCP - General Family Medicine 03/26/22 09/19/22 Janny Zavala MD [address] [address] [email or web address] PCP - General Family Medicine 10/03/22 10/21/22 oClt Steele CNP 29 [facility] [place] [address] [email or web address] PCP - General Family Medicine 10/22/22 Stanley Castro MD 22 [place] [address] [email or web address] Historical LMR Provider 09/02/17 11/24/21 Shay Webb MD 264 [facility] [address] [place] [address] [email or web address] Historical LMR Provider 09/02/17 Jaiden Esparza DO [address] [place] [address] Orthopedics & Sports Medicine, [place] [address] [email or web address] Historical LMR Provider 09/02/17 Larisa Navarro MD [address], [place] [address] Historical LMR Provider 09/02/17 Oziel Archibald MD 22 [place] [address] Historical LMR Provider 09/02/17 2 Rao Arzate DO 29 [facility] [place] [address] [email or web address] Insurance Assigned Provider 02/21/24 11/22/24 Rocco Alvarenga DO 22 [place] [address] Geriatric Medicine 05/23/25 documented as of this encounter Additional Source Comments The information contained in this document represents components of the legal health record. It is not the complete legal health record.[facility]
--- OUTSIDE RECORDS SUMMARY | 2025-08-10 16:36 | XMS_ITS | Encounter Summary ---
Author Organization [facility] Address [address] [place] [address] Phone Care Team Providers Care Preschool Assistant Teacher Name Role Phone Shay Webb MD Primary Care Provider Stanley Castro MD Unavailable Shay Webb MD Unavailable [phone] Jaiden Esparza DO Unavailable Larisa Navarro MD Unavailable [phone] Oziel Archibald MD Unavailable [phone] Larisa Treviño MD Primary Care Provid er Janny Zavala MD Primary Care Provider Colt Steele CNP Primary Care Provider Rao Arzate DO Unavailable Rocco Alvarenga DO Unavailable [phone] Reason for Referral * MRI/CAT Scan - Closed Specialty Diagnoses / Procedures Referred By Contac t Referred To Contact Radiology Diagnoses Left shoulder pain, unspecified chronicity Procedures MRI Shoulder (Left) Shay Webb MD Phone: tel: fax: [email or web address] Referral ID Status Reason Start Date Expiration Date Visits Re quested Visits Authorized [id number] Closed 08/17/2019 2020 1 1 Encounter Details Date Type Department Care Team (Late st Contact Info) Description 08/17/2019 Ancillary Orders Virtual Department 30 [place] [address] Shay Webb MD 264 [facility] [address] [place] [address] [email or web address] Left shoulder pain, unspecified chronicity Social History Tobacco Use Types Packs/Day Years [...] as of this encounter Results * MRI SHOULDER WITHOUT CONTRAST (LEFT) (08/28/2019 2:30 PM EDT) Anatomical Region Laterality Modality Shoulder Left Magnetic Resonan ce 08/28/2019 4:07 PM EDT Impressions 08/28/2019 4:21 PM EDT 1. Full-thickness tear of the anterior distal supraspinatus tendon without significant tendon retraction. 2. Findings consistent with tear of the biceps tendon and probable tear of the distal subscapularis tendon. POS - [id number] Narrative 08/28/2019 4:21 PM EDT HISTORY: Pain, decreased strength COMPARISON: Left shoulder x-ray 09/01/2018. TECHNIQUE: Exam performed on a 1.5 Vanesa high-field MRI scanner. Axial T1 and proton density with fat suppression, oblique coronal proton density with fat suppression and T2 with fat suppression, oblique sagittal T1 and T2 with fat suppression sequences were obtained. MRI SHOULDER FINDINGS: Rotator cuff tendons: There is a tear of the anterior aspect of the distal supraspinatus tendon. This appears to be a full-thickness tear. There is no significant retraction of the tendon. The subscapularis tendon appears abnormal, and there is likely a tear distally. Biceps tendon: The long head of the biceps tendon appears abnormal and is likely torn. Rotator cuff muscles: No significant abnormalities. Glenoid labrum: The labrum is grossly intact. Bursae: Moderate-large amount of fluid within the subacromial/subdeltoid bursa. Joints: Mild-moderate hypertrophic changes at the acromioclavicular joint. Small glenohumeral joint effusion. Bones: Cystic changes in the humeral head likely related to tendinopathy. No suspicious marrow signal abnormalities. Other soft tissues: No evidence of soft tissue masses. Procedure Note Jaime Case MD - 08/28/2019 HISTORY: Pain, decreased strength COMPARISON: Left shoulder x-ray 09/01/2018. TECHNIQUE: Exam performed on a 1.5 Vanesa high-field MRI scanner. Axial T1and proton density with fat suppression, oblique coronal proton densitywith fat suppression and T2 with fat suppression, oblique sagittal T1 andT2 with fat suppression sequences were obtained. MRI SHOULDER FINDINGS: Rotator cuff tendons: There is a tear of the anterior aspect of thedistal supraspinatus tendon. This appears to be a full-thickness tear.There is no significant retraction of the tendon. The subscapularis tendonappears abnormal, and there is likely a tear distally. Biceps tendon: The long head of the biceps tendon appears abnormal and islikely torn. Rotator cuff muscles: No significant abnormalities. Glenoid labrum: The labrum is grossly intact. Bursae: Moderate-large amount of fluid within the subacromial/subdeltoidbursa. Joints: Mild-moderate hypertrophic changes at the acromioclavicularjoint. Small glenohumeral joint effusion. Bones: Cystic changes in the humeral head likely related to tendinopathy.No suspicious marrow signal abnormalities. Other soft tissues: No evidence of soft tissue masses. IMPRESSION: 1. Full-thickness tear of the anterior distal supraspinatus tendon withoutsignificant tendon retraction. 2. Findings consistent with tear of the biceps tendon and probable tear ofthe distal subscapularis tendon. POS - [id number] Shay Webb MD IM MR EXTREMITY Final Result documented in this encounter Visit Diagnoses Diagnosis Left shoulder pain, unspecified chronicity Left shoulder pain, unspecified chronicity documented in this encounter Additional Health Concerns Infection Onset Date Last Indicated Resolved Time CoV-Exposed Comment:Recent close contact documented in the COVID-19 PCR/PRO order Pt denied exposure 12/13/2020 12/13/2020 12/18/2020 10:54 AM EST CoV-Risk 07/18/2023 07/18/2023 07/29/2023 1:22 AM EDT CoV-Risk 10/06/2023 10/06/2023 10/17/2023 1:22 AM EST documented as of this encounter Care Teams Preschool Assistant Teacher Relationship Specialty Start Date End Date Jon, Shay Garcia MD [address] [place] [address] [address] [place] [address] [email or web address] PCP - General 05/17/14 03/25/22 Larisa Treviño MD [address] [place] [address] [email or web address] PCP - General Family Medicine 03/26/22 09/19/22 Janny Zavala MD [address] [place] [email or web address] PCP - General Family Medicine 10/03/22 10/21/22 Colt Steele, [facility] [address] [place] [address] [email or web address] PCP - General Family Medicine 10/22/22 Stanley Castro MD 22 [place] [address] [email or web address] Historical LMR Provider 09/02/17 11/24/21 Shay Webb MD 264 [facility] [address] [place] [address] [email or web address] Historical LMR Provider 09/02/17 Jaiden Esparza DO [address] [place] [address] Orthopedics & Sports Medicine, [place] [address] [email or web address] Historical LMR Provider 09/02/17 Larisa Navarro MD [address] [place] [address] Historical LMR Provider 09/02/17 Oziel Archibald MD 22 [place] [address] Historical LMR Provider 09/02/17 2 Rao Arzate DO 29 [place] [address] [email or web address] Insurance Assigned Provider 02/21/24 11/22/24 Rocco Alvarenga DO 22 [place] [address] Geriatric Medicine 05/23/25 documented as of this encounter Additional Source Comments The information contained in this document represents components of the legal health record. It is not the complete legal health record.[facility]
--- OUTSIDE RECORDS SUMMARY | 2025-08-10 16:36 | XMS_ITS | Encounter Summary ---
Author Organization [facility] Address [address] [place] [address] Phone Care Team Providers Care Technology Infusion Specialist Name Role Phone Shay Webb MD Primary Care Provider Stanley Castro MD Unavailable Shay Webb MD Unavailable [phone] Jaiden Esparza DO Unavailable Larisa Navarro MD Unavailable [phone] Oziel Archibald MD Unavailable [phone] Larisa Treviño MD Primary Care Provid er Janny Zavala MD Primary Care Provider [phone] Colt Steele CNP Primary Care Provider [phone] Rao Arzate DO Unavailable Rocco Alvarenga DO Unavailable Encounter Details Date Type Department Care Team (Late st Contact Info) Description 08/17/2019 Procedure Pass [facility], [address] [address] Social History Tobacco Use Types Packs/Day Years [...] documented as of this encounter Care Teams Technology Infusion Specialist Relationship Specialty Start Date End Date JonShay MD 264 [facility] [address] [place] [address] [email or web address] PCP - General 05/17/14 03/25/22 Larisa Treviño MD [address] [place] [address] [email or web address] PCP - General Family Medicine 03/26/22 09/19/22 Janny Zavala MD [address] [place] [address] [email or web address] PCP - General Family Medicine 10/03/22 10/21/22 Colt Steele, WORK CHECKER 29 [place] [address] [email or web address] PCP - General Family Medicine 10/22/22 Stanley Castro MD 22 [place] [address] [email or web address] Historical LMR Provider 09/02/17 11/24/21 Shay Webb MD [address] [place] [address] [address] [place] [address] [email or web address] Historical LMR Provider 09/02/17 Jaiden Esparza DO [address] [place] [address] Orthopedics & Sports Medicine, [place] [address] [email or web address] Historical LMR Provider 09/02/17 Larisa Navarro MD [address] [place] [address] Historical LMR Provider 09/02/17 Oziel Archibald MD 22 [place] [address] Historical LMR Provider 09/02/17 2 Rao Arzate DO 29 [place] [address] [email or web address] Insurance Assigned Provider 02/21/24 11/22/24 Rocco Alvarenga DO 22 [place] [address] [email or web address] Geriatric Medicine 05/23/25 documented as of this encounter Additional Source Comments The information contained in this document represents components of the legal health record. It is not the complete legal health record.[facility]
--- OUTSIDE RECORDS SUMMARY | 2025-08-10 16:36 | XMS_ITS | Encounter Summary ---
Author Organization [facility] Address [address] [place] [address] Phone Care Team Providers Care Anthropometrist Name Role Phone Shay Webb MD Primary Care Provider Stanley Castro MD Unavailable Shay Webb MD Unavailable [phone] Jaiden Esparza DO Unavailable Larisa Navarro MD Unavailable [phone] Oziel Archibald MD Unavailable Larisa Treviño MD Primary Care Provid er Janny Zavala MD Primary Care Provider Colt Steele CNP Primary Care Provider [phone] Rao rAzate DO Unavailable Rocco Alvarenga DO Unavailable Encounter Details Date Type Department Care Team (Late st Contact Info) Description 06/14/2021 Procedure Pass [facility], [address] [id number] Social History Tobacco Use Types Packs/Day Years [...] 10:11 PM EDT Hector Isaac RN * Drew Suicide Severity Rating Scale (Screener/Recent Self-Report) Question [...] documented as of this encounter Care Teams Anthropometrist Relationship Specialty Start Date End Date JonShay MD [address] [place] [address] [address] [place] [address] [email or web address] PCP - General 05/17/14 03/25/22 Larisa Treviño MD [address] [place] [address] [email or web address] PCP - General Family Medicine 03/26/22 09/19/22 Janny Zavala MD [address] [address] PCP - General Family Medicine 10/03/22 10/21/22 Colt Steele CNP 29 [facility] [place] [address] PCP - General Family Medicine 10/22/22 Stanley Castro MD 22 [place] [address] [email or web address] Historical LMR Provider 09/02/17 11/24/21 Shay Webb MD 264 [facility] [address] [place] [address] [email or web address] Historical LMR Provider 09/02/17 Jaiden Esparza DO [address] [place] [address] Orthopedics & Sports Medicine, [place] [address] [email or web address] Historical LMR Provider 09/02/17 Larisa Navarro MD [address] [address] Historical LMR Provider 09/02/17 Oziel Archibald MD 22 [place] [address] Historical LMR Provider 09/02/17 2 Rao Arzate DO 29 [place] [address] [email or web address] Insurance Assigned Provider 02/21/24 11/22/24 Rocco Alvarenga DO 22 [place] [address] [email or web address] Geriatric Medicine 05/23/25 documented as of this encounter Additional Source Comments The information contained in this document represents components of the legal health record. It is not the complete legal health record.[facility]
--- OUTSIDE RECORDS SUMMARY | 2025-08-10 16:37 | XMS_ITS | Clinical Summary ---
Author Organization [facility] Address [address] [place] [address] Care Team Providers Care Accelerator Systems Director Name Role Phone Larisa Treviño Primary Care Provider [phone] Allergies Active Allergy Reactions Criticality Noted Date Comments Amitriptyline 07/09/2021 Per cardiac notes Other 01/15/2018 Sensitive to pain meds causes vomiting Oxybutynin 02/23/2018 Oxycodone Nausea,Vomiting High 09/12/2022 Oxycodone-Acetaminophen 09/12/2022 Medications atorvastatin (LIPITOR) 10 MG tablet Take 10 mg by mouth 1 Active Metoprolol Succinate 25 MG capsule extended-releas e 24 hour sprinkle Take 25 mg by mouth 1 Active TEMAZEPAM PO Take 30 mg by mouth 9 Active valsartan (DIOVAN) 320 MG tablet Take 320 mg by mouth 0 Active famotidine (PEPCID) 40 MG/5ML suspension 40 mg 0 Active ESOMEPRAZOLE MAGNESIUM PO Daily, Refills 0, Maintenance, 06/21/22 15:18:00 EDT, Partial fill upon patient request if the prescription is for a schedule II opioid drug. 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 06/2022 labs serum osm, Urine sodium, osm, tsh was normal Lab Results Component Value Date NA 131 (L) 07/01/2022 Fluid restriction, nephro referral Immunizations Immunization Administration Dates Next Due Influenza Split High Dose Pr eservative Free IM 08/15/2021 Influenza, Unspecified 08/12/2015,2013,08/14/2013,08/15,2011,08/03/2010 Moderna SARS-COV-2 10/01/2021 Pneumococcal Conjugate 13-Valent 05/30/2015 Pneumococcal Polysaccharide 12/03/2012, 8 Shingrix 07/24/2021,04/27/2021,06/23/2019 Tdap 02/19/2022,05/03/2013,12/03/2012 Zoster 07/17/2007 Social History Tobacco Use Types Packs/Day Years Used Date Smoking Tobacco: Never Smokeless Tobacco: Never Tobacco Cessation:Counseling Given: Not Answered Alcohol Use Standard Drinks/Week Comments Never 0 (1 standard drink = 0.6 oz pur e alcohol) Comments Unknown Sex and Gender Information Value Date Recorded Sex Assigned at Not on file Legal Sex Female 4:46 PM EST Gender Identity Not on file Sexual Orientation Not on file Last Filed Vital Signs Vital Sign Reading Time Taken Comments Blood Pressure 142/80 09/12/2022 9:46 AM EDT Pulse 67 09/12/2022 9:46 AM EDT Temperature - - Respiratory Rate - - Oxygen Saturation 98% 09/12/2022 9:46 AM EDT Inhaled Oxygen Concentration - - Weight 56.7 kg (125 lb) 09/12/2022 9:46 AM EDT Height - - Body Mass Index - - Plan of Treatment Health Maintenance Due Date Last Done Comments Influenza Vaccine (#1) 2025 , 08/12/2015, 07/23/2014, Additional history exists Pneumococcal Vaccine: 50+ Years Completed 05/30/2015, 12/03/2012, 01/16/1998 Pneumococcal Vaccine: Peds (0 to 5 Years) and At-Risk Patients (6 to 49 Years) Discontinued 05/30/2015, 12/03/2012, 01/16/1998 Hepatitis B Vaccine Aged Out No longe r eligible based on patient's age to complete this topic Insurance [facility] Medicare [facility] Medicare Care Teams Accelerator Systems Director Relationship Specialty Start Date End Date Larisa Treviño [address] [place] [address] PCP - General 08/13/22
--- OUTSIDE RECORDS SUMMARY | 2025-08-10 16:37 | XMS_ITS | Encounter Summary ---
Author Organization [facility] Address [address] [place] [address] Phone Care Team Providers Care Environmental Systems Coordinator Name Role Phone Shay Webb MD Primary Care Provider Stanley Castro MD Unavailable Shay Webb MD Unavailable [phone] Jaiden Esparza DO Unavailable Larisa Navarro MD Unavailable [phone] Oziel Archibald MD Unavailable [phone] Larisa Treviño MD Primary Care Provid er Janny Zavala MD Primary Care Provider Colt Steele VARNISH MAKER HELPER Primary Care Provider [phone] Rao Arzate DO Unavailable Rocco Alvarenga DO Unavailable Encounter Details Date Type Department Care Team (Late st Contact Info) Description 06/02/2020 Ancillary Orders Virtual Department [address] [place] [address] Larisa Navarro MD [address] [place] [address] Breast screening; Osteopenia, unspecified location Social History Tobacco Use Types Packs/Day Years [...] BD DXA SPINE AND HIP WITH FOREARM (07/11/2021 2:54 PM EDT) Anatomical Region Laterality Modality Bone Density Bone Density 07/11/2021 3:26 PM EDT Impressions 07/11/2021 3:32 PM EDT 1.Normal bone mineral density of the spine; and osteopenia of the left total forearm, right total hip, and left total hip. 2.The lumbar spine density shows a 14.4% increase from the prior study (12/03/2018); and a 28.6% increase from baseline (01/11/2005). 3.The right total hip shows a -4.3% decrease from prior study; and 1.5% increase from baseline. 4.The left total hip shows a -0.5% decrease from prior study; and 0.6% increase from baseline. 5.The left forearm shows a -1.6% decrease from prior study (12/03/2018 - which is also the patient's baseline for this body part). 6.Right femoral neck bone mineral density of 0.622. Left femoral neck bone mineral density of 0.621. Narrative 07/11/2021 3:32 PM EDT Reason for exam (per EHR order): Osteopenia, unspecified location Additional clinical information obtained from the EHR: None. TECHNIQUE: Bone densitometry on [employer] A ([id number]). The least significant change for this machine is 0.039 g/cm2 for the lumbar spine, 0.034 g/cm2 for the total hip, and 0.030 g/cm2 for the radius. FINDINGS: Bone Density: Region: Left Total Forearm BMD (g/cm2): 0.505 T-score: -1.2 Z-score: 2.5 Classification: Osteopenia. Region: AP Spine (L1-L3) BMD (g/cm2): 1.167 T-score: 1.4 Z-score: 4.1 Classification: Normal. Region: Right Femoral Neck BMD (g/cm2): 0.622 T-score: -2.0 Z-score: 0.4 Region: Right Total Hip BMD (g/cm2): 0.740 T-score: -1.7 Z-score: 0.6 Classification: Osteopenia. Region: Left Femoral Neck BMD (g/cm2): 0.621 T-score: -2.1 Z-score: 0.4 Region: Left Total Hip BMD (g/cm2): 0.780 T-score: -1.3 Z-score: 0.9 Classification: Osteopenia. World Health Organization criteria for BMD interpretation classify patients as: Normal (T-score at or above -1.0), Osteopenia (T-score between -1.0 and -2.5), Osteoporosis (T-score at or below -2.5). Procedure Note Chu Olivo MD - 07/11/2021 Reason for exam (per EHR order): Osteopenia, unspecified location Additional clinical information obtained from the EHR: None. TECHNIQUE: Bone densitometry on [employer] A ([id number]). The leastsignificant change for this machine is 0.039 g/cm2 for the lumbar spine,0.034 g/cm2 for the total hip, and 0.030 g/cm2 for the radius. FINDINGS: Bone Density: Region: Left Total Forearm BMD (g/cm2): 0.505 T-score: -1.2 Z-score: 2.5 Classification: Osteopenia. Region: AP Spine (L1-L3) BMD (g/cm2): 1.167 T-score: 1.4 Z-score: 4.1 Classification: Normal. Region: Right Femoral Neck BMD (g/cm2): 0.622 T-score: -2.0 Z-score: 0.4 Region: Right Total Hip BMD (g/cm2): 0.740 T-score: -1.7 Z-score: 0.6 Classification: Osteopenia. Region: Left Femoral Neck BMD (g/cm2): 0.621 T-score: -2.1 Z-score: 0.4 Region: Left Total Hip BMD (g/cm2): 0.780 T-score: -1.3 Z-score: 0.9 Classification: Osteopenia. World Health Organization criteria for BMD interpretation classifypatients as: Normal (T-score at or above -1.0), Osteopenia (T-score between -1.0 and -2.5), Osteoporosis (T-score at or below -2.5). IMPRESSION: 1.Normal bone mineral density of the spine; and osteopenia of the lefttotal forearm, right total hip, and left total hip. 2.The lumbar spine density shows a 14.4% increase from the prior study(12/03/2018); and a 28.6% increase from baseline (01/11/2005). 3.The right total hip shows a -4.3% decrease from prior study; and 1.5%increase from baseline. 4.The left total hip shows a -0.5% decrease from prior study; and 0.6%increase from baseline. 5.The left forearm shows a -1.6% decrease from prior study (12/03/2018 -which is also the patient's baseline for this body part). 6.Right femoral neck bone mineral density of 0.622. Left femoral neck bonemineral density of 0.621. us Larisa PRADHAN BD BONE DENSITY DEXA Final Result * BI MAMMOGRAM SCREENING WITH TOMOSYNTHESIS WITH CAD (BILATERAL) (03/15/2021 12:16 PM EDT) Anatomical Region Laterality Modality Breast Left, Breast Right, Breast Bilateral Bila teral Mammography 03/15/2021 1:31 PM EDT Impressions 03/15/2021 1:32 PM EDT No mammographic change indicative of malignancy. Routine screening is recommended. BI-RADS CATEGORY: 2 - Benign finding. DENSITY: There are scattered fibroglandular densities. Narrative 03/15/2021 1:32 PM EDT Bilateral full-field digital screening mammography is obtained and read in conjunction with computer-aided detection. Tomosynthesis as well as 2-D C view imaging of both breasts in two planes also obtained. Comparison made to multiple prior, most recent January 20, 2020, and most remote January 10, 2015. No dominant mass, architectural distortion, worrisome asymmetry, or suspicious calcification is identified. No skin or nipple finding of concern is appreciated. Vascular and other scattered calcification calcifications, including some left axillary calcification, are unchanged Procedure Note Stanley Portillo MD - 03/15/2021 Bilateral full-field digital screening mammography is obtained and read inconjunction with computer-aided detection. Tomosynthesis as well as 2-D Cview imaging of both breasts in two planes also obtained. Comparison madeto multiple prior, most recent January 20, 2020, and most remote December. No dominant mass, architectural distortion, worrisome asymmetry, orsuspicious calcification is identified. No skin or nipple finding ofconcern is appreciated. Vascular and other scattered calcificationcalcifications, including some left axillary calcification, are unchanged IMPRESSION: No mammographic change indicative of malignancy. Routine screening isrecommended. BI-RADS CATEGORY: 2 - Benign finding. DENSITY: There are scattered fibroglandular densities. Larisa Navarro MD IMG MG EXAMS Final Result documented in this encounter Visit Diagnoses Diagnosis Breast screening Breast screening, unspecified Osteopenia, unspecified location Osteopenia, unspecified location documented in this encounter Additional Health Concerns Infection Onset Date Last Indicated Resolved Time CoV-Exposed Comment:Recent close contact documented in the COVID-19 PCR/PRO order Pt denied exposure 12/13/2020 12/13/2020 12/18/2020 10:54 AM EST CoV-Risk 07/18/2023 07/18/2023 07/29/2023 1:22 AM EDT CoV-Risk 10/06/2023 10/06/2023 10/17/2023 1:22 AM EST documented as of this encounter Care Teams Environmental Systems Coordinator Relationship Specialty Start Date End Date Shay Webb MD [address] [place] [address] & [address] [place] [address] [email or web address] PCP - General 05/17/14 03/25/22 Larisa Treviño MD [address] [place] [address] [email or web address] PCP - General Family Medicine 03/26/22 09/19/22 Janny Zavala MD [address] [place] [address] [email or web address] PCP - General Family Medicine 10/03/22 10/21/22 Colt Steele CNP 29 [facility] [place] [address] [email or web address] PCP - General Family Medicine 10/22/22 Stanley Castro MD [address] [place] [address] [email or web address] Historical LMR Provider 09/02/17 11/24/21 Shay Webb MD [address] [place] [address] & [address] [place] [address] [email or web address] Historical LMR Provider 09/02/17 Jaiden Esparza DO [address] [place] [address] Orthopedics & Sports Medicine, [place] [address] Historical LMR Provider 09/02/17 Larisa Navarro MD [address], [place] [address] Historical LMR Provider 09/02/17 Oziel Archibald MD [address] [place] [address] Historical LMR Provider 09/02/17 2 Rao Arzate DO [address] [place] [address] Insurance Assigned Provider 02/21/24 11/22/24 Rocco Alvarenga DO 22 [place] [address] Geriatric Medicine 05/23/25 documented as of this encounter Additional Source Comments The information contained in this document represents components of the legal health record. It is not the complete legal health record.[facility]
--- OUTSIDE RECORDS SUMMARY | 2025-08-10 16:37 | XMS_ITS | Encounter Summary ---
Author Organization [facility] Address [address] [place] [address] Phone Care Team Providers Care Pest Locator Name Role Phone Shay Webb MD Primary Care Provider Mary Lou Castro MD Unavailable Shay Webb MD Unavailable [phone] Jaiden Esparza DO Unavailable Larisa Navarro MD Unavailable [phone] Oziel Archibald MD Unavailable [phone] Larisa Treviño MD Primary Care Provid er Janny Zavala MD Primary Care Provider Colt Steele CNP Primary Care Provider Rao Arzate DO Unavailable Rocco Alvarenga DO Unavailable Reason for Referral * MRI/CAT Scan - Closed Specialty Diagnoses / Procedures Referred By Contac t Referred To Contact Radiology Diagnoses Gastroesophageal reflux disease without esophagitis Chest mass Laryngitis Chest pain, unspecified type Procedures CT Chest Shay Webb MD Phone: tel: fax: [email or web address] Referral ID Status Reason Start Date Expiration Date Visits Re quested Visits Authorized [id number] Closed 01/27/2020 01/26/2021 1 1 Encounter Details Date Type Department Care Team (Latest Contact Info) Description 01/27/2020 Ancillary Orders Virtual Department [address] [place] [address] Shay Webb MD [address] [place] [address] [email or web address] Gastroesophageal reflux disease without esophagitis; Chest mass; Laryngitis; Chest pain, unspecified type Social History Tobacco Use Types [...] as of this encounter Results * CT CHEST WITH CONTRAST (04/19/2020 3:28 PM EDT) Anatomical Region Laterality Modality Chest Computed Tomogra phy 04/19/2020 3:56 PM EDT Impressions 04/19/2020 4:04 PM EDT No source of the right chest pain identified. Right shoulder osteoarthritis and post-operative change. Small amounts of calcific coronary artery disease. Stable left lower lobe pulmonary nodule. TOTAL CTDIvol: 3.2 mGy POS - [id number] Narrative 04/19/2020 4:04 PM EDT HISTORY: Right chest pain. Pulmonary nodule. COMPARISON: CTPA January 12, 2018 TECHNIQUE: After the administration of intravenous contrast, computed tomography is obtained from lung apex to base. Sagittal and coronal reformats generated. Automated exposure control utilized. FINDINGS: Lungs and pleura: Sub-five millimeter nodule left base towards costophrenic angle is unchanged. No infiltrates or effusions. No central airway lesion or worrisome interstitial changes. seen. Some minor scarring or chronic linear atelectatic changes noted in the bases. Nodes: No adenopathy is detected. Cardiovascular: No central pulmonary emboli. Small amounts of calcific coronary artery atheroma in the circumflex coronary artery. Mild dilatation of the descending aorta relative to the descending aorta but not frankly dilated, still measuring under 4 cm. This is unchanged since the prior study. Soft tissue and mediastinum: No findings of concern. Upper abdomen: Prior cholecystectomy. No findings of concern. Bones: Mild scoliosis. No compression deformity or bony destructive lesion. Prior rotator cuff repair on the right with some soft tissue mineralization posteriorly. Osteoarthritic change of the glenohumeral joint there. Procedure Note Mary Lou Rivas MD - 04/19/2020 HISTORY: Right chest pain. Pulmonary nodule. COMPARISON: CTPA January 12, 2018 TECHNIQUE: After the administration of intravenous contrast, computedtomography is obtained from lung apex to base. Sagittal and coronalreformats generated. Automated exposure control utilized. FINDINGS: Lungs and pleura: Sub-five millimeter nodule left base towardscostophrenic angle is unchanged. No infiltrates or effusions. No centralairway lesion or worrisome interstitial changes. seen. Some minor scarringor chronic linear atelectatic changes noted in the bases. Nodes: No adenopathy is detected. Cardiovascular: No central pulmonary emboli. Small amounts of calcificcoronary artery atheroma in the circumflex coronary artery. Milddilatation of the descending aorta relative to the descending aorta butnot frankly dilated, still measuring under 4 cm. This is unchanged sincethe prior study. Soft tissue and mediastinum: No findings of concern. Upper abdomen: Prior cholecystectomy. No findings of concern. Bones: Mild scoliosis. No compression deformity or bony destructivelesion. Prior rotator cuff repair on the right with some soft tissuemineralization posteriorly. Osteoarthritic change of the glenohumeraljoint there. IMPRESSION: No source of the right chest pain identified. Right shoulderosteoarthritis and post-operative change. Small amounts of calcificcoronary artery disease. Stable left lower lobe pulmonary nodule. TOTAL CTDIvol: 3.2 mGy POS - [id number] Shay Webb MD IMG CT CHEST Final Result documented in this encounter Visit Diagnoses Diagnosis Gastroesophageal reflux disease without esophagitis Esophageal reflux Chest mass Swelling, mass, or lump in chest Laryngitis Acute laryngitis, without mention of obstruction Chest pain, unspecified type Gastroesophageal reflux disease without esophagitis Esophageal reflux Chest mass Swelling, mass, or lump in chest Laryngitis Acute laryngitis, without mention of obstruction Chest pain, unspecified type documented in this encounter Additional Health Concerns Infection Onset Date Last Indicated Resolved Time CoV-Exposed Comment:Recent close contact documented in the COVID-19 PCR/PRO order Pt denied exposure 12/13/2020 12/13/2020 12/18/2020 10:54 AM EST CoV-Risk 07/18/2023 07/18/2023 07/29/2023 1:22 AM EDT CoV-Risk 10/06/2023 10/06/2023 10/17/2023 1:22 AM EST documented as of this encounter Care Teams Pest Locator Relationship Specialty Start Date End Date Shay Webb MD [address] [place] [address] & [address] [place] [address] [email or web address] PCP - General 05/17/14 03/25/22 Larisa Treviño MD [address] [place] [address] [email or web address] PCP - General Family Medicine 03/26/22 09/19/22 Janny Zavala MD [address] [place] [address] PCP - General Family Medicine 10/03/22 10/21/22 Colt Steele CNP [address] [place] [address] PCP - General Family Medicine 10/22/22 Mary Lou Castro MD [address] [place] [address] [email or web address] Historical LMR Provider 09/02/17 11/24/21 Shay Webb MD [address] [place] [address] & [address] [place] [address] [email or web address] Historical LMR Provider 09/02/17 Jaiden Esparza DO [address] [place] [address] Orthopedics & Sports Medicine, [place] [address] Historical LMR Provider 09/02/17 Larisa Navarro MD [address] [place] [address] Historical LMR Provider 09/02/17 Oziel Archibald MD [address] [place] [address] Historical LMR Provider 09/02/17 2 Rao Arzate DO [address] [place] [address] Insurance Assigned Provider 02/21/24 11/22/24 Rocco Alvarenga DO [address] [place] [address] Geriatric Medicine 05/23/25 documented as of this encounter Additional Source Comments The information contained in this document represents components of the legal health record. It is not the complete legal health record.[facility]
--- OUTSIDE RECORDS SUMMARY | 2025-08-10 16:37 | XMS_ITS | Encounter Summary ---
Author Organization [facility] Address [address] [place] [address] Phone Care Team Providers Care Electronic Equipment Installer Name Role Phone Shay Webb MD Unavailable [phone] Jaiden Esparza DO Unavailable [phone] Larisa Navarro MD Unavailable [phone] Colt Steele ROOF SHINGLER Primary Care Provider [phone] Rocco Alvarenga DO Unavailable Reason for Visit * Reason Onset Date Comments Medication Refill 07/25/2025 Encounter Details Date Type Department Care Team (Late st Contact Info) Description 07/25/2025 Telephone [employer] [address] [address] Colt Steele, ROOF SHINGLER [address] [place] [address] [email or web address] Medication Refill Social History Tobacco Use Types [...] as of this encounter Progress Notes * Annie Mai Tay - 07/25/2025 8:44 AM EDT Pt called to request refill of - pt is currently out of medication temazepam (RESTORIL) 15 mg capsule to [facility] [address] ([facility] 827) - [place], [place] - [address] [place] [address] [employer] (Please do not reply to this user; this inbox is not monitored.) Thank you. documented in this encounter Plan of Treatment Not on file documented as of this encounter Visit Diagnoses Not on filedocumented in this encounter Additional Health Concerns Assessment Noted Time PHQ-2 Depression Total Score: 0 04/19/20 12:42 PM EDT documented as of this encounter Care Teams Electronic Equipment Installer Relationship Specialty Start Date End Date Colt Steele CNP 29 [facility] [place] [address] [email or web address] PCP - General Family Medicine 10/22/22 JonShay MD 264 [facility] 10 & [address] [place] [address] [email or web address] Historical LMR Provider 09/02/17 Jaiden Esparza DO [address] [place] [address] Orthopedics & Sports Medicine, [facility] [place] [address] Historical LMR Provider 09/02/17 Larisa Navarro MD [address] [place] [address] Historical LMR Provider 09/02/17 Rocco Alvarenga DO [address] [place] [address] [email or web address] Geriatric Medicine 05/23/25 documented as of this encounter Additional Source Comments The information contained in this document represents components of the legal health record. It is not the complete legal health record.[facility]
--- OUTSIDE RECORDS SUMMARY | 2025-08-10 16:37 | XMS_ITS | Encounter Summary ---
Author Organization [facility] Address [address] [place] [address] Phone Care Team Providers Care Desulfurizer Machine Name Role Phone Shay Webb MD Primary Care Provider Stanley Castro MD Unavailable Shay Webb MD Unavailable [phone] Jaiden Esparza DO Unavailable [phone] Larisa Navarro MD Unavailable [phone] Oziel Archibald MD Unavailable [phone] Larisa Treviño MD Primary Care Provid er Janny Zavala MD Primary Care Provider Colt Steele CNP Primary Care Provider [phone] Rao Arzate DO Unavailable Rocco Alvarenga DO Unavailable Encounter Details Date Type Department Care Team (Late st Contact Info) Description 07/10/2021 Procedure Pass [facility]oscopy Admitting Dept Virtual Department [address] [place], [place] [id number] Social History Tobacco Use Types Packs/Day Years [...] documented as of this encounter Care Teams Desulfurizer Machine Relationship Specialty Start Date End Date JonShay MD [address] [place] [address] & [address] [place] [address] [email or web address] PCP - General 05/17/14 03/25/22 Larisa Treviño MD [address] [place] [address] [email or web address] PCP - General Family Medicine 03/26/22 09/19/22 Janny Zavala MD [address] [place] [address] [email or web address] PCP - General Family Medicine 10/03/22 10/21/22 Colt Steele CNP 29 [facility] [place] [address] PCP - General Family Medicine 10/22/22 Stanley Castro MD [address] [place] [address] [email or web address] Historical LMR Provider 09/02/17 11/24/21 Shay Webb MD 264 [facility] [address] & [address] [place] [address] [email or web address] Historical LMR Provider 09/02/17 Jaiden Esparza DO [address] [place] [address] Orthopedics & Sports Medicine, [place] [address] [email or web address] Historical LMR Provider 09/02/17 Larisa Navarro MD [address] [address] Historical LMR Provider 09/02/17 Oziel Archibald MD [address] [place] [address] Historical LMR Provider 09/02/17 2 Rao Arzate DO 29 [facility] [place] [address] [email or web address] Insurance Assigned Provider 02/21/24 11/22/24 Rocco Alvarenga DO 22 [place] [address] [email or web address] Geriatric Medicine 05/23/25 documented as of this encounter Additional Source Comments The information contained in this document represents components of the legal health record. It is not the complete legal health record.[facility]
--- OUTSIDE RECORDS SUMMARY | 2025-08-10 16:37 | XMS_ITS | Encounter Summary ---
Author Organization [facility] Address [address] [place] [address] Phone Care Team Providers Care Sheriff'S Officer Name Role Phone JonShay MD Unavailable [phone] Jaiden Esparza DO Unavailable Larisa Navarro MD Unavailable [phone] Colt Steele [facility] Primary Care Provider [phone] Rocco Alvarenga DO Unavailable [phone] Encounter Details Date Type Department Care Team (Late st Contact Info) Description 01/17/2025 Procedure Pass [facility], [address] [address] Social History Tobacco Use Types Packs/Day Years [...] documented as of this encounter Care Teams Sheriff'S Officer Relationship Specialty Start Date End Date Colt Steele CNP 29 [facility] [place] [address] PCP - General Family Medicine 10/22/22 JonShay MD [address] [place] [address] & [address] [place] [address] [email or web address] Historical LMR Provider 09/02/17 Jaiden Esparza DO [address] [place] [address] Orthopedics & Sports Medicine, [place] [address] Historical LMR Provider 09/02/17 Larisa Navarro MD [address] [place] [address] Historical LMR Provider 09/02/17 Rocco Alvarenga DO [address] [place] [address] Geriatric Medicine 05/23/25 documented as of this encounter Additional Source Comments The information contained in this document represents components of the legal health record. It is not the complete legal health record.[facility]
--- OUTSIDE RECORDS SUMMARY | 2025-08-10 16:37 | XMS_ITS | Encounter Summary ---
Author Organization [facility] Address [address] [place] [address] Phone Care Team Providers Care Fuel Pilot Engineer Name Role Phone JonShay MD Unavailable [phone] Jaiden Esparza DO Unavailable [phone] Larisa Navarro MD Unavailable [phone] Colt Steele PAINT ROLLER COVERMAKER Primary Care Provider [phone] LyleRocco DO Unavailable Reason for Visit * Reason Onset Date Comments images 07/06/2025 Requesting image of the EKG fax to [phone] Encounter Details Date Type Department Care Team (Late st Contact Info) Description 07/06/2025 Telephone Health As We Age [address] [address] Colt Steele, PAINT ROLLER COVERMAKER [address] [place] [address] [email or web address] images (Requesting image of the EKG fax to [phone]) Social History Tobacco Use Types Packs/Day Years [...] as of this encounter Progress Notes * Griselda Perez - 07/06/2025 3:37 PM EDT Faxed * Logan Buckner - 07/06/2025 3:15 PM EDT [facility] PEN Top Smart Phrases: Fax Request Name of caller, if not the patient, AND [facility] are [facility] Name of Facility fax is being sent to:[facility] Short Stay Document(s) requested: EKG [facility] Call Center CSS Agent (Please do not reply to this user, as this inbox is not monitored. Thank you.) Thank you. documented in this encounter Plan of Treatment Not on file documented as of this encounter Visit Diagnoses Not on filedocumented in this encounter Additional Health Concerns Assessment Noted Time PHQ-2 Depression Total Score: 0 04/19/20 12:42 PM EDT documented as of this encounter Care Teams Fuel Pilot Engineer Relationship Specialty Start Date End Date Colt Steele CNP [address] [facility] [place] [address] PCP - General Family Medicine 10/22/22 JonShay MD [address] [facility] [address] [place] [address] [email or web address] Historical LMR Provider 09/02/17 Jaiden Esparza DO [address] [place] [address] Orthopedics & Sports Medicine, [place] [address] [email or web address] Historical LMR Provider 09/02/17 Larisa Navarro MD [address] [place] [address] Historical LMR Provider 09/02/17 Rocco Alvarenga DO [address] [place] [address] [email or web address] Geriatric Medicine 05/23/25 documented as of this encounter Additional Source Comments The information contained in this document represents components of the legal health record. It is not the complete legal health record.[facility]
--- OUTSIDE RECORDS SUMMARY | 2025-08-10 16:37 | XMS_ITS | Encounter Summary ---
Author Organization [facility] Address [address] [place] [address] Phone Care Team Providers Care Elevator Mechanic Apprentice Name Role Phone Shay Webb MD Primary Care Provider Stanley Castro MD Unavailable Shay Webb MD Unavailable [phone] Jaiden Esparza DO Unavailable Larisa Navarro MD Unavailable [phone] Oziel Archibald MD Unavailable [phone] Larisa Treviño MD Primary Care Provid er Janny Zavala MD Primary Care Provider Colt Steele CNP Primary Care Provider [phone] Rao Arzate DO Unavailable Rocco Alvarenga DO Unavailable Encounter Details Date Type Department Care Team (Late st Contact Info) Description 04/19/2020 Procedure Pass [facility], Ct Scan - [address] [id number] Social History Tobacco Use Types Packs/Day Years [...] documented as of this encounter Care Teams Elevator Mechanic Apprentice Relationship Specialty Start Date End Date JonShay gamez MD [address] [place] [address] [address] [place] [address] [email or web address] PCP - General 05/17/14 03/25/22 Larisa Treviño MD [address] [place] [address] [email or web address] PCP - General Family Medicine 03/26/22 09/19/22 Janny Zavala MD [address] [place] [address] [email or web address] PCP - General Family Medicine 10/03/22 10/21/22 Colt Steele, MELT SUPERINTENDANT [address] [place] [address] [email or web address] PCP - General Family Medicine 10/22/22 Stanley Castro MD [address] [place] [address] [email or web address] Historical LMR Provider 09/02/17 11/24/21 Shay Webb MD [address] [address] [address] [place] [address] [email or web address] Historical LMR Provider 09/02/17 Jaiden Esparza DO [address] [place] [address] Orthopedics & Sports Medicine, [place] [address] [email or web address] Historical LMR Provider 09/02/17 Larisa Navarro MD [address] [place] [address] Historical LMR Provider 09/02/17 Oziel Archibald MD [address] [place] [address] Historical LMR Provider 09/02/17 2 Rao Arzate DO [address] [place] [address] [email or web address] Insurance Assigned Provider 02/21/24 11/22/24 Rocco Alvarenga DO [address] [place] [address] [email or web address] Geriatric Medicine 05/23/25 documented as of this encounter Additional Source Comments The information contained in this document represents components of the legal health record. It is not the complete legal health record.[facility]
--- OUTSIDE RECORDS SUMMARY | 2025-08-10 16:37 | XMS_ITS | Clinical Summary ---
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 Name Role Phone JonShay MD Unavailable [phone] Jaiden Esparza DO Unavailable Larisa Navarro MD Unavailable [phone] Colt Steele [facility] Primary Care Provider [phone] Rocco Alvarenga DO Unavailable [phone] Allergies Active Allergy Reactions Criticality Noted Date Comments Amitriptyline 07/09/2021 Per cardiac notes Gluten 06/27/2025 Milk 06/27/2025 Mold Extracts Other (See Comments) Low 08/11/2012 SINUSES Other 01/15/2018 Sensitive to pain meds causes vomiting Oxybutynin 02/23/2018 Oxycodone Nausea Only,Vomiting High Sulfa (Sulfonamide Antibiotics) High 06/27/2025 Hives Medications amoxicillin (AMOXIL) 500 MG capsule Take 500 mg by mouth 3 (three) times a day. Active atorvastatin (LIPITOR) 10 MG tablet TAKE 1 TABLET(10 MG) BY MOUTH DAILY 90 tablet 2 04/14/20 25 Active metoprolol succinate (TOPROL-XL) 25 MG 24 hr tabletIndications: Essential hypertension Take 1 tablet (25 mg total) by mouth daily. 90 tablet 3 04/25/20 25 Active ondansetron (ZOFRAN-ODT) 4 MG disintegrating tabletIndications: Nausea Take 1 tablet (4 mg total) by mouth every 8 (eight) hours as needed for nausea. 10 tablet 06/09/20 25 Active valsartan (DIOVAN) 320 MG tabletIndications: Essential hypertension Take 1 tablet (320 mg total) by mouth daily. 90 tablet 1 06/27/20 25 026 Active amLODIPine (NORVASC) 5 MG tabletIndications: Essential hypertension Take 1 tablet (5 mg total) by mouth daily. 90 tablet 1 06/27/20 25 026 Active alendronate (FOSAMAX) 70 MG tablet Take 1 tablet (70 mg total) by mouth every 7 days. Take in the morning with a full glass of water, on an empty stomach, and do not take anything else by mouth or lie down for the next 30 min. 12 tablet 3 07/05/20 25 Active temazepam (RESTORIL) 15 mg capsuleIndications :Chronic insomnia TAKE 1 CAPSULE(15 MG) BY MOUTH EVERY NIGHT AT BEDTIME NEEDED FOR INSOMNIA 30 capsule 3 07/25/20 25 Active temazepam (RESTORIL) 15 mg capsuleIndications :Chronic insomnia Take 1 capsule (15 mg total) by mouth nightly at bedtime as needed (insomnia). 30 capsule 06/27/20 25 025 Discontinued Active Problems Problem Noted Date Diagnosed Date Pre-op evaluation 06/27/2025 Assessment & Plan (06/27/2025 3:44 PM EDT): Based on this exam, patient is average risk for this average risk surgical procedure. No apparent contraindications. EKG completed- normal sinus rhythm without acute ischemic changes. According to AHA/ACC cardiovascular risk, no further cardiac testing for surgical clearance. Routine labs ordered today. Advised to stop NSAIDS 7-10 days prior to surgical procedure, ok to continue all other medications Upper back pain on right side 06/27/2025 Assessment & Plan (06/27/2025 3:43 PM EDT): Continue with heat/massage/Tylenol as needed. X-ray ordered and encourage to schedule follow-up visit with Dr. Milton Memory changes 11/16/2024 Assessment & Plan (11/16/2024 9:40 AM EST): Notes by family/, when present over the holidays. Patient notices some but not overly concerned/impacting daily activities. Does struggle with KARUK despite wearing ALCANTARA would could contribute. MMSE completed today- score . Phone # and resources provided for neuropsych. Also discussed option of referral to [facility]. Is also going to call Dr. Sr's office as patient's sees him to see if they do testing/managing memory changes. If not, will notify office and will refer to [facility]. Aware to follow-up as needed Postprandial RUQ pain 11/02/2024 Assessment & Plan (11/16/2024 9:31 AM EST): Labs done and overall stable. Has US scheduled 11/26/24. No fevers/worsening symptoms. Will determine next steps based on US results, aware to follow-up sooner if needed Assessment & Plan (11/02/2024 2:16 PM EST): Will check labs, and ultrasound and they f/u with their PCP on 11/15/2024 as scheduled. Skin sensitivity 11/02/2024 Assessment & Plan (11/02/2024 2:15 PM EST): Suggest a Duoderm like dressing to apply to skin and then adhere battery orellana to hydrocolloidal type dressing. I cannot guarantee this will work or correct skin sensitivity but they can try this out. There are similar dressings at [facility] Age-related osteoporosis wit hout current pathological fracture 06/14/2024 Assessment & Plan (06/14/2024 5:21 PM EDT): Encourage to call Dr. Montanez who ordered bone density to schedule follow-up visit to review results/management, patient will do this. Is taking Vitamin D, unable to tolerate calcium due to constipation, working on weight bearing exercises Nausea 06/14/2024 Assessment & Plan (06/14/2024 5:24 PM EDT): Reports chronic/intermittent, likely GERD/reflux related. Could try doing Pepcid 20 mg BID and splitting dose. Has taken Zofran in the past but advised caution due to QT prolongation. Aware to follow-up if no improvement and/or worsening symptoms Frequent falls 04/16/2024 Assessment & Plan (06/14/2024 5:22 PM EDT): Advised PT is scheduled for balance due to multiple falls. Would highly encourage for patient to attend a few sessions to help with balance especially with osteoporosis. Is agreeable, scheduled to start 06/25/24 Assessment & Plan (04/16/2024 5:32 PM EDT): Discussed option of PT for balance/gait training. Is agreeable. Referral entered and phone # provided for patient Malaise and fatigue 03/04/2024 Assessment & Plan (03/04/2024 7:52 PM EDT): Feels baseline but requesting to check basic labs/vitamins to ensure normal Abnormal chest x-ray 03/04/2024 Assessment & Plan (03/04/2024 7:51 PM EDT): Recommend chest CT based on findings. Initially hesitant to complete but ultimately agreeable. Feels much better, O2 sat normal, lungs CTA. Phone # provided for scheduling and will follow-up with results once received Trigger ring finger of right hand 10/28/2023 Osteoarthritis of finger of right hand 3 Assessment & Plan (10/28/2023 8:22 AM EST): Encourage use of Tylenol as needed. Will refer to ortho for further evaluation/treatment Bilateral impacted cerumen 07/11/2023 Assessment & Plan (07/11/2023 5:08 PM EDT): Both ears clogged with wax. Ear lavage completed with success. Immediately after procedure patient reports head feels less clogged . Will call with update on Friday. If not complete resolution may consider repeat imaging and/or referral to neurosurgery, aware to follow-up sooner/seek emergency help in the interim if any new/worsening symptoms develop Intraparenchymal hematoma of left side of brain due to trauma 07/11/2023 Assessment & Plan (07/11/2023 5:09 PM EDT): Occurred 06/09/23, mechanical fall and hit her head with LOC. Was seen/evaluated at [facility]. Since being home has been feeling well except last few days with head fullness. No dizziness/blurred vision and doesn't feel like a typical headache . Feels all related to ears. *see plan per cerumen impaction. Neuro exam WNL Sutures were removed by VNA. Steri strips remain without signs of infection. Small amount of suture remained stuck to steri strip, removed without issue Chronic left shoulder pain 02/24/2023 Assessment & Plan (02/24/2023 1:38 PM EDT): MRI done 2018 showing tear, is interested in seeing ortho for evaluation, prefers Dr. Esparza, referral provided Anxiety 09/11/2022 Pulmonary nodule 08/07/2022 Assessment & Plan (01/13/2023 6:56 PM EST): Recommend routine surveillance annually, next due 08/2023 Drug-induced constipation 04/27/2022 Chronic insomnia 04/27/2022 Assessment & Plan (06/27/2025 3:43 PM EDT): RX sent for Restoril 15 mg daily. Reviewed risks/benefits. Patient will call with update if not effective Assessment & Plan (01/13/2023 6:58 PM EST): On Restoril 22.5 mg at bedtime with some improvement, has trouble falling back asleep if she wakes up in the middle of the night. Primarily related to voiding in the middle of the night, stops fluids at 6 pm. Has follow-up with Dr. Kaur as controlling overactive bladder will help decrease insomnia Assessment & Plan (10/30/2022 4:59 PM EST): Prior authorization needed and completed with cover my meds, if denied will follow-up/complete override. CSC completed today. Has NPT 12/2022, aware to follow-up sooner if needed Assessment & Plan (10/23/2022 9:37 AM EST): Has been on Restoril for many years with good improvement of sleep, MassPAT verified (last refill sent by [facility]- had one appointment with them but is transferring back to [facility])- refill provided. Will do CSC at NPT 01/13/22, aware to follow-up sooner if needed Pancreatic cyst 04/27/2022 Assessment & Plan (03/30/2025 4:35 PM EDT): Recent MRCP completed and cyst stable Overactive bladder 04/27/2022 Cyst of pancreas 04/27/2022 History of radiation exposure 04/27/2022 H/O total knee replacement, right 04/27/2022 S/P cholecystectomy 04/27/2022 Chronic left-sided low back pain with left-sided sciatica 04/27/2022 Overview (04/27/2022): Remote L4-L5 laminectomy with posterior fusion Remote L5-S1 discectomy -Surgeon: Dr. Cleaning -Follows with [facility], Dr. Milton -lidocaine patches help MRI Lumbar Spine (Neuro) With And Without Contrast Performed: 04/09/2022 at 11:15 AM Impression Progressive L2-3 degenerative disc disease since 2013 with with central canal and bilateral recess stenosis and left neural foraminal stenosis. Chronic grossly stable L3-4 grade 1 spondylolisthesis, canal and bilateral recess stenosis, and left neural foraminal narrowing. Postsurgical changes at L4-5 with interval improvement in central canal and bilateral recess stenosis and development of small dorsal para facet and spinous process tip cysts. Additional chronic findings as above. Narrative TECHNIQUE: Exam performed on a 1.5 Vanesa high-field MRI scanner. Sagittal T1, T2 and STIR, axial T1 and T2 sequences were obtained, followed by post-gadolinium sagittal T1 and axial T1 sequences. FINDINGS: Comparisons is made with the preoperative MR of 01/26/2014 and post surgical radiographs of 03/28/2022. There has been significant progression of scoliosis since 2014. On the sagittal sequences no focal disc protrusion or central canal stenosis are demonstrated at the T10-11 T11-12 disc levels. T12-L1: There is disc desiccation and a small focal left paramedian disc bulge without significant disc protrusion. There is slight left neural foraminal narrowing due to the scoliotic curvature and hypertrophic facet arthropathy without overt mass effect upon the exiting L1 nerve root. Right neural foramen appears grossly patent. No evidence of central canal stenosis. L1-2: Negligible chronic disc bulge without focal disc protrusion, central canal stenosis, or significant neural foraminal compromise. L2-L3: Since the prior MR there has been progressive disc space narrowing with disc desiccation and with interval development of a small broad-based hypointense disc protrusion flattening the ventral aspect of the thecal sac and in conjunction with advanced ligamentum flavum hypertrophy and facet osteoarthropathy now leading to increased bilateral recess stenosis with epidural fat in the canal contributing to AP narrowing of the thecal sac to approximately 5 mm. There is left neural foraminal stenosis due to progressive disc bulge and endplate spurring with apparent mass effect upon the exiting L2 nerve root. Right neural foramen is patent. L3-L4: Stable mild grade 1 anterolisthesis of L3. Stable disc bulge. There is chronic left greater than right neural foraminal narrowing due to disc bulge and endplate spurring but without progressive mass effect upon the exiting L3 nerve root. Interpedicular screws extend into the L4 body. I do not identify significant enhancing granulation material within the canal. There is stable moderately severe central canal and bilateral recess stenosis with progressive ligamentum flavum hypertrophy. L4-L5: There is grade 1 anterolisthesis of the L4 body which is grossly stable since lumbar radiographs of 2019 at approximately 5 mm. No acute disc protrusion or neural foraminal compromise. Laminectomy defects are now present with interval improvement in lateral recess and central canal dimensions. There is a small amount of enhancing granulation material at the left hemilaminectomy site which does not appear to significantly compromise the thecal sac. A 1.4 x 1.3 cm right dorsal para-facet cyst shows minimal marginal enhancement. There also is a tiny cyst along the dorsal tip of the L4 spinous process. L5-S1: Interpedicular screws extend into the L5 body. Stable small chronic right paramedian disc protrusion again noted. No central canal stenosis. Limited evaluation the right neural foramen due to metallic artifact on the sagittal sequences without gross narrowing apparent on the axial sequences. Reactive-type some endplate marrow edema and minimal enhancement demonstrated in the L2 to and L3 vertebral bodies. Stable upper endplate L1 central compression deformity as compared with 03/28/2022, without underlying endplate edema. No evidence of acute compression deformity or other significant abnormality of skeletal marrow signal. Visualized portions of the tip of the conus are unremarkable. Lidocaine patches help Assessment & Plan (08/25/2024 3:04 PM EDT): Chronic x many years but feels getting progressively worse. Follows with Dr. Milton- [facility]. Is going to meet with another provider in [place] later this month. Hoping to try something else for pain in the interim. Has done Gabapentin without improvement. Will try Cymbalta 30 mg daily. Reviewed side effects/risks/benefits, take in the morning. Plan for recheck in two weeks prior to [place], aware to follow-up sooner if needed Assessment & Plan (06/14/2024 5:22 PM EDT): Following/managed through Dr. Milton Assessment & Plan (04/03/2023 11:53 AM EDT): Scheduled with Dr. Milton 04/09/23 for surgical repair with hopes for improvement in pain. Plan for three month follow-up, aware to follow-up sooner if needed Assessment & Plan (03/03/2023 11:04 AM EDT): Had MRI 02/28/23, results pending. [place] some improvement with Gabapentin, tolerating now that she is taking it with a meal. No further episodes of dizziness. Is taking every other day. Advised can take at dinnertime daily (with food) and see if improvement. Continue with ice/stretching, plan to start PT tomorrow and sooner follow-up with Dr. Milton to review MRI/plan. Patient is not interested in further surgical procedures. Will plan for one month follow-up, aware to follow-up sooner if needed, expresses understanding Assessment & Plan (02/24/2023 1:36 PM EDT): Pain has been significant. Following with Dr. Milton, received steroid injections without improvement. Plan for another MRI lumbar spine. Reports nerve pain as she knows the difference and affecting her sleep at night. Using two Tylenol PM and Restoril. Discussed option of Gabapentin for pain management, per patient has never tried before. Will start with low dose at 100 mg at bedtime, advised can take 2 hours prior to taking her Restroil to ensure she tolerates it. Avoid use of Tylenol PM while taking these medications as it can cause severe drowsiness/risk for falls, expresses understanding. If needed, can use plain Tylenol as needed for pain. Will plan for one week follow-up, aware to follow-up sooner if needed SIADH (syndrome of inappropriate ADH production) 04/27/2022 Assessment & Plan (01/13/2023 6:56 PM EST): [place], following with nephrology Spinal stenosis of lumbar region 04/27/2022 Assessment & Plan (03/30/2025 4:36 PM EDT): Has had multiple surgeries/injections without improvement. Met with Dr. Milton multiple times. Even tried an implant device with no improvement. Next step is meeting with Dr. Goodwin's at [facility] 04/20/25 to discuss other options. Can continue with Ibuprofen as needed but advised to alternate with Tylenol as well as excessive Ibuprofen can risk GI bleed. Has tried other prescription agents for pain without success. Assessment & Plan (04/16/2024 5:34 PM EDT): Is going to schedule a follow-up visit with Dr. Milton as feels left leg is still bothersome and has been x 1 year Assessment & Plan (01/13/2023 6:58 PM EST): [place], following with Dr. Milton at [facility] for injections S/P HATTIE-BSO 04/27/2022 Simple renal cyst 04/27/2022 Essential hypertension 04/27/2022 Assessment & Plan (06/27/2025 3:42 PM EDT): BP at goal, continue medications as prescribed Assessment & Plan (06/14/2024 5:20 PM EDT): BP above goal today. Admits to not taking Amlodipine as she didn't like the way it made her feel but will restart. Offered to start at lower dose of 2.5 mg but prefers to stick with 5 mg. Will follow-up if unable to tolerate Assessment & Plan (03/04/2024 7:50 PM EDT): BP slightly above goal today. Has follow-up with [facility] next week. Continue with medications/DASH diet and regular exercise Assessment & Plan (02/24/2023 1:34 PM EDT): Repeat BP improved and at goal of <130/80. Is agreeable to monitor BP at home with plan to follow-up in one week Assessment & Plan (01/13/2023 6:56 PM EST): BP slightly above goal today. Take Diovan/Metoprolol daily. Has to ensure adequate salt intake due to chronic hyponatremia. Unable to exercise due to chronic low back pain. Encourage to intermittently monitor BP at home with plan to follow-up in 4-6 weeks, if readings remain above goal will need to consider adjustment of medication. Also has follow-up with cardiology 02/2023 Mixed hyperlipidemia 04/27/2022 Assessment & Plan (03/04/2024 7:52 PM EDT): Due for fasting labs, ordered today and patient can do prior to cardiology follow-up next week Assessment & Plan (01/13/2023 6:57 PM EST): Fasting labs done 09/2022 LDL at goal, continue medications as prescribed Tear of left supraspinatus tendon 04/27/2022 Overview (04/27/2022): Conservatively managed Assessment & Plan (04/27/2022 3:16 PM EDT): Conservatively managed Chronic hyponatremia 03/27/2022 Overview (08/07/2022): Hypotonic hypoosmolar hyponatremia likely secondary to SIADH 06/2022 labs serum osm, Urine sodium, osm, tsh was normal Lab Results Component Value Date NA 131 (L) 07/01/2022 Fluid restriction, nephro referral Assessment & Plan (04/03/2023 11:52 AM EDT): Per patient, last sodium level was done by GI and 122. Reports has been as low at 113 (had neurological symptoms and was in the hospital). Is trying to increase salt intake/salty foods. Is agreeable to repeat labs, BMP ordered today and will follow-up with results Gastroesophageal reflux disease 03/26/2022 Dyspnea 11/21/2020 Assessment & Plan (02/12/2021 2:33 PM EDT): I reviewed with her today my impression that her symptoms did not stem from pulmonary parenchymal or airways disease. I suspect a constellation of cardiovascular symptoms, deconditioning as well as chronic back pain are likely primarily to blame. Assessment & Plan (11/21/2020 5:24 PM EST): The etiology of her progressive dyspnea on exertion over the past 4 years remains elusive. She has had quite an extensive work-up as outlined in HPI. At this time, we agreed to repeat pulmonary function studies as these were last performed over 3 years ago. That being said, her recent CT performed 7 months ago revealed no evidence of interstitial lung disease, and a CTPA performed 2-1/2 years ago revealed no PE. If PFT are stable, we could consider asking cardiology whether further diagnostic evaluation is warranted. If not, I did discuss with her the possibility of proceeding with a cardiopulmonary exercise test (CPET), though this would require referral at a tertiary care center, and she is not sure she would like to pursue that. Osteoarthritis of left shoulder 09/01/2018 Assessment & Plan (05/12/2023 3:58 PM EDT): Has seen 2 providers to discuss surgical repair due to rotator cuff tear/OA. Both had advised against surgery due to ask/risk factors. Patient is interested in 3rd opinion and asked for me to fax the MRI readings done at [place] to their offices (MRI was ordered by Dr. Yesy Milton at [facility]). Advised for patient to contact the surgeon's office to schedule an appt and ask how they need/want records as they may require the disk for imaging. Also advised that they are may risk factors for surgery including age/underlying co-morbidities and rate of success. Her daughter is coming from [place] in a few days and will start making phone calls, advised to follow-up as needed Assessment & Plan (09/01/2018 3:03 PM EDT): An x-ray will be done today. She has a good response to the injection it is indeed long lasting that she should continue with physical therapy strength in the [place] cuff tendons prevent reinjury. The x-ray is normal but the ejection gives her only short-lived relief or no relief at all then it would be not unreasonable to obtain an MRI of the left shoulder however if the left shoulder show significant glenohumeral osteoarthritis no infection is contemplated (which is not at this point) then I do not feel the need to proceed with an MRI scan. It was explained to her in detail and all the questions were answered. I will get back to her after review of the x- ray. Occipital neuralgia of right side 01/15/2018 Assessment & Plan (01/15/2018 11:30 AM EST): This is probably the cause of her pain causing radiation into her scalp. I explained the natural history of this to her and her questions were answered. This is accompanied by a flare of her cervical enthesopathy on the right side given her history of cervical fusion use multilevel cervical spondylosis. Discussed the risks and benefits of a trigger point injection into the paracervical region near the occipital nerve which she accepted today. I advise continued use of ice for 15 minutes at a time every 2 hours along with when necessary use of ibuprofen not exceeding 600 mg a day. Follow-up phone call in one week. Spinal enthesopathy of cervical region 8 Atherosclerosis of [place] ronary artery of [place] heart without angina pectoris 09/30/2017 Assessment & Plan (06/27/2025 3:42 PM EDT): Remains on statin therapy. No overt cardiac symptoms. EKG completed without acute ischemic changes Assessment & Plan (03/30/2025 4:34 PM EDT): On statin therapy, due for lipid panel. Last done 02/2024, ordered today and will follow-up with results Assessment & Plan (01/13/2023 6:55 PM EST): Stable, following with cardiology, next appointment 02/2023 Urinary urgency 06/24/2016 Nocturia 05/15/2016 Neck pain 08/15/2010 Overview (01/13/2023): Remote C4-C5, C5-C6 discectomy and C5-C7 fusion Cervicalgia Resolved Problems Problem Noted Date Diagnosed Date Resolved Date Chest pain on breathing 02/24/202406/17 Assessment & Plan (02/24/2024 1:45 PM EDT): Pain with deep breathing suspect due to left lower rib pain, but few coarse crackles LL and would like lung evaluated by xray along with ribs, f/u with PCP Closed fracture of multiple ribs of left side with routine healing 04/18/2023 06/27/2025 Assessment & Plan (04/16/2024 5:34 PM EDT): Chest CT confirmed healing rib fractures. Pain has been improving slowly. Has known osteopenia. Advised can be a slow process and unfortunately not a lot to be done. Tylenol as needed for pain/coughing/deep breathing and splinting when in bed. Avoid any strenuous/aggravating activities. Plan for recheck in next two months, aware to follow-up sooner for any new/worsening symptoms Assessment & Plan (03/04/2024 7:51 PM EDT): Has significantly improved. Unclear etiology. Aware to follow-up if any new/worsening symptoms Assessment & Plan (02/24/2024 1:47 PM EDT): Point tenderness over left anterior lower rib cage, no crepitus. Unclear why this pain now severe since her fall was over a month ago. Recommend splinting, alternate Tylenol and Ibuprofen, heat and if fracture allow time to heal. F/u with PCP. Assessment & Plan (04/18/2023 4:44 PM EDT): Suspect more rib/musculoskeletal as tender to touch/certain movements. No pain at rest. Will check labs to ensure stable/no elevated WBC and urine to ensure no infection. Offered to check x-ray but patient declines. Encourage moist heat, Ibuprofen/Tylenol as needed. Has a follow-up with Dr. Milton 04/22/23. Aware to follow-up if no improvement and/or worsening symptoms Osteopenia 04/27/2022 06/14/2024 Overview (01/13/2023): Osteopenia- DXA 06/2021 left forearm and b/l total hips. 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 She is seeing her cardiology team on Friday and will review results from her stress test with them. Defer further evaluation and management to Dr. Garcia and his team. Mild intermittent asthma without complication 11/21/1906/27/2025 Assessment & Plan (02/12/2021 2:32 PM EDT): Remains well controlled on no inhalers. PFT has remained completely unchanged over the past 3-1/2 years. No evidence for uncontrolled obstructive airways disease. Assessment & Plan (11/21/2020 5:24 PM EST): Continue to monitor off inhalers at this time. Encounters Date Type Department Care Team Description 07/25/2025 Telephone [facility] [address] [place] [address] Colt Steele CNP Medication Refill 07/25/[address] [address] Colt Steele CNP Medication Refill 07/06/[address] [address] Colt Steele CNP images (Requesting image of the EKG fax to [phone]) 07/05/[address] [address] Clau Zhou [place] Medication Refill (Alendronate ) 06/29/[address] [address] Colt Steele CNP Medication Refill 06/28/2025 1:52 PM EDT - 06/28/2025 11:59 PM EDT Hospital Encounter [facility], X-Ray - [address] [place] [address] Colt Steele CNP Discharge Disposition: Home or Self Care 06/27/2025 3:30 PM EDT - 06/27/2025 11:59 PM EDT Hospital Encounter [facility] [address] [place] [address] Colt Steele CNP Discharge Disposition: Home or Self Care 06/27/2025 3:15 PM EDT Office Visit [address] [address] Colt Steele CNP Pre-op evaluation (Primary Dx); Atherosclerosis 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 pectoris; Primary hypertension; Upper back pain on right side; Chronic insomnia; Essential hypertension 06/21/[address] [address] Colt Steele CNP Pre-op Visit ([facility] + 07/13 + Back surgery) 06/09/2025 Nurse Triage [address] [address] Colt Steele CNP Nausea 06/07/2025 10:00 AM EDT Procedure visit [facility] [address] [place] [address] Madelaine Piña MD Primary localized osteoarthritis of left hip (Primary Dx) 06/07/2025 8:07 AM EDT - 06/07/2025 11:59 PM EDT Hospital Encounter [address] [address] Madelaine Piña MD Discharge Disposition: Home or Self Care 06/02/2025 Ancillary Orders [address] [address] Madelaine Piña MD Osteoarthritis of left hip, unspecified osteoarthritis type (Primary Dx) 05/27/2025 Telephone [facility] Geriatric[facility] [address] [place] [address] Gabriel Knox RN cancels NPV 05/26/[address] [address] Colt Steele CNP Medication Refill from Last 3 Months Immunizations Immunization Administration Dates Next Due COVID-19 (Pre-09/08) Moderna Vaccine, mRNA, PF 01/18/2021,12/21/2020 INFLUENZA, SPLIT VIRUS, TRIV ALENT W/ PRESERVATIVE IM 08/15/2021,08/02/2019,07/22/2017,08/24 Influenza High-Dose Quadriva lent Preservative Free IM 09/05/2023,08/31/2022,08/02/2019,07/22,08/24/2016 Influenza High-Dose Trivalen t Preservative Free IM 08/17/2024,08/15/2021 Influenza, Unspecified Formulation 08/12,07/23/2014,08/14/2013,08/15,2011,08/03/2010 Pneumococcal conjugate PCV13 05/30/2015 Pneumococcal polysaccharide PPSV23 12/03/2012, Tdap 02/19/2022,12/03/2012 Zoster live 07/17/2007 Zoster recombinant 07/24/2021,04/27/2021, 019 Family History Medical History Relation Comments Heart attack Father Stroke Father Stroke Mother Cancer Sister Breast cancer Neg Hx Lung disease Neg Hx Relation Status Comments Daughter Alive Father Mother Sister Alive Son 1 Alive Son 2 Alive Social History Tobacco Use Types Packs/Day Years Used Date Smoking Tobacco: Never Smokeless Tobacco: Never Tobacco Cessation:Counseling Given: Not Answered Alcohol Use Standard Drinks/Week Comments Not Currently [...] Orientation Straight 01/05/2024 5: 36 PM EST Last Filed Vital Signs Vital Sign Reading Time Taken Comments Blood Pressure 122/62 06/27/2025 3:01 PM EDT Pulse 65 06/27/2025 3:01 PM EDT Temperature 36.8 C (98.2 F) 06/27/2025 3:01 PM EDT Respiratory Rate 20 03/30/2025 4:06 PM EDT Oxygen Saturation 98% 06/27/2025 3:01 PM EDT Inhaled Oxygen Concentration - - Weight 60.5 kg (133 lb 4.8 oz) 06/27/2025 3:01 P M EDT Height 152.4 cm (5') 02/13/2025 11:35 AM EDT Body Mass Index 26.03 02/13/2025 11:35 AM EDT Plan of Treatment Health Maintenance Due Date Last Done Comments RSV VACCINE (1 - 1-dose 75+ series) 2012 DEPRESSION SCREENING 04/19/2023 04/19/2022 INFLUENZA VACCINE (#1) 2025 , 09/05/2023, 09/05/2023, Additional history exists COVID-19 VACCINE ( season) 2025 09/06/2022, 10/01/2021, 01/18/2021, Additional history exists LIPID PANEL 04/22/2026 04/22/2025, 02/16, 10/03/2022, Additional history exists CREATININE LEVEL 06/27/2026 06/27/2025, , 03/06/2024, Additional history exists POTASSIUM LEVEL 06/27/2026 06/27/2025, 10/17, 03/06/2024, Additional history exists Adult Td,Tdap Booster 02/20/2032 02/19/2022, 013 PNEUMOCOCCAL VACCINES (50+ years) Completed 05/30/2015, 12/03/2012, 01/16/1998 ZOSTER VACCINES Completed 07/24/2021, 04/17, 06/23/2019, Additional history exists OSTEOPOROSIS SCREENING INITIAL (ONE-TIME) Completed 06/03/2024, 07/11/2021, 12/03/2018 HEPATITIS A VACCINES Aged Out No long er eligible based on patient's age to complete this topic HIB VACCINES Aged Out No longer eligi ble based on patient's age to complete this topic MENINGOCOCCAL VACCINES (ACWY) Aged Out No longer eligible based on patient's age to complete this topic MENINGOCOCCAL VACCINES (B) Aged Out N o longer eligible based on patient's age to complete this topic Medical Devices Not on file Procedures Procedure Name Priority Date/Time Associated Diagnosis Comments XR THORACIC SPINE 2 VIEW Routine 06/28/2025 2:09 PM EDT Upper back pain on right side ECG 12-LEAD Routine 06/27/2025 3:45 PM EDT Pre-op evaluation CBC Routine 06/27/2025 3:30 PM EDT Pre-op evaluation Atherosclerosis 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 pectoris COMPREHENSIVE METABOLIC PANEL Routine 06/27/2025 3:30 PM EDT Pre-op evaluation Atherosclerosis 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 No acute osseous abnormality. Narrative 06/29/2025 10:30 AM EDT XR THORACIC SPINE 2 VIEW Referring clinician's provided indication for this examination in Psychiatric: Pain COMPARISON: XR THORACIC SPINE 3 VIEW FINDINGS: No acute fracture or compression fracture. Normal spinal curvature. Mild to moderate multilevel disc height loss with endplate osteophytes. Normal facet alignment. Spinal cord stimulator leads, partially imaged, terminate over the mid thoracic spinal canal. Vascular calcifications. Procedure Note Meghan Johnson MD - 06/29/2025 XR THORACIC SPINE 2 VIEW Referring clinician's provided indication for this examination in Psychiatric:Pain COMPARISON: XR THORACIC SPINE 3 VIEW FINDINGS: No acute fracture or compression fracture. Normal spinal curvature. Mildto moderate multilevel disc height loss with endplate osteophytes. Normalfacet alignment. Spinal cord stimulator leads, partially imaged, terminateover the mid thoracic spinal canal. Vascular calcifications. IMPRESSION: Degenerative changes. No acute osseous abnormality. Colt Isela Cedric TANK TENDER IMG XR SPINE Final Resu lt * ECG 12-LEAD (06/27/2025 3:45 PM EDT) Narrative EXTERNAL NON-INTERFACED REF LAB - 06/27/2025 3:45 PM EDT Type of EKG: Standard. Global (45670). Notes Normal sinus rhythm, no acute ischemic changes us Colt Steele CNP ECG ORDERABLES Final Resu lt EXTERNAL NON-INTERFACED REF LAB * (ABNORMAL) Comprehensive metabolic panel (06/27/2025 3:30 PM EDT) SODIUM 132(L) 133 - 146 mmol/L [facility] POTASSIUM 4.4 3.3 - 5.1 mmol/L [facility] CHLORIDE 92(L) 96 - 108 mmol/L [facility] CO2 28 21 - 35 mmol/L [facility] BUN 23(H) 6 - 19 mg/dL [facility] CREATININE 0.60 0.5 - 1.5 mg/dL [facility] GLUCOSE 84 70 - 99 mg/dL [facility] ALBUMIN 4.3 3.9 - 4.8 g/dL [facility] TOTAL PROTEIN 6.7 6.5 - 8.0 g/dL [facility] CALCIUM 9.5 8.4 - 10.3 mg/dL [facility] ALKALINE PHOSPHATASE 52 39 - 117 U/L [facility] TOTAL BILIRUBIN 0.4 0.0 - 1.2 mg/dL [facility] AST 28 0 - 37 U/L [facility] ALT 30 0 - 40 U/L [facility] GLOBULIN 2.4 1 - 4.8 g/dL [facility] EGFR 87 >59 mL/min/1.7 3m2 [facility] Comment:Estimated glomerular filtration rate calculated using the CKD-EPI refit equation. ANION GAP 16 10 - 20 mmol/L [facility] Blood 06/27/2025 3:30 PM EDT 06/27/2025 3:33 PM EDT Colt Steele CNP LAB BLOOD ORDERABLES Final Result Performing Organization Address City/[facility] [place] [facility]/ZIP Co de Phone Number [address] [address] * CBC (06/27/2025 3:30 PM EDT) WBC 5.94 4.00 - 11.00 K/uL [facility] RBC 4.59 4.00 - 5.20 M/uL [facility] HGB 13.9 12.0 - 16.0 g/dL [facility] HCT 41.7 36.0 - 46.0 % [facility] PLT 291 150 - 450 K/uL [facility] MCV 90.8 80.0 - 100.0 fL [facility] MCH 30.3 27.0 - 31.0 pg [facility] MCHC 33.3 32.0 - 36.0 g/dL [facility] RDW 13.4 11.5 - 14.5 % [facility] MPV 9.0 8.4 - 12.0 fL [facility] NRBC 0.00 0.00 /100 WBCs [facility] ABSOLUTE NRBC 0.00 0.00 K/uL [facility] Blood 06/27/2025 3:30 PM EDT 06/27/2025 3:33 PM EDT Colt Steele [facility] LAB BLOOD ORDERABLES Final Result Performing Organization Address [facility] [place] [facility] Co de Phone Number [address] [address] * (ABNORMAL) Lipid panel (04/22/2025 8:05 AM EDT) HDL 91 mg/dL [facility] Comment: Interpretation <40 mg/dL: Low HDL cholesterol (major risk factor for CHD) Greater than or equal to 60 mg/dL: High HDL cholesterol ( negative risk factor for CHD) HDL - cholesterol is affected by a number of factors, e.g. smoking, excerise, hormones, sex and age. CHOLESTEROL 177 0 - 240 mg/dL [facility] TRIGLYCERIDES 112 30 - 160 mg/dL [facility] LDL 64 50 - 129 mg/dL [facility] Comment: LDL levels in terms of risk for coronary heart disease: <100 mg/dL: Optimal 100-129 mg/dL: Near or above optimal 130-159 mg/dL: Borderline high 160-189 mg/dL: High >190 mg/dL: Very High CARDIAC RISK RATIO 1.9(L) 3.3 - 4.4 [facility] Blood 04/22/2025 8:05 AM EDT 04/22/2025 8:08 AM EDT us Colt Steele [facility] LAB BLOOD ORDERABLES Final Result [address] [address] * BD DXA SPINE AND HIP WITH FOREARM (06/03/2024 3:40 PM EDT) Anatomical Region Laterality Modality Bone Density Bone Density 06/03/2024 3:36 PM EDT Impressions 06/07/2024 7:59 AM EDT Interpretation: Osteoporosis. Narrative 06/07/2024 7:59 AM EDT Referred By: KRISTINA MONTANEZ Scanner: [employer] A with serial# of [id number] located at [facility] Bone Density Scan (DXA) 06/03/24 Details [...] -2.5), or Osteoporosis (T-score <= -2.5). At [facility], T-scores are compared to peak bone [...] Burk MD - 06/07/2024 Referred By: KRISTINA MONTANEZ Scanner: [employer] A with serial# of [id number] located at [facility] Bone Density Scan (DXA) 06/03/24 Details [...] -2.5), or Osteoporosis (T-score <= -2.5). At [facility], T-scores are compared to peak bone [...] on 06/07/2024 07:59:10 IMPRESSION: Interpretation: Osteoporosis. Kristina Montanez MD IMG BD BONE DENSITY DEXA Final Result from Last 3 Months or Most Recently Relevant to Health Maintenance Insurance MEDICARE PART A & B [facility] Address: [facility] [id number] [place] [address] MEDICARE PART A & B [facility] Address: [facility] [id number] [place] [address] MEDICARE PART A & B [facility] MEDICARE PART A & B [facility] MEDICARE PART A & B [facility] MEDICARE PART A & B [facility] MEDICARE PART A & B [facility] Address: [facility] [id number] [place] [phone] MEDICARE PART A & B [facility] MEDICARE PART A & B [facility] Advance Directives For more information, please contact: [phone] (9AM - 5PM [facility], Friday-Friday) Documents on File Type Date Recorded 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 [place] [address] [email or web address] PCP - General Family Medicine 10/22/22 JonShay MD [address] [facility] [address] [place] [address] [email or web address] Historical LMR Provider 09/02/17 Jaiden Esparza DO [address] [place] [address] Orthopedics & Sports Medicine, [place] [address] [email or web address] Historical LMR Provider 09/02/17 Larisa Navarro MD [address] [place] [address] Historical LMR Provider 09/02/17 Rocco Alvarenga DO [address] [place] [address] [email or web address] Geriatric Medicine 05/23/25 Additional Source Comments The information contained in this document represents components of the legal health record. It is not the complete legal health record.[facility]
--- OUTSIDE RECORDS SUMMARY | 2025-08-10 16:37 | XMS_ITS | Encounter Summary ---
Author Organization [facility] Address [address] [place] [address] Phone Care Team Providers Care Hot Shot Name Role Phone Larisa Treviño Primary Care Provider [phone] Encounter Details Date Type Department Care Team (Late st Contact Info) Description 10/03/2022 Telephone [facility] [address] [place] [address] Luis Miguel Long MD Social [...] on filedocumented in this encounter Care Teams Hot Shot Relationship Specialty Start Date End Date Larisa Treviño [address] [id number] PCP - General 08/13/22 documented as of this encounter
== END 2025-08-10 15:16 | disposition home or self-care (01) ==
LOC: HO.HNS 14:03
PROVIDERS: PCP Registered Nurse; Visit Provider Neurological Surgery
DX: M48.061 Spinal stenosis, lumbar region without neurogenic claudication (principal); M51.369 Other intervertebral disc degeneration, lumbar region without mention of lumbar back pain or lower extremity pain; Z98.1 Arthrodesis status
CPT/HCPCS: 99024

== ENCOUNTER → 2025-08-10 14:03 | Outpatient (BNVA) | payer MEDICARE, BC, SELFPAY | PROVIDERS: PCP Registered Nurse; Visit Provider Neurological Surgery | DX: M48.061 Spinal stenosis, lumbar region without neurogenic claudication (principal); M51.369 Other intervertebral disc degeneration, lumbar region without mention of lumbar back pain or lower extremity pain; Z98.1 Arthrodesis status | CPT/HCPCS: 99212 ==

== ENCOUNTER 2025-09-21 14:27 | Outpatient (AMB) | payer MEDICARE, BC, SELFPAY ==
--- NOTE | 2025-09-21 14:41 | A.SPINEOV_ITS ---
Intake Visit Reasons: 2nd post op Intake Note: Mrs. Lozoya is here today for her 2nd post op Skip Locator Required: No Allergies No Known Allergies Allergy (Verified 07/06/25 13:07) Assessment & Plan Assessment & Plan (1) Right lumbar radiculopathy: Code(s): M54.16 - Radiculopathy, lumbar region Category: Medical Plan: Dear colleague, On 09/21/2025, I saw for 2nd postoperative visit Shay Lozoya. As you know, she underwent a left-sided lumbar decompression for lumbar radiculopathy. The pain responded well to the surgery. Unfortunately, she developed pain radiating from the right side of her back to the front of her thigh. Her stimulator is still not active. She wants to be referred for physical therapy. We hope that the stimulator will be working in the near future to take care of back pain and possibly the right lumbar radiculopathy. If no improvement occurs in the right leg pain with the stimulator active than she will call my office to schedule an MRI at [facility]. I also gave her referral for physical therapy. Claudio Gonzalez MD, PhD Spine Fellowship Trained Neurosurgeon Director, [facility] Orders: Orders PT Evaluation and Treatment Today M54.16 - Radiculopathy, lumbar region Coding Level of Care Code Global (28153) Diagnoses Right lumbar radiculopathy M54.16
--- OUTSIDE RECORDS SUMMARY | 2025-09-21 17:34 | XMS_ITS | Encounter Summary ---
Author Organization [facility] Address [address] [place] [phone] Phone Care Team Providers Care Quarry Boss Name Role Phone Shay Webb MD Primary Care Provider Stanley Castro MD Unavailable Shay Webb MD Unavailable [phone] Jaiden Esparza DO Unavailable Larisa Navarro MD Unavailable [phone] Oziel Archibald MD Unavailable [phone] Larisa Treviño MD Primary Care Provid er Janny Zavala MD Primary Care Provider [phone] Colt Steele [facility] Primary Care Provider Rao Arzate DO Unavailable Rocco Alvarenga DO Unavailable [phone] Reason for Referral * Physical Therapy (Routine) - Closed Specialty Diagnoses / Procedures Referred By Contac t Referred To Contact Physical Therapy Diagnoses Encounter for rehabilitation System, Provider Not In, PhD [address] [place] [address] Phone: tel: Referral ID Status Reason Start Date Expiration Date Visits Re quested Visits Authorized [id number] Closed 07/11/2021 11/16/2022 41 41 Encounter Details Date Type Department Care Team (Latest Contact Info) Description 07/11/2021 Transcribe Orders [facility] [address] [place] [address] System, Provider Not In, PhD Partners [address] [address] Encounter for rehabilitation (Primary Dx) Social History [...] as of this encounter Plan of Treatment Upcoming Encounters Date Type Department Care Team (Late st Contact Info) Description 09/22/2025 10:00 AM EST Office Visit [facility] Medicine [address] [place] [phone] Rosa Elena Jacome MD [address] [place] [address] [facility] [place] [address] [email or web address] documented as of this encounter Procedures Procedure Name Priority Date/Time Associated Diagnosis Comments AMB REFERRAL TO [facility] PHYSICAL THERAPY Routine 07/30/2021 11:30 AM EDT Encounter for rehabilitation documented in this encounter Results * Ambulatory referral to [facility] Physical Therapy (07/30/2021 11:30 AM EDT) Other us Provider Not In System PhD AMB [facility] REFERRALS Fin al Result documented in this encounter Visit Diagnoses Diagnosis Encounter for rehabilitation- Primary documented in this encounter Additional Health Concerns Infection Onset Date Last Indicated Resolved Time CoV-Risk 07/18/2023 07/18/2023 07/29/2023 1:22 AM EDT CoV-Risk 10/06/2023 10/06/2023 10/17/2023 1:22 AM EST documented as of this encounter Care Teams Quarry Boss Relationship Specialty Start Date End Date Shay Webb MD [address] [place] [address] [email or web address] PCP - General 05/17/14 03/25/22 Larisa Treviño MD [address] [place] [phone] [email or web address] PCP - General Family Medicine 03/26/22 09/19/22 Janny Zavala MD [address] [place] [email or web address] PCP - General Family Medicine 10/03/22 10/21/22 Colt Steele CNP [address] [facility] [place] [address] [email or web address] PCP - General Family Medicine 10/22/22 Stanley Castro MD [address] [place] [phone] [email or web address] Historical LMR Provider 09/02/17 11/24/21 Shay Webb MD [address] [place] [address] [email or web address] Historical LMR Provider 09/02/17 Jaiden Esparza DO [address] [place] [address] Orthopedics & Sports Medicine, [place] [address] Historical LMR Provider 09/02/17 Larisa Navarro MD [address], [place] [address] Historical LMR Provider 09/02/17 Oziel Archibald MD [address] [place] [address] Historical LMR Provider 09/02/17 2 Rao Arzate DO [address] [place] [address] Insurance Assigned Provider 02/21/24 11/22/24 Rocco Alvarenga DO [address] [place] [address] Geriatric Medicine 05/23/25 documented as of this encounter Additional Source Comments The information contained in this document represents components of the legal health record. It is not the complete legal health record.[facility]
--- OUTSIDE RECORDS SUMMARY | 2025-09-21 17:34 | XMS_ITS | Encounter Summary ---
Author Organization [facility] Address [address] [place] [address] Phone Care Team Providers Care Sr. Media Manager Name Role Phone Shay Webb MD Unavailable [phone] Jaiden Esparza DO Unavailable Larisa Navarro MD Unavailable [phone] Colt Steele [facility] Primary Care Provider [phone] Rao Arzate DO Unavailable Rocco Alvarenga DO Unavailable Encounter Details Date Type Department Care Team (Late st Contact Info) Description 07/18/2023 Procedure Pass [facility], Ct Scan - [address] [address] Social History Tobacco Use Types Packs/Day Years [...] high school, GED, job training, learning the Maldivian language, technical skills, or developing parenting skills)? [...] 07/18/2023 11:21 AM Celena Staton RN * Reynolds Suicide Severity Rating Scale (Screener/Recent Self-Report) Question [...] Description 09/22/2025 10:00 AM EST Office Visit [facility] Orthopedics & Sports Medicine [address] [place] [address] Rosa Elena Jacome MD [address] [place] [address] Orthopedics Sports [facility], [place], [place] [id number] [email or web address] documented as of this encounter Visit Diagnoses Not on filedocumented in this encounter Additional Health Concerns Infection Onset Date Last Indicated Resolved Time CoV-Risk 07/18/2023 07/18/2023 07/29/2023 1:22 AM EDT CoV-Risk 10/06/2023 10/06/2023 10/17/2023 1:22 AM EST Assessment Noted Time PHQ-2 Depression Total Score: 0 04/19/20 12:42 PM EDT documented as of this encounter Care Teams Sr. Media Manager Relationship Specialty Start Date End Date Colt Steele CNP [address] [facility] [place] [address] [email or web address] PCP - General Family Medicine 10/22/22 JonShay MD [address] [address] & [address] [place] [address] [email or web address] Historical LMR Provider 09/02/17 Jaiden Esparza DO [address] [place] [address] Orthopedics & Sports [facility], [place] [address] [email or web address] Historical LMR Provider 09/02/17 Larisa Navarro MD [address] [place] [address] Historical LMR Provider 09/02/17 Rao Arzate DO [address] [place] [address] [email or web address] Insurance Assigned Provider 02/21/24 11/22/24 Rocco Alvarenga DO [address] [place] [address] [email or web address] Geriatric Medicine 05/23/25 documented as of this encounter Additional Source Comments The information contained in this document represents components of the legal health record. It is not the complete legal health record.[facility]
--- OUTSIDE RECORDS SUMMARY | 2025-09-21 17:34 | XMS_ITS | Encounter Summary ---
Author Organization [facility] Address [address] [place] [address] Phone Care Team Providers Care Investor Relations Associate Name Role Phone Shay Webb MD Unavailable [phone] Jaiden Esparza DO Unavailable [phone] Larisa Navarro MD Unavailable [phone] Colt Steele [facility] Primary Care Provider [phone] Rao Arzate DO Unavailable Rocco Alvarenga DO Unavailable Encounter Details Date Type Department Care Team (Latest Contact Info) Description 05/07/2024 Transcribe Orders [facility] Phleb Anu [address] 2[address] [place] [address] Oralia Kaur MD [address] [id number] Micturition frequency (Primary Dx) Social History Tobacco [...] Description 09/22/2025 10:00 AM EST Office Visit [facility] Orthopedics & Sports Medicine [address] [place] [address] Rosa Elena Jacome MD [address] [place] [address] Orthopedics & Sports Medicine, [place] [address] [email or web address] documented as of this encounter Results * (ABNORMAL) Urine Culture (05/07/2024 3:19 PM EDT) Special Requests None 05/07/2024 3:19 PM EDT [facility] Urine Culture >100,000 colony forming units per mL MIXED VIRGILIO (3 OR MORE COLONY TYPES) Culture indicates contamination . Please resubmit if necessary.(A) 05/09/2024 10:10 AM EDT [facility] Urine (Urine) 05/07/2024 3:1 9 PM EDT 05/07/2024 3:27 PM EDT us Oralia Kaur MD LAB MICROBIOLOGY CULTURE O RDERABLES Final Result [facility] [address] [place] [address] * Urinalysis (05/07/2024 3:19 PM EDT) COLOR Yellow Yellow [facility] CLARITY Clear [facility] GLUCOSE Negative Negative [facility] BILI Negative Negative [facility] KETONES Negative Negative [facility] SPECIFIC GRAVITY <1.005 1.005 - 1.030 [facility] BLOOD Negative Negative [facility] PH 6.0 5.0 - 8.0 [facility] Protein-UA Negative Negative [facility] NITRITE Negative Negative [facility] Leukocyte esterase, ur Negative Negative [facility] Urine (Urine) 05/07/2024 3:1 9 PM EDT 05/07/2024 7:07 PM EDT Oralia Kaur MD LAB URINE ORDERABLES Final Result [facility] [address] [place] [address] documented in this encounter Visit Diagnoses Diagnosis Micturition frequency- Primary Urinary frequency documented in this encounter Additional Health Concerns Assessment Noted Time PHQ-2 Depression Total Score: 0 04/19/20 12:42 PM EDT documented as of this encounter Care Teams Investor Relations Associate Relationship Specialty Start Date End Date Colt Steele CNP [address] [place] [address] PCP - General Family Medicine 10/22/22 Shay Webb MD [address] [address] [email or web address] Historical LMR Provider 09/02/17 Jaiden Esparza DO [address] [place] [address] Orthopedics & Sports Medicine, [facility] [place] [address] [email or web address] Historical LMR Provider 09/02/17 Larisa Navarro MD [address] [place] [address] Historical LMR Provider 09/02/17 Rao Arzate DO [address] [place] [address] [email or web address] Insurance Assigned Provider 02/21/24 11/22/24 Rocco Alvarenga DO [address] [place] [address] [email or web address] Geriatric Medicine 05/23/25 documented as of this encounter Additional Source Comments The information contained in this document represents components of the legal health record. It is not the complete legal health record.[facility]
--- OUTSIDE RECORDS SUMMARY | 2025-09-21 17:34 | XMS_ITS | Encounter Summary ---
Author Organization [facility] Address [address] [place] [address] Phone Care Team Providers Care Nurse Clinician Name Role Phone JonShay MD Unavailable [phone] Jaiden Esparza DO Unavailable Larisa Navarro MD Unavailable [phone] Colt Steele [facility] Primary Care Provider [phone] Rocco Alvarenga DO Unavailable [phone] Encounter Details Date Type Department Care Team (Latest Contact Info) Description 06/02/2025 Ancillary Orders [address] [address] Madelaine Piña MD [address] [place] [address] Orthopedics & Sports Medicine, [place], [place] [id number] [email or web address] Osteoarthritis of left hip, unspecified osteoarthritis [...] Description 09/22/2025 10:00 AM EST Office Visit [facility] Orthopedics & Sports Medicine [address] [place] [address] Rosa Elena Jacome MD [address] [place] [address] Orthopedics & Sports Medicine, [place] [address] [email or web address] Pending Results Name Type Priority Associated Diagnoses [...] documented as of this encounter Care Teams Nurse Clinician Relationship Specialty Start Date End Date Colt Steele CNP 29 [facility] [place] [address] [email or web address] PCP - General Family Medicine 10/22/22 JonShay MD 264 [facility] 10 & [address] [place] [address] [email or web address] Historical LMR Provider 09/02/17 Jaiden Esparza DO [address] [place] [address] Orthopedics & Sports Medicine, [place] [address] [email or web address] Historical LMR Provider 09/02/17 Larisa Navarro MD [address] [place] [address] Historical LMR Provider 09/02/17 Rocco Alvarenga DO [address] [place] [address] [email or web address] Geriatric Medicine 05/23/25 documented as of this encounter Additional Source Comments The information contained in this document represents components of the legal health record. It is not the complete legal health record.[facility]
--- OUTSIDE RECORDS SUMMARY | 2025-09-21 17:34 | XMS_ITS | Encounter Summary ---
Author Organization [facility] Address [address] [place] [address] Phone Care Team Providers Care Computer Networking Instructor Adjunct Name Role Phone JonShay MD Unavailable [phone] Jaiden Esparza DO Unavailable [phone] Larisa Navarro MD Unavailable [phone] Colt Steele SPRING MANUFACTURING SET UP TECHNICIAN Primary Care Provider [phone] Rocco Alvarenga DO Unavailable [phone] Reason for Visit * Reason Onset Date Comments Nausea 06/09/2025 Encounter Details Date Type Department Care Team (Late st Contact Info) Description 06/09/2025 Nurse Triage [address] [address] Colt Steele, SPRING MANUFACTURING SET UP TECHNICIAN [address] [place] [address] [email or web address] Nausea Social History Tobacco Use Types Packs/Day [...] on prescription for zofran being sent to [facility]. Will call back ifshe is not improving. [...] for a prescription to be called into [facility] since they can't deliver after 6 pm. Nurse Triage Encounter Note Reason for Triage Pratima Lara contacted office for Nausea Call Disposition See Within 2 Weeks In Office Disposition Comments: Patient/caregiver understands and will follow disposition: Yes Care Advice Patient/Caregiver understands and will follow care advice?: Yes, plans to follow advice [id number] Chanda Gates RN [facility] Jun 09, 2025 04:34 PM Care Advice CLEAR FLUIDS: * Take clear fluids in small amounts until the nausea is resolved for 8 hours: * Sip water or rehydration liquid (Gatorade or Powerade) * Other options: 1/2 strength flat lemon-manzanita soda or cortez bernabe SOLIDS: * Gradually [...] AND present > 4 weeks) Protocols used: [id number] * Paresh Chisholm - 06/09/2025 3:54 PM EDT Yellow Call Intake Call Back Number: (if not patient, name/relationship) Pratima [phone] Yellow Symptom: Triage (Yellow call - severe nausea today with diarrhea. ) When did these symptoms start? today Have you ever experienced these symptoms before? YES Any additional information: Want to know if ondansetron (ZOFRAN) 4 MG tablet is appropriate. Route Normal Priority Encounter to signal operator technical Reason for Call = TRIAGE Comment = YELLOW + symptom Scripting: We're creating a note and routing it to your care team. They will contact you as soon as possible. If your symptoms worsen or change before your visit, please call back. documented in this encounter Plan of Treatment Upcoming Encounters Date Type Department Care Team (Late st Contact Info) Description 09/22/2025 10:00 AM EST Office Visit [facility] Orthopedics & Sports Medicine [address] [place] [address] Rosa Elena Jacome MD [address] [place] [address] Orthopedics & Sports Medicine, [place] [address] documented as of this encounter Visit Diagnoses Diagnosis Nausea- Primary Nausea alone documented in this encounter Additional Health Concerns Assessment Noted Time PHQ-2 Depression Total Score: 0 04/19/20 22 12:42 PM EDT documented as of this encounter Care Teams Computer Networking Instructor Adjunct Relationship Specialty Start Date End Date Colt Steele CNP 29 [facility] [place] [address] [email or web address] PCP - General Family Medicine 10/22/22 JonShay MD 264 [facility] [address] [place] [address] [email or web address] Historical LMR Provider 09/02/17 Jaiden Esparza DO [address] [place] [address] Orthopedics & Sports Medicine, [place] [address] [email or web address] Historical LMR Provider 09/02/17 Larisa Navarro MD [address] [place] [address] Historical LMR Provider 09/02/17 Rocco Alvarenga DO [address] [place] [address] [email or web address] Geriatric Medicine 05/23/25 documented as of this encounter Additional Source Comments The information contained in this document represents components of the legal health record. It is not the complete legal health record.[facility]
--- OUTSIDE RECORDS SUMMARY | 2025-09-21 17:34 | XMS_ITS | Encounter Summary ---
Author Organization [facility] Address [address] [place] [address] Phone Care Team Providers Care Hammerer Tab Name Role Phone Shay Webb MD Unavailable [phone] Jaiden Esparza DO Unavailable Larisa Navarro MD Unavailable [phone] Colt Steele [facility] Primary Care Provider [phone] Rao Arzate DO Unavailable Rocco Alvarenga DO Unavailable Encounter Details Date Type Department Care Team (Latest Contact Info) Description 07/06/2024 Transcribe Orders [facility] Phleb Anu [address] [place] [address] Regis Montanez MD [address] [place] [address] Osteoporosis, senile (Primary Dx) Social History Tobacco [...] Description 09/22/2025 10:00 AM EST Office Visit [facility] Orthopedics & Sports Medicine [address] [place] [address] Rosa Elena Jacome MD [address] [place] [address] Orthopedics & Sports [place] [place] [address] [email or web address] documented as of this encounter Results * ALKALINE PHOSPHATASE, BONE (07/06/2024 10:56 AM EDT) BONE ALKALINE PHOS 19 mcg/L [facility] Comment: (NOTE) REFERENCE VALUE [...] MD LAB BLOOD ORDERABLES Final Resu lt [facility] [address] [place] [address] * Calcium (07/06/2024 10:56 AM EDT) CALCIUM 9.3 8.4 - 10.3 mg/dL [facility] Blood 07/06/2024 10:5 6 AM EDT 07/06/2024 11:03 AM EDT us Regis Montanez MD LAB BLOOD BKR ORDERABLES Final Result Performing Organization Address City/[facility]/ZIP Co de Phone Number [address] [address] * 25-OH vitamin D (07/06/2024 10:56 AM EDT) 25 [place] VIT D (TOTAL) 54 30 - 60 ng/mL [facility] Blood 07/06/2024 10:5 6 AM EDT 07/06/2024 11:03 AM EDT Regis Montanez MD LAB BLOOD BKR ORDERABLES Final Result Performing Organization Address [facility]/ZIP Co de Phone Number [address] [address] * Parathyroid hormone (PTH) (07/06/2024 10:56 AM EDT) PARATHYROID HORMONE 47 15 - 65 pg/mL [facility] Blood 07/06/2024 10:5 6 AM EDT 07/06/2024 11:02 AM EDT Regis Montanez MD LAB BLOOD BKR ORDERABLES Final Result Performing Organization Address [facility] Co de Phone Number [address] [address] documented in this encounter Visit Diagnoses Diagnosis Osteoporosis, senile- Primary Senile osteoporosis documented in this encounter Additional Health Concerns Assessment Noted Time PHQ-2 Depression Total Score: 0 04/19/20 22 12:42 PM EDT documented as of this encounter Care Teams Hammerer Tab Relationship Specialty Start Date End Date Colt Steele CNP [address] [place] [address] PCP - General Family Medicine 10/22/22 Shay Webb MD 264 [facility] [address] [place] [address] [email or web address] Historical LMR Provider 09/02/17 Jaiden Esparza DO 4 [facility] Orthopedics & Sports Medicine, [place] [address] Historical LMR Provider 09/02/17 Larisa Navarro MD [address] [place] [address] Historical LMR Provider 09/02/17 aRo Arzate DO 29 [place] [address] Insurance Assigned Provider 02/21/24 11/22/24 Rocco Alvarenga DO 22 [place] [address] Geriatric Medicine 05/23/25 documented as of this encounter Additional Source Comments The information contained in this document represents components of the legal health record. It is not the complete legal health record.[facility]
--- OUTSIDE RECORDS SUMMARY | 2025-09-21 17:34 | XMS_ITS | Encounter Summary ---
Author Organization [facility] Address [address] [place] [address] Phone Care Team Providers Care Fuel Cell Repairer Name Role Phone JonShay MD Unavailable [phone] Jaiden Esparza DO Unavailable Larisa Navarro MD Unavailable [phone] Colt Steele FERMENTATION OPERATOR Primary Care Provider [phone] Rocco Alvarenga DO Unavailable [phone] Reason for Visit * Reason Onset Date Comments Pre-op Visit 06/21/2025 [facility] 07[place] + Pop k surgery Encounter Details Date Type Department Care Team (Late st Contact Info) Description 06/21/2025 Telephone [facility] 29 [place] [address] Colt Steele, FERMENTATION OPERATOR 29 [place], [place] [id number] [email or web address] Pre-op Visit ([facility] + 07/13 + Back surgery) Social History [...] the appt.:yes or no or NA: N/A [facility] Call Center CSS Agent (Please do not reply to this user, as this inbox is not monitored.) Thank you documented in this encounter Plan of Treatment Upcoming Encounters Date Type Department Care Team ([facility] Contact Info) Description 09/22/2025 10:00 AM EST Office Visit [facility] Orthopedics & Sports Medicine [address] [place] [address] Rosa Elena Jacome MD [address] [place] [address] Orthopedics & Sports [place] [address] documented as of this encounter Visit Diagnoses Not on filedocumented in this encounter Additional Health Concerns Assessment Noted Time PHQ-2 Depression Total Score: 0 04/19/20 22 12:42 PM EDT documented as of this encounter Care Teams Fuel Cell Repairer Relationship Specialty Start Date End Date Colt Steele CNP 29 [facility] [place] [address] [email or web address] PCP - General Family Medicine 10/22/22 Jon, Shay Garcia MD [address] [place] [address] [address] [place] [address] [email or web address] Historical LMR Provider 09/02/17 Jaiden Esparza DO [address] [place] [address] Orthopedics & Sports Medicine, [facility] [place] [address] [email or web address] Historical LMR Provider 09/02/17 Larisa Navarro MD [address] [place] [address] Historical LMR Provider 09/02/17 Rocco Alvarenga DO 22 [place] [address] [email or web address] Geriatric Medicine 05/23/25 documented as of this encounter Additional Source Comments The information contained in this document represents components of the legal health record. It is not the complete legal health record.[facility]
--- OUTSIDE RECORDS SUMMARY | 2025-09-21 17:34 | XMS_ITS | Encounter Summary ---
Author Organization [facility] Address [address] [place] [address] Phone Care Team Providers Care Pullman Clerk Name Role Phone JonShay MD Unavailable [phone] Jaiden Esparza DO Unavailable [phone] Larisa Navarro MD Unavailable [phone] Larisa Treviño MD Primary Care Provid er Janny Zavala MD Primary Care Provider Colt Steele [facility] Primary Care Provider [phone] Rao Arzate DO Unavailable Rocco Alvarenga DO Unavailable Encounter Details Date Type Department Care Team (Late st Contact Info) Description 08/07/2022 Procedure Pass [facility], Ct Scan - [address] [id number] Social History Tobacco Use Types Packs/Day Years [...] high school, GED, job training, learning the Albanian language, technical skills, or developing parenting skills)? [...] Description 09/22/2025 10:00 AM EST Office Visit [facility] Orthopedics & Sports Medicine [address] [place] [address] Rosa Elena Jacome MD [address] [place] [address] Orthopedics & Sports Medicine, [facility] [place] [address] documented as of this encounter Visit Diagnoses Not on filedocumented in this encounter Additional Health Concerns Infection Onset Date Last Indicated Resolved Time CoV-Risk 07/18/2023 07/18/2023 07/29/2023 1:22 AM EDT CoV-Risk 10/06/2023 10/06/2023 10/17/2023 1:22 AM EST Assessment Noted Time PHQ-2 Depression Total Score: 0 04/19/20 12:42 PM EDT documented as of this encounter Care Teams Pullman Clerk Relationship Specialty Start Date End Date Larisa Treviño MD [address] [address] [email or web address] PCP - General Family Medicine 03/26/22 09/19/22 Janny Zavala MD [address] [place] [address] [email or web address] PCP - General Family Medicine 10/03/22 10/21/22 Colt Steele CNP 29 [facility] [place] [address] [email or web address] PCP - General Family Medicine 10/22/22 Shay Webb MD [address] [address] & [address] [place] [address] [email or web address] Historical LMR Provider 09/02/17 Jaiden Esparza DO [address] [place] [address] Orthopedics & Sports Medicine, [place] [address] [email or web address] Historical LMR Provider 09/02/17 Larisa Navarro MD [address] [place] [address] Historical LMR Provider 09/02/17 Rao Arzate DO [address] [place] [address] [email or web address] Insurance Assigned Provider 02/21/24 11/22/24 Rocco Alvarenga DO [address] [place] [address] [email or web address] Geriatric Medicine 05/23/25 documented as of this encounter Additional Source Comments The information contained in this document represents components of the legal health record. It is not the complete legal health record.[facility]
--- OUTSIDE RECORDS SUMMARY | 2025-09-21 17:34 | XMS_ITS | Encounter Summary ---
Author Organization [facility] Address [address] [place] [address] Phone Care Team Providers Care Anthropology Instructor Name Role Phone Shay Webb MD Unavailable [phone] Jaiden Esparza DO Unavailable [phone] Larisa Navarro MD Unavailable [phone] Colt Steele [facility] Primary Care Provider [phone] Rao Arzate DO Unavailable Rocco Alvarenga DO Unavailable [phone] Encounter Details Date Type Department Care Team (Late st Contact Info) Description 07/18/2023 Procedure Pass [facility], Ct Scan - [address] [address] Social History Tobacco Use Types Packs/Day Years [...] high school, GED, job training, learning the Bermudian language, technical skills, or developing parenting skills)? [...] 07/18/2023 11:21 AM Celena Staton RN * [place] Suicide Severity Rating Scale (Screener/Recent Self-Report) Question Answer Date of Assessment Author 1. Wish to be (Past 1 Month) No 07/18/2023 11:21 AM Celena Staton RN 2. Non-Specific Active Suici nathalie Thoughts (Past 1 Month) No 07/18/2023 11:21 AM EDT Loerta Gillette RN 6. Suicidal Behavior (Lifetime) No 11:21 AM EDT Celena Gillette RN documented as of this encounter Plan of Treatment Upcoming Encounters Date Type Department Care Team (Late st Contact Info) Description 09/22/2025 10:00 AM EST Office Visit [facility] Orthopedics & Sports Medicine 4 [place] [address] Rosa Elena Jacome MD [address] [place] [address] [facility], [place], [place] [id number] [email or web address] documented as of this encounter Visit Diagnoses Not on filedocumented in this encounter Additional Health Concerns Infection Onset Date Last Indicated Resolved Time CoV-Risk 07/18/2023 07/18/2023 07/29/2023 1:22 AM EDT CoV-Risk 10/06/2023 10/06/2023 10/17/2023 1:22 AM EST Assessment Noted Time PHQ-2 Depression Total Score: 0 04/19/20 12:42 PM EDT documented as of this encounter Care Teams Anthropology Instructor Relationship Specialty Start Date End Date Colt Steele CNP 29 [facility] [place] [address] [email or web address] PCP - General Family Medicine 10/22/22 JonShay MD [address] [address] & [address] [place] [address] [email or web address] Historical LMR Provider 09/02/17 Jaiden Esparza DO [address] [place] [address] [facility], [place] [address] [email or web address] Historical LMR Provider 09/02/17 Larisa Navarro MD [address] [place] [address] Historical LMR Provider 09/02/17 Rao Arzate DO [address] [place] [address] [email or web address] Insurance Assigned Provider 02/21/24 11/22/24 Rocco Alvarenga DO [address] [place] [address] [email or web address] Geriatric Medicine 05/23/25 documented as of this encounter Additional Source Comments The information contained in this document represents components of the legal health record. It is not the complete legal health record.[facility]
--- OUTSIDE RECORDS SUMMARY | 2025-09-21 17:34 | XMS_ITS | Encounter Summary ---
Author Organization [facility] Address [address] [place] [address] Phone Care Team Providers Care Auricular Detoxification Specialist Name Role Phone Shay Webb MD Unavailable [phone] Jaiden Esparza DO Unavailable Larisa Navarro MD Unavailable [phone] [facility] Primary Care Provider [phone] Rao Arzate DO Unavailable Rocco Alvarenga DO Unavailable Encounter Details Date Type Department Care Team (Late st Contact Info) Description 10/20/2023 Procedure Pass [facility], [address] [address] Social History Tobacco Use Types Packs/Day Years [...] high school, GED, job training, learning the Danish language, technical skills, or developing parenting skills)? [...] [facility] Orthopedics & Sports Medicine [address] [place] [address] Rosa Elena Jacome MD [address] [place] [address] Orthopedics & Sports Medicine, [facility] [place] [address] documented as of this encounter Visit Diagnoses Not on filedocumented in this encounter Additional Health Concerns Assessment Noted Time PHQ-2 Depression Total Score: 0 04/19/20 22 12:42 PM EDT documented as of this encounter Care Teams Auricular Detoxification Specialist Relationship Specialty Start Date End Date Colt Steele CNP 29 [place] [address] PCP - General Family Medicine 10/22/22 JonShay MD [address] [address] & [address] [place] [address] [email or web address] Historical LMR Provider 09/02/17 Jaiden Esparza DO [address] [place] [address] Orthopedics & Sports Medicine, [place] [address] Historical LMR Provider 09/02/17 Larisa Navarro MD [address] [place] [address] Historical LMR Provider 09/02/17 Rao Arzate DO 29 [place] [address] Insurance Assigned Provider 02/21/24 11/22/24 Rocco Alvarenga DO 22 [place] [address] Geriatric Medicine 05/23/25 documented as of this encounter Additional Source Comments The information contained in this document represents components of the legal health record. It is not the complete legal health record.[facility]
--- OUTSIDE RECORDS SUMMARY | 2025-09-21 17:34 | XMS_ITS | Encounter Summary ---
Author Organization [facility] Address [address] [place] [address] Phone Care Team Providers Care Anvil Seating Press Operator Name Role Phone Shay Webb MD Unavailable [phone] Jaiden Esparza DO Unavailable Larisa Navarro MD Unavailable [phone] Colt Steele SONAR TECHNICIAN Primary Care Provider [phone] Rocco Alvarenga DO Unavailable [phone] Reason for Visit * Reason Comments Medication Refill Encounter Details Date Type Department Care Team (Late st Contact Info) Description 06/29/2025 Refill [facility] [place] 29 [place], [place] [id number] Colt Steele, SONAR TECHNICIAN 29 [place] [address] [email or web address] Medication Refill Social History Tobacco Use Types [...] Description 09/22/2025 10:00 AM EST Office Visit [facility] Orthopedics & Sports Medicine [address] [place] [address] [id number] Rosa Elena Jacome MD [address] [place] [address] Orthopedics & Sports [place], [place] [address] [email or web address] documented as of this encounter Visit Diagnoses Diagnosis Chronic insomnia Insomnia, unspecified documented in this encounter Additional Health Concerns Assessment Noted Time PHQ-2 Depression Total Score: 0 04/19/20 12:42 PM EDT documented as of this encounter Care Teams Anvil Seating Press Operator Relationship Specialty Start Date End Date Colt Steele CNP 29 [facility] [place] [address] [email or web address] PCP - General Family Medicine 10/22/22 JonShay MD [address] [address] & [address] [place] [address] [email or web address] Historical LMR Provider 09/02/17 Jaiden Esparza DO [address] [place] [address] Orthopedics & Sports [place], [place] [address] Historical LMR Provider 09/02/17 Larisa Navarro MD [address] [place] [address] Historical LMR Provider 09/02/17 Rocco Alvarenga DO 22 [place] [address] [email or web address] Geriatric Medicine 05/23/25 documented as of this encounter Additional Source Comments The information contained in this document represents components of the legal health record. It is not the complete legal health record.[facility]
--- OUTSIDE RECORDS SUMMARY | 2025-09-21 17:34 | XMS_ITS | Encounter Summary ---
Author Organization [facility] Address [address] [place] [address] Phone Care Team Providers Care Customer Service Professional Name Role Phone JonShay MD Unavailable [phone] Jaiden Esparza DO Unavailable [phone] Larisa Navarro MD Unavailable [phone] Colt Steele BUILDING ASSOCIATE Primary Care Provider [phone] Rocco Alvarenga DO Unavailable Encounter Details Date Type Department Care Team (Latest Contact Info) Description 04/21/2025 Transcribe Orders Virtual Department 30 [place] [address] Cedric Mliton MD [address] [place] [phone] Low back pain, unspecified back pain laterality, [...] 09/22/2025 10:00 AM EST Office Visit [facility] Orthopedics & Sports Medicine [address] [place] [address] Rosa Elena Jacome MD [address] [place] [address] Orthopedics & Sports Medicine, [place] [address] [email or web address] Scheduled Orders Name Type Priority Associated Diagnoses [...] as of this encounter Care Teams Customer Service Professional Relationship Specialty Start Date End Date Colt Steele CNP 29 [facility] [place] [address] [email or web address] PCP - General Family Medicine 10/22/22 JonShay MD 264 [facility] [address] & [address] [place] [address] [email or web address] Historical LMR Provider 09/02/17 Jaiden Esparza DO [address] [place] [address] Orthopedics & Sports Medicine, [place] [address] [email or web address] Historical LMR Provider 09/02/17 Larisa Navarro MD [address] [place] [address] Historical LMR Provider 09/02/17 Rocco Alvarenga DO 22 [place] [address] [email or web address] Geriatric Medicine 05/23/25 documented as of this encounter Additional Source Comments The information contained in this document represents components of the legal health record. It is not the complete legal health record.[facility]
--- OUTSIDE RECORDS SUMMARY | 2025-09-21 17:34 | XMS_ITS | Encounter Summary ---
Author Organization [facility] Address [address] [place] [address] Phone Care Team Providers Care Tobacco Acreage Measurer Name Role Phone JonShay MD Unavailable [phone] Jaiden Esparza DO Unavailable Larisa Navarro MD Unavailable [phone] Colt Steele [facility] Primary Care Provider [phone] Rao Arzate DO Unavailable Rocco Alvarenga DO Unavailable [phone] Reason for Referral * MRI/CAT Scan - Closed Specialty Diagnoses / Procedures Referred By Contac t Referred To Contact Radiology Diagnoses IPMN (intraductal papillary mucinous neoplasm) Procedures MRI Cholangiopancreatography (MRCP) Jaime Woodward MD Phone: tel: fax: [email or web address] Referral ID Status Reason Start Date Expiration Date Visits Re quested Visits Authorized [id number] Closed 10/20/2023 1 1 Encounter Details Date Type Department Care Team (Latest Contact Info) Description 10/20/2023 Transcribe Orders Virtual Department 30 [place] [address] Jaime Woodward MD [address] [place] [address] [email or web address] IPMN (intraductal papillary mucinous neoplasm) (Primary Dx) [...] high school, GED, job training, learning the Hungarian language, technical skills, or developing parenting skills)? [...] Description 09/22/2025 10:00 AM EST Office Visit [facility] Orthopedics & Sports Medicine [address] [place] [address] Rosa Elena Jacome MD [address] [place] [address] Orthopedics & Sports Medicine, [facility] [place] [address] [email or web address] documented as of this encounter Results * [...] COMPARISON: MRI CHOLANGIOPANCREATOGRAPHY (MRCP) WITH AND WITHOUT [id number] FINDINGS: Lower Chest: Within normal limits. Liver: [...] documented as of this encounter Care Teams Tobacco Acreage Measurer Relationship Specialty Start Date End Date Colt Steele CNP [address] [facility] [place] [address] PCP - General Family Medicine 10/22/22 Jon, Shay Garcia MD [address] [address] & [address] [place] [address] [email or web address] Historical LMR Provider 09/02/17 Jaiden Esparza DO [address] [place] [address] Orthopedics & Sports Medicine, [place] [address] Historical LMR Provider 09/02/17 Larisa Navarro MD [address] [place] [address] Historical LMR Provider 09/02/17 Rao Arzate DO 29 [place] [address] [email or web address] Insurance Assigned Provider 02/21/24 11/22/24 Rocco Alvarenga DO [address] [place] [address] [email or web address] Geriatric Medicine 05/23/25 documented as of this encounter Additional Source Comments The information contained in this document represents components of the legal health record. It is not the complete legal health record.[facility]
--- OUTSIDE RECORDS SUMMARY | 2025-09-21 17:34 | XMS_ITS | Encounter Summary ---
Author Organization [facility] Address [address] [place] [address] Phone Care Team Providers Care Bookkeeper Name Role Phone Shay Webb MD Unavailable [phone] Jaiden Esparza DO Unavailable Larisa Navarro MD Unavailable [phone] Colt Steele DIRECTOR OF ENROLLMENT Primary Care Provider [phone] Rao Arzate DO Unavailable Rocco Alvarenga DO Unavailable Encounter Details Date Type Department Care Team (Late st Contact Info) Description 05/12/2024 Ancillary Orders [facility], X-Ray - [address] [place] [address] Cedric Milton MD [address] [place] [address] Fracture of superior pubic ramus, left, closed, [...] Description 09/22/2025 10:00 AM EST Office Visit [facility] Orthopedics & Sports Medicine [address] [place] [address] Rosa Elena Jacome MD [address] [place] [address] Orthopedics & Sports Medicine, [facility] [place] [address] documented as of this encounter Results * [...] clinician's provided indication for this examination in Epic:Fracture REQUESTED INDICATION: Fracture COMPARISON: XR HIP 2 [...] arthropathy. Moderate sacroiliac joint bony proliferative change. Cedric Milton MD IMG XR PELVIS Final Re sult documented in this encounter Visit Diagnoses Diagnosis Fracture of superior pubic ramus, left, closed, initial encounter- Primary Fracture of superior pubic ramus, left, closed, initial encounter documented in this encounter Additional Health Concerns Assessment Noted Time PHQ-2 Depression Total Score: 0 04/19/20 22 12:42 PM EDT documented as of this encounter Care Teams Bookkeeper Relationship Specialty Start Date End Date Colt Steele CNP 29 [facility] [place] [address] PCP - General Family Medicine 10/22/22 Shay Webb MD 264 [facility] 10 & [address] [place] [address] [email or web address] Historical LMR Provider 09/02/17 Jaiden Esparza DO [address] [place] [address] Orthopedics & Sports Medicine, [facility] [place] [address] Historical LMR Provider 09/02/17 Larisa Navarro MD [address], [place] [address] Historical LMR Provider 09/02/17 Rao Arzate DO 29 [place] [address] Insurance Assigned Provider 02/21/24 11/22/24 Rocco Alvarenga DO 22 [place] [address] Geriatric Medicine 05/23/25 documented as of this encounter Additional Source Comments The information contained in this document represents components of the legal health record. It is not the complete legal health record.[facility]
--- OUTSIDE RECORDS SUMMARY | 2025-09-21 17:35 | XMS_ITS | Encounter Summary ---
Author Organization [facility] Address [address] [place] [address] Phone Care Team Providers Care Box Sealing Machine Operator Name Role Phone Shay Wbeb MD Primary Care Provider Shay Webb MD Unavailable [phone] Jaiden Esparza DO Unavailable Larisa Navarro MD Unavailable [phone] Larisa Treviño MD Primary Care Provid er Janny Zavala MD Primary Care Provider Colt Steele CNP Primary Care Provider [phone] Rao Arzate DO Unavailable Rocco Alvarenga DO Unavailable [phone] Encounter Details Date Type Department Care Team (Late st Contact Info) Description 02/19/2022 Procedure Pass [facility], Ct Scan - [address] [address] Social History Tobacco Use Types Packs/Day Years [...] Description 09/22/2025 10:00 AM EST Office Visit [facility] Orthopedics & Sports Medicine [address] [place] [address] Rosa Elena Jacome MD [address] [place] [address] Orthopedics & Sports Medicine, [place] [address] [email or web address] documented as of this encounter Visit Diagnoses Not on filedocumented in this encounter Additional Health Concerns Infection Onset Date Last Indicated Resolved Time CoV-Risk 07/18/2023 07/18/2023 07/29/2023 1:22 AM EDT CoV-Risk 10/06/2023 10/06/2023 10/17/2023 1:22 AM EST documented as of this encounter Care Teams Box Sealing Machine Operator Relationship Specialty Start Date End Date Shay Webb MD [address] [place] [address] 10 & 12 [place] [address] [email or web address] PCP - General 05/17/14 03/25/22 Larisa Treviño MD [address] [address] [email or web address] PCP - General Family Medicine 03/26/22 09/19/22 Janny Zavala MD [address] [place] [address] [email or web address] PCP - General Family Medicine 10/03/22 10/21/22 Colt Steele IselaDANIELLE [email or web address] 29 [place] [address] [email or web address] PCP - General Family Medicine 10/22/22 Shay Webb MD 264 [facility] 10 & [address] [place] [address] [email or web address] Historical LMR Provider 09/02/17 Jaiden Esparza DO [address] [place] [address] Orthopedics & Sports Medicine, [place] [address] Historical LMR Provider 09/02/17 Larisa Navarro MD [address] [place] [address] Historical LMR Provider 09/02/17 Rao Arzate DO 29 [place] [address] Insurance Assigned Provider 02/21/24 11/22/24 Rocco Alvarenga DO 22 [place] [address] Geriatric Medicine 05/23/25 documented as of this encounter Additional Source Comments The information contained in this document represents components of the legal health record. It is not the complete legal health record.[facility]
--- OUTSIDE RECORDS SUMMARY | 2025-09-21 17:35 | XMS_ITS | Encounter Summary ---
Author Organization [facility] Address [address] [place] [address] [place] [address] Phone Care Team Providers Care Manifest Clerk Name Role Phone Shay Webb MD Primary Care Provider Stanley Castro MD Unavailable Shay Webb MD Unavailable [phone] Jaiden Esparza DO Unavailable Larisa Navarro MD Unavailable [phone] Oziel Archibald MD Unavailable [phone] Larisa Treviño MD Primary Care Provid er Janny Zavala MD Primary Care Provider Colt Steele CNP Primary Care Provider [phone] Rao Arzate DO Unavailable Rocco Alvarenga DO Unavailable Encounter Details Date Type Department Care Team (Latest Contact Info) Description 12/12/2020 Transcribe Orders [facility] Department [address] [place] [address] Shay Webb MD [address] [place] [address] [address] [place] [address] [email or web address] Exposure to SARS-associated coronavirus (Primary Dx) Social [...] Description 09/22/2025 10:00 AM EST Office Visit [facility] Orthopedics & Sports Medicine [address] [place] [address] Rosa Elena Jacome MD [address] [place] [address] Orthopedics & Sports Medicine, [facility] [place] [address] [email or web address] documented as of this encounter Results * COVID-19 PCR Order (12/16/2020 7:58 AM EST) COVID Testing Status Specimen received in analyzing lab. Results should be available within 24 to 48 hrs. [facility] Symptomatic? NO [facility] 12/16/2020 7:58 AM EST 12/16/2020 12:14 PM EST us Shay Webb MD LAB GENERAL ORDERABLES Final Re sult [facility] [address] [place] [address] [facility] [address] [place] [address] documented in this encounter Visit Diagnoses Diagnosis [...] documented as of this encounter Care Teams Manifest Clerk Relationship Specialty Start Date End Date Shay Webb MD [address] [address] & [address] [place] [address] [email or web address] PCP - General 05/17/14 03/25/22 Larisa Treviño MD [address] [address] [email or web address] PCP - General Family Medicine 03/26/22 09/19/22 Janny Zavala MD [address] [place] [address] [email or web address] PCP - General Family Medicine 10/03/22 10/21/22 Colt Steele CNP 29 [facility] [place] [address] [email or web address] PCP - General Family Medicine 10/22/22 Stanley Castro MD [address] [place] [address] [email or web address] Historical LMR Provider 09/02/17 11/24/21 Shya Webb MD [address] [place] [address] 10 & [address] [place] [address] [email or web address] Historical LMR Provider 09/02/17 Jaiden Esparza DO [address] [place] [address] Orthopedics & Sports Medicine, [facility] [place] [address] Historical LMR Provider 09/02/17 Larisa Navarro MD [address] [place] [address] Historical LMR Provider 09/02/17 Ozile Archibald MD 22 [place] [address] Historical LMR Provider 09/02/17 2 Rao Arzate DO [address] [place] [address] Insurance Assigned Provider 02/21/24 11/22/24 Rocco Alvarenga DO 22 [place] [address] Geriatric Medicine 05/23/25 documented as of this encounter Additional Source Comments The information contained in this document represents components of the legal health record. It is not the complete legal health record.[facility]
--- OUTSIDE RECORDS SUMMARY | 2025-09-21 17:35 | XMS_ITS | Encounter Summary ---
Author Organization [facility] Address [address] [place] [address] [place] [address] Phone Care Team Providers Care Plow Mechanic Name Role Phone Shay Webb MD Primary Care Provider Stanley Castro MD Unavailable Shay Webb MD Unavailable [phone] Jaiden Esparza DO Unavailable Larisa Navarro MD Unavailable [phone] Oziel Archibald MD Unavailable [phone] Larisa Treviño MD Primary Care Provid er Janny Zavala MD Primary Care Provider Colt Steele CNP Primary Care Provider [phone] Rao Arazte DO Unavailable Rocco Alvarenga DO Unavailable Encounter Details Date Type Department Care Team (Late st Contact Info) Description 10/10/2020 Ancillary Orders Virtual Department 30 [place] [address] Shay Webb MD 264 [facility] [address] [place] [address] [email or web address] Neck pain; Thoracic back pain, unspecified back [...] Description 09/22/2025 10:00 AM EST Office Visit [facility] Orthopedics & Sports Medicine [address] [place] [address] Rosa Elena Jacome MD [address] [place] [address] Orthopedics & Sports Medicine, [facility] [place] [address] [email or web address] documented as of this encounter Results * [...] acute cardiopulmonary process. No right rib abnormalities. Shay Webb MD IMG XR CHEST Final [...] lungs are clear. IMPRESSION: Mild degenerative changes. Shay Webb MD IMG XR SPINE Final Result * XR CERVICAL [...] and neuroforaminal narrowing on the left atC5-C6. Shay Webb MD IMG XR SPINE Final [...] documented as of this encounter Care Teams Plow Mechanic Relationship Specialty Start Date End Date Shay Webb MD 264 [facility] [address] [place] [address] [email or web address] PCP - General 05/17/14 03/25/22 Larisa Treviño MD [address] [address] [email or web address] PCP - General Family Medicine 03/26/22 09/19/22 Janny Zavala MD [address] [address] [email or web address] PCP - General Family Medicine 10/03/22 10/21/22 Colt Steele, DANIELLE 29 [facility] [place] [address] [email or web address] PCP - General Family Medicine 10/22/22 Stanley Castro MD 22 [place] [address] [email or web address] Historical LMR Provider 09/02/17 11/24/21 Shay Webb MD [address] [address] [address] [place] [address] [email or web address] Historical LMR Provider 09/02/17 Jaiden Esparza DO [address] [place] [address] Orthopedics & Sports Medicine, [place] [address] [email or web address] Historical LMR Provider 09/02/17 Larisa Navarro MD [address] [place] [address] Historical LMR Provider 09/02/17 Oziel Archibald MD 22 [place] [address] Historical LMR Provider 09/02/17 2 Rao Arzate DO 29 [place] [address] [email or web address] Insurance Assigned Provider 02/21/24 11/22/24 Rocco Alvarenga DO 22 [place] [address] [email or web address] Geriatric Medicine 05/23/25 documented as of this encounter Additional Source Comments The information contained in this document represents components of the legal health record. It is not the complete legal health record.[facility]
--- OUTSIDE RECORDS SUMMARY | 2025-09-21 17:35 | XMS_ITS | Encounter Summary ---
Author Organization [facility] Address [address] [place] [address] Phone Care Team Providers Care Asbestos Cement Sheet Supervisor Name Role Phone Shay Webb MD Primary Care Provider Stanley Castro MD Unavailable Shay Webb MD Unavailable [phone] Jaiden Esparza DO Unavailable Larisa Navarro MD Unavailable Oziel Archibald MD Unavailable Larisa Treviño MD Primary Care Provid er Janny Zavala MD Primary Care Provider [phone] Colt Steele CNP Primary Care Provider [phone] Rao Arzate DO Unavailable Rocco Alvarenga DO Unavailable Encounter Details Date Type Department Care Team (Late st Contact Info) Description 04/10/2018 Ancillary Orders [facility], X-Ray - [address] [phone] Cedric Milton MD 271 [place] [address] Incomplete tear of right rotator cuff Social [...] Description 09/22/2025 10:00 AM EST Office Visit [facility] Orthopedics & Sports Medicine [address] [place] [address] Rosa Elena Jacome MD [address] [place] [address] Orthopedics & Sports Medicine, [facility] [place] [address] documented as of this encounter Results * [...] documented as of this encounter Care Teams Asbestos Cement Sheet Supervisor Relationship Specialty Start Date End Date Jon, Shay Garcia MD [address] [place] [address] [address] [place] [address] [email or web address] PCP - General 05/17/14 03/25/22 Larisa Treviño MD [address] [place] [address] [email or web address] PCP - General Family Medicine 03/26/22 09/19/22 Janny Zavala MD [address] [address] [email or web address] PCP - General Family Medicine 10/03/22 10/21/22 Colt Steele CNP 29 [facility] [place] [address] [email or web address] PCP - General Family Medicine 10/22/22 Stanley Castro MD 22 [place] [address] [email or web address] Historical LMR Provider 09/02/17 11/24/21 Shay Webb MD 264 [facility] [address] [place] [address] [email or web address] Historical LMR Provider 09/02/17 Jaiden Esparza DO [address] [place] [address] Orthopedics & Sports Medicine, [place] [address] [email or web address] Historical LMR Provider 09/02/17 Larisa Navarro MD [address] [place] [address] Historical LMR Provider 09/02/17 Oziel Archibald MD 22 [place] [address] Historical LMR Provider 09/02/17 2 Rao Arzate DO 29 [place] [address] [email or web address] Insurance Assigned Provider 02/21/24 11/22/24 Rocco Alvarenga DO [address] [place] [address] [email or web address] Geriatric Medicine 05/23/25 documented as of this encounter Additional Source Comments The information contained in this document represents components of the legal health record. It is not the complete legal health record.[facility]
--- OUTSIDE RECORDS SUMMARY | 2025-09-21 17:35 | XMS_ITS | Encounter Summary ---
Author Organization [facility] Address [address] [place] [address] Phone Care Team Providers Care Varnish Maker Helper Name Role Phone Shay Webb MD Unavailable [phone] Jaiden Esparza DO Unavailable Larisa Navarro MD Unavailable [phone] Colt Steele [facility] Primary Care Provider [phone] Rao Arzate DO Unavailable Rocco Alvarenga DO Unavailable [phone] Encounter Details Date Type Department Care Team (Latest Contact Info) Description 03/20/2023 Transcribe Orders [facility] [address] [place] [address] Jaime Woodward MD [address] [id number] Chronic hyponatremia (Primary Dx); Malignant neoplasm of [...] high school, GED, job training, learning the Peruvian language, technical skills, or developing parenting skills)? [...] 09/22/2025 10:00 AM EST Office Visit [facility] Orthopedics & Sports Medicine [address] [place] [address] Rosa Elena Jacome MD [address] [place] [address] Orthopedics & Sports Medicine, [facility] [place] [address] documented as of this encounter Results * CA-19-9 (03/20/2023 2:20 PM EDT) CA 19-9 7 <35 U/mL [facility] Blood 03/20/2023 2:20 PM EDT 03/20/2023 2:25 PM EDT us Jaiem Woodward MD LAB BLOOD BKR ORDERABLES Fin al Result Performing Organization Address City/[facility]/ZIP Co de Phone Number [address] [address] * Lipase (03/20/2023 2:20 PM EDT) Pathologist [facility] LIPASE 46 16 - 63 U/L [facility] Blood 03/20/2023 2:20 PM EDT 03/20/2023 2:25 PM EDT us Jaime Woodward MD LAB BLOOD BKR ORDERABLES Fin al Result Performing Organization Address City/[facility]/ZIP Co de Phone Number [address] [address] * (ABNORMAL) Comprehensive metabolic panel (03/20/2023 2:20 PM EDT) SODIUM 122(L) 133 - 146 mmol/L [facility] POTASSIUM 4.4 3.3 - 5.1 mmol/L [facility] CHLORIDE 88(L) 96 - 108 mmol/L [facility] CO2 23 21 - 35 mmol/L [facility] BUN 21(H) 6 - 19 mg/dL [facility] CREATININE 0.70 0.5 - 1.5 mg/dL [facility] GLUCOSE 102(H) 70 - 99 mg/dL [facility] ALBUMIN 4.3 3.9 - 4.8 g/dL [facility] TOTAL PROTEIN 6.8 6.5 - 8.0 g/dL [facility] CALCIUM 9.2 8.4 - 10.3 mg/dL [facility] ALKALINE PHOSPHATASE 104 39 - 117 U/L [facility] TOTAL BILIRUBIN 0.4 0.0 - 1.2 mg/dL [facility] AST 34 0 - 37 U/L [facility] ALT 31 0 - 40 U/L [facility] GLOBULIN 2.5 1 - 4.8 g/dL [facility] EGFR 85 >59 mL/min/1.7 3m2 [facility] Comment:Estimated glomerular filtration rate calculated using the CKD-EPI refit equation. ANION GAP 15 10 - 20 mmol/L [facility] Blood 03/20/2023 2:20 PM EDT 03/20/2023 2:25 PM EDT us Jaime Woodward MD LAB BLOOD BKR ORDERABLES Fin al Result Performing Organization Address City/[facility]/ZIP Co de Phone Number [address] [address] * CBC (03/20/2023 2:20 PM EDT) WBC 7.57 4.00 - 11.00 K/uL [facility] RBC 4.64 3.72 - 5.30 M/uL [facility] HGB 13.9 11.4 - 15.9 g/dL [facility] HCT 42.4 34.2 - 46.8 % [facility] PLT 345 140 - 430 K/uL [facility] MCV 91.4 78.0 - 97.0 fL [facility] MCH 30.0 25.0 - 33.0 pg [facility] MCHC 32.8 32.0 - 36.0 g/dL [facility] RDW 13.1 11.0 - 16.0 % [facility] MPV 9.3 8.4 - 12.8 fl [facility] Blood 03/20/2023 2:20 PM EDT 03/20/2023 2:25 PM EDT us Jaime Woodward MD LAB BLOOD BKR ORDERABLES Fin al Result [address] [address] documented in this encounter Visit Diagnoses Diagnosis [...] documented as of this encounter Care Teams Varnish Maker Helper Relationship Specialty Start Date End Date Colt Steele CNP 29 [place] [address] PCP - General Family Medicine 10/22/22 JonShay MD [address] [address] [email or web address] Historical LMR Provider 09/02/17 Jaiden Esparza DO [address] [place] [address] Orthopedics & Sports Medicine, [place] [address] Historical LMR Provider 09/02/17 Larisa Navarro MD [address] [place] [address] Historical LMR Provider 09/02/17 Rao Arzate DO 29 [place] [address] Insurance Assigned Provider 02/21/24 11/22/24 Rocco Alvarenga DO 22 [place] [address] [email or web address] Geriatric Medicine 05/23/25 documented as of this encounter Additional Source Comments The information contained in this document represents components of the legal health record. It is not the complete legal health record.[facility]
--- OUTSIDE RECORDS SUMMARY | 2025-09-21 17:35 | XMS_ITS | Encounter Summary ---
Author Organization [facility] Address [address] [place] [address] Phone Care Team Providers Care Quantitative Analyst Developer Name Role Phone JonShay MD Unavailable Jaiden Esparza DO Unavailable Larisa Navarro MD Unavailable [phone] Colt Steele [employer] Primary Care Provider [phone] Rocco Alvarenga DO Unavailable Encounter Details Date Type Department Care Team (Latest Contact Info) Description 01/20/2025 Transcribe Orders Virtual Department 30 [place] [address] Cedric Milton MD [address] [place] [address] [id number] Low back pain, unspecified back pain laterality, [...] Description 09/22/2025 10:00 AM EST Office Visit [facility] Orthopedics & Sports Medicine [address] [place] [address] Rosa Elena Jacome MD [address] [place] [address] Orthopedics & Sports Medicine, [facility] [place] [address] documented as of this encounter Results * XR LUMBOSACRAL SPINE 2-3 VIEWS (01/20/2025 1:20 PM EST) Anatomical Region Laterality Modality L-spine Computed Radiogr aphy 01/21/2025 1:20 PM EST Impressions 01/21/2025 1:22 PM EST Posterior fusion hardware at L4-5. Hardware appears intact and grossly well-positioned presumably with associated laminectomies. The hardware stabilizes grade 1 anterolisthesis at L4-5. Partial imaging of infertility medical assistant lead extending proximally, likely a neurostimulator device. [...] this examination in Epic: Outside Radiology Order; please place marker over site of max pain right mid lumbar COMPARISON: MRI LUMBAR SPINE (NEURO) WITH AND WITHOUT CONTRAST Procedure Note Paresh Burk MD - 01/21/2025 XR LUMBOSACRAL SPINE 2-3 VIEWS Referring clinician's provided indication for this examination in Epic:Outside Radiology Order; please place marker over site of max pain rightmid lumbar COMPARISON: MRI LUMBAR SPINE (NEURO) WITH AND WITHOUT [id number] IMPRESSION: Posterior fusion hardware at L4-5. Hardware [...] documented as of this encounter Care Teams Quantitative Analyst Developer Relationship Specialty Start Date End Date Colt Steele CNP 29 [facility] [place] [address] [email or web address] PCP - General Family Medicine 10/22/22 Jon, Shay Garcia MD [address] [place] [address] & [address] [place] [address] [email or web address] Historical LMR Provider 09/02/17 Jaiden Esparza DO [address] [place] [address] [facility] [place] [address] Historical LMR Provider 09/02/17 Larisa Navarro MD [address] [place] [address] Historical LMR Provider 09/02/17 Rocco Alvarenga DO 22 [place] [address] [email or web address] Geriatric Medicine 05/23/25 documented as of this encounter Additional Source Comments The information contained in this document represents components of the legal health record. It is not the complete legal health record.[facility]
--- OUTSIDE RECORDS SUMMARY | 2025-09-21 17:35 | XMS_ITS | Encounter Summary ---
Author Organization [facility] Address [address] [place] [address] Phone Care Team Providers Care Supervisor Title Name Role Phone Shay Webb MD Primary Care Provider Stanley Castro MD Unavailable Shay Webb MD Unavailable [phone] Jaiden Esparza DO Unavailable Larisa Navarro MD Unavailable [phone] Oziel Archibald MD Unavailable [phone] aLrisa Treviño MD Primary Care Provid er Janny Zavala MD Primary Care Provider Colt Steele CNP Primary Care Provider [phone] Rao Arzate DO Unavailable Rocco Alvarenga DO Unavailable Encounter Details Date Type Department Care Team (Latest Contact Info) Description 07/28/2018 Ancillary Orders Virtual Department 30 [place] [address] Cedric Milton MD [address] [place] [address] Age-related osteoporosis without current pathological fracture Social [...] Description 09/22/2025 10:00 AM EST Office Visit [facility] Orthopedics & Sports Medicine [address] [place] [address] Rosa Elena Jacome MD [address] [place] [address] Orthopedics & Sports Medicine, [facility] [place] [address] [email or web address] documented as of this encounter Results * [...] osteopenia POS - [id number] Cedric Milton MD IMG BD BONE DENSITY DEXA Final Result documented [...] documented as of this encounter Care Teams Supervisor Title Relationship Specialty Start Date End Date JonShay MD [address] [place] [address] & [address] [place] [address] [email or web address] PCP - General 05/17/14 03/25/22 Larisa Treviño MD [address] [place] [address] [email or web address] PCP - General Family Medicine 03/26/22 09/19/22 Janny Zavala MD [address] [place] [address] [email or web address] PCP - General Family Medicine 10/03/22 10/21/22 Colt Steele CNP 29 [facility] [place] [address] PCP - General Family Medicine 10/22/22 Stanley Castro MD 22 [place] [address] [email or web address] Historical LMR Provider 09/02/17 11/24/21 Shay Webb MD [address] [facility] 10 & 12 [place] [address] [email or web address] Historical LMR Provider 09/02/17 Jaiden Esparza DO [address] [place] [address] Orthopedics & Sports Medicine, [place] [address] [email or web address] Historical LMR Provider 09/02/17 Larisa Navarro MD [address] [address] Historical LMR Provider 09/02/17 Oziel Archibald MD 22 [place] [address] Historical LMR Provider 09/02/17 2 aRo Arzate DO 29 [place] [address] [email or web address] Insurance Assigned Provider 02/21/24 11/22/24 Rocco Alvarenga DO 22 [place] [address] [email or web address] Geriatric Medicine 05/23/25 documented as of this encounter Additional Source Comments The information contained in this document represents components of the legal health record. It is not the complete legal health record.[facility]
--- OUTSIDE RECORDS SUMMARY | 2025-09-21 17:35 | XMS_ITS | Encounter Summary ---
Author Organization [facility] Address [address] [place] [address] Phone Care Team Providers Care Open Winder Name Role Phone JonShay MD Unavailable [phone] Jaiden Esparza DO Unavailable Larisa Navarro MD Unavailable [phone] Colt Steele [facility] Primary Care Provider [phone] Rocco Alvarenga DO Unavailable [phone] Reason for Referral * MRI/CAT Scan - Closed Specialty Diagnoses / Procedures Referred By Contac t Referred To Contact Radiology Diagnoses IPMN (intraductal papillary mucinous neoplasm) Procedures MRI Cholangiopancreatography (MRCP) Jaime Woodward MD Phone: tel: fax: [email or web address] Referral ID Status Reason Start Date Expiration Date Visits Re quested Visits Authorized [id number] Closed 01/17/2025 01/17/2026 1 1 Encounter Details Date Type Department Care Team (Latest Contact Info) Description 01/17/2025 Transcribe Orders Virtual Department 30 [place] [address] Jaime Woodward MD [address] [address] [email or web address] IPMN (intraductal papillary mucinous neoplasm) (Primary Dx) [...] Description 09/22/2025 10:00 AM EST Office Visit [facility] Orthopedics & Sports Medicine [address] [place] [address] Rosa Elena Jacome MD [address] [place] [address] Orthopedics & Sports Medicine, [place] [address] [email or web address] documented as of this encounter Results * [...] effusion of the left hip. Procedure Note Jaime Hernandez MD - 03/28/2025 MRI CHOLANGIOPANCREATOGRAPHY (MRCP) [...] cystic foci, including a 9 mm unilocular [id number] lesion in the body (3:21) are also [...] these have enhancing components or othersuspicious features. Jaime Woodward MD IMG MR ABDOMEN Final [...] documented as of this encounter Care Teams Open Winder Relationship Specialty Start Date End Date Colt Steele CNP 29 [facility] [place] [address] [email or web address] PCP - General Family Medicine 10/22/22 JonShay MD [address] [address] & [address] [place] [address] [email or web address] Historical LMR Provider 09/02/17 Jaiden Esparza DO [address] [place] [address] [facility] [place] [address] Historical LMR Provider 09/02/17 Larisa Navarro MD [address] [place] [address] Historical LMR Provider 09/02/17 Rocco Alvarenga DO 22 [place] [address] [email or web address] Geriatric Medicine 05/23/25 documented as of this encounter Additional Source Comments The information contained in this document represents components of the legal health record. It is not the complete legal health record.[facility]
--- OUTSIDE RECORDS SUMMARY | 2025-09-21 17:35 | XMS_ITS | Encounter Summary ---
Author Organization [facility] Address [address] [place] [address] Phone Care Team Providers Care Forensics Team Director Name Role Phone Shay Webb MD Primary Care Provider Stanley Castro MD Unavailable Shay Webb MD Unavailable [phone] Jaiden Esparza DO Unavailable Larisa Navarro MD Unavailable [phone] Oziel Archibald MD Unavailable [phone] Larisa Treviño MD Primary Care Provid er Janny Zavala MD Primary Care Provider [phone] Colt Steele CNP Primary Care Provider [phone] Rao Arzate DO Unavailable Rocco Alvarenga DO Unavailable Encounter Details Date Type Department Care Team (Latest Contact Info) Description 06/05/2018 Ancillary Orders Virtual Department 30 [place] [address] Cedric Milton MD [address] [place] [address] Spondylosis of cervical region without myelopathy or [...] Description 09/22/2025 10:00 AM EST Office Visit [facility] Orthopedics & Sports Medicine [address] [place] [address] Rosa Elena Jacome MD [address] [place] [address] Orthopedics & Sports Medicine, [facility] [place] [address] documented as of this encounter Results * [...] The lung apices are clear. Procedure Note oHla Scherer MD - 06/16/2018 COMPARISON: Cervical spine [...] documented as of this encounter Care Teams Forensics Team Director Relationship Specialty Start Date End Date Shay Webb MD [address] [place] [address] & [address] [place] [address] [email or web address] PCP - General 05/17/14 03/25/22 Larisa Treviño MD [address] [place] [address] [email or web address] PCP - General Family Medicine 03/26/22 09/19/22 Janny Zavala MD [address] [place] [address] [email or web address] PCP - General Family Medicine 10/03/22 10/21/22 Colt Steele CNP 29 [facility] [place] [address] [email or web address] PCP - General Family Medicine 10/22/22 Stanley Castro MD [address] [place] [address] [email or web address] Historical LMR Provider 09/02/17 11/24/21 Shay Webb MD [address] [place] [address] [address] [place] [address] [email or web address] Historical LMR Provider 09/02/17 Jaiden Esparza DO [address] [place] [address] Orthopedics & Sports Medicine, [facility] [place] [address] Historical LMR Provider 09/02/17 Larisa Navarro MD [address] [place] [address] Historical LMR Provider 09/02/17 Oziel Archibald MD 22 [place] [address] Historical LMR Provider 09/02/17 2 Rao Arzate DO [address] [place] [address] Insurance Assigned Provider 02/21/24 11/22/24 Rocco Alvarenga DO [address] [place] [address] Geriatric Medicine 05/23/25 documented as of this encounter Additional Source Comments The information contained in this document represents components of the legal health record. It is not the complete legal health record.[facility]
--- OUTSIDE RECORDS SUMMARY | 2025-09-21 17:35 | XMS_ITS | Encounter Summary ---
Author Organization [facility] Address [address] [place] [address] Phone Care Team Providers Care Digital Archivist Name Role Phone Shay Webb MD Unavailable [phone] Jaiden Esparza DO Unavailable [phone] Larisa Navarro MD Unavailable [phone] Colt Steele [employer] Primary Care Provider [phone] Rao Arzate DO Unavailable Rocco Alvarenga DO Unavailable Encounter Details Date Type Department Care Team (Latest Contact Info) Description 02/12/2023 Transcribe Orders Virtual Department 30 [place] [address] Colt Peters, BAND SAWING MACHINE OPERATOR [address] [place] [address] [email or web address] Radiculopathy, lumbar region (Primary Dx) Social History [...] high school, GED, job training, learning the Mongolian language, technical skills, or developing parenting skills)? [...] Description 09/22/2025 10:00 AM EST Office Visit [facility] Orthopedics & Sports Medicine [address] [place] [address] Rosa Elena Jacome MD [address] [place] [address] Orthopedics & Sports Medicine, [place] [address] documented as of this encounter Visit Diagnoses [...] documented as of this encounter Care Teams Digital Archivist Relationship Specialty Start Date End Date Colt Steele CNP [address] [place] [address] [email or web address] PCP - General Family Medicine 10/22/22 JonShay MD [address] [place] [address] [email or web address] Historical LMR Provider 09/02/17 Jaiden Esparza DO [address] [place] [address] Orthopedics & Sports [place], [place] [address] [email or web address] Historical LMR Provider 09/02/17 Larisa Navarro MD [address], [place] [address] Historical LMR Provider 09/02/17 Rao Arzate DO 29 [place] [address] [email or web address] Insurance Assigned Provider 02/21/24 11/22/24 Rocco Alvarenga DO 22 [place] [address] [email or web address] Geriatric Medicine 05/23/25 documented as of this encounter Additional Source Comments The information contained in this document represents components of the legal health record. It is not the complete legal health record.[facility]
--- OUTSIDE RECORDS SUMMARY | 2025-09-21 17:35 | XMS_ITS | Encounter Summary ---
Author Organization [facility] Address [address] [place] [address] Phone Care Team Providers Care Fire Investigation Manager Name Role Phone Shay Webb MD Unavailable [phone] Jaiden Esparza DO Unavailable Larisa Navarro MD Unavailable [phone] Colt Steele [facility] Primary Care Provider [phone] Rao Arzate DO Unavailable Rocco Alvarenga DO Unavailable [phone] Encounter Details Date Type Department Care Team (Latest Contact Info) Description 01/16/2023 Transcribe Orders Virtual Department 30 [place] [address] Kristina Denise MD [address] [place] [address] Loss of height (Primary Dx) Social History [...] Description 09/22/2025 10:00 AM EST Office Visit [facility] Orthopedics & Sports Medicine [address] [place] [address] Rosa Elena Jacome MD [address] [place] [address] Orthopedics & Sports [place], [place] [address] documented as of this encounter Results * BD DXA SPINE AND HIP WITH FOREARM (06/03/2024 3:40 PM EDT) Anatomical Region Laterality Modality Bone Density Bone Density 06/03/2024 3:36 PM EDT Impressions 06/07/2024 7:59 AM EDT Interpretation: Osteoporosis. Narrative 06/07/2024 7:59 AM EDT Referred By: KRISTINA DENISE Scanner: [employer] with serial# of [id number] located at [facility] Bone Density Scan (DXA) 06/03/24 Details of [...] -2.5), or Osteoporosis (T-score <= -2.5). At [facility], T-scores are compared to peak bone density [...] - 06/07/2024 Referred By: KRISTINA DENISE Scanner: [employer] with serial# of [id number] located at [facility] Bone Density Scan (DXA) 06/03/24 Details of prior DXA scans are available by clicking View Image BMD T- Z- Skeletal Site gm/cm2 score score BMD Change Since Prior Scan ------ ----- PA Spine (L1 L2 L3) 1.020 0.00 2.80 -0.147 (-12.6%)* since07/11/2021 Total Hip (Left) 0.672 -2.20 0.10 -0.108 [...] -2.5), or Osteoporosis (T-score <= -2.5). At [facility], T-scores are compared to peak bone density [...] 07:59:10 IMPRESSION: Interpretation: Osteoporosis. Kristina Denise MD IM BD BONE DENSITY DEXA Final [...] documented as of this encounter Care Teams Fire Investigation Manager Relationship Specialty Start Date End Date Colt Steele DANIELLE [address] [place] [address] PCP - General Family Medicine 10/22/22 JonShay MD [address] [address] & [address] [place] [address] [email or web address] Historical LMR Provider 09/02/17 Jaiden Esparza DO [address] [place] [address] Orthopedics & Sports [place], [place] [address] Historical LMR Provider 09/02/17 Larisa Navarro MD [address] [place] [address] Historical LMR Provider 09/02/17 Rao Arzate DO [address] [place] [address] Insurance Assigned Provider 02/21/24 11/22/24 Rocco Alvarenga DO 22 [place] [address] Geriatric Medicine 05/23/25 documented as of this encounter Additional Source Comments The information contained in this document represents components of the legal health record. It is not the complete legal health record.[facility]
--- OUTSIDE RECORDS SUMMARY | 2025-09-21 17:35 | XMS_ITS | Encounter Summary ---
Author Organization [facility] Address [address] [place] [address] Phone Care Team Providers Care Procurement Professional Name Role Phone Shay Webb MD Unavailable [phone] Jaiden Esparza DO Unavailable [phone] Larisa Navarro MD Unavailable [phone] Colt Steele [facility] Primary Care Provider [phone] Rao Arzate DO Unavailable Rocco Alvarenga DO Unavailable Encounter Details Date Type Department Care Team (Late st Contact Info) Description 03/04/2024 Procedure Pass [facility], Ct Scan - [address] [address] Social History Tobacco Use Types Packs/Day Years [...] high school, GED, job training, learning the Kittitian language, technical skills, or developing parenting skills)? [...] Description 09/22/2025 10:00 AM EST Office Visit [facility] Orthopedics & Sports Medicine [address] [place] [address] Rosa Elena Jacome MD [address] [place] [address] Orthopedics & Sports [place], [place] [address] documented as of this encounter Visit Diagnoses Not on filedocumented in this encounter Additional Health Concerns Assessment Noted Time PHQ-2 Depression Total Score: 0 04/19/20 12:42 PM EDT documented as of this encounter Care Teams Procurement Professional Relationship Specialty Start Date End Date Colt Steele CNP [address] [place] [address] [email or web address] PCP - General Family Medicine 10/22/22 Shay Webb MD [address] [address] [email or web address] Historical LMR Provider 09/02/17 Jaiden Esparza DO [address] [place] [address] Orthoped[facility] & Sports [place], [place] [address] Historical LMR Provider 09/02/17 Larisa Navarro MD [address] [place] [address] Historical LMR Provider 09/02/17 Rao Arzate DO [address] [place] [address] [email or web address] Insurance Assigned Provider 02/21/24 11/22/24 Rocco Alvarenga DO [address] [place] [address] [email or web address] Geriatric Medicine 05/23/25 documented as of this encounter Additional Source Comments The information contained in this document represents components of the legal health record. It is not the complete legal health record.[facility]
--- OUTSIDE RECORDS SUMMARY | 2025-09-21 17:35 | XMS_ITS | Encounter Summary ---
Author Organization [facility] Address [address] [place] [address] Phone Care Team Providers Care Thermostatic Controls Supervisor Name Role Phone Shay Webb MD Unavailable [phone] Jaiden Esparza DO Unavailable [phone] Larisa Navarro MD Unavailable [phone] Colt Steele [facility] Primary Care Provider [phone] Rao Arzate DO Unavailable Rocco Alvarenga DO Unavailable Encounter Details Date Type Department Care Team (Late st Contact Info) Description 01/05/2024 Procedure Pass [facility], Ct Scan - [address] [address] Social History Tobacco Use Types Packs/Day Years [...] high school, GED, job training, learning the Mauritanian language, technical skills, or developing parenting skills)? [...] 7:12 PM EST Nerissa Castillo RN * [place] Suicide Severity Rating Scale (Screener/Recent Self-Report) Question Answer Date of Assessment Author 1. Wish to be (Past 1 Month) No 01/05/2024 7:12 PM EST Nerissa Arriaga RN 2. Non-Specific Active Suicidal Thoughts (Past 1 Month) No 01/05/2024 7:12 PM EST Nerissa Arriaga RN 6. Suicidal Behavior (Lifetime) No 01/05/2024 7:12 PM EST Nerissa Arriaga RN documented as of this encounter Plan of Treatment Upcoming Encounters Date Type Department Care Team (Late st Contact Info) Description 09/22/2025 10:00 AM EST Office Visit [facility] Orthopedics & Sports Medicine [address] [place] [address] Rosa Elena Jacome MD [address] [place] [address] Orthopedics & Sports Medicine, [facility] [place] [address] documented as of this encounter Visit Diagnoses Not on filedocumented in this encounter Additional Health Concerns Assessment Noted Time PHQ-2 Depression Total Score: 0 04/19/20 22 12:42 PM EDT documented as of this encounter Care Teams Thermostatic Controls Supervisor Relationship Specialty Start Date End Date Colt Steele CNP 29 [facility] [place] [address] PCP - General Family Medicine 10/22/22 JonShay MD 264 [facility] [address] [place] [address] [email or web address] Historical LMR Provider 09/02/17 Jaiden Esparza DO [address] [place] [address] Orthoped[facility] Sports [facility], [place] [address] [email or web address] Historical LMR Provider 09/02/17 Larisa Navarro MD [address] [place] [address] Historical LMR Provider 09/02/17 Rao Arzate DO [address] [place] [address] [email or web address] Insurance Assigned Provider 02/21/24 11/22/24 Rocco Alvarenga DO [address] [place] [address] [email or web address] Geriatric Medicine 05/23/25 documented as of this encounter Additional Source Comments The information contained in this document represents components of the legal health record. It is not the complete legal health record.[facility]
--- OUTSIDE RECORDS SUMMARY | 2025-09-21 17:35 | XMS_ITS | Encounter Summary ---
Author Organization [facility] Address [address] [place] [address] Phone Care Team Providers Care System Auditor Name Role Phone Shay Webb MD Primary Care Provider Stanley Castro MD Unavailable Shay Webb MD Unavailable [phone] Jaiden Esparza DO Unavailable [phone] Larisa Navarro MD Unavailable [phone] Oziel Archibald MD Unavailable [phone] Larisa Treviño MD Primary Care Provid er Janny Zavala MD Primary Care Provider Colt Steele CNP Primary Care Provider [phone] Rao Arzate DO Unavailable Rocco Alvarenga DO Unavailable Encounter Details Date Type Department Care Team (Latest Contact Info) Description 07/13/2018 Transcribe Orders [address] [place], [place] [phone] Shay Webb MD [address] [place] [address] [address] [place] [address] [email or web address] Routine general medical examination [...] Description 09/22/2025 10:00 AM EST Office Visit [facility] Orthopedics & Sports Medicine [address] [place] [address] Rosa Elena Jacome MD [address] [place] [address] Orthopedics & Sports Medicine, [facility] [place] [address] [email or web address] documented as of this encounter Results * (ABNORMAL) CBC and differential (07/13/2018 8:42 AM EDT) WBC 4.94 3.40 - 11.20 K/uL [facility] RBC 4.62 3.80 - 4.80 M/uL [facility] HGB 13.9 12.0 - 15.0 g/dL [facility] HCT 40.2 36.0 - 46.0 % [facility] PLT 282 130 - 400 K/uL [facility] MCV 87.0 79.0 - 98.0 fL [facility] MCH 30.1 27.0 - 34.8 pg [facility] MCHC 34.6 31.5 - 36.0 g/dL [facility] RDW 12.6 10.8 - 14.6 % [facility] MPV 8.6(L) 9.4 - 12.4 fl [facility] NRBC 0.00 /100 WBCs [facility] ABSOLUTE NRBC 0.00 K/uL [facility] DIFF METHOD Auto [facility] NEUTS 53.7 45.30 - 77.70 % [facility] LYMPHS 34.2 12.30 - 39.70 % [facility] MONOS 8.7 4.10 - 12.80 % [facility] EOS 2.4 0 - 7.2 % [facility] BASOS 0.8 0 - 2.80 % [facility] Granulocytes, immature (%) 0.2 0.0 - 0.9 % [facility] ABSOLUTE NEUTS 2.65 1.40 - 7.70 K/uL [facility] ABSOLUTE LYMPHS 1.69 0.60 - 3.20 K/uL [facility] ABSOLUTE MONOS 0.43 0.11 - 0.59 K/uL [facility] ABSOLUTE EOS 0.12 0.01 - 0.50 K/uL [facility] ABSOLUTE BASOS 0.04 0.00 - 0.08 K/uL [facility] Granulocytes, immature 0.01 0.00 - 0.05 K/uL [facility] Blood 07/13/2018 8:42 AM EDT 07/13/2018 8:47 AM EDT Shay Webb MD LAB BLOOD BKR ORDERABLES Final Result [address] [address] * TSH with reflex (07/13/2018 8:42 AM EDT) TSH 1.20 0.27 - 4.20 uIU/mL [facility] Blood 07/13/2018 8:42 AM EDT 07/13/2018 8:47 AM EDT Shay Webb MD LAB BLOOD BKR ORDERABLES Final Result [address] [address] * (ABNORMAL) Lipid panel (07/13/2018 8:42 AM EDT) HDL 114 mg/dL [facility] Comment: Interpretation: Risk Level Females Decreased >55mg/dL Average 50-55 mg/dL Increased <50 mg/dL CHOLESTEROL 207 0 - 240 mg/dL [facility] TRIGLYCERIDES 85 30 - 160 mg/dL [facility] LDL 76 50 - 129 mg/dL [facility] Comment: LDL levels in terms of risk for coronary heart disease: <100 mg/dL: Optimal 100-129 mg/dL: Near or above optimal 130-159 mg/dL: Borderline high 160-189 mg/dL: High >190 mg/dL: Very High CARDIAC RISK RATIO 1.8(L) 3.3 - 4.4 [facility] Blood 07/13/2018 8:42 AM EDT 07/13/2018 8:47 AM EDT Shay Webb MD LAB BLOOD BKR ORDERABLES Final Result [facility] [address] [place] [address] * (ABNORMAL) Comprehensive metabolic panel (07/13/2018 8:42 AM EDT) SODIUM 130(L) 133 - 146 mmol/L [facility] POTASSIUM 4.5 3.3 - 5.1 mmol/L [facility] CHLORIDE 94(L) 96 - 108 mmol/L [facility] CO2 22 21 - 35 mmol/L [facility] BUN 18 6 - 19 mg/dL [facility] CREATININE 0.60 0.5 - 1.5 mg/dL [facility] GLUCOSE 100(H) 70 - 99 mg/dL [facility] ALBUMIN 3.7(L) 3.9 - 4.8 g/dL [facility] TOTAL PROTEIN 6.7 6.5 - 8.0 g/dL [facility] CALCIUM 9.0 8.4 - 10.3 mg/dL [facility] ALKALINE PHOSPHATASE 70 39 - 117 U/L [facility] TOTAL BILIRUBIN 0.4 0.0 - 1.2 mg/dL [facility] AST 21 0 - 37 U/L [facility] ALT 17 0 - 40 U/L [facility] GLOBULIN 3.0 1 - 4.8 g/dL [facility] EGFR 86 >59 mL/min/1.7 3m2 [facility] Comment:If patient is black, multiply result by 1.159. Estimated glomerular filtration rate calculated using the CKD-EPI equation. ANION GAP 19 10 - 20 mmol/L [facility] Blood 07/13/2018 8:42 AM EDT 07/13/2018 8:47 AM EDT us Shay Webb MD LAB BLOOD BKR ORDERABLES Final Result Performing Organization Address City/State/[facility] Co de Phone Number [facility] [address] [place] [address] documented in this encounter Visit Diagnoses Diagnosis [...] documented as of this encounter Care Teams System Auditor Relationship Specialty Start Date End Date Shay Webb MD [address] [place] [address] [address] [place] [address] [email or web address] PCP - General 05/17/14 03/25/22 Larisa Treviño MD [address] [place] [address] [email or web address] PCP - General Family Medicine 03/26/22 09/19/22 Janny Zavala MD [address] [address] [email or web address] PCP - General Family Medicine 10/03/22 10/21/22 Colt Steele CNP [address] [place] [address] [email or web address] PCP - General Family Medicine 10/22/22 Stanley Castro MD 22 [place] [address] [email or web address] Historical LMR Provider 09/02/17 11/24/21 Shay Webb MD 264 [facility] [address] [place] [address] [email or web address] Historical LMR Provider 09/02/17 Jaiden Esparza DO [address] [place] [address] Orthopedics & Sports Medicine, [place] [address] [email or web address] Historical LMR Provider 09/02/17 Larisa Navarro MD [address] [place] [address] Historical LMR Provider 09/02/17 Oziel Archibald MD [address] [place] [address] Historical LMR Provider 09/02/17 2 Rao Arzate DO 29 [facility] [place] [address] [email or web address] Insurance Assigned Provider 02/21/24 11/22/24 Rocco Alvarenga DO [address] [place] [address] [email or web address] Geriatric Medicine 05/23/25 documented as of this encounter Additional Source Comments The information contained in this document represents components of the legal health record. It is not the complete legal health record.[facility]
--- OUTSIDE RECORDS SUMMARY | 2025-09-21 17:35 | XMS_ITS | Encounter Summary ---
Author Organization [facility] Address [address] [place] [address] Phone Care Team Providers Care Numerical Control Machine Machinist Name Role Phone Shay Webb MD Primary Care Provider Stanley Castro MD Unavailable Shay Webb MD Unavailable [phone] Jaiden Esparza DO Unavailable Larisa Navarro MD Unavailable [phone] Oziel Archibald MD Unavailable [phone] Larisa Treviño MD Primary Care Provid er Janny Zavala MD Primary Care Provider Colt Steele CNP Primary Care Provider [phone] Rao Arzate DO Unavailable Rocco Alvarenga DO Unavailable Encounter Details Date Type Department Care Team (Latest Contact Info) Description 01/08/2018 Transcribe Orders [address] [address] Shay Webb MD [address] [place] [address] 10 & 12 [place] [address] [email or web address] Dyspnea, unspecified type (Primary Dx); Routine general [...] Visit [facility] Orthopedics & Sports Medicine [address] [place] [address] Rosa Elena Jacome MD [address] [place] [address] Orthopedics & Sports Medicine, [facility] [place] [address] documented as of this encounter Results * Magnesium (01/08/2018 2:09 PM EST) MAGNESIUM 1.9 1.6 - 2.6 mg/dL [facility] Blood 01/08/2018 2:09 PM EST 01/08/2018 2:14 PM EST us Shay Webb MD LAB BLOOD BKR ORDERABLES Final Result [facility] [address] [place] [address] * (ABNORMAL) CBC and differential (01/08/2018 2:09 PM EST) WBC 7.39 3.40 - 11.20 K/uL [facility] RBC 4.66 3.80 - 4.80 M/uL [facility] HGB 13.9 12.0 - 15.0 g/dL [facility] HCT 41.3 36.0 - 46.0 % [facility] PLT 325 130 - 400 K/uL [facility] MCV 88.6 79.0 - 98.0 fL [facility] MCH 29.8 27.0 - 34.8 pg [facility] MCHC 33.7 31.5 - 36.0 g/dL [facility] RDW 12.7 10.8 - 14.6 % [facility] MPV 8.9(L) 9.4 - 12.4 fl [facility] NRBC 0.00 /100 WBCs [facility] ABSOLUTE NRBC 0.00 K/uL [facility] DIFF METHOD Auto [facility] NEUTS 65.8 45.30 - 77.70 % [facility] LYMPHS 25.2 12.30 - 39.70 % [facility] MONOS 7.0 4.10 - 12.80 % [facility] EOS 0.9 0 - 7.2 % [facility] BASOS 0.7 0 - 2.80 % [facility] Granulocytes, immature (%) 0.4 0.0 - 0.9 % [facility] ABSOLUTE NEUTS 4.86 1.40 - 7.70 K/uL [facility] ABSOLUTE LYMPHS 1.86 0.60 - 3.20 K/uL [facility] ABSOLUTE MONOS 0.52 0.11 - 0.59 K/uL [facility] ABSOLUTE EOS 0.07 0.01 - 0.50 K/uL [facility] ABSOLUTE BASOS 0.05 0.00 - 0.08 K/uL [facility] Granulocytes, immature 0.03 0.00 - 0.05 K/uL [facility] Blood 01/08/2018 2:09 PM EST 01/08/2018 2:14 PM EST us Shay Webb MD LAB BLOOD BKR ORDERABLES Final Result [facility] [address] [place] [address] * TSH with reflex (01/08/2018 2:09 PM EST) TSH 0.54 0.27 - 4.20 uIU/mL [facility] Blood 01/08/2018 2:09 PM EST 01/08/2018 2:14 PM EST Shay Webb MD LAB BLOOD BKR ORDERABLES Final Result Performing Organization Address City/State/[facility] Co de Phone Number [address] [address] * (ABNORMAL) Comprehensive metabolic panel (01/08/2018 2:09 PM EST) SODIUM 134 133 - 146 mmol/L [facility] POTASSIUM 4.5 3.3 - 5.1 mmol/L [facility] CHLORIDE 95(L) 96 - 108 mmol/L [facility] CO2 27 21 - 35 mmol/L [facility] BUN 18 6 - 19 mg/dL [facility] CREATININE 0.50 0.5 - 1.5 mg/dL [facility] GLUCOSE 87 70 - 99 mg/dL [facility] ALBUMIN 4.2 3.9 - 4.8 g/dL [facility] TOTAL PROTEIN 6.9 6.5 - 8.0 g/dL [facility] CALCIUM 8.9 8.4 - 10.3 mg/dL [facility] ALKALINE PHOSPHATASE 60 39 - 117 U/L [facility] TOTAL BILIRUBIN 0.5 0 - 1.2 mg/dL [facility] AST 22 0 - 37 U/L [facility] ALT 21 0 - 40 U/L [facility] GLOBULIN 2.7 1 - 4.8 g/dL [facility] EGFR >60 mL/min/1.7 3m2 [facility] Comment:Abnormal if <60. If patient is -Dutch, multiply the result by 1.21. ANION GAP 17 10 - 20 mmol/L [facility] Blood 01/08/2018 2:09 PM EST 01/08/2018 2:14 PM EST Shay Webb MD LAB BLOOD BKR ORDERABLES Final Result [facility] [address] [place] [address] documented in this encounter Visit Diagnoses Diagnosis [...] documented as of this encounter Care Teams Numerical Control Machine Machinist Relationship Specialty Start Date End Date Jon, Shay Garcia MD [address] [place] [address] 10 & [address] [place] [address] [email or web address] PCP - General 05/17/14 03/25/22 Larisa Treviño MD [address] [place] [address] [email or web address] PCP - General Family Medicine 03/26/22 09/19/22 Janny Zavala MD [address] [place] [address] [email or web address] PCP - General Family Medicine 10/03/22 10/21/22 Colt Steele CNP 29 [facility] [place] [address] PCP - General Family Medicine 10/22/22 Stanley Castro MD 22 [place] [address] [email or web address] Historical LMR Provider 09/02/17 11/24/21 Shay Webb MD 264 [facility] 10 & [address] [place] [address] [email or web address] Historical LMR Provider 09/02/17 Jaiden Esparza DO [address] [place] [address] Orthopedics & Sports Medicine, [place] [address] [email or web address] Historical LMR Provider 09/02/17 Larisa Navarro MD [address] [place] [address] Historical LMR Provider 09/02/17 Oziel Archibald MD 22 [place] [address] Historical LMR Provider 09/02/17 2 Rao Arzate DO 29 [place] [address] [email or web address] Insurance Assigned Provider 02/21/24 11/22/24 Rocco Alvarenga DO 22 [place] [address] [email or web address] Geriatric Medicine 05/23/25 documented as of this encounter Additional Source Comments The information contained in this document represents components of the legal health record. It is not the complete legal health record.[facility]
--- OUTSIDE RECORDS SUMMARY | 2025-09-21 17:35 | XMS_ITS | Encounter Summary ---
Author Organization [facility] Address [address] [place] [address] [place] [address] Phone Care Team Providers Care Home School Teacher Name Role Phone Shay Webb MD Primary Care Provider Stanley Castro MD Unavailable Shay Webb MD Unavailable [phone] Jaiden Esparza DO Unavailable Larisa Navarro MD Unavailable [phone] Oziel Archibald MD Unavailable [phone] Larisa Treviño MD Primary Care Provid er Janny Zavala MD Primary Care Provider Colt Steele CNP Primary Care Provider [phone] Rao Arzate DO Unavailable Rocco Alvarenga DO Unavailable Encounter Details Date Type Department Care Team (Late st Contact Info) Description 01/16/2018 Ancillary Orders Virtual Department [address] [place] [address] Shay Webb MD 264 [facility] [address] [place] [address] [email or web address] Cardiomegaly Social History Tobacco Use Types Packs/Day [...] Description 09/22/2025 10:00 AM EST Office Visit [facility] Orthopedics & Sports Medicine [address] [place] [address] Rosa Elena Jacome MD [address] [place] [address] Orthopedics & Sports Medicine, [facility] [place] [address] documented as of this encounter Results * [...] Comparison Findings No prior studies for comparison. us Shay Webb MD CV ECHO ORDERABLES Final [...] documented as of this encounter Care Teams Home School Teacher Relationship Specialty Start Date End Date Shay [place] MD [address] [place] [address] & [address] [place] [address] [email or web address] PCP - General 05/17/14 03/25/22 Larisa Treviño MD [address] [place] [address] [email or web address] PCP - General Family Medicine 03/26/22 09/19/22 Janny Zavala MD [address] [place] [address] [email or web address] PCP - General Family Medicine 10/03/22 10/21/22 Colt Steele CNP 29 [facility] [place] [address] [email or web address] PCP - General Family Medicine 10/22/22 Stanley Castro MD 22 [place] [address] [email or web address] Historical LMR Provider 09/02/17 11/24/21 Shya [place] MD [address] [place] [address] & [address] [place] [address] [email or web address] Historical LMR Provider 09/02/17 Jaiden Esparza DO [address] [place] [address] Orthopedics & Sports Medicine, [facility] [place] [address] Historical LMR Provider 09/02/17 Larisa Navarro MD [address] [address] Historical LMR Provider 09/02/17 Oziel Archibald MD 22 [place] [address] Historical LMR Provider 09/02/17 2 Rao Arzate DO 29 [place] [address] Insurance Assigned Provider 02/21/24 11/22/24 Rocco Alvarenga DO 22 [place] [address] Geriatric Medicine 05/23/25 documented as of this encounter Additional Source Comments The information contained in this document represents components of the legal health record. It is not the complete legal health record.[facility]
--- OUTSIDE RECORDS SUMMARY | 2025-09-21 17:35 | XMS_ITS | Encounter Summary ---
Author Organization [facility] Address [address] [place] [address] Phone Care Team Providers Care Land Developer Name Role Phone Shay Webb MD Unavailable Jaiden Esparza DO Unavailable Larisa Navarro MD Unavailable [phone] Colt Steele [facility] Primary Care Provider [phone] Rao Arzate DO Unavailable Rocco Alvarenga DO Unavailable [phone] Encounter Details Date Type Department Care Team (Late st Contact Info) Description 03/20/2023 Procedure Pass [facility], [address] [address] Social History Tobacco Use Types Packs/Day Years [...] high school, GED, job training, learning the Faroese language, technical skills, or developing parenting skills)? [...] 10:00 AM EST Office Visit [facility] Orthopedics & Sports Medicine [address] [place] [address] Rosa Elena Jacome MD [address] [place] [address] Orthopedics & Sports Medicine, [facility] [place] [address] documented as of this encounter Visit Diagnoses Not on filedocumented in this encounter Additional Health Concerns Infection Onset Date Last Indicated Resolved Time CoV-Risk 07/18/2023 07/18/2023 07/29/2023 1:22 AM EDT CoV-Risk 10/06/2023 10/06/2023 10/17/2023 1:22 AM EST Assessment Noted Time PHQ-2 Depression Total Score: 0 04/19/20 12:42 PM EDT documented as of this encounter Care Teams Land Developer Relationship Specialty Start Date End Date Colt Steele CNP 29 [place] [address] PCP - General Family Medicine 10/22/22 Jon, Shay Garcia MD [address] [place] [address] & [address] [place] [address] [email or web address] Historical LMR Provider 09/02/17 Jaiden Esparza DO [address] [place] [address] Orthopedics & Sports Medicine, [place] [address] Historical LMR Provider 09/02/17 Larisa Navarro MD [address] [place] [address] Historical LMR Provider 09/02/17 Rao Arzate DO 29 [place] [address] Insurance Assigned Provider 02/21/24 11/22/24 Rocco Alvarenga DO [address] [place] [address] Geriatric Medicine 05/23/25 documented as of this encounter Additional Source Comments The information contained in this document represents components of the legal health record. It is not the complete legal health record.[facility]
--- OUTSIDE RECORDS SUMMARY | 2025-09-21 17:35 | XMS_ITS | Encounter Summary ---
Author Organization [facility] Address [address] [place] [address] Phone Care Team Providers Care Rhinologist Name Role Phone Shay Webb MD Primary Care Provider Stanley Castro MD Unavailable Shay Webb MD Unavailable [phone] Jaiden Esparza DO Unavailable [phone] Larisa Navarro MD Unavailable [phone] Oziel Archibald MD Unavailable [phone] Larisa Treviño MD Primary Care Provid er Janny Zavala MD Primary Care Provider Colt Steele CNP Primary Care Provider [phone] Rao Arzate DO Unavailable Rocco Alvarenga DO Unavailable Encounter Details Date Type Department Care Team (Late st Contact Info) Description 12/16/2017 Ancillary Orders Virtual Department 30 [place] [address] Oralia Kaur MD [address] [place] [address] Urgency of urination; Frequency of urination; Acquired [...] [facility] Orthopedics & Sports Medicine [address] [place] [address] Rosa Elena Jacome MD [address] [place] [address] Orthopedics & Sports Medicine, [place] [address] [email or web address] documented as of this encounter Results * [...] 72%. POS - [id number] Oralia Kaur MD [facility] US RENAL Final Resu lt documented in this [...] 12/13/2020 12/18/2020 10:54 AM EST CoV-Risk 07/18/2023 07/18/202307/2907/29/2023 1:22 AM EDT CoV-Risk 10/06/2023 10/06/2023 10/17/2023 1:22 AM EST documented as of this encounter Care Teams Rhinologist Relationship Specialty Start Date End Date Shay [place] MD [address] [place] [address] & [address] [place] [address] [email or web address] PCP - General 05/17/14 03/25/22 Larisa Treviño MD [address] [place] [address] [email or web address] PCP - General Family Medicine 03/26/22 09/19/22 Janny Zavala MD [address] [place] [email or web address] PCP - General Family Medicine 10/03/22 10/21/22 Colt Steele [facility] [address] [place] [address] [place] [address] [email or web address] PCP - General Family Medicine 10/22/22 Stanley Castro MD [address] [place] [address] [email or web address] Historical LMR Provider 09/02/17 11/24/21 Shay [place] MD [address] [place] [address] & [address] [place] [address] [email or web address] Historical LMR Provider 09/02/17 Jaiden Esparza DO [address] [place] [address] Orthopedics & Sports Medicine, [place] [address] Historical LMR Provider 09/02/17 Larisa Navarro MD [address] [place] [address] Historical LMR Provider 09/02/17 Oziel Archibald MD 22 [place] [address] Historical LMR Provider 09/02/17 2 Rao Arzate DO 29 [place] [address] [email or web address] Insurance Assigned Provider 02/21/24 11/22/24 Rocco Alvarenga DO 22 [place] [address] Geriatric Medicine 05/23/25 documented as of this encounter Additional Source Comments The information contained in this document represents components of the legal health record. It is not the complete legal health record.[facility]
--- OUTSIDE RECORDS SUMMARY | 2025-09-21 17:35 | XMS_ITS | Encounter Summary ---
Author Organization [facility] Address [address] [place] [address] [place] [address] Phone Care Team Providers Care Line Staker Name Role Phone Shay Webb MD Primary Care Provider Stanley Castro MD Unavailable Shay Webb MD Unavailable [phone] Jaiden Esparza DO Unavailable Larisa Navarro MD Unavailable [phone] Oziel Archibald MD Unavailable [phone] Larisa Treviño MD Primary Care Provid er Janny Zavala MD Primary Care Provider Colt Steele CNP Primary Care Provider [phone] Rao Arzate DO Unavailable Rocco Alvarenga DO Unavailable Encounter Details Date Type Department Care Team (Latest Contact Info) Description 09/22/2020 Transcribe Orders Virtual Department [address] [place] [address] Shay Webb MD 264 [facility] [address] [place] [address] [email or web address] Low back pain, unspecified back pain [...] Description 09/22/2025 10:00 AM EST Office Visit [facility] Orthopedics & Sports Medicine [address] [place] [address] Rosa Elena Jacome MD [address] [place] [address] Orthopedics & Sports Medicine, [place] [address] [email or web address] documented as of this encounter Results * [...] upper quadrant cholecystectomy clips. Procedure Note Daniel Balderas MD - 09/26/2020 HISTORY: As above. COMPARISON: [...] documented as of this encounter Care Teams Line Staker Relationship Specialty Start Date End Date Jon, Shay Garcia MD [address] [place] [address] & [address] [place] [address] [email or web address] PCP - General 05/17/14 03/25/22 Larisa Treviño MD [address] [address] [email or web address] PCP - General Family Medicine 03/26/22 09/19/22 Janny Zavala MD [address] [address] [email or web address] PCP - General Family Medicine 10/03/22 10/21/22 Colt Steele CNP 29 [facility] [place] [address] [email or web address] PCP - General Family Medicine 10/22/22 Stanley Castro MD [address] [place] [address] [email or web address] Historical LMR Provider 09/02/17 11/24/21 Shay [place] MD [address] [place] [address] 10 & [address] [place] [address] [email or web address] Historical LMR Provider 09/02/17 Jaiden Esparza DO [address] [place] [address] Orthopedics & Sports Medicine, [place] [address] [email or web address] Historical LMR Provider 09/02/17 Larisa Navarro MD [address] [place] [address] Historical LMR Provider 09/02/17 Oziel Acrhibald MD 22 [place] [address] Historical LMR Provider 09/02/17 2 Rao Arzate DO [address] [place] [address] [email or web address] Insurance Assigned Provider 02/21/24 11/22/24 Rocco Alvarenga DO [address] [place] [address] Geriatric Medicine 05/23/25 documented as of this encounter Additional Source Comments The information contained in this document represents components of the legal health record. It is not the complete legal health record.[facility]
--- OUTSIDE RECORDS SUMMARY | 2025-09-21 17:35 | XMS_ITS | Encounter Summary ---
Author Organization [facility] Address [address] [place] [address] Phone Care Team Providers Care Reimbursement Representative Name Role Phone Shay Webb MD Primary Care Provider Stanley Castro MD Unavailable Shay Webb MD Unavailable [phone] Jaiden Esparza DO Unavailable Lraisa Navarro MD Unavailable [phone] Oziel Archibald MD Unavailable [phone] Larisa Treviño MD Primary Care Provid er Janny Zavala MD Primary Care Provider Colt Steele CNP Primary Care Provider [phone] Rao Arzate DO Unavailable Rocco Alvarenga DO Unavailable Encounter Details Date Type Department Care Team (Late st Contact Info) Description 01/09/2018 Procedure Pass [facility], Ct Scan - [address] [id number] Social History Tobacco Use Types Packs/Day Years [...] Description 09/22/2025 10:00 AM EST Office Visit [facility] Orthopedics & Sports Medicine [address] [place] [address] Rosa Elena Jacome MD [address] [place] [address] Orthopedics & Sports Medicine, [facility] [place] [address] [email or web address] documented as of this encounter Visit Diagnoses Not on filedocumented in this encounter Additional Health Concerns Infection Onset Date Last Indicated Resolved Time CoV-Exposed Comment:Recent close contact documented in the COVID-19 PCR/PRO order Pt denied exposure 12/13/2020 12/13/2020 12/18/2020 10:54 AM EST CoV-Risk 07/18/2023 07/18/2023 07/29/2023 1:22 AM EDT CoV-Risk 10/06/2023 10/06/2023 10/17/2023 1:22 AM EST documented as of this encounter Care Teams Reimbursement Representative Relationship Specialty Start Date End Date Shay [place] MD [address] [place] [address] 10 & [address] [place] [address] [email or web address] PCP - General 05/17/14 03/25/22 Larisa Treviño MD [address] [address] [email or web address] PCP - General Family Medicine 03/26/22 09/19/22 aJnny Zavala MD [address] [address] [email or web address] PCP - General Family Medicine 10/03/22 10/21/22 Colt Steele, DANIELLE 29 [facility] [place] [address] [email or web address] PCP - General Family Medicine 10/22/22 Stanley Castro MD 22 [place] [address] [email or web address] Historical LMR Provider 09/02/17 11/24/21 Shay Webb MD 264 [facility] [address] [place] [address] [email or web address] Historical LMR Provider 09/02/17 Jaiden Esparza DO [address] [place] [address] Orthopedics & Sports Medicine, [facility] [place] [address] [email or web address] Historical LMR Provider 09/02/17 Larisa Navarro MD [address] [place] [address] Historical LMR Provider 09/02/17 Oziel Archibald MD 22 [place] [address] Historical LMR Provider 09/02/17 2 Rao Arzate DO 29 [place] [address] [email or web address] Insurance Assigned Provider 02/21/24 11/22/24 Rocco Alvarenga DO [address] [place] [address] [email or web address] Geriatric Medicine 05/23/25 documented as of this encounter Additional Source Comments The information contained in this document represents components of the legal health record. It is not the complete legal health record.[facility]
--- OUTSIDE RECORDS SUMMARY | 2025-09-21 17:35 | XMS_ITS | Encounter Summary ---
Author Organization [facility] Address [address] [place] [address] Phone Care Team Providers Care Training Generalist Name Role Phone Shay Webb MD Primary Care Provider Stanley Castro MD Unavailable Shay Webb MD Unavailable [phone] Jaiden Esparza DO Unavailable [phone] Larisa Navarro MD Unavailable [phone] Oziel Archibald MD Unavailable [phone] Larisa Treviño MD Primary Care Provid er Janny Zavala MD Primary Care Provider Colt Steele CNP Primary Care Provider [phone] Rao Arzate DO Unavailable Rocco Alvarenga DO Unavailable Encounter Details Date Type Department Care Team (Late st Contact Info) Description 08/24/2021 Procedure Pass [facility], [address] [id number] Social History Tobacco Use Types Packs/Day Years [...] Description 09/22/2025 10:00 AM EST Office Visit [facility] Orthopedics & Sports Medicine [address] [place] [address] Rosa Elena Jacome MD [address] [place] [address] Orthopedics & Sports Medicine, [facility] [address] [email or web address] documented as of this encounter Visit Diagnoses Not on filedocumented in this encounter Additional Health Concerns Infection Onset Date Last Indicated Resolved Time CoV-Risk 07/18/2023 07/18/2023 07/29/2023 1:22 AM EDT CoV-Risk 10/06/2023 10/06/2023 10/17/2023 1:22 AM EST documented as of this encounter Care Teams Training Generalist Relationship Specialty Start Date End Date Shay Webb MD [address] [place] [address] 10 & [address] [place] [address] [email or web address] PCP - General 05/17/14 03/25/22 Larisa Treviño MD [address] [place] [address] [email or web address] PCP - General Family Medicine 03/26/22 09/19/22 Janny Zavala MD [address] [place] [address] [email or web address] PCP - General Family Medicine 10/03/22 10/21/22 Colt Steele CNP [address] [place] [address] [email or web address] PCP - General Family Medicine 10/22/22 Stanley Castro MD 22 [place] [address] [email or web address] Historical LMR Provider 09/02/17 11/24/21 Shay Webb MD [address] [address] & [address] [place] [address] [email or web address] Historical LMR Provider 09/02/17 Jaiden Esparza DO [address] [place] [address] Orthopedics & Sports Medicine, [place] [address] [email or web address] Historical LMR Provider 09/02/17 Larisa Navarro MD [address] [place] [address] Historical LMR Provider 09/02/17 Oziel Archibald MD 22 [place] [address] Historical LMR Provider 09/02/17 2 Rao Arzate DO [address] [place] [address] [email or web address] Insurance Assigned Provider 02/21/24 11/22/24 Rocco Alvarenga DO [address] [place] [address] [email or web address] Geriatric Medicine 05/23/25 documented as of this encounter Additional Source Comments The information contained in this document represents components of the legal health record. It is not the complete legal health record.[facility]
--- OUTSIDE RECORDS SUMMARY | 2025-09-21 17:35 | XMS_ITS | Encounter Summary ---
Author Organization [facility] Address [address] [place] [address] Phone Care Team Providers Care Bridge/Structure Inspection Team Leader Name Role Phone Shay Webb MD Unavailable [phone] Jaiden Esparza DO Unavailable Larisa Navarro MD Unavailable [phone] Colt Steele METAL BENDING MACHINE OPERATOR Primary Care Provider [phone] Rocco Alvarenga DO Unavailable [phone] Encounter Details Date Type Department Care Team (Late st Contact Info) Description 02/09/2025 Telephone [employer] [facility] 29 [place], [place] [phone] Colt Steele, METAL BENDING MACHINE OPERATOR 29 [place] [address] [email or web address] Social History Tobacco Use Types [...] Description 09/22/2025 10:00 AM EST Office Visit [facility] Orthopedics & Sports Medicine [address] [place] [address] Rosa Elena Jacome MD [address] [place] [address] Orthopedics & Sports [place], [place] [address] [email or web address] documented as of this encounter Visit Diagnoses Not on filedocumented in this encounter Additional Health Concerns Assessment Noted Time PHQ-2 Depression Total Score: 0 04/19/20 12:42 PM EDT documented as of this encounter Care Teams Bridge/Structure Inspection Team Leader Relationship Specialty Start Date End Date Colt Steele CNP 29 [facility] [place] [address] [email or web address] PCP - General Family Medicine 10/22/22 JonShay MD [address] [address] [email or web address] Historical LMR Provider 09/02/17 Jaiden Esparza DO [address] [place] [address] Orthopedics & Sports [place], [place] [address] Historical LMR Provider 09/02/17 Larisa Navarro MD [address] [place] [address] Historical LMR Provider 09/02/17 Rocco Alvarenga DO 22 [place] [address] [email or web address] Geriatric Medicine 05/23/25 documented as of this encounter Additional Source Comments The information contained in this document represents components of the legal health record. It is not the complete legal health record.[facility]
--- OUTSIDE RECORDS SUMMARY | 2025-09-21 17:35 | XMS_ITS | Encounter Summary ---
Author Organization [facility] Address [address] [place] [address] Phone Care Team Providers Care Ampoule Filler Name Role Phone Shay Webb MD Primary Care Provider Shay Webb MD Unavailable [phone] Jaiden Esparza DO Unavailable [phone] Larisa Navarro MD Unavailable [phone] Larisa Treviño MD Primary Care Provid er Janny Zavala MD Primary Care Provider Colt Steele CNP Primary Care Provider [phone] Rao Arzate DO Unavailable Rocco Alvarenga DO Unavailable [phone] Encounter Details Date Type Department Care Team (Late st Contact Info) Description 01/16/2022 Procedure Pass [facility], [address] [address] Social History Tobacco Use Types Packs/Day Years [...] Description 09/22/2025 10:00 AM EST Office Visit [facility] Orthopedics & Sports Medicine [address] [place] [address] Rosa Elena Jacome MD [address] [place] [address] Orthopedics & Sports Medicine, [place] [address] [email or web address] documented as of this encounter Visit Diagnoses Not on filedocumented in this encounter Additional Health Concerns Infection Onset Date Last Indicated Resolved Time CoV-Risk 07/18/2023 07/18/2023 07/29/2023 1:22 AM EDT CoV-Risk 10/06/2023 10/06/2023 10/17/2023 1:22 AM EST documented as of this encounter Care Teams Ampoule Filler Relationship Specialty Start Date End Date Shay Webb MD [address] [place] [address] 10 & 12 [place] [address] [email or web address] PCP - General 05/17/14 03/25/22 Larisa Treviño MD [address] [address] [email or web address] PCP - General Family Medicine 03/26/22 09/19/22 Janny Zavala MD [address] [address] [email or web address] PCP - General Family Medicine 10/03/22 10/21/22 Cedric Colt WeissDANIELLE [address] [place] [address] PCP - General Family Medicine 10/22/22 Shay Webb MD 264 [facility] [address] [place] [address] [email or web address] Historical LMR Provider 09/02/17 Jaiden Esparza DO [address] [place] [address] Orthopedics & Sports Medicine, [place] [address] Historical LMR Provider 09/02/17 Larisa Navarro MD [address], [place] [address] Historical LMR Provider 09/02/17 Rao Arzate DO 29 [place] [address] Insurance Assigned Provider 02/21/24 11/22/24 Rocco Alvarenga DO 22 [place] [address] Geriatric Medicine 05/23/25 documented as of this encounter Additional Source Comments The information contained in this document represents components of the legal health record. It is not the complete legal health record.[facility]
--- OUTSIDE RECORDS SUMMARY | 2025-09-21 17:35 | XMS_ITS | Encounter Summary ---
Author Organization [facility] Address [address] [place] [address] Phone Care Team Providers Care Water Control Station Engineer Name Role Phone Shay Webb MD Primary Care Provider [phone] Stanley Castro MD Unavailable [phone] Shay Webb MD Unavailable [phone] Jaiden Esparza DO Unavailable Larisa Navarro MD Unavailable [phone] Oziel Archibald MD Unavailable [phone] Larisa Treviño MD Primary Care Provid er Janny Zavala MD Primary Care Provider [phone] Colt Stelee CNP Primary Care Provider [phone] Rao Arzate DO Unavailable Rocco Alvarenga DO Unavailable [phone] Reason for Referral * Physical Therapy (Routine) - Closed Specialty Diagnoses / Procedures Referred By Contac t Referred To Contact Physical Therapy Diagnoses Encounter for rehabilitation Back Procedures Evaluate & Treat Shay Webb MD Phone: tel: fax: [email or web address] [facility] [address] [place] [address] Phone: tel: Referral ID Status Reason Start Date Expiration Date Visits Re quested Visits Authorized [id number] Closed 01/17/2021 03/17/2021 25 25 Encounter Details Date Type Department Care Team (Latest Contact Info) Description 01/16/2021 Transcribe Orders [facility] Rehabilitation Services [address] [place] [address] Shay Webb MD 264 [facility] 10 & 12 [place] [address] [email or web address] Encounter for rehabilitation (Primary Dx) Social History [...] Description 09/22/2025 10:00 AM EST Office Visit [facility] Orthopedics & Sports Medicine [address] [place] [address] Rosa Elena Jacome MD [address] [place] [address] Orthopedics & Sports Medicine, [facility] [place] [address] [email or web address] documented as of this encounter Procedures Procedure Name Priority Date/Time Associated Diagnosis Comments AMB REFERRAL TO [facility] PHYSICAL THERAPY Routine 01/21/2021 8:39 PM EST Encounter for rehabilitation documented in this encounter Results * Ambulatory referral to [facility] Physical Therapy (01/21/2021 8:39 PM EST) Shay Webb MD AMB [facility] REFERRALS Final Result documented in this encounter Visit Diagnoses Diagnosis Encounter for rehabilitation- Primary documented in this encounter Additional Health Concerns Infection Onset Date Last Indicated Resolved Time CoV-Risk 07/18/2023 07/18/2023 07/29/2023 1:22 AM EDT CoV-Risk 10/06/2023 10/06/2023 10/17/2023 1:22 AM EST documented as of this encounter Care Teams Water Control Station Engineer Relationship Specialty Start Date End Date Shay Webb MD 264 [facility] [address] & [address] [place] [address] [email or web address] PCP - General 05/17/14 03/25/22 Larisa Treviño MD [address] [address] [email or web address] PCP - General Family Medicine 03/26/22 09/19/22 Janny Zavala MD [address] [place] [address] [email or web address] PCP - General Family Medicine 10/03/22 10/21/22 Colt Steele CNP 29 [facility] [place] [address] [email or web address] PCP - General Family Medicine 10/22/22 Stanley Castro MD [address] [place] [address] [email or web address] Historical LMR Provider 09/02/17 11/24/21 Shay Webb MD 264 [facility] [address] [place] [address] [email or web address] Historical LMR Provider 09/02/17 Jaiden Esparza DO [address] [place] [address] Orthopedics & Sports [place], [place] [address] Historical LMR Provider 09/02/17 Larisa Navarro MD [address], [place] [address] Historical LMR Provider 09/02/17 Oziel Archibald MD 22 [place] [address] Historical LMR Provider 09/02/17 2 Rao Arzate DO 29 [place] [address] Insurance Assigned Provider 02/21/24 11/22/24 Rocco Alvarenga DO 22 [place] [address] Geriatric Medicine 05/23/25 documented as of this encounter Additional Source Comments The information contained in this document represents components of the legal health record. It is not the complete legal health record.[facility]
--- OUTSIDE RECORDS SUMMARY | 2025-09-21 17:35 | XMS_ITS | Encounter Summary ---
Author Organization [facility] Address [address] [place] [address] Phone Care Team Providers Care Manual Arts Teacher Name Role Phone Shay Webb MD Primary Care Provider [phone] Shay Webb MD Unavailable [phone] Jaiden Esparza DO Unavailable Larisa Navarro MD Unavailable [phone] Larisa Treviño MD Primary Care Provid er Janny Zavala MD Primary Care Provider Colt Steele CNP Primary Care Provider [phone] Rao Arzate DO Unavailable Rocco Alvarenga DO Unavailable [phone] Encounter Details Date Type Department Care Team (Latest Contact Info) Description 01/22/2022 Transcribe Orders Virtual Department 30 [place] [address] Shay Webb MD 264 [facility] [address] [place] [address] [email or web address] Right foot pain (Primary Dx); Metatarsalgia, unspecified [...] Upcoming Encounters Date Type Department Care Team ([facility] st Contact Info) Description 09/22/2025 10:00 AM EST Office Visit [facility] Orthopedics & Sports Medicine [address] [place] [address] Rosa Elena Jacome MD [address] [place] [address] Orthopedics & Sports Medicine, [place] [address] [email or web address] documented as of this encounter Results * [...] documented as of this encounter Care Teams Manual Arts Teacher Relationship Specialty Start Date End Date Jon, Shay Garcia MD [address] [place] [address] & [address] [place] [address] [email or web address] PCP - General 05/17/14 03/25/22 Larisa Treviño MD [address] [place] [address] [email or web address] PCP - General Family Medicine 03/26/22 09/19/22 Janny Zavala MD [address] [place] [email or web address] PCP - General Family Medicine 10/03/22 10/21/22 Colt Steele CNP 29 [place] [address] PCP - General Family Medicine 10/22/22 Shay Webb MD 264 [facility] [address] [place] [address] [email or web address] .[email or web address] Historical LMR Provider 09/02/17 Jaiden Esparza DO [address] [place] [address] Orthopedics & Sports Medicine, [facility] [place] [address] Historical LMR Provider 09/02/17 Larisa Navarro MD [address] [place] [address] Historical LMR Provider 09/02/17 Rao Arzate DO 29 [place] [address] Insurance Assigned Provider 02/21/24 11/22/24 Rocco Alvarenga DO [address] [place] [address] Geriatric Medicine 05/23/25 documented as of this encounter Additional Source Comments The information contained in this document represents components of the legal health record. It is not the complete legal health record.[facility]
--- OUTSIDE RECORDS SUMMARY | 2025-09-21 17:35 | XMS_ITS | Encounter Summary ---
Author Organization [facility] Address [address] [place] [address] [place] [address] Phone Care Team Providers Care Fisheries Inspector Name Role Phone Shay Webb MD Primary Care Provider Stanley Castro MD Unavailable Shay Webb MD Unavailable [phone] Jaiden Esparza DO Unavailable Larisa Navarro MD Unavailable [phone] Oziel Archibald MD Unavailable [phone] Larisa Treviño MD Primary Care Provid er Janny Zavala MD Primary Care Provider Colt Steele CNP Primary Care Provider [phone] Rao Arzate DO Unavailable Rocco Alvarenga DO Unavailable Encounter Details Date Type Department Care Team (Late st Contact Info) Description 12/08/2017 Ancillary Orders Virtual Department 30 [place] [address] Shay Webb MD 264 [facility] [address] [place] [address] [email or web address] Breast screening Social History Tobacco Use [...] Description 09/22/2025 10:00 AM EST Office Visit [facility] Orthopedics & Sports Medicine [address] [place] [address] Rosa Elena Jacome MD [address] [place] [address] Orthopedics & Sports Medicine, [place] [address] [email or web address] documented as of this encounter [...] documented as of this encounter Care Teams Fisheries Inspector Relationship Specialty Start Date End Date Jon, Shay Garcia MD [address] [place] [address] & [address] [place] [address] [email or web address] PCP - General 05/17/14 03/25/22 Larisa Treviño MD [address] [place] [address] [email or web address] PCP - General Family Medicine 03/26/22 09/19/22 Janny Zavala MD [address] [place] [address] [email or web address] PCP - General Family Medicine 10/03/22 10/21/22 Colt Steele CNP 29 [place] [address] [email or web address] PCP - General Family Medicine 10/22/22 Stanley Castro MD 22 [place] [address] [email or web address] Historical LMR Provider 09/02/17 11/24/21 Shay Webb MD [address] [place] [address] 10 & [address] [place] [address] [email or web address] Historical LMR Provider 09/02/17 Jaiden Esparza DO [address] [place] [address] Orthopedics & Sports Medicine, [place] [address] [email or web address] Historical LMR Provider 09/02/17 Larisa Navarro MD [address] [place] [address] Historical LMR Provider 09/02/17 Oziel Archibald MD 22 [place] [address] Historical LMR Provider 09/02/17 2 Rao Arzate DO 29 [place] [address] [email or web address] Insurance Assigned Provider 02/21/24 11/22/24 Rocco Alvarenga DO [address] [place] [address] [email or web address] Geriatric Medicine 05/23/25 documented as of this encounter Additional Source Comments The information contained in this document represents components of the legal health record. It is not the complete legal health record.[facility]
--- OUTSIDE RECORDS SUMMARY | 2025-09-21 17:35 | XMS_ITS | Encounter Summary ---
Author Organization [facility] Address [address] [place] [address] Phone Care Team Providers Care Director Ambulatory Name Role Phone Shay Webb MD Primary Care Provider Stanley Castro MD Unavailable Shay Webb MD Unavailable [phone] Jaiden Esparza DO Unavailable Larisa Navarro MD Unavailable [phone] Oziel Archibald MD Unavailable [phone] Larisa Treviño MD Primary Care Provid er Janny Zavala MD Primary Care Provider Colt Steele CNP Primary Care Provider [phone] Rao Arzate DO Unavailable Rocco Alvarenga DO Unavailable Encounter Details Date Type Department Care Team (Latest Contact Info) Description 01/26/2018 Transcribe Orders [facility] PFT Lab 30 [place] [address] Shay Webb MD [address] [place] [address] 10 [address] [place] [address] [email or web address] MCGRAW (dyspnea on exertion) (Primary Dx) Social [...] Description 09/22/2025 10:00 AM EST Office Visit [facility] Orthopedics & Sports Medicine [address] [place] [address] Rosa Elena Jacome MD [address] [place] [address] Orthopedics & Sports Medicine, [facility] [place] [address] [email or web address] documented as of this encounter Results * Pulmonary Function Test Reason for Exam: Dyspnea/Shortness of Breath; Type of PFT Test: Spirometry with bronchodilator, Spirometry while seated and supine; Performing Location: [facility] (02/06/2018 10:33 AM EDT) FEV1 liters FVC [...] as of this encounter Care Teams Director Ambulatory Relationship Specialty Start Date End Date Jon, Shay Garcia MD [address] [place] [address] 10 [address] [place] [address] [email or web address] PCP - General 05/17/14 03/25/22 Larisa Treviño MD [address] [place] [address] [email or web address] PCP - General Family Medicine 03/26/22 09/19/22 Janny Zavala MD [address] [place] [address] [email or web address] PCP - General Family Medicine 10/03/22 10/21/22 Colt Steele DANIELLE 29 [place] [address] [email or web address] PCP - General Family Medicine 10/22/22 Stanley Castro MD 22 [place] [address] [email or web address] Historical LMR Provider 09/02/17 11/24/21 Shay Webb MD [address] [address] [email or web address] Historical LMR Provider 09/02/17 Jaiden Esparza DO [address] [place] [address] Orthopedics & Sports Medicine, [place] [address] [email or web address] Historical LMR Provider 09/02/17 Larisa Navarro MD [address], [place] [address] Historical LMR Provider 09/02/17 Oziel Archibald MD 22 [place] [address] Historical LMR Provider 09/02/17 2 Rao Arzate DO 29 [place] [address] [email or web address] Insurance Assigned Provider 02/21/24 11/22/24 Rocco Alvarenga DO 22 [place] [address] [email or web address] Geriatric Medicine 05/23/25 documented as of this encounter Additional Source Comments The information contained in this document represents components of the legal health record. It is not the complete legal health record.[facility]
--- OUTSIDE RECORDS SUMMARY | 2025-09-21 17:35 | XMS_ITS | Encounter Summary ---
Author Organization [facility] Address [address] [place] [address] Phone Care Team Providers Care Seed Cleaner Operator Name Role Phone Shay Webb MD Primary Care Provider Stanley Castro MD Unavailable Shay Webb MD Unavailable [phone] Jaiden Esparza DO Unavailable Larisa Navarro MD Unavailable [phone] Oziel Archibald MD Unavailable [phone] Larisa Treviño MD Primary Care Provid er Janny Zavala MD Primary Care Provider Colt Steele [facility] Primary Care Provider Rao Arzate DO Unavailable Rocco Alvarenga DO Unavailable [phone] Reason for Referral * MRI/CAT Scan - Closed Specialty Diagnoses / Procedures Referred By Contac t Referred To Contact Radiology Diagnoses Post-traumatic headache, not intractable, unspecified chronicity pattern Procedures MRI Brain Shay Webb MD Phone: tel: fax: mailto:[email or web address] Referral ID Status Reason Start Date Expiration Date Visits Re quested Visits Authorized [id number] Closed 08/24/2021 08/24/2022 1 1 Encounter Details Date Type Department Care Team (Latest Contact Info) Description 08/24/2021 Transcribe Orders Virtual Department 30 [place] [address] Shay Webb MD 264 [facility] 10 & [address] [place] [address] [email or web address] Left shoulder pain, unspecified chronicity (Primary Dx); [...] Description 09/22/2025 10:00 AM EST Office Visit [facility] Orthopedics & Sports Medicine [address] [place] [address] Rosa Elena Jacome MD [address] [place] [address] Orthopedics & Sports Medicine, [facility] [place] [address] [email or web address] documented as of this encounter Results * [...] left lung is clear. Procedure Note Daniel Balderas MD - 08/24/2021 HISTORY: As above. COMPARISON: [...] documented as of this encounter Care Teams Seed Cleaner Operator Relationship Specialty Start Date End Date Shay Webb MD [address] [place] [address] [address] [place] [address] [email or web address] PCP - General 05/17/14 03/25/22 Larisa Treviño MD [address] [place] [address] [email or web address] PCP - General Family Medicine 03/26/22 09/19/22 Janny Zavala MD [address] [place] [address] [email or web address] PCP - General Family Medicine 10/03/22 10/21/22 Colt Steele CNP [address] [place] [address] [email or web address] PCP - General Family Medicine 10/22/22 Stanley Castro MD 22 [place] [address] [email or web address] Historical LMR Provider 09/02/17 11/24/21 Shay Webb MD [address] [place] [address] & [address] [place] [address] [email or web address] Historical LMR Provider 09/02/17 Jaiden Esparza DO [address] [place] [address] Orthopedics & Sports Medicine, [place] [address] [email or web address] Historical LMR Provider 09/02/17 Larisa Navarro MD [facility] [place] [address] Historical LMR Provider 09/02/17 Oziel Archibald MD 22 [place] [address] Historical LMR Provider 09/02/17 2 Rao Arzate DO [address] [place] [address] [email or web address] Insurance Assigned Provider 02/21/24 11/22/24 Rocco Alvarenga DO [address] [place] [address] [email or web address] Geriatric Medicine 05/23/25 documented as of this encounter Additional Source Comments The information contained in this document represents components of the legal health record. It is not the complete legal health record.[facility]
--- OUTSIDE RECORDS SUMMARY | 2025-09-21 17:35 | XMS_ITS | Encounter Summary ---
Author Organization [facility] Address [address] [place] [address] Phone Care Team Providers Care Consumer Insights Intern Name Role Phone Shay Webb MD Primary Care Provider Stanley Castro MD Unavailable Shay Webb MD Unavailable [phone] Jaiden Esparza DO Unavailable Larisa Navarro MD Unavailable [phone] Oziel Archibald MD Unavailable [phone] Larisa Treviño MD Primary Care Provid er Janny Zavala MD Primary Care Provider Colt Steele CNP Primary Care Provider [phone] Rao Arzate DO Unavailable Rocco Alvarenga DO Unavailable Encounter Details Date Type Department Care Team (Latest Contact Info) Description 01/26/2018 Transcribe Orders [facility] [address] [place] [address] Shay Webb MD [address] [place] [address] 10 & [address] [place] [address] [email or web address] MCGRAW (dyspnea on exertion) (Primary Dx) [...] 09/22/2025 10:00 AM EST Office Visit [facility] Orthopedics & Sports Medicine [address] [place] [address] Rosa Elena Jacome MD [address] [place] [address] Orthopedics & Sports Medicine, [place] [address] [email or web address] documented [...] documented as of this encounter Care Teams Consumer Insights Intern Relationship Specialty Start Date End Date Shay Webb MD 264 [facility] [address] & [address] [place] [address] [email or web address] PCP - General 05/17/14 03/25/22 Larisa Treviño MD [address] [address] [email or web address] PCP - General Family Medicine 03/26/22 09/19/22 Janny Zavala MD [address] [address] [email or web address] PCP - General Family Medicine 10/03/22 10/21/22 Colt Steele CNP 29 [place] [address] [email or web address] PCP - General Family Medicine 10/22/22 Stanley Castro MD [address] [place] [address] [email or web address] Historical LMR Provider 09/02/17 11/24/21 Shay Webb MD 264 [facility] 10 & [address] [place] [address] [email or web address] Historical LMR Provider 09/02/17 Jaiden Esparza DO [address] [place] [address] Orthopedics & Sports Medicine, [place] [address] [email or web address] Historical LMR Provider 09/02/17 Larisa Navarro MD [address] [place] [address] Historical LMR Provider 09/02/17 Oziel Archibald MD 22 [place] [address] Historical LMR Provider 09/02/17 2 Rao Arzate DO [address] [place] [address] [email or web address] Insurance Assigned Provider 02/21/24 11/22/24 Rocco Alvarenga DO 22 [place] [address] [email or web address] Geriatric Medicine 05/23/25 documented as of this encounter Additional Source Comments The information contained in this document represents components of the legal health record. It is not the complete legal health record.[facility]
--- OUTSIDE RECORDS SUMMARY | 2025-09-21 17:35 | XMS_ITS | Encounter Summary ---
Author Organization [facility] Address [address] [place] [address] Phone Care Team Providers Care Reformatory Attendant Name Role Phone Shay Webb MD Primary Care Provider Stanley Castro MD Unavailable Shay Webb MD Unavailable [phone] Jaiden Esparza DO Unavailable Larisa Navarro MD Unavailable [phone] Oziel Archibald MD Unavailable [phone] Larisa Treviño MD Primary Care Provid er Janny Zavala MD Primary Care Provider Colt Steele CNP Primary Care Provider Rao Arzate DO Unavailable Rocco Alvarenga DO Unavailable [phone] Reason for Referral * MRI/CAT Scan - Closed Specialty Diagnoses / Procedures Referred By Contac t Referred To Contact Radiology Diagnoses MCGRAW (dyspnea on exertion) Atypical chest pain Hormone replacement therapy (HRT) Procedures CT Angio Chest Shay Webb MD Phone: tel: fax: mailto:[email or web address] Referral ID Status Reason Start Date Expiration Date Visits Re quested Visits Authorized [id number] Closed 01/09/2018 01/09/2019 1 1 Encounter Details Date Type Department Care Team ([facility] Contact Info) Description 01/09/2018 Ancillary Orders Virtual Department [address] [place] [address] Shay Webb MD 264 [facility] 10 & [address] [place] [address] [email or web address] MCGRAW (dyspnea on exertion); Atypical chest pain; [...] Upcoming Encounters Date Type Department Care Team ([facility] Contact Info) Description 09/22/2025 10:00 AM EST Office Visit [facility] Orthopedics & Sports Medicine [address] [place] [address] Rosa Elena Jacome MD [address] [place] [address] Orthopedics & Sports Medicine, [facility] [place] [address] [email or web address] documented as of this encounter Results * [...] the patient?s cardiac risk factors. POS - [id number] Narrative 01/12/2018 10:07 AM EST COMPARISON: Chest [...] on the patient?s cardiacrisk factors. POS - [id number] Shay Webb MD [facility] CHEST Final Result documented in this [...] documented as of this encounter Care Teams Reformatory Attendant Relationship Specialty Start Date End Date Shay Webb MD [address] [place] [address] [address] [place] [address] [email or web address] PCP - General 05/17/14 03/25/22 Larisa Treviño MD [address] [address] [email or web address] PCP - General Family Medicine 03/26/22 09/19/22 Janny Zavala MD [address] [place] [address] [email or web address] PCP - General Family Medicine 10/03/22 10/21/22 Colt Steele CNP 29 [facility] [place] [address] [email or web address] PCP - General Family Medicine 10/22/22 Stanley Castro MD [address] [place] [address] [email or web address] Historical LMR Provider 09/02/17 11/24/21 Shay Webb MD [address] [place] [address] & [address] [place] [address] [email or web address] Historical LMR Provider 09/02/17 Jaiden Esparza DO [address] [place] [address] Orthopedics & Sports Medicine, [facility] [place] [address] Historical LMR Provider 09/02/17 Larisa Navarro MD [address] [place] [address] Historical LMR Provider 09/02/17 Oziel Archibald MD 22 [place] [address] Historical LMR Provider 09/02/17 2 Rao Arzate DO [address] [place] [address] Insurance Assigned Provider 02/21/24 11/22/24 Rocco Alvarenga DO 22 [place] [address] Geriatric Medicine 05/23/25 documented as of this encounter Additional Source Comments The information contained in this document represents components of the legal health record. It is not the complete legal health record.[facility]
--- OUTSIDE RECORDS SUMMARY | 2025-09-21 17:35 | XMS_ITS | Encounter Summary ---
Author Organization [facility] Address [address] [place] [address] Phone Care Team Providers Care Arcade Game Technician Name Role Phone JonShya MD Unavailable [phone] Jaiden Esparza DO Unavailable [phone] Larisa Navarro MD Unavailable [phone] Colt Steele [facility] Primary Care Provider [phone] Rao Arzate DO Unavailable Rocco Alvarenga DO Unavailable [phone] Reason for Referral * MRI/CAT Scan - Closed Specialty Diagnoses / Procedures Referred By Contac t Referred To Contact Radiology Diagnoses IPMN (intraductal papillary mucinous neoplasm) Procedures MRI Cholangiopancreatography (MRCP) Jaime Woodward MD Phone: tel: fax: [email or web address]:[email or web address] Referral ID Status Reason Start Date Expiration Date Visits Re quested Visits Authorized [id number] Closed 03/20/2023 1 1 Encounter Details Date Type Department Care Team (Latest Contact Info) Description 03/20/2023 Transcribe Orders Virtual Department 30 [place] [address] Jaime Woodward MD [address] [place] [address] IPMN (intraductal papillary mucinous neoplasm) (Primary Dx) [...] high school, GED, job training, learning the [place] language, technical skills, or developing parenting skills)? [...] Description 09/22/2025 10:00 AM EST Office Visit [facility] Orthopedics & Sports Medicine [address] [place] [address] Rosa Elena Jacome MD [address] [place] [address] Orthopedics & Sports Medicine, [facility] 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 This is almost certainly [...] the lesion on prior imaging due to naysy-qu-ytda on MRCP images. As before, whether this [...] of the lesionon prior imaging due to lbqpa-pb-qyan on MRCP images. As before, whetherthis is [...] to incomplete inclusionof the lesion in the wvfjz-ds-vduv on prior MRCP. 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 Jaime Woodward MD IMG MR ABDOMEN [...] documented as of this encounter Care Teams Arcade Game Technician Relationship Specialty Start Date End Date Colt Steele CNP 29 [place] [address] PCP - General Family Medicine 10/22/22 Shay Webb MD [address] [address] [email or web address] Historical LMR Provider 09/02/17 Jaiden Esparza DO [address] [place] [address] Orthopedics & Sports Medicine, [place] [address] Historical LMR Provider 09/02/17 Larisa Navarro MD [address] [place] [address] Historical LMR Provider 09/02/17 Rao Arzate DO 29 [place] [address] Insurance Assigned Provider 02/21/24 11/22/24 Rocco Alvarenga DO 22 [place] [address] Geriatric Medicine 05/23/25 documented as of this encounter Additional Source Comments The information contained in this document represents components of the legal health record. It is not the complete legal health record.[facility]
--- OUTSIDE RECORDS SUMMARY | 2025-09-21 17:36 | XMS_ITS | Encounter Summary ---
Author Organization [facility] Address [address] [place] [address] Phone Care Team Providers Care Chemical Sprayer Name Role Phone Shay Webb MD Primary Care Provider Stanley Castro MD Unavailable Shay Webb MD Unavailable Jaiden Esparza DO Unavailable Larisa Navarro MD Unavailable [phone] Oziel Archibald MD Unavailable [phone] Larisa Treviño MD Primary Care Provid er Janny Zavala MD Primary Care Provider Colt Steele CNP Primary Care Provider [phone] Rao Arzate DO Unavailable Rocco Alvarenga DO Unavailable Encounter Details Date Type Department Care Team (Late st Contact Info) Description 06/14/2021 Procedure Pass [facility], [address] [id number] Social History Tobacco Use Types Packs/Day Years [...] 10:11 PM EDT Hector Isaac RN * Gillespie Suicide Severity Rating Scale (Screener/Recent Self-Report) Question [...] 09/22/2025 10:00 AM EST Office Visit [facility] Orthopedics & Sports Medicine [address] [place] [address] Rosa Elena Jacome MD [address] [place] [address] Orthopedics & Sports Medicine, [facility] [place] [address] [email or web address] documented as of this encounter Visit Diagnoses Not on filedocumented in this encounter Additional Health Concerns Infection Onset Date Last Indicated Resolved Time CoV-Risk 07/18/2023 07/18/2023 07/29/2023 1:22 AM EDT CoV-Risk 10/06/2023 10/06/2023 10/17/2023 1:22 AM EST documented as of this encounter Care Teams Chemical Sprayer Relationship Specialty Start Date End Date Shay Webb MD [address] [place] [address] & [address] [place] [address] [email or web address] PCP - General 05/17/14 03/25/22 Larisa Treviño MD [address] [place] [address] [email or web address] PCP - General Family Medicine 03/26/22 09/19/22 Janny Zavala MD [address] [place] [address] [email or web address] PCP - General Family Medicine 10/03/22 10/21/22 Colt Steele CNP [address] [place] [address] [place] [address] [email or web address] PCP - General Family Medicine 10/22/22 Stanley Castro MD [address] [place] [address] [email or web address] Historical LMR Provider 09/02/17 11/24/21 Shay Webb MD [address] [place] [address] & [address] [place] [address] [email or web address] Historical LMR Provider 09/02/17 Jaiden Esparza DO [address] [place] [address] [facility] [place] [address] [email or web address] Historical LMR Provider 09/02/17 Larisa Navarro MD [address] [place] [address] Historical LMR Provider 09/02/17 Oziel Archibald MD [address] [place] [address] Historical LMR Provider 09/02/17 2 Rao Arzate DO [address] [place] [address] [email or web address] Insurance Assigned Provider 02/21/24 11/22/24 Rocco Alvarenga DO [address] [place] [address] Geriatric Medicine 05/23/25 documented as of this encounter Additional Source Comments The information contained in this document represents components of the legal health record. It is not the complete legal health record.[facility]
--- OUTSIDE RECORDS SUMMARY | 2025-09-21 17:36 | XMS_ITS | Encounter Summary ---
Author Organization [facility] Address [address] [place] [address] Phone Care Team Providers Care Enterprise Account Manager Name Role Phone Shay Webb MD Primary Care Provider Stanley Castro MD Unavailable Shay Webb MD Unavailable [phone] Jaiden Espraza DO Unavailable Larisa Navarro MD Unavailable Oziel Archibald MD Unavailable [phone] Larisa Treviño MD Primary Care Provid er Janny Zavala MD Primary Care Provider Colt Steele CNP Primary Care Provider [phone] Rao Arzate DO Unavailable Rocco Alvarenga DO Unavailable Encounter Details Date Type Department Care Team (Latest Contact Info) Description 02/19/2019 Transcribe Orders [address] 2nd [place], [place] [id number] Shay Webb MD [address] [place] [address] [address] [place] [address] [email or web address] Fatigue, unspecified type (Primary Dx); Dyspnea, unspecified [...] 09/22/2025 10:00 AM EST Office Visit [facility] Orthopedics & Sports Medicine [address] [place] [address] Rosa Elena Jacome MD [address] [place] [address] Orthopedics & Sports Medicine, [place] [address] [email or web address] documented as of this encounter Results * Magnesium (02/19/2019 7:46 AM EDT) MAGNESIUM 2.1 1.6 - 2.6 mg/dL [facility] Blood 02/19/2019 7:46 AM EDT 02/19/2019 8:00 AM EDT Shay Webb MD LAB BLOOD BKR ORDERABLES Final Result [facility] [address] [place] [address] * (ABNORMAL) CBC and differential (02/19/2019 7:46 AM EDT) WBC 5.12 3.40 - 11.20 K/uL [facility] RBC 4.82(H) 3.80 - 4.80 M/uL [facility] HGB 14.1 12.0 - 15.0 g/dL [facility] HCT 41.8 36.0 - 46.0 % [facility] PLT 296 130 - 400 K/uL [facility] MCV 86.7 79.0 - 98.0 fL [facility] MCH 29.3 27.0 - 34.8 pg [facility] MCHC 33.7 31.5 - 36.0 g/dL [facility] RDW 12.9 10.8 - 14.6 % [facility] MPV 9.4 9.4 - 12.4 fl [facility] NRBC 0.00 0.00 /100 WBCs [facility] ABSOLUTE NRBC 0.00 0.00 K/uL [facility] DIFF METHOD Auto [facility] NEUTS 50.9 45.30 - 77.70 % [facility] LYMPHS 36.5 12.30 - 39.70 % [facility] MONOS 9.4 4.10 - 12.80 % [facility] EOS 1.8 0 - 7.2 % [facility] BASOS 1.4 0 - 2.80 % [facility] Granulocytes, immature (%) 0.0 0.0 - 0.9 % [facility] ABSOLUTE NEUTS 2.61 1.40 - 7.70 K/uL [facility] ABSOLUTE LYMPHS 1.87 0.60 - 3.20 K/uL [facility] ABSOLUTE MONOS 0.48 0.11 - 0.59 K/uL [facility] ABSOLUTE EOS 0.09 0.01 - 0.50 K/uL [facility] ABSOLUTE BASOS 0.07 0.00 - 0.08 K/uL [facility] Granulocytes, immature 0.00 0.00 - 0.05 K/uL [facility] Blood 02/19/2019 7:46 AM EDT 02/19/2019 8:00 AM EDT us Shay Webb MD LAB BLOOD BKR ORDERABLES Final Result [facility] [address] [place] [address] * (ABNORMAL) Lipid panel (02/19/2019 7:46 AM EDT) HDL 101 mg/dL [facility] Comment: Interpretation <40 mg/dL: Low HDL cholesterol (major risk factor for CHD) Greater than or equal to 60 mg/dL: High HDL cholesterol ( negative risk factor for CHD) HDL - cholesterol is affected by a number of factors, e.g. smoking, excerise, hormones, sex and age. CHOLESTEROL 210 0 - 240 mg/dL [facility] TRIGLYCERIDES 81 30 - 160 mg/dL [facility] LDL 93 50 - 129 mg/dL [facility] Comment: LDL levels in terms of risk for coronary heart disease: <100 mg/dL: Optimal 100-129 mg/dL: Near or above optimal 130-159 mg/dL: Borderline high 160-189 mg/dL: High >190 mg/dL: Very High CARDIAC RISK RATIO 2.1(L) 3.3 - 4.4 C [facility] Blood 02/19/2019 7:46 AM EDT 02/19/2019 8:00 AM EDT Shay Webb MD LAB BLOOD BKR ORDERABLES Final Result [address] [address] * TSH with reflex (02/19/2019 7:46 AM EDT) TSH 1.73 0.27 - 4.20 uIU/mL [facility] Blood 02/19/2019 7:46 AM EDT 02/19/2019 8:00 AM EDT Shay Webb MD LAB BLOOD BKR ORDERABLES Final Result Performing Organization Address City/[facility]/ZIP Co de Phone Number [address] [address] * (ABNORMAL) Comprehensive metabolic panel (02/19/2019 7:46 AM EDT) SODIUM 126(L) 133 - 146 mmol/L [facility] POTASSIUM 4.1 3.3 - 5.1 mmol/L [facility] CHLORIDE 87(L) 96 - 108 mmol/L [facility] CO2 28 21 - 35 mmol/L [facility] BUN 16 6 - 19 mg/dL [facility] CREATININE 0.70 0.5 - 1.5 mg/dL [facility] GLUCOSE 89 70 - 99 mg/dL [facility] ALBUMIN 4.2 3.9 - 4.8 g/dL [facility] TOTAL PROTEIN 7.0 6.5 - 8.0 g/dL [facility] CALCIUM 9.3 8.4 - 10.3 mg/dL [facility] ALKALINE PHOSPHATASE 64 39 - 117 U/L [facility] TOTAL BILIRUBIN 0.7 0.0 - 1.2 mg/dL [facility] Comment: Results from certain multiple myeloma patients may show a positive bias in recovery. Not all multiple myeloma patients show the bias and severity of the bias may vary between patients. In very rare cases, gammopathy, in particular type IgM (Waldenstrom's macroglobulinemia), may cause unreliable results. AST 28 0 - 37 U/L [facility] ALT 16 0 - 40 U/L [facility] GLOBULIN 2.8 1 - 4.8 g/dL [facility] EGFR 81 >59 mL/min/1.7 3m2 [facility] Comment:If patient is black, multiply result by 1.159. Estimated glomerular filtration rate calculated using the CKD-EPI equation. ANION GAP 15 10 - 20 mmol/L [facility] Blood 02/19/2019 7:46 AM EDT 02/19/2019 8:00 AM EDT us Shay Webb MD LAB BLOOD BKR ORDERABLES Final Result [facility] [address] [place] [address] documented in this encounter Visit Diagnoses Diagnosis [...] documented as of this encounter Care Teams Enterprise Account Manager Relationship Specialty Start Date End Date Shay Webb MD [address] [place] [address] & [address] [place] [address] [email or web address] PCP - General 05/17/14 03/25/22 Larisa Treviño MD [address] [place] [address] [email or web address] PCP - General Family Medicine 03/26/22 09/19/22 Janny Zavala MD [address] [place] [address] [email or web address] PCP - General Family Medicine 10/03/22 10/21/22 Colt Steele CNP 29 [facility] [place] [address] [email or web address] PCP - General Family Medicine 10/22/22 Stanley Castro MD [address] [place] [address] [email or web address] Historical LMR Provider 09/02/17 11/24/21 Shay Webb MD [address] [place] [address] [email or web address] Historical LMR Provider 09/02/17 Jaiden Esparza DO [address] [place] [address] Orthopedics & Sports Medicine, [place] [address] Historical LMR Provider 09/02/17 Larisa Navarro MD [address], [place] [address] Historical LMR Provider 09/02/17 Oziel Archibald MD [address] [place] [address] Historical LMR Provider 09/02/17 2 Rao Azrate DO [address] [place] [address] Insurance Assigned Provider 02/21/24 11/22/24 Rocco Alvarenga DO 22 [place] [address] Geriatric Medicine 05/23/25 documented as of this encounter Additional Source Comments The information contained in this document represents components of the legal health record. It is not the complete legal health record.[facility]
--- OUTSIDE RECORDS SUMMARY | 2025-09-21 17:36 | XMS_ITS | Encounter Summary ---
Author Organization [facility] Address [address] [place] [address] Phone Care Team Providers Care Family Practice Physician Assistant Name Role Phone Shay Webb MD Primary Care Provider Stanley Castro MD Unavailable Shay Webb MD Unavailable [phone] Jaiden Esparza DO Unavailable Larisa Navarro MD Unavailable [phone] Oziel Archibald MD Unavailable [phone] Larisa Treviño MD Primary Care Provid er Janny Zavala MD Primary Care Provider Colt Steele CNP Primary Care Provider [phone] Rao Arzate DO Unavailable Rocco Alvarenga DO Unavailable Encounter Details Date Type Department Care Team (Late st Contact Info) Description 06/15/2021 Procedure Pass [facility], Ct Scan - [address] [id number] Social History Tobacco Use Types Packs/Day Years [...] 10:11 PM EDT Hector Isaac RN * [place] Suicide Severity Rating Scale (Screener/Recent Self-Report) Question [...] 09/22/2025 10:00 AM EST Office Visit [facility] Orthopedics & Sports Medicine [address] [place] [address] Rosa Elena Jacome MD [address] [place] [address] Orthopedics & Sports Medicine, [facility] [place] [address] [email or web address] documented as of this encounter Visit Diagnoses Not on filedocumented in this encounter Additional Health Concerns Infection Onset Date Last Indicated Resolved Time CoV-Risk 07/18/2023 07/18/2023 07/29/2023 1:22 AM EDT CoV-Risk 10/06/2023 10/06/2023 10/17/2023 1:22 AM EST documented as of this encounter Care Teams Family Practice Physician Assistant Relationship Specialty Start Date End Date Shay Webb MD [address] [place] [address] & [address] [place] [address] [email or web address] PCP - General 05/17/14 03/25/22 Larisa Treviño MD [address] [address] [email or web address] PCP - General Family Medicine 03/26/22 09/19/22 Janny Zavala MD [address] [place] [address] [email or web address] PCP - General Family Medicine 10/03/22 10/21/22 Colt Steele CNP [address] [place] [address] [place] [address] [email or web address] PCP - General Family Medicine 10/22/22 Stanley Castro MD [address] [place] [address] [email or web address] Historical LMR Provider 09/02/17 11/24/21 Shay Webb MD [address] [place] [address] & [address] [place] [address] [email or web address] Historical LMR Provider 09/02/17 Jaiden Esparza DO [address] [place] [address] Orth[facility] [place] [address] [email or web address] Historical LMR Provider 09/02/17 Larisa Nvaarro MD [address] [place] [address] Historical LMR Provider 09/02/17 Oziel Archibald MD 22 [place] [address] Historical LMR Provider 09/02/17 2 Rao Arzate DO [address] [place] [address] [email or web address] Insurance Assigned Provider 02/21/24 11/22/24 Rocco Alvarenga DO [address] [place] [address] Geriatric Medicine 05/23/25 documented as of this encounter Additional Source Comments The information contained in this document represents components of the legal health record. It is not the complete legal health record.[facility]
--- OUTSIDE RECORDS SUMMARY | 2025-09-21 17:36 | XMS_ITS | Encounter Summary ---
Author Organization [facility] Address [address] [place] [address] Phone Care Team Providers Care Stoker Mechanic Name Role Phone Shay Webb MD Primary Care Provider Stanley Castro MD Unavailable Shay Webb MD Unavailable [phone] Jaiden Esparza DO Unavailable Larisa Navarro MD Unavailable Oziel Archibald MD Unavailable [phone] Larisa Treviño MD Primary Care Provid er Janny Zavala MD Primary Care Provider Colt Steele CNP Primary Care Provider [phone] Rao Arzate DO Unavailable Rocco Alvarenga DO Unavailable Encounter Details Date Type Department Care Team (Late st Contact Info) Description 04/19/2020 Procedure Pass [facility], Ct Scan - [address] [id number] Social History Tobacco Use Types Packs/Day Years [...] Description 09/22/2025 10:00 AM EST Office Visit [facility] Orthopedics & Sports Medicine [address] [place] [address] Rosa Elena Jacome MD [address] [place] [address] Orthopedics & Sports Medicine, [facility] [place] [address] [email or web address] documented as of this [...] documented as of this encounter Care Teams Stoker Mechanic Relationship Specialty Start Date End Date Shay Webb MD [address] [place] [address] 10 & 12 [place] [address] [email or web address] PCP - General 05/17/14 03/25/22 Larisa Treviño MD [address] [address] [email or web address] PCP - General Family Medicine 03/26/22 09/19/22 Janny Zavala MD [address] [address] [email or web address] PCP - General Family Medicine 10/03/22 10/21/22 Colt Steele, DANIELLE 29 [facility] [place] [address] [email or web address] PCP - General Family Medicine 10/22/22 Stanley Castro MD 22 [place] [address] [email or web address] Historical LMR Provider 09/02/17 11/24/21 Shay Webb MD 264 [facility] 10 & [address] [place] [address] [email or web address] Historical LMR Provider 09/02/17 Jaiden Esparza DO [address] [place] [address] Orthopedics & Sports Medicine, [facility] [place] [address] [email or web address] Historical LMR Provider 09/02/17 Larisa Navarro MD [address] [place] [address] Historical LMR Provider 09/02/17 Oziel Archibald MD 22 [place] [address] Historical LMR Provider 09/02/17 2 Rao Arzate DO [address] [place] [address] [email or web address] Insurance Assigned Provider 02/21/24 11/22/24 Rocco Alvarenga DO [address] [place] [address] [email or web address] Geriatric Medicine 05/23/25 documented as of this encounter Additional Source Comments The information contained in this document represents components of the legal health record. It is not the complete legal health record.[facility]
--- OUTSIDE RECORDS SUMMARY | 2025-09-21 17:36 | XMS_ITS | Encounter Summary ---
Author Organization [facility] Address [address] [place] [address] Phone Care Team Providers Care Automation Qa Lead Name Role Phone Shay Webb MD Primary Care Provider Stanley Castro MD Unavailable Shay Webb MD Unavailable [phone] Jaiden Esparza DO Unavailable Larisa Navarro MD Unavailable [phone] Oziel Archibald MD Unavailable [phone] Larisa Treviño MD Primary Care Provid er Janny Zavala MD Primary Care Provider Colt Steele CNP Primary Care Provider [phone] Rao Arzate DO Unavailable Rocco Alvarenga DO Unavailable Encounter Details Date Type Department Care Team (Latest Contact Info) Description 06/14/2021 Transcribe Orders Virtual Department [address] [place] [address] Silver Tomlin, DO [address] [place] [address] [email or web address] Post laminectomy syndrome (Primary Dx); Neck pain [...] 10:11 PM EDT Hector Isaac, JOSEFA * [place] Suicide Severity Rating Scale (Screener/Recent Self-Report) Question [...] Description 09/22/2025 10:00 AM EST Office Visit [facility] Orthopedics & Sports Medicine [address] [place] [address] Rosa Elena Jacome MD [address] [place] [address] Orthopedics & Sports Medicine, [facility] [place] [address] documented as of this encounter Visit Diagnoses Diagnosis Post laminectomy syndrome- Primary Postlaminectomy syndrome, unspecified region Neck pain Cervicalgia documented in this encounter Additional Health Concerns Infection Onset Date Last Indicated Resolved Time CoV-Risk 07/18/2023 07/18/2023 07/29/2023 1:22 AM EDT CoV-Risk 10/06/2023 10/06/2023 10/17/2023 1:22 AM EST documented as of this encounter Care Teams Automation Qa Lead Relationship Specialty Start Date End Date Shay Webb MD [address] [place] [address] & [address] [place] [address] [email or web address] PCP - General 05/17/14 03/25/22 Larisa Treviño MD [address] [place] [address] [email or web address] PCP - General Family Medicine 03/26/22 09/19/22 Janny Zavala MD [address] [place] [address] [email or web address] PCP - General Family Medicine 10/03/22 10/21/22 Colt Steele CNP [address] [place] [address] [place] [address] [email or web address] PCP - General Family Medicine 10/22/22 Stanley Castro MD [address] [place] [address] [email or web address] Historical LMR Provider 09/02/17 11/24/21 Shay Webb MD [address] [place] [address] & [address] [place] [address] [email or web address] .[email or web address] Historical LMR Provider 09/02/17 Jaiden Esparza DO [address] [place] [address] Orthopedics & Sports [place] [address] Historical LMR Provider 09/02/17 Larisa Navarro MD [address], [place] [address] Historical LMR Provider 09/02/17 Oziel Archibald MD 22 [place] [address] Historical LMR Provider 09/02/17 2 Rao Arzate DO 29 [place] [address] [email or web address] Insurance Assigned Provider 02/21/24 11/22/24 Rocco Alvarenga DO 22 [place] [address] Geriatric Medicine 05/23/25 documented as of this encounter Additional Source Comments The information contained in this document represents components of the legal health record. It is not the complete legal health record.[facility]
--- OUTSIDE RECORDS SUMMARY | 2025-09-21 17:36 | XMS_ITS | Encounter Summary ---
Author Organization [facility] Address [address] [place] [address] Phone Care Team Providers Care Data Entry Supervisor Name Role Phone Shay Webb MD Primary Care Provider Stanley Castro MD Unavailable Shay Webb MD Unavailable [phone] Jaiden Esparza DO Unavailable Larisa Navarro MD Unavailable [phone] Oziel Archibald MD Unavailable [phone] Larisa Treviño MD Primary Care Provid er Janny Zavala MD Primary Care Provider Colt Steele CNP Primary Care Provider [phone] Rao Arzate DO Unavailable Rocco Alvarenga DO Unavailable Encounter Details Date Type Department Care Team (Late st Contact Info) Description 06/15/2021 Procedure Pass [facility], Ct Scan - [address] [phone] Social History Tobacco Use Types Packs/Day Years [...] 10:11 PM EDT Hector Isaac RN * [place] Suicide Severity Rating Scale (Screener/Recent Self-Report) Question [...] Description 09/22/2025 10:00 AM EST Office Visit [facility] Orthopedics & Sports Medicine [address] [place] [address] Rosa Elena Jacome MD [address] [place] [address] Orthopedics & Sports Medicine, [place] [address] [email or web address] documented as of this encounter Visit Diagnoses Not on filedocumented in this encounter Additional Health Concerns Infection Onset Date Last Indicated Resolved Time CoV-Risk 07/18/2023 07/18/2023 07/29/2023 1:22 AM EDT CoV-Risk 10/06/2023 10/06/2023 10/17/2023 1:22 AM EST documented as of this encounter Care Teams Data Entry Supervisor Relationship Specialty Start Date End Date Shay Webb MD [address] [place] [address] & [address] [place] [address] [email or web address] PCP - General 05/17/14 03/25/22 Larisa Treviño MD [address] [address] [email or web address] PCP - General Family Medicine 03/26/22 09/19/22 Janny Zavala MD [address] [place] [address] [email or web address] PCP - General Family Medicine 10/03/22 10/21/22 Colt Steele CNP [address] [place] [address] [place] [address] [email or web address] PCP - General Family Medicine 10/22/22 Stanley Castro MD [address] [place] [address] [email or web address] Historical LMR Provider 09/02/17 11/24/21 Shay Webb MD [address] [place] [address] & [address] [place] [address] [email or web address] Historical LMR Provider 09/02/17 Jaiden Esparza DO [address] [place] [address] Orth[facility] [place] [address] [email or web address] Historical LMR Provider 09/02/17 Larisa Navarro MD [address] [place] [address] Historical LMR Provider 09/02/17 Oziel Archibald MD 22 [place] [address] Historical LMR Provider 09/02/17 2 Rao Arzate DO [address] [place] [address] [email or web address] Insurance Assigned Provider 02/21/24 11/22/24 Rocco Alvarenga DO [address] [place] [address] Geriatric Medicine 05/23/25 documented as of this encounter Additional Source Comments The information contained in this document represents components of the legal health record. It is not the complete legal health record.[facility]
--- OUTSIDE RECORDS SUMMARY | 2025-09-21 17:36 | XMS_ITS | Encounter Summary ---
Author Organization [facility] Address [address] [place] [address] Phone Care Team Providers Care Government Contracts Manager Name Role Phone JonShay MD Unavailable [phone] Jaiden Esparza DO Unavailable Larisa Navarro MD Unavailable [phone] Colt Steele LUBRICATION SUPERVISOR Primary Care Provider [phone] LyleRocco DO Unavailable Reason for Visit * Reason Onset Date Comments images 07/06/2025 Requesting image of the EKG fax to [phone] Encounter Details Date Type Department Care Team (Late st Contact Info) Description 07/06/2025 Telephone [address] [address] Colt Steele, LUBRICATION SUPERVISOR [address] [place] [address] [email or web address] images (Requesting image of the EKG fax to [phone]) Social History Tobacco Use Types Packs/Day Years [...] Logan Buckner - 07/06/2025 3:15 PM EDT [facility] Top Smart Phrases: Fax Request Name of caller, if not the patient, AND [facility] fax is being [facility] Short Stay Document(s) requested: EKG [facility] Call Center CSS Agent (Please do not reply to this user, as this inbox is not monitored. Thank you.) Thank you. documented in this encounter Plan of Treatment Upcoming Encounters Date Type Department Care Team (Late st Contact Info) Description 09/22/2025 10:00 AM EST Office Visit [facility] Sports Medicine [address] [place] [address] Rosa Elena Jacome MD [address] [place] [address] Orthopedics & [place] [address] documented as of this encounter Visit Diagnoses Not on filedocumented in this encounter Additional Health Concerns Assessment Noted Time PHQ-2 Depression Total Score: 0 04/19/20 22 12:42 PM EDT documented as of this encounter Care Teams Government Contracts Manager Relationship Specialty Start Date End Date Colt Steele CNP [address] [place] [address] [place] [address] [email or web address] PCP - General Family Medicine 10/22/22 JonShay MD [address] [place] [address] [address] & [address] [place] [address] [email or web address] Historical LMR Provider 09/02/17 Jaiden Esparza DO [address] [place] [address] Orthopedics & Sports Medicine, [place] [address] [email or web address] Historical LMR Provider 09/02/17 Larisa Navarro MD [address] [place] [address] Historical LMR Provider 09/02/17 Rocco Alvarenga DO [address] [place] [address] [email or web address] Geriatric Medicine 05/23/25 documented as of this encounter Additional Source Comments The information contained in this document represents components of the legal health record. It is not the complete legal health record.[facility]
--- OUTSIDE RECORDS SUMMARY | 2025-09-21 17:36 | XMS_ITS | Encounter Summary ---
Author Organization [facility] Address [address] [place] [address] [place] [address] Phone Care Team Providers Care Laundry Washer Name Role Phone Shay Webb MD Primary Care Provider Stanley Castro MD Unavailable Shay Webb MD Unavailable [phone] Jaiden Esparza DO Unavailable Larisa Navarro MD Unavailable [phone] Oziel Archibald MD Unavailable [phone] Larisa Treviño MD Primary Care Provid er Janny Zavala MD Primary Care Provider Colt Steele CNP Primary Care Provider [phone] Rao Arzate DO Unavailable Rocco Alvarenga DO Unavailable Encounter Details Date Type Department Care Team (Latest Contact Info) Description 10/29/2018 Ancillary Orders Virtual Department [address] [place] [address] Shay Webb MD [address] [facility] [address] [place] [address] [email or web address] Gastroesophageal reflux disease, esophagitis presence not [...] [facility] Orth[facility]ics [facility] Sports Medicine [address] [place] [address] Rosa Elena Jacome MD [address] [place] [address] Orthopedics & Sports Medicine, [facility] [place] [address] [email or web address] documented as of this encounter Results * [...] Cervical spine radiographs 06/16/2018. BARIUM SWALLOW FINDINGS: Shipping Clerk lateral neck radiograph was obtained. Prevertebral soft [...] 01/12/2018. Cervical spineradiographs 06/16/2018. BARIUM SWALLOW FINDINGS: Shipping Clerk lateral neck radiograph was obtained. Prevertebral soft [...] IMAGES/FRAMES POS - [id number] Shay Webb MD [facility] Final Result documented in this encounter Visit [...] documented as of this encounter Care Teams Laundry Washer Relationship Specialty Start Date End Date Shay Webb MD [address] [address] & [address] [place] [address] [email or web address] PCP - General 05/17/14 03/25/22 Larisa Treviño MD [address] [place] [address] [email or web address] PCP - General Family Medicine 03/26/22 09/19/22 Janny Zavala MD [address] [place] [email or web address] PCP - General Family Medicine 10/03/22 10/21/22 Colt Steele CNP 29 [facility] [place] [address] [email or web address] PCP - General Family Medicine 10/22/22 Stanley Castro MD [address] [place] [address] [email or web address] Historical LMR Provider 09/02/17 11/24/21 Shay Webb MD [address] [place] [address] & [address] [place] [address] [email or web address] Historical LMR Provider 09/02/17 Jadien Esparza DO [address] [place] [address] Orthopedics & Sports Medicine, [facility] [place] [address] Historical LMR Provider 09/02/17 Larisa Navarro MD [address] [place] [address] Historical LMR Provider 09/02/17 Oziel Archibald MD [address] [place] [address] Historical LMR Provider 09/02/17 2 Rao Arzate DO [address] [place] [address] Insurance Assigned Provider 02/21/24 11/22/24 Rocco Alvarenga DO [address] [place] [address] Geriatric Medicine 05/23/25 documented as of this encounter Additional Source Comments The information contained in this document represents components of the legal health record. It is not the complete legal health record.[facility]
--- OUTSIDE RECORDS SUMMARY | 2025-09-21 17:36 | XMS_ITS | Encounter Summary ---
Author Organization [facility] Address [address] [place] [address] Phone Care Team Providers Care Hospital Unit Clerk Name Role Phone Shay Webb MD Primary Care Provider [phone] Stanley Castro MD Unavailable Shay Webb MD Unavailable Jaiden Esparza DO Unavailable [phone] Larisa Navarro MD Unavailable Oziel Archibald MD Unavailable Larisa Treviño MD Primary Care Provid er Janny Zavala MD Primary Care Provider Colt Steele CNP Primary Care Provider [phone] Rao Arzate DO Unavailable Rocco Alvarenga DO Unavailable [phone] Reason for Referral * Physical Therapy (Routine) - Closed Specialty Diagnoses / Procedures Referred By Contac t Referred To Contact Physical Therapy Diagnoses Encounter for rehabilitation Shay Webb MD Phone: tel: fax: [email or web address] [address] [place] [address] Phone: tel: Referral ID Status Reason Start Date Expiration Date Visits Re quested Visits Authorized [id number] Closed 06/21/2021 11/16/2021 25 25 Encounter Details Date Type Department Care Team (Latest Contact Info) Description 06/21/2021 Transcribe Orders [facility] [address] [place] [address] Shay Webb MD [address] [place] [address] 10 & [address] [place] [address] [email or web address] Encounter for rehabilitation (Primary Dx) Social [...] [facility] Orth[facility] & Sports Medicine [address] [place] [address] Rosa Elena Jacome MD [address] [place] [address] Orthopedics & Sports Medicine, [facility] [place] [address] [email or web address] Scheduled Referrals Name Type Priority Associated Diagnoses Orde r Schedule Ambulatory referral to [facility] Physical Therapy Outpatient Referral Routine Encounter for rehabilitation Ordered: 06/21/2021 documented as of this encounter Visit Diagnoses Diagnosis Encounter for rehabilitation- Primary documented in this encounter Additional Health Concerns Infection Onset Date Last Indicated Resolved Time CoV-Risk 07/18/2023 07/18/2023 07/29/2023 1:22 AM EDT CoV-Risk 10/06/2023 10/06/2023 10/17/2023 1:22 AM EST documented as of this encounter Care Teams Hospital Unit Clerk Relationship Specialty Start Date End Date Shay Webb MD [address] [address] & [address] [place] [address] [email or web address] PCP - General 05/17/14 03/25/22 Larisa Treviño MD [address] [place] [address] [email or web address] PCP - General Family Medicine 03/26/22 09/19/22 Janny Zavala MD [address] [place] [address] [email or web address] PCP - General Family Medicine 10/03/22 10/21/22 Colt Steele CNP 29 [facility] [place] [address] [email or web address] PCP - General Family Medicine 10/22/22 Stanley Castro MD [address] [place] [address] [email or web address] Historical LMR Provider 09/02/17 11/24/21 Shay Webb MD [address] [place] [address] & [address] [place] [address] [email or web address] Historical LMR Provider 09/02/17 Jaiden Esparza DO [address] [place] [address] Orthopedics & Sports Medicine, [place] [address] Historical LMR Provider 09/02/17 Larisa Navarro MD [address], [place] [address] Historical LMR Provider 09/02/17 Oziel Archibald MD [address] [place] [address] Historical LMR Provider 09/02/17 2 Rao Arzate DO [address] [place] [address] Insurance Assigned Provider 02/21/24 11/22/24 Rocco Alvarenga DO 22 [place] [address] Geriatric Medicine 05/23/25 documented as of this encounter Additional Source Comments The information contained in this document represents components of the legal health record. It is not the complete legal health record.[facility]
--- OUTSIDE RECORDS SUMMARY | 2025-09-21 17:36 | XMS_ITS | Encounter Summary ---
Author Organization [facility] Address [address] [place] [address] Phone Care Team Providers Care Physical Therapist Name Role Phone Shay Webb MD Primary Care Provider Stanley Castro MD Unavailable Shay Webb MD Unavailable [phone] Jaiden Esparza DO Unavailable Larisa Navarro MD Unavailable [phone] Oziel Archibald MD Unavailable [phone] Larisa Treviño MD Primary Care Provid er Janny Zavala MD Primary Care Provider Colt Steele CNP Primary Care Provider [phone] Rao Arzate DO Unavailable Rocco Alvarenga DO Unavailable Encounter Details Date Type Department Care Team (Latest Contact Info) Description 03/01/2019 Transcribe Orders [facility] Department [address] [place] [address] Shay Webb MD 264 [facility] [address] [place] [address] [email or web address] Dyspnea, unspecified type (Primary Dx) Social History [...] [facility] Medicine [address] [place] [address] Rosa Elena Jacome MD [address] [place] [address] Orthopedics & Sports Medicine, [facility] [place] [address] [email or web address] documented as of this encounter [...] documented as of this encounter Care Teams Physical Therapist Relationship Specialty Start Date End Date Jon, Shay Garcia MD [address] [place] [address] 10 & [address] [place] [address] [email or web address] PCP - General 05/17/14 03/25/22 Larisa Treviño MD [address] [place] [address] [email or web address] PCP - General Family Medicine 03/26/22 09/19/22 Janny Zavala MD [address] [place] [address] [email or web address] PCP - General Family Medicine 10/03/22 10/21/22 Colt Steele CNP [address] [place] [address] [email or web address] PCP - General Family Medicine 10/22/22 Stanley Castro MD 22 [place] [address] [email or web address] Historical LMR Provider 09/02/17 11/24/21 Shay Webb MD [address] [place] [address] & [address] [place] [address] [email or web address] Historical LMR Provider 09/02/17 Jaiden Esparza DO [address] [place] [address] Orthopedics & Sports Medicine, [place] [address] [email or web address] Historical LMR Provider 09/02/17 Larisa Navarro MD [facility] [place] [address] Historical LMR Provider 09/02/17 Oziel Archibald MD 22 [place] [address] Historical LMR Provider 09/02/17 2 Rao Arzate DO [address] [place] [address] [email or web address] Insurance Assigned Provider 02/21/24 11/22/24 Rocco Alvarenga DO [address] [place] [address] [email or web address] Geriatric Medicine 05/23/25 documented as of this encounter Additional Source Comments The information contained in this document represents components of the legal health record. It is not the complete legal health record.[facility]
--- OUTSIDE RECORDS SUMMARY | 2025-09-21 17:36 | XMS_ITS | Encounter Summary ---
Author Organization [facility] Address [address] [place] [address] Phone Care Team Providers Care Rigging Helper Name Role Phone Shay Webb MD Primary Care Provider Stanley Castro MD Unavailable Shay Webb MD Unavailable [phone] Jaiden Esparza DO Unavailable Larisa Navarro MD Unavailable [phone] Oziel Archibald MD Unavailable [phone] Larisa Treviño MD Primary Care Provid er Janny Zavala MD Primary Care Provider Colt Steele CNP Primary Care Provider [phone] Rao Arzate DO Unavailable Rocco Alvarenga DO Unavailable Encounter Details Date Type Department Care Team (Late st Contact Info) Description 06/04/2021 Procedure [facility], [address] [phone] Social History Tobacco Use Types Packs/Day Years [...] Description 09/22/2025 10:00 AM EST Office Visit [facility] Orthopedics & Sports Medicine [address] [place] [address] Rosa Elena Jacome MD [address] [place] [address] Orthopedics & Sports Medicine, [facility] [place] [address] [email or web address] documented as of this encounter Visit Diagnoses Not on filedocumented in this encounter Additional Health Concerns Infection Onset Date Last Indicated Resolved Time CoV-Risk 07/18/2023 07/18/2023 07/29/2023 1:22 AM EDT CoV-Risk 10/06/2023 10/06/2023 10/17/2023 1:22 AM EST documented as of this encounter Care Teams Rigging Helper Relationship Specialty Start Date End Date Shay Webb MD [address] [place] [address] 10 & [address] [place] [address] [email or web address] PCP - General 05/17/14 03/25/22 Larisa Treviño MD [address] [place] [address] [email or web address] PCP - General Family Medicine 03/26/22 09/19/22 Janny Zavala MD [address] [place] [address] [email or web address] PCP - General Family Medicine 10/03/22 10/21/22 Colt Steele CNP [address] [place] [address] [email or web address] PCP - General Family Medicine 10/22/22 Stanley Castro MD [address] [place] [address] [email or web address] Historical LMR Provider 09/02/17 11/24/21 Shay Webb MD [address] [address] & [address] [place] [address] [email or web address] Historical LMR Provider 09/02/17 Jaiden Esparza DO [address] [place] [address] Orthopedics & Sports Medicine, [place] [address] [email or web address] Historical LMR Provider 09/02/17 Larisa Navarro MD [address] [place] [address] Historical LMR Provider 09/02/17 Oziel Archibald MD 22 [place] [address] Historical LMR Provider 09/02/17 2 Rao Arzate DO [address] [place] [address] [email or web address] Insurance Assigned Provider 02/21/24 11/22/24 Rocco Alvarenga DO [address] [place] [address] [email or web address] Geriatric Medicine 05/23/25 documented as of this encounter Additional Source Comments The information contained in this document represents components of the legal health record. It is not the complete legal health record.[facility]
--- OUTSIDE RECORDS SUMMARY | 2025-09-21 17:36 | XMS_ITS | Encounter Summary ---
Author Organization [facility] Address [address] [place] [address] Phone Care Team Providers Care Tire Vulcanizer Name Role Phone Shay Webb MD Primary Care Provider Stanley Castro MD Unavailable Shay Webb MD Unavailable [phone] Jaiden Esparza DO Unavailable Larisa Navarro MD Unavailable [phone] Oziel Archibald MD Unavailable [phone] Larisa Treviño MD Primary Care Provid er Janny Zavala MD Primary Care Provider Colt Steele CIRCLE CUTTING SAW OPERATOR Primary Care Provider [phone] Rao Arzate DO Unavailable Rocco Alvarenga DO Unavailable [phone] Reason for Referral * MRI/CAT Scan - Closed Specialty Diagnoses / Procedures Referred By Contac t Referred To Contact Radiology Diagnoses Pancreatic ductal abnormality Gastroesophageal reflux disease, unspecified whether esophagitis present Dysphagia, pharyngoesophageal phase Procedures MRI Cholangiopancreatography (MRCP) Chanda Koroma PA-C Phone: tel: fax: [email or web address]:[email or web address] Referral ID Status Reason Start Date Expiration Date Visits Re quested Visits Authorized [id number] Closed 06/04/2021 06/04/2022 1 1 Encounter Details Date Type Department Care Team (Latest Contact Info) Description 06/04/2021 Transcribe Orders Virtual Department 30 [place] [address] Chanda Koroma PA-C [address] [facility] [facility] [place] [address] [email or web address] Pancreatic ductal abnormality (Primary Dx); Gastroesophageal reflux [...] Description 09/22/2025 10:00 AM EST Office Visit [facility] Orthopedics & Sports Medicine [address] [place] [address] Rosa Elena Jacome MD [address] [place] [address] Orthopedics & Sports Medicine, [facility] [place] [address] [email or web address] documented [...] Other findings as above. Chanda Koroma PA-C IMG MR ABDOMEN Final Result documented in [...] documented as of this encounter Care Teams Tire Vulcanizer Relationship Specialty Start Date End Date Shay Webb MD [address] [address] & [address] [place] [address] [email or web address] PCP - General 05/17/14 03/25/22 Larisa Treviño MD [address] [address] [email or web address] PCP - General Family Medicine 03/26/22 09/19/22 Janny Zavala MD [address] [address] [email or web address] PCP - General Family Medicine 10/03/22 10/21/22 Colt Steele CNP 29 [place] [address] [email or web address] PCP - General Family Medicine 10/22/22 Stanley Castro MD 22 [place] [address] [email or web address] Historical LMR Provider 09/02/17 11/24/21 Shay Webb MD 264 [facility] [address] & [address] [place] [address] [email or web address] Historical LMR Provider 09/02/17 Jaiden Esparza DO [address] [place] [address] Orthopedics & Sports Medicine, [place] [address] [email or web address] Historical LMR Provider 09/02/17 Larisa Navarro MD [address] [place] [address] Historical LMR Provider 09/02/17 Oziel Archibald MD 22 [place] [address] Historical LMR Provider 09/02/17 2 Rao Arzate DO 29 [place] [address] Insurance Assigned Provider 02/21/24 11/22/24 Rocco Alvarenga DO 22 [place] [address] Geriatric Medicine 05/23/25 documented as of this encounter Additional Source Comments The information contained in this document represents components of the legal health record. It is not the complete legal health record.[facility]
--- OUTSIDE RECORDS SUMMARY | 2025-09-21 17:36 | XMS_ITS | Encounter Summary ---
Author Organization [facility] Address [address] [place] [address] Phone Care Team Providers Care Tool Repair Technician Name Role Phone Shay Webb MD Primary Care Provider Stanley Castro MD Unavailable Shay Webb MD Unavailable [phone] Jaiden Esparza DO Unavailable Larisa Navarro MD Unavailable [phone] Oziel Archibald MD Unavailable [phone] Larisa Treviño MD Primary Care Provid er Janny Zavala MD Primary Care Provider Colt Steele CNP Primary Care Provider [phone] Rao Arzate DO Unavailable Rocco Alvarenga DO Unavailable Encounter Details Date Type Department Care Team (Late st Contact Info) Description 10/23/2018 Ancillary Orders Virtual Department 30 [place] [address] Larisa Navarro MD [address] [place] [address] Visit for screening mammogram Social History Tobacco [...] Description 09/22/2025 10:00 AM EST Office Visit [facility] Orthopedics & Sports Medicine [address] [place] [address] Rosa Elena Jacome MD [address] [place] [address] Orthopedics & Sports Medicine, [facility] [place] [place] [address] [email or web address] documented as of this encounter Results * [...] There are scattered fibroglandular densities. POS - [id number] Narrative 01/15/2019 11:07 AM EST Full-field digital [...] There are scattered fibroglandular densities. POS - [id number] us Larisa Navarro MD IMG MG EXAMS Final [...] documented as of this encounter Care Teams Tool Repair Technician Relationship Specialty Start Date End Date Jon, Shay Garcia MD [address] [place] [address] & [address] [place] [address] [email or web address] PCP - General 05/17/14 03/25/22 Larisa Treviño MD [address] [address] [email or web address] PCP - General Family Medicine 03/26/22 09/19/22 Janny Zavala MD [address] [address] [email or web address] PCP - General Family Medicine 10/03/22 10/21/22 Colt Steele CNP 29 [place] [address] [email or web address] PCP - General Family Medicine 10/22/22 Stanley Castro MD 22 [place] [address] [email or web address] Historical LMR Provider 09/02/17 11/24/21 Shay Webb MD 264 [facility] 10 & [address] [place] [address] [email or web address] Historical LMR Provider 09/02/17 Jaiden Esparza DO [address] [place] [address] Orthopedics & Sports Medicine, [place] [address] [email or web address] Historical LMR Provider 09/02/17 Larisa Navarro MD [address], [place] [address] Historical LMR Provider 09/02/17 Oziel Archibald MD 22 [place] [address] Historical LMR Provider 09/02/17 2 Rao Arzate DO [address] [place] [address] [email or web address] Insurance Assigned Provider 02/21/24 11/22/24 Rocco Alvarenga DO 22 [place] [address] [email or web address] Geriatric Medicine 05/23/25 documented as of this encounter Additional Source Comments The information contained in this document represents components of the legal health record. It is not the complete legal health record.[facility]
--- OUTSIDE RECORDS SUMMARY | 2025-09-21 17:36 | XMS_ITS | Encounter Summary ---
Author Organization [facility] Address [address] [place] [address] Phone Care Team Providers Care Engine Repairer Production Name Role Phone Shay Webb MD Primary Care Provider Stanley Castro MD Unavailable Shay Webb MD Unavailable [phone] Jaiden Esparza DO Unavailable [phone] Larisa Navarro MD Unavailable [phone] Oziel Archibald MD Unavailable [phone] Larisa Treviño MD Primary Care Provid er Janny Zavala MD Primary Care Provider [phone] Colt Steele CNP Primary Care Provider [phone] Rao Arzate DO Unavailable Rocco Alvarenga DO Unavailable Encounter Details Date Type Department Care Team (Late st Contact Info) Description 08/17/2019 Procedure Pass [facility], [address] [address] Social History Tobacco Use Types Packs/Day Years [...] EST Office Visit [facility] Orthopedics & Sports Medicine [address] [place] [address] Rosa Elena Jacome MD [address] [place] [address] Orthopedics & Sports Medicine, [facility] [place] [address] [email or web address] documented as of this encounter Visit Diagnoses Not on filedocumented in this encounter Additional Health Concerns Infection Onset Date Last Indicated Resolved Time CoV-Exposed Comment:Recent close contact documented in the COVID-19 PCR/PRO order Pt denied exposure 12/13/2020 12/13/2020 12/18/2020 10:54 AM EST CoV-Risk 07/18/2023 07/18/2023 07/29/2023 1:22 AM EDT CoV-Risk 10/06/2023 10/06/2023 10/17/2023 1:22 AM EST documented as of this encounter Care Teams Engine Repairer Production Relationship Specialty Start Date End Date Shay Webb MD [address] [place] [address] 10 & 12 [place] [address] [email or web address] PCP - General 05/17/14 03/25/22 Larisa Treviño MD [address] [place] [address] [email or web address] PCP - General Family Medicine 03/26/22 09/19/22 Janny Zavala MD 22 [facility] 201 [place] [address] [email or web address] PCP - General Family Medicine 10/03/22 10/21/22 Colt Steele, DANIELLE 29 [facility] [place] [address] [email or web address] PCP - General Family Medicine 10/22/22 Stanley Castro MD 22 [place] [address] [email or web address] Historical LMR Provider 09/02/17 11/24/21 Shay Webb MD [address] [facility] 10 & [address] [place] [address] [email or web address] Historical LMR Provider 09/02/17 Jaiden Esparza DO [address] [place] [address] Orthopedics & Sports Medicine, [place] [address] [email or web address] Historical LMR Provider 09/02/17 Larisa Navarro MD [address] [place] [address] Historical LMR Provider 09/02/17 Oziel Archibald MD 22 [place] [address] Historical LMR Provider 09/02/17 2 Rao Arzate DO 29 [place] [address] [email or web address] Insurance Assigned Provider 02/21/24 11/22/24 Rocco Alvarenga DO [address] [place] [address] [email or web address] Geriatric Medicine 05/23/25 documented as of this encounter Additional Source Comments The information contained in this document represents components of the legal health record. It is not the complete legal health record.[facility]
--- OUTSIDE RECORDS SUMMARY | 2025-09-21 17:36 | XMS_ITS | Encounter Summary ---
Author Organization [facility] Address [address] [place] [address] [place] [address] Phone Care Team Providers Care Orthopedic Dentist Name Role Phone Shay Webb MD Primary Care Provider Stanley Castro MD Unavailable Shay Webb MD Unavailable [phone] Jaiden Esparza DO Unavailable Larisa Navarro MD Unavailable [phone] Oziel Archibald MD Unavailable [phone] Larisa Treviño MD Primary Care Provid er Janny Zavala MD Primary Care Provider Colt Steele CNP Primary Care Provider [phone] Rao Arzate DO Unavailable Rocco Alvarenga DO Unavailable Encounter Details Date Type Department Care Team (Late st Contact Info) Description 03/01/2019 Transcribe Orders Virtual Department 30 [place] [address] Shay Webb MD 264 [facility] 10 & [address] [place] [address] [email or web address] Social History Tobacco Use Types Packs/Day Years [...] Upcoming Encounters Date Type Department Care Team ([facility] st Contact Info) Description 09/22/2025 10:00 AM EST Office Visit [facility] Orthopedics & Sports Medicine [address] [place] [address] Rosa Elena Jacome MD [address] [place] [address] Orthopedics & Sports Medicine, [facility] [place] [address] [email or web address] documented as of [...] documented as of this encounter Care Teams Orthopedic Dentist Relationship Specialty Start Date End Date Shay Webb MD 264 [facility] [address] [place] [address] [email or web address] PCP - General 05/17/14 03/25/22 Larisa Treviño MD [address] [address] [email or web address] PCP - General Family Medicine 03/26/22 09/19/22 Janny Zavala MD [address] [address] [email or web address] PCP - General Family Medicine 10/03/22 10/21/22 Colt Steele, DANIELLE 29 [place] [address] [email or web address] PCP - General Family Medicine 10/22/22 Stanley Castro MD 22 [place] [address] [email or web address] Historical LMR Provider 09/02/17 11/24/21 Shay Webb MD 264 [facility] 10 [address] [place] [address] [email or web address] Historical LMR Provider 09/02/17 Jaiden Esparza DO [address] [place] [address] Orthopedics & Sports Medicine, [facility] [place] [address] [email or web address] Historical LMR Provider 09/02/17 Larisa Navarro MD [address], [place] [address] Historical LMR Provider 09/02/17 Oziel Archibald MD [address] [place] [address] Historical LMR Provider 09/02/17 2 Rao Arzate DO [address] [place] [address] [email or web address] Insurance Assigned Provider 02/21/24 11/22/24 Rocco Alvarenga DO [address] [place] [address] [email or web address] Geriatric Medicine 05/23/25 documented as of this encounter Additional Source Comments The information contained in this document represents components of the legal health record. It is not the complete legal health record.[facility]
--- OUTSIDE RECORDS SUMMARY | 2025-09-21 17:36 | XMS_ITS | Encounter Summary ---
Author Organization [facility] Address [address] [place] [address] Phone Care Team Providers Care Airborne [employer] Systems Name Role Phone Shay Webb MD Primary Care Provider Stanley Castro MD Unavailable Shay Webb MD Unavailable [phone] Jaiden Esparza DO Unavailable [phone] Larisa Navarro MD Unavailable [phone] Oziel Archibald MD Unavailable [phone] Larisa Treviño MD Primary Care Provid er Janny Zavala MD Primary Care Provider Colt Steele CNP Primary Care Provider [phone] Rao Arzate DO Unavailable Rocco Alvarenga DO Unavailable Encounter Details Date Type Department Care Team (Latest Contact Info) Description 08/19/2018 Transcribe Orders [address] [address] Shay Webb MD [address] [place] [address] 10 & 12 [place] [address] [email or web address] Low sodium levels (Primary Dx) Social History [...] Description 09/22/2025 10:00 AM EST Office Visit [facility] Orthopedics & Sports Medicine [address] [place] [address] Rosa Elena Jacome MD [address] [place] [address] Orthopedics & Sports Medicine, [facility] [place] [address] documented as of this encounter Results * (ABNORMAL) Basic metabolic panel (08/19/2018 12:38 PM EDT) SODIUM 133 133 - 146 mmol/L [facility] CHLORIDE 94(L) 96 - 108 mmol/L [facility] POTASSIUM 4.5 3.3 - 5.1 mmol/L [facility] CO2 25 21 - 35 mmol/L [facility] BUN 14 6 - 19 mg/dL [facility] CREATININE 0.60 0.5 - 1.5 mg/dL [facility] GLUCOSE 117(H) 70 - 99 mg/dL [facility] CALCIUM 9.3 8.4 - 10.3 mg/dL [facility] EGFR 85 >59 mL/min/1.7 3m2 [facility] Comment:If patient is black, multiply result by 1.159. Estimated glomerular filtration rate calculated using the CKD-EPI equation. ANION GAP 19 10 - 20 mmol/L [facility] Blood 08/19/2018 12:3 8 PM EDT 08/19/2018 12:41 PM EDT Shay Webb MD LAB BLOOD BKR ORDERABLES Final Result [facility] 30 [place] [address] documented in this encounter Visit Diagnoses Diagnosis [...] documented as of this encounter Care Teams [employer] Relationship Specialty Start Date End Date Shay Webb MD 264 [facility] 10 & 12 [place] [address] [email or web address] PCP - General 05/17/14 03/25/22 Larisa Treviño MD [address] [address] [email or web address] PCP - General Family Medicine 03/26/22 09/19/22 Janny Zavala MD [address] [address] [email or web address] PCP - General Family Medicine 10/03/22 10/21/22 Colt Steele, DANIELLE 29 [facility] [place] [address] [email or web address] PCP - General Family Medicine 10/22/22 Stanley Castro MD 22 [place] [address] [email or web address] Historical LMR Provider 09/02/17 11/24/21 Shay Webb MD [address] [place] [address] & [address] [place] [address] [email or web address] Historical LMR Provider 09/02/17 Jaiden Esparza DO [address] [place] [address] Orthopedics & Sports Medicine, [place] [address] [email or web address] Historical LMR Provider 09/02/17 Larisa Navarro MD [address] [address] Historical LMR Provider 09/02/17 Oziel Archibald MD 22 [place] [address] Historical LMR Provider 09/02/17 2 Rao Arzate DO 29 [place] [address] [email or web address] Insurance Assigned Provider 02/21/24 11/22/24 Rocco Alvarenga DO 22 [place] [address] Geriatric Medicine 05/23/25 documented as of this encounter Additional Source Comments The information contained in this document represents components of the legal health record. It is not the complete legal health record.[facility]
--- OUTSIDE RECORDS SUMMARY | 2025-09-21 17:36 | XMS_ITS | Encounter Summary ---
Author Organization [facility] Address [address] [place] [address] Phone Care Team Providers Care Pre Coder Name Role Phone Shay Webb MD Primary Care Provider Mary Lou Castro MD Unavailable Shay Webb MD Unavailable [phone] Jaiden Esparza DO Unavailable Larisa Navarro MD Unavailable [phone] Oziel Archibald MD Unavailable [phone] Larisa Treviño MD Primary Care Provid [...] Chest Shay Webb MD Phone: tel: fax: [email or web address] Referral ID Status Reason Start Date Expiration Date Visits Re quested Visits Authorized [id number] Closed 01/27/2020 01/26/2021 1 1 Encounter Details Date Type Department Care Team (Latest Contact Info) Description 01/27/2020 Ancillary Orders Virtual Department 30 [place] [address] Shay Webb MD [address] [address] [email or web address] Gastroesophageal reflux disease without esophagitis; Chest mass; [...] Description 09/22/2025 10:00 AM EST Office Visit [facility] Orthopedics & Sports Medicine [address] [place] [address] Rosa Elena Jacome MD [address] [place] [address] Orthopedics & Sports Medicine, [place] [address] [email or web address] documented as of this encounter Results * [...] nodule. TOTAL CTDIvol: 3.2 mGy POS - [id number] Narrative 04/19/2020 4:04 PM EDT HISTORY: Right [...] nodule. TOTAL CTDIvol: 3.2 mGy POS - [id number] Shay Webb MD IMG CT CHEST Final [...] documented as of this encounter Care Teams Pre Coder Relationship Specialty Start Date End Date Shay Webb MD [address] [place] [address] 10 & 12 [place] [address] [email or web address] PCP - General 05/17/14 03/25/22 Larisa Treviño MD [address] [address] [email or web address] PCP - General Family Medicine 03/26/22 09/19/22 Janny Zavala MD [address] [address] [email or web address] PCP - General Family Medicine 10/03/22 10/21/22 Colt Steele, DANIELLE 29 [place] [address] [email or web address] PCP - General Family Medicine 10/22/22 Mary Lou Castro MD 22 [place] [address] [email or web address] Historical LMR Provider 09/02/17 11/24/21 Shay Webb MD 264 [facility] 10 & [address] [place] [address] [email or web address] Historical LMR Provider 09/02/17 Jaiden Esparza DO [address] [place] [address] Orthopedics & Sports Medicine, [place] [address] [email or web address] Historical LMR Provider 09/02/17 Larisa Navarro MD [address] [address] Historical LMR Provider 09/02/17 Oziel Archibald MD [address] [place] [address] Historical LMR Provider 09/02/17 2 Rao Arzate DO [address] [place] [address] [email or web address] Insurance Assigned Provider 02/21/24 11/22/24 Rocco Alvarenga DO [address] [place] [address] [email or web address] Geriatric Medicine 05/23/25 documented as of this encounter Additional Source Comments The information contained in this document represents components of the legal health record. It is not the complete legal health record.[facility]
--- OUTSIDE RECORDS SUMMARY | 2025-09-21 17:36 | XMS_ITS | Encounter Summary ---
Author Organization [facility] Address [address] [place] [address] Phone Care Team Providers Care Air Surveillance Operator Name Role Phone JonShay MD Unavailable [phone] Jaiden Esparza DO Unavailable Larisa Navarro MD Unavailable [phone] Colt Steele TETRYL DISSOLVER OPERATOR Primary Care Provider [phone] Rocco Alvarenga DO Unavailable Reason for Visit * Reason Onset Date Comments vaccine 09/06/2025 Pt is requesting a call back regarding a Flu shot. Pt wants to know if Colt Steele recommend her to get the flu shot, pt is requesting a call back at [phone] contact and advise. Encounter Details Date Type Department Care Team ([facility] st Contact Info) Description 09/06/2025 Telephone Cee [address] [address] Colt Steele, DANIELLE 29 [place] [address] [email or web address] vaccine (Pt is requesting a call back regarding a Flu shot. Pt wants to know if Colt Steele recommend her to get the flu shot, pt is requesting a call back at [phone] contact and advise.) Social History Tobacco Use Types Packs/Day Years [...] encounter Progress Notes * Griselda Perez - 09/08/2025 9:13 AM EDT Scheduled * Rocio Saunders - 09/07/2025 10:42 AM EDT LVM to schedule flu shot * Logna Buckner - 09/06/2025 12:41 PM EDT Pt is requesting a call back regarding a Flu shot. Pt wants to know if Colt Steele recommend her toget the flu shot, pt is requesting a call back at [phone] contact and advise. Central Support Train Station Server (Please do not reply to this user; this inbox is not monitored.) Thank you. documented in this encounter Plan of Treatment Upcoming Encounters Date Type Department Care Team (Late st Contact Info) Description 09/22/2025 10:00 AM EST Office Visit [facility] Orthopedics & Sports Medicine [address] [place] [address] Rosa Elena Jacome MD [address] [place] [address] Orthopedics & Sports Medicine, [facility] [place] [address] documented as of this encounter Visit Diagnoses Not on filedocumented in this encounter Additional Health Concerns Assessment Noted Time PHQ-2 Depression Total Score: 0 04/19/20 22 12:42 PM EDT documented as of this encounter Care Teams Air Surveillance Operator Relationship Specialty Start Date End Date Colt Steele CNP 29 [facility] [place] [address] PCP - General Family Medicine 10/22/22 Jon, Shay Garcia MD [address] [place] [address] & [address] [place] [address] [email or web address] Historical LMR Provider 09/02/17 Jaiden Esparza DO [address] [place] [address] Orthopedics & Sports Medicine, [facility] [place] [address] Historical LMR Provider 09/02/17 Larisa Navarro MD [address] [place] [address] Historical LMR Provider 09/02/17 Rocco Alvarenga DO 22 [place] [address] Geriatric Medicine 05/23/25 documented as of this encounter Additional Source Comments The information contained in this document represents components of the legal health record. It is not the complete legal health record.[facility]
--- OUTSIDE RECORDS SUMMARY | 2025-09-21 17:36 | XMS_ITS | Clinical Summary ---
Author Organization [facility] Address [place] [address] Care Team Providers Care Senior Software Development Engineer Name Role Phone Jon, Shay MOSQUERA Primary Care Provider [phone] Allergies Active Allergy Reactions Criticality Noted Date [...] - Influenza standard series) 07/18/2025 Care Teams Senior Software Development Engineer Relationship Specialty Start Date End Date JonShay MD [address] [address] PCP - General 10/09/10
--- OUTSIDE RECORDS SUMMARY | 2025-09-21 17:36 | XMS_ITS | Encounter Summary ---
Author Organization [facility] Address [address] [place] [address] Phone Care Team Providers Care Photographs Curator Name Role Phone JonShay MD Unavailable [phone] Jaiden Esparza DO Unavailable [phone] Larisa Navarro MD Unavailable [phone] Colt Steele FURNACE REPAIR MECHANIC Primary Care Provider [phone] Rocco Alvarenga DO Unavailable Encounter Details Date Type Department Care Team (Late st Contact Info) Description 08/22/2025 Ancillary Orders [facility], X-Ray - [address] [address] Paresh Cordon PA [address] [place] [address] Spinal stenosis, lumbar region, without neurogenic claudication (Primary Dx) Social History Tobacco Use Types [...] 10:00 AM EST Office Visit [facility]ics & Sports Medicine [address] [place] [address] Rosa Elena Jacome MD [address] [place] [address] Orthopedics & Sports Medicine, [facility] [place] [address] documented as of this encounter Results * XR LUMBOSACRAL SPINE 2-3 VIEWS (08/25/2025 3:42 PM EDT) Anatomical Region Laterality Modality L-spine Computed Radiogr aphy 08/27/2025 7:45 AM EDT Impressions 08/27/2025 7:46 AM EDT No significant interval change. Posterior fusion hardware at L4-5. Hardware appears intact and grossly well-positioned presumably with associated laminectomies. The hardware stabilizes grade 1 anterolisthesis at L4-5. Partial imaging of medical staff coordinator lead extending proximally, likely a neurostimulator device. Moderate scoliosis. Moderate degenerative changes throughout the lumbar spine with most significant disc degeneration and disc space narrowing at L5-S1 and L2-3. Qualitative osteopenia with probable mild compression fracture involving the superior endplate of L1, without change in appearance compared to lumbar MR of 2021. Narrative 08/27/2025 7:46 AM EDT XR LUMBOSACRAL SPINE 2-3 VIEWS Referring clinician's provided indication for this examination in [facility]: Pain COMPARISON: 01/20/25 Procedure Note Nuno Galindo MD, WILBERTO - 08/27/2025 XR LUMBOSACRAL SPINE 2-3 VIEWS Referring clinician's provided indication for this examination in Epic:Pain COMPARISON: 01/20/25 IMPRESSION: No significant interval change. Posterior fusion hardware at L4-5. Hardware appears intact and grosslywell- positioned presumably with associated laminectomies. The hardwarestabilizes grade 1 anterolisthesis at L4-5. Partial imaging of medicaldevice lead extending proximally, likely a neurostimulator device.Moderate scoliosis. Moderate degenerative changes throughout the lumbar spine with mostsignificant disc degeneration and disc space narrowing at L5-S1 and L2-3. Qualitative osteopenia with probable mild compression fracture involvingthe superior endplate of L1, without change in appearance compared tolumbar MR of 2021. us Paresh Cordon PA IMG XR SPINE Final Resul t documented in this encounter Visit Diagnoses Diagnosis Spinal stenosis, lumbar region, without neurogenic claudication- Primary Spinal stenosis, lumbar region, without neurogenic claudication documented in this encounter Additional Health Concerns Assessment Noted Time PHQ-2 Depression Total Score: 0 04/19/20 12:42 PM EDT documented as of this encounter Care Teams Photographs Curator Relationship Specialty Start Date End Date Colt Steele CNP 29 [facility] [place] [address] PCP - General Family Medicine 10/22/22 JonShay MD [address] [address] & [address] [place] [address] [email or web address] Historical LMR Provider 09/02/17 Jaiden Esparza DO [address] [place] [address] [facility] [place] [address] Historical LMR Provider 09/02/17 Larisa Navarro MD [address] [place] [address] Historical LMR Provider 09/02/17 Rocco Alvarenga DO 22 [place] [address] [email or web address] Geriatric Medicine 05/23/25 documented as of this encounter Additional Source Comments The information contained in this document represents components of the legal health record. It is not the complete legal health record.[facility]
--- OUTSIDE RECORDS SUMMARY | 2025-09-21 17:36 | XMS_ITS | Encounter Summary ---
Author Organization [facility] Address [address] [place] [address] Phone Care Team Providers Care Cattle Sprayer Name Role Phone JonShay MD Unavailable Jaiden Esparza DO Unavailable [phone] Larisa Navarro MD Unavailable [phone] Larisa Treviño MD Primary Care Provid er Janny Zavala MD Primary Care Provider [phone] Colt Steele [facility] Primary Care Provider [phone] Rao Arzate DO Unavailable Rocco Alvarenga DO Unavailable Encounter Details Date Type Department Care Team (Late st Contact Info) Description 04/03/2022 Procedure Pass [facility], [address] [address] Social History Tobacco Use Types [...] 09/22/2025 10:00 AM EST Office Visit [facility] Orthopedics & Sports Medicine [address] [place] [address] Rosa Elena Jacome MD [address] [place] [address] Orthopedics & Sports Medicine, [facility] [place] [address] [email or web address] documented as of this encounter Visit Diagnoses Not on filedocumented in this encounter Additional Health Concerns Infection Onset Date Last Indicated Resolved Time CoV-Risk 07/18/2023 07/18/2023 07/29/2023 1:22 AM EDT CoV-Risk 10/06/2023 10/06/2023 10/17/2023 1:22 AM EST documented as of this encounter Care Teams Cattle Sprayer Relationship Specialty Start Date End Date Larisa Treviño MD [address] [address] [email or web address] PCP - General Family Medicine 03/26/22 09/19/22 Janny Zavala MD 22 [facility] 201 [place] [address] PCP - General Family Medicine 10/03/22 10/21/22 Cedric Colt Weiss, DANIELLE 29 [place] [address] PCP - General Family Medicine 10/22/22 Shay Webb MD [address] [address] [email or web address] Historical LMR Provider 09/02/17 Jaiden Esparza DO [address] [place] [address] Orthopedics & Sports Medicine, [place] [address] Historical LMR Provider 09/02/17 Larisa Navarro MD [address], [place] [address] Historical LMR Provider 09/02/17 Rao Arzate DO 29 [place] [address] Insurance Assigned Provider 02/21/24 11/22/24 Rocco Alvarenga DO [address] [place] [address] [email or web address] Geriatric Medicine 05/23/25 documented as of this encounter Additional Source Comments The information contained in this document represents components of the legal health record. It is not the complete legal health record.[facility]
--- OUTSIDE RECORDS SUMMARY | 2025-09-21 17:36 | XMS_ITS | Encounter Summary ---
Author Organization [facility] Address [address] [place] [address] Phone Care Team Providers Care Financial Assistance Advisor Name Role Phone Shay Webb MD Primary Care Provider Stanley Castro MD Unavailable Shay Webb MD Unavailable [phone] Jaiden Esparza DO Unavailable [phone] Larisa Navarro MD Unavailable [phone] Oziel Archibald MD Unavailable [phone] Larisa Treviño MD Primary Care Provid er Janny Zavala MD Primary Care Provider Colt Steele CNP Primary Care Provider Rao Arzate DO Unavailable Rocco Alvarenga DO Unavailable [phone] Reason for Referral * MRI/CAT Scan - Closed Specialty Diagnoses / Procedures Referred By Contac t Referred To Contact Radiology Diagnoses Left shoulder pain, unspecified chronicity Procedures MRI Shoulder (Left) Shay Webb MD Phone: tel: fax: [email or web address] Referral ID Status Reason Start Date Expiration Date Visits Re quested Visits Authorized [id number] Closed 08/17/2019 2020 1 1 Encounter Details Date Type Department Care Team ([facility] Contact Info) Description 08/17/2019 Ancillary Orders Virtual Department [address] [place] [address] Shay Webb MD 264 [facility] [address] [place] [address] [email or web address] Left shoulder pain, unspecified chronicity Social History [...] Upcoming Encounters Date Type Department Care Team ([facility] Contact Info) Description 09/22/2025 10:00 AM EST Office Visit [facility] Orthopedics & Sports Medicine [address] [place] [address] Rosa Elena Jacome MD [address] [place] [address] Orthopedics & Sports Medicine, [facility] [place] [address] documented as of this encounter Results * [...] of the distal subscapularis tendon. POS - [id number] Narrative 08/28/2019 4:21 PM EDT HISTORY: Pain, [...] tear ofthe distal subscapularis tendon. POS - [id number] Shay Webb MD IMG MR EXTREMITY Final Result documented in this [...] documented as of this encounter Care Teams Financial Assistance Advisor Relationship Specialty Start Date End Date Shay Webb MD [address] [place] [address] 10 & [address] [place] [address] [email or web address] PCP - General 05/17/14 03/25/22 Larisa Treviño MD [address] [place] [address] [email or web address] PCP - General Family Medicine 03/26/22 09/19/22 Janny Zavala MD 22 [facility] 201 [place] [address] [email or web address] PCP - General Family Medicine 10/03/22 10/21/22 Colt Steele, DANIELLE 29 [facility] [place] [address] [email or web address] PCP - General Family Medicine 10/22/22 Stanley Castro MD 22 [place] [address] [email or web address] Historical LMR Provider 09/02/17 11/24/21 Shay Webb MD 264 [facility] 10 & [address] [place] [address] [email or web address] Historical LMR Provider 09/02/17 Jaiden Esparza DO [address] [place] [address] Orthopedics & Sports Medicine, [place] [address] [email or web address] Historical LMR Provider 09/02/17 Larisa Navarro MD [address] [place] [address] Historical LMR Provider 09/02/17 Oziel Archibald MD 22 [place] [address] Historical LMR Provider 09/02/17 2 Rao Arzate DO 29 [place] [address] [email or web address] Insurance Assigned Provider 02/21/24 11/22/24 Rocco Alvarenga DO [address] [place] [address] [email or web address] Geriatric Medicine 05/23/25 documented as of this encounter Additional Source Comments The information contained in this document represents components of the legal health record. It is not the complete legal health record.[facility]
--- OUTSIDE RECORDS SUMMARY | 2025-09-21 17:36 | XMS_ITS | Encounter Summary ---
Author Organization [facility] Address [address] [place] [address] Phone Care Team Providers Care Medical Resident Name Role Phone Shay Webb MD Primary Care Provider Stanley Castro MD Unavailable Shay Webb MD Unavailable [phone] Jaiden Esparza DO Unavailable Larisa Navarro MD Unavailable [phone] Oziel Archibald MD Unavailable [phone] Larisa Treviño MD Primary Care Provid er Janny Zavala MD Primary Care Provider Colt Steele LOGISTICS VICE PRESIDENT Primary Care Provider [phone] Rao Arzate DO Unavailable Rocco Alvarenga DO Unavailable Encounter Details Date Type Department Care Team (Late st Contact Info) Description 06/02/2020 Ancillary Orders Virtual Department 30 [place] [address] Larisa Navarro MD [address] [place] [address] Breast screening; Osteopenia, unspecified location Social History [...] Description 09/22/2025 10:00 AM EST Office Visit [facility] Orthopedics & Sports Medicine [address] [place] [address] Rosa Elena Jacome MD [address] [place] [address] Orthopedics & Sports Medicine, [facility] [place] [address] [email or web address] documented as of this encounter Results * [...] the EHR: None. TECHNIQUE: Bone densitometry on [employer] A (S/[id number]). The least significant change for this machine [...] the EHR: None. TECHNIQUE: Bone densitometry on [employer] A (S/[id number]). The leastsignificant change for this machine is [...] Left femoral neck bonemineral density of 0.621. Larisa Navarro MD IMG BD BONE DENSITY DEXA Final Result * [...] as of this encounter Care Teams Medical Resident Relationship Specialty Start Date End Date Shay Webb MD [address] [place] [address] & [address] [place] [address] [email or web address] PCP - General 05/17/14 03/25/22 Larisa Treviño MD [address] [place] [address] [email or web address] PCP - General Family Medicine 03/26/22 09/19/22 Janny Zavala MD [address] [place] [address] [email or web address] PCP - General Family Medicine 10/03/22 10/21/22 Colt Steele CNP 29 [facility] [place] [address] PCP - General Family Medicine 10/22/22 Stanley Castro MD [address] [place] [address] [email or web address] Historical LMR Provider 09/02/17 11/24/21 Shay Webb MD 264 [facility] [address] & [address] [place] [address] [email or web address] Historical LMR Provider 09/02/17 Jaiden Esparza DO 4 [facility] Orthopedics & Sports Medicine, [place] [address] [email or web address] Historical LMR Provider 09/02/17 Larisa Navarro MD [address] [place] [address] Historical LMR Provider 09/02/17 Oziel Archibald MD 22 [place] [address] Historical LMR Provider 09/02/17 2 Rao Arzate DO 29 [place] [address] [email or web address] Insurance Assigned Provider 02/21/24 11/22/24 Rocco Alvarenga DO 22 [place] [address] [email or web address] Geriatric Medicine 05/23/25 documented as of this encounter Additional Source Comments The information contained in this document represents components of the legal health record. It is not the complete legal health record.[facility]
--- OUTSIDE RECORDS SUMMARY | 2025-09-21 17:36 | XMS_ITS | Encounter Summary ---
Author Organization [facility] Address [address] [place] [address] Phone Care Team Providers Care Pigment Weigher Name Role Phone JonShay MD Unavailable [phone] Jaiden Esparza DO Unavailable Larisa Navarro MD Unavailable [phone] Larisa Treviño MD Primary Care Provid er Janny Zavala MD Primary Care Provider [phone] Colt Steele [facility] Primary Care Provider [phone] Rao Arzate DO Unavailable Rocco Alvarenga DO Unavailable Encounter Details Date Type Department Care Team (Late st Contact Info) Description 05/09/2022 Procedure Pass [facility], [address] [address] Social History Tobacco Use Types [...] high school, GED, job training, learning the Amharic language, technical skills, or developing parenting skills)? [...] [facility] Orthopedics & Sports Medicine [address] [place] [address] Rosa Elena Jacome MD [address] [place] [address] Orthopedics & Sports Medicine, [facility] [place] [address] documented as of this encounter Visit Diagnoses Not on filedocumented in this encounter Additional Health Concerns Infection Onset Date Last Indicated Resolved Time CoV-Risk 07/18/2023 07/18/2023 07/29/2023 1:22 AM EDT CoV-Risk 10/06/2023 10/06/2023 10/17/2023 1:22 AM EST Assessment Noted Time PHQ-2 Depression Total Score: 0 04/19/20 12:42 PM EDT documented as of this encounter Care Teams Pigment Weigher Relationship Specialty Start Date End Date Larisa Treviño MD [address] [address] [email or web address] PCP - General Family Medicine 03/26/22 09/19/22 Janny Zavala MD [address] [address] [email or web address] PCP - General Family Medicine 10/03/22 10/21/22 Colt Steele CNP 29 [facility] [place] [address] [email or web address] PCP - General Family Medicine 10/22/22 Shay Webb MD [address] [address] & [address] [place] [address] [email or web address] Historical LMR Provider 09/02/17 Jaiden Esparza DO [address] [place] [address] Orthopedics & Sports Medicine, [place] [address] [email or web address] Historical LMR Provider 09/02/17 Larisa Navarro MD [address] [place] [address] Historical LMR Provider 09/02/17 aRo Arzate DO [address] [place] [address] [email or web address] Insurance Assigned Provider 02/21/24 11/22/24 Rocco Alvarenga DO [address] [place] [address] [email or web address] Geriatric Medicine 05/23/25 documented as of this encounter Additional Source Comments The information contained in this document represents components of the legal health record. It is not the complete legal health record.[facility]
--- OUTSIDE RECORDS SUMMARY | 2025-09-21 17:36 | XMS_ITS | Encounter Summary ---
Author Organization [facility] Address [address] [place] [address] [place] [address] Phone Care Team Providers Care Ink Jet Operator Name Role Phone Shay Webb MD Primary Care Provider Stanley Castro MD Unavailable Shay Webb MD Unavailable [phone] Jaiden Esparza DO Unavailable [phone] Larisa Navarro MD Unavailable [phone] Oziel Archibald MD Unavailable [phone] Larisa Treviño MD Primary Care Provid er Janny Zavala MD Primary Care Provider [phone] Colt Steele CNP Primary Care Provider [phone] Rao Arzate DO Unavailable Rocco Alvarenga DO Unavailable Encounter Details Date Type Department Care Team (Late st Contact Info) Description 10/26/2019 Ancillary Orders Virtual Department 30 [place] [address] Shay Webb MD 264 [facility] [address] [place] [address] [email or web address] Breast screening Social History Tobacco Use Types [...] [facility] Orthopedics & Sports Medicine [address] [place] [address] Rosa Elena Jacome MD [address] [place] [address] Orthopedics & Sports Medicine, [place] [address] [email or web address] documented as of this [...] There are scattered fibroglandular densities. POS - [id number] Narrative 01/21/2020 9:05 AM EST Bilateral mammography [...] There are scattered fibroglandular densities. POS - [id number] Shay Webb MD IMG MG EXAMS Final [...] documented as of this encounter Care Teams Ink Jet Operator Relationship Specialty Start Date End Date Shay Webb MD [address] [place] [address] 10 [address] [place] [address] [email or web address] PCP - General 05/17/14 03/25/22 Larisa Treviño MD [address] [place] [address] [email or web address] PCP - General Family Medicine 03/26/22 09/19/22 Janny Zavala MD [address] [address] [email or web address] PCP - General Family Medicine 10/03/22 10/21/22 Colt Steele, DANIELLE 29 [facility] [place] [address] [email or web address] PCP - General Family Medicine 10/22/22 Stanley Castro MD 22 [place] [address] [email or web address] Historical LMR Provider 09/02/17 11/24/21 Shay Webb MD 264 [facility] [address] [place] [address] [email or web address] Historical LMR Provider 09/02/17 Jaiden Esparza DO [address] [place] [address] Orthopedics & Sports Medicine, [place] [address] [email or web address] Historical LMR Provider 09/02/17 Larisa Navarro MD [address] [place] [address] Historical LMR Provider 09/02/17 Oziel Archibald MD 22 [place] [address] Historical LMR Provider 09/02/17 2 Rao Arzate DO [address] [place] [address] [email or web address] Insurance Assigned Provider 02/21/24 11/22/24 Rocco Alvarenga DO [address] [place] [address] [email or web address] Geriatric Medicine 05/23/25 documented as of this encounter Additional Source Comments The information contained in this document represents components of the legal health record. It is not the complete legal health record.[facility]
--- OUTSIDE RECORDS SUMMARY | 2025-09-21 17:36 | XMS_ITS | Encounter Summary ---
Author Organization [facility] Address [address] [place] [address] Phone Care Team Providers Care Budget And Policy Analyst Name Role Phone Shay Webb MD Unavailable Jaiden Esparza DO Unavailable [phone] Larisa Navarro MD Unavailable [phone] Colt Steele [facility] Primary Care Provider [phone] Rao Arzate DO Unavailable Rocco Alvarenga DO Unavailable Encounter Details Date Type Department Care Team (Late st Contact Info) Description 04/22/2023 Ancillary Orders [facility], X-Ray - [address] [address] Cedric Milton MD [address] [place] [id number] Closed fracture of one rib of right [...] high school, GED, job training, learning the Tongan language, technical skills, or developing parenting skills)? [...] Description 09/22/2025 10:00 AM EST Office Visit [facility] Orthopedics & Sports Medicine [address] [place] [address] Rosa Elena Jacome MD [address] [place] [address] Orthopedics & Sports Medicine, [place] [address] [email or web address] documented as of this encounter Results [...] 1:22 AM EDT CoV-Risk 10/06/2023 10/06/2023 10/17/2023 1:2 2 AM EST Assessment Noted Time PHQ-2 Depression Total Score: 0 04/19/20 12:42 PM EDT documented as of this encounter Care Teams Budget And Policy Analyst Relationship Specialty Start Date End Date Colt SteeleDANIELLE [address] [place] [address] [email or web address] PCP - General Family Medicine 10/22/22 JonShay MD [address] [address] & [address] [place] [address] [email or web address] Historical LMR Provider 09/02/17 Jaiden Esparza DO [address] [place] [address] Orthopedics & Sports Medicine, [place] [address] Historical LMR Provider 09/02/17 Larisa Navarro MD [address] [address] Historical LMR Provider 09/02/17 Rao Arzate DO 29 [place] [address] Insurance Assigned Provider 02/21/24 11/22/24 Rocco Alvarenga DO 22 [place] [address] Geriatric Medicine 05/23/25 documented as of this encounter Additional Source Comments The information contained in this document represents components of the legal health record. It is not the complete legal health record.[facility]
--- OUTSIDE RECORDS SUMMARY | 2025-09-21 17:36 | XMS_ITS | Encounter Summary ---
Author Organization [facility] Address [address] [place] [address] Phone Care Team Providers Care Installation Manager Name Role Phone Shay Webb MD Primary Care Provider Stanley Castro MD Unavailable Shay Webb MD Unavailable [phone] Jaiden Esparza DO Unavailable Larisa Navarro MD Unavailable [phone] Oziel Archibald MD Unavailable Larisa Treviño MD Primary Care Provid er Janny Zavala MD Primary Care Provider Colt Steele CNP Primary Care Provider [phone] Rao Arzate DO Unavailable Rocco Alvarenga DO Unavailable Encounter Details Date Type Department Care Team (Late st Contact Info) Description 07/10/2021 Procedure Pass [facility] Endoscopy Admitting Dept Virtual Department [address], [place] [id number] Social History Tobacco Use Types Packs/Day Years [...] Description 09/22/2025 10:00 AM EST Office Visit [facility] [address] [place] [address] Rosa Elena Jacome MD [address] [place] [address] Orthopedics & Sports Medicine, [facility] [place] [address] [email or web address] documented as of this encounter Visit Diagnoses Not on filedocumented in this encounter Additional Health Concerns Infection Onset Date Last Indicated Resolved Time CoV-Risk 07/18/2023 07/18/2023 07/29/2023 1:22 AM EDT CoV-Risk 10/06/2023 10/06/2023 10/17/2023 1:22 AM EST documented as of this encounter Care Teams Installation Manager Relationship Specialty Start Date End Date Shay Webb MD [address] [place] [address] 10 [address] [place] [address] [email or web address] PCP - General 05/17/14 03/25/22 Larisa Treviño MD [address] [place] [address] [email or web address] PCP - General Family Medicine 03/26/22 09/19/22 Janny Zavala MD [address] [place] [address] [email or web address] PCP - General Family Medicine 10/03/22 10/21/22 Colt Steele CNP [address] [place] [address] [email or web address] PCP - General Family Medicine 10/22/22 Stanley Castro MD [address] [place] [address] [email or web address] Historical LMR Provider 09/02/17 11/24/21 Shay Webb MD [address] [address] & [address] [place] [address] [email or web address] Historical LMR Provider 09/02/17 Jaiden Esparza DO [address] [place] [address] Orthopedics & Sports Medicine, [place] [address] [email or web address] Historical LMR Provider 09/02/17 Larisa Navarro MD [address] [place] [address] Historical LMR Provider 09/02/17 Oziel Archibald MD [address] [place] [address] Historical LMR Provider 09/02/17 2 Rao Arzate DO [address] [place] [address] [email or web address] Insurance Assigned Provider 02/21/24 11/22/24 Rocco Alvarenga DO [address] [place], [place] [id number] [email or web address] Geriatric Medicine 05/23/25 documented as of this encounter Additional Source Comments The information contained in this document represents components of the legal health record. It is not the complete legal health record.[facility]
--- OUTSIDE RECORDS SUMMARY | 2025-09-21 17:36 | XMS_ITS | Clinical Summary ---
Author Organization [facility] Address [address] [place] [address] Phone Care Team Providers Care Gold And Silver Assayer Name Role Phone JonShay MD Unavailable [phone] Jaiden Esparza DO Unavailable Larisa Navarro MD Unavailable [phone] Colt Steele [facility] Primary Care Provider [phone] Rocco Alvarenga DO Unavailable Allergies Active Allergy Reactions Criticality Noted Date [...] MG) BY MOUTH DAILY 90 tablet 2 Active metoprolol succinate (TOPROL-XL) 25 MG 24 hr tabletIndications:E ssential hypertension Take 1 tablet (25 mg total) by mouth daily. 90 tablet 3 5 Active ondansetron (ZOFRAN-ODT) 4 MG disintegrating tabletIndications:N ausea Take 1 tablet (4 mg total) by mouth every 8 (eight) hours as needed for nausea. 10 tablet 5 Active valsartan (DIOVAN) 320 MG tabletIndications:E ssential hypertension Take 1 tablet (320 mg total) by mouth daily. 90 tablet 1 5 12/24/19 26 Active amLODIPine (NORVASC) 5 MG tabletIndications:E ssential hypertension Take 1 tablet (5 mg total) by mouth daily. 90 tablet 1 5 12/24/19 26 Active alendronate (FOSAMAX) 70 MG tablet Take 1 tablet (70 mg total) by mouth every 7 days. Take in the morning with a full glass of water, on an empty stomach, and do not take anything else by mouth or lie down for the next 30 min. 12 tablet 3 5 Active temazepam (RESTORIL) 15 mg capsuleIndications: Chronic insomnia TAKE 1 CAPSULE(15 MG) BY MOUTH EVERY NIGHT AT BEDTIME NEEDED FOR INSOMNIA 30 capsule 3 5 Active famotidine (PEPCID) 40 MG tablet Take 80 mg by mouth nightly at bedtime. 5 Active Active Problems Problem Noted Date Diagnosed [...] overly concerned/impacting daily activities. Does struggle with CAMPO despite wearing ALCANTARA would could contribute. MMSE completed today- score 30/30. Phone # and resources provided for neuropsych. Also discussed option of referral to [facility] Geriatrics. Is also going to call Dr. Sr's office as patient's sees him to see if they do testing/managing memory changes. If not, will notify office and will refer to [facility] Geriatrics. Aware to follow-up as needed Postprandial [...] this out. 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 Was seen/evaluated at [facility]. Since being home has been feeling [...] sleep, [facility] verified (last refill sent by [facility] Provider- had one appointment with them but is transferring back to [facility])- refill provided. Will do CSC at [facility] [...] getting progressively worse. Follows with Dr. Milton- [facility]. Is going to meet with another provider in [place] later this month. Hoping to try something else for pain in the interim. Has done Gabapentin without improvement. Will try Cymbalta 30 mg daily. Reviewed side effects/risks/benefits, take in the morning. Plan for recheck in two weeks prior to [place], aware to follow-up sooner if needed Assessment & Plan (06/14/2024 5:22 PM EDT): Following/managed through Dr. Milton Assessment & Plan (04/03/2023 11:53 AM EDT): Scheduled with Dr. Milton 04/09/23 for surgical repair with hopes for improvement in pain. Plan for three month follow-up, aware to follow-up sooner if needed Assessment & Plan (03/03/2023 11:04 AM EDT): Had MRI 02/28/23, results pending. Nitro some improvement with Gabapentin, tolerating now that [...] Assessment & Plan (01/13/2023 6:56 PM EST): Stable, following with nephrology Spinal stenosis of lumbar region 04/27/2022 Assessment & Plan (03/30/2025 4:36 PM EDT): Has had multiple surgeries/injections without improvement. Met with Dr. Milton multiple times. Even tried an implant device with no improvement. Next step is meeting with Dr. Goodwin's at [facility] 04/20/25 to discuss other options. Can continue [...] Assessment & Plan (01/13/2023 6:58 PM EST): Stable, following with Dr. Milton at [facility] for injections S/P HATTIE-BSO 04/27/2022 Simple renal [...] slightly above goal today. Has follow-up with [facility] next week. Continue with medications/DASH [...] to fax the MRI readings done at [facility] to their offices (MRI was ordered by Dr. Yesy Milton at [facility]). Advised for patient to contact the surgeon's office to schedule an appt and ask how they need/want records as they may require the disk for imaging. Also advised that they are may risk factors for surgery including age/underlying co-morbidities and rate of success. Her daughter is coming from [place] in a few days and will start [...] enthesopathy of cervical region 8 Atherosclerosis of elem co ronary artery of elem heart without angina pectoris 09/30/2017 Assessment & [...] Encounters Date Type Department Care Team Description 09/13/2025 2:30 PM EDT Nurse Only [address] [address] Colt Steele CNP Flu vaccine need (Primary Dx) 09/06/[address] [address] Colt Steele CNP vaccine (Pt is requesting a call back regarding a Flu shot. Pt wants to know if Colt Cedric recommend her to get the flu shot, pt is requesting a call back at [phone] contact and advise.) 08/25/2025 3:05 PM EDT - 08/25/2025 11:59 PM EDT Hospital Encounter [address] [address] Paresh Cordon, [place] Discharge Disposition: Home or Self Care 08/22/2025 Ancillary Orders [address] [address] Paresh Cordon, [place] Spinal stenosis, lumbar region, without neurogenic claudication (Primary Dx) 07/25/[address] [address] Colt Steele CNP Medication Refill 07/25/[address] [address] Colt Steele CNP Medication Refill 07/06/[address] [address] Colt Steele CNP images (Requesting image of the EKG fax to [phone]) 07/05/2025 Refill [address] [place] [address] Clau Zhou [place] Medication Refill (Alendronate ) 06/29/[address] [address] Colt Steele CNP Medication Refill 06/28/2025 1:52 PM EDT - 06/28/2025 11:59 PM EDT Hospital Encounter [facility], X-Ray - [address] [place] [address] Colt Steele CNP Discharge Disposition: Home or Self Care 06/27/2025 3:30 PM EDT - 06/27/2025 11:59 PM EDT Hospital Encounter [address] [address] Colt Steele CNP Discharge Disposition: Home or Self Care 06/27/2025 3:15 PM EDT Office Visit [address] [address] Colt Steele CNP Pre-op evaluation (Primary Dx); Atherosclerosis of elem coronary artery of elem heart without angina pectoris; Primary hypertension; Upper back pain on right side; Chronic insomnia; Essential hypertension 06/21/[address] [address] Colt Steele CNP Pre-op Visit ([facility] + 07/13 + Back surgery) from Last 3 Months Immunizations Immunization Administration Dates Next Due COVID-19 (Pre-09/08) Moderna Vaccine, mRNA, PF 01/18/2021,12/21/2020 INFLUENZA, SPLIT VIRUS, TRIV ALENT W/ PRESERVATIVE IM 08/15/2021,08/02/2019,07/22/2017,08/24 Influenza High-Dose Quadriva lent Preservative Free IM 09/05/2023,08/31/2022,08/02/2019,07/22,08/24/2016 Influenza High-Dose Trivalen t Preservative Free IM 09/13/2025,08/17/2024,08/15/2021 Influenza, Unspecified Formulation 08/12,07/23/2014,08/14/2013,08/15,2011,08/03/2010 Pneumococcal conjugate PCV13 [...] 02/13/2025 11:35 AM EDT Plan of Treatment Upcoming Encounters Date Type Department Care Team (Late st Contact Info) Description 09/22/2025 10:00 AM EST Office Visit [facility] Orthopedics & Sports Medicine [address] [place] [address] Rosa Elena Jacome MD [address] [place] [address] Orthopedics & Sports Medicine, [facility] [place] [address] [email or web address] Health Maintenance Due Date Last Done Comments RSV VACCINE (1 - 1-dose 75+ series) 2012 DEPRESSION SCREENING 04/19/2023 04/19/2022 COVID-19 VACCINE ( season) 2025 09/06/2022, 10/01/2021, [...] SCREENING INITIAL (ONE-TIME) Completed 06/03/2024, 07/11/2021, 12/03/2018 INFLUENZA VACCINE Completed 09/13/2025, , 09/05/2023, Additional history exists HEPATITIS A VACCINES Aged Out No long [...] Name Priority Date/Time Associated Diagnosis Comments XR LUMBOSACRAL SPINE 2-3 VIEWS Routine 08/25/2025 3:42 PM EDT Spinal stenosis, lumbar region, without neurogenic claudication XR THORACIC SPINE 2 VIEW Routine 06/28/2025 2:09 PM EDT Upper back pain on right side ECG 12-LEAD Routine 06/27/2025 3:45 PM EDT Pre-op evaluation CBC Routine 06/27/2025 3:30 PM EDT Pre-op evaluation Atherosclerosis of elem coronary artery of elem heart without angina pectoris COMPREHENSIVE METABOLIC PANEL (CMP) Routine 06/27/2025 3:30 PM EDT Pre-op evaluation Atherosclerosis of elem coronary artery of elem heart without angina pectoris LIPID PANEL Routine 04/22/2025 8:05 AM EDT Atherosclerosis of elem coronary artery of elem heart without angina pectoris BD DXA SPINE AND HIP WITH FOREARM Routine 06/03/2024 3:40 PM EDT Loss of height from Last 3 Months or Most Recently Relevant to Health Maintenance Results * XR LUMBOSACRAL SPINE 2-3 VIEWS (08/25/2025 3:42 PM EDT) Anatomical Region Laterality Modality L-spine Computed Radiogr aphy 08/27/2025 7:45 AM EDT Impressions 08/27/2025 7:46 AM EDT No significant interval change. Posterior fusion hardware at L4-5. Hardware appears intact and grossly well-positioned presumably with associated laminectomies. The hardware stabilizes grade 1 anterolisthesis at L4-5. Partial imaging of medical aide lead extending proximally, likely a neurostimulator device. [...] provided indication for this examination in Epic: Pain COMPARISON: 01/20/25 Procedure Note Nuno Galindo MD, WILBERTO - 08/27/2025 XR LUMBOSACRAL SPINE 2-3 VIEWS Referring clinician's provided indication for this examination in [facility]:Pain COMPARISON: 01/20/25 IMPRESSION: No significant interval change. [...] of L1, without change in appearance compared toluar MR of 2021. Paresh HARDIN IMG XR SPINE Final Resul t * XR THORACIC SPINE 2 VIEW (06/28/2025 2:09 PM EDT) Anatomical Region Laterality Modality T-spine Computed Radiogr aphy 06/29/2025 10:2 8 AM EDT Impressions 06/29/2025 10:30 AM EDT Degenerative changes. No acute osseous abnormality. Narrative 06/29/2025 10:30 AM EDT XR THORACIC SPINE 2 VIEW Referring clinician's provided indication for this examination in [facility]: Pain COMPARISON: XR THORACIC SPINE 3 VIEW [...] provided indication for this examination in [facility]:Pain COMPARISON: XR THORACIC SPINE 3 VIEW FINDINGS: No acute fracture or compression fracture. Normal spinal curvature. Mildto moderate multilevel disc height loss with endplate osteophytes. Normalfacet alignment. Spinal cord stimulator leads, partially imaged, terminateover the mid thoracic spinal canal. Vascular calcifications. IMPRESSION: Degenerative changes. No acute osseous abnormality. Colt Steele [facility] XR SPINE Final Resu lt * ECG 12-LEAD (06/27/2025 3:45 PM EDT) Narrative EXTERNAL NON-INTERFACED REF LAB - 06/27/2025 3:45 PM EDT Type of EKG: Standard. Global (94169). Notes Normal sinus rhythm, no acute ischemic changes Colt Steele CNP ECG ORDERABLES Final Resu lt EXTERNAL NON-INTERFACED REF LAB * (ABNORMAL) Comprehensive metabolic panel (06/27/2025 3:30 PM EDT) SODIUM 132(L) 133 - 146 mmol/L [facility] POTASSIUM 4.4 3.3 - 5.1 mmol/L [facility] CHLORIDE 92(L) 96 - 108 mmol/L [facility] CO2 28 21 - 35 mmol/L [facility] BUN 23(H) 6 - 19 mg/dL [facility] CREATININE 0.60 0.5 - 1.5 mg/dL [facility] GLUCOSE 84 70 - 99 mg/dL [facility] ALBUMIN 4.3 3.9 - 4.8 g/dL [facility] TOTAL PROTEIN 6.7 6.5 - 8.0 g/dL [facility] CALCIUM 9.5 8.4 - 10.3 mg/dL [facility] ALKALINE PHOSPHATASE 52 39 - 117 U/L [facility] TOTAL BILIRUBIN 0.4 0.0 - 1.2 mg/dL [facility] AST 28 0 - 37 U/L [facility] ALT 30 0 - 40 U/L [facility] GLOBULIN 2.4 1 - 4.8 g/dL [facility] EGFR 87 >59 mL/min/1.7 3m2 [facility] Comment:Estimated glomerular filtration rate calculated using the CKD-EPI refit equation. ANION GAP 16 10 - 20 mmol/L [facility] Blood 06/27/2025 3:30 PM EDT 06/27/2025 3:33 PM EDT Colt Steele [facility] LAB BLOOD BKR ORDERABLES F inal Result Performing Organization Address City/[facility]/ZIP Co de Phone Number [address] [address] * CBC (06/27/2025 3:30 PM EDT) WBC 5.94 4.00 - 11.00 K/uL [facility] RBC 4.59 4.00 - 5.20 M/uL [facility] HGB 13.9 12.0 - 16.0 g/dL [facility] HCT 41.7 36.0 - 46.0 % [facility] PLT 291 150 - 450 K/uL [facility] MCV 90.8 80.0 - 100.0 fL [facility] MCH 30.3 27.0 - 31.0 pg [facility] MCHC 33.3 32.0 - 36.0 g/dL [facility] RDW 13.4 11.5 - 14.5 % [facility] MPV 9.0 8.4 - 12.0 fL [facility] NRBC 0.00 0.00 /100 WBCs [facility] ABSOLUTE NRBC 0.00 0.00 K/uL [facility] Blood 06/27/2025 3:30 PM EDT 06/27/2025 3:33 PM EDT Colt Steele [facility] LAB BLOOD BKR ORDERABLES F inal Result Performing Organization Address City/[facility]/ZIP Co de Phone Number [address] [address] * (ABNORMAL) Lipid panel (04/22/2025 8:05 AM EDT) HDL 91 mg/dL [facility] Comment: Interpretation <40 mg/dL: Low HDL cholesterol (major risk factor for CHD) Greater than or equal to 60 mg/dL: High HDL cholesterol ( negative risk factor for CHD) HDL - cholesterol is affected by a number of factors, e.g. smoking, excerise, hormones, sex and age. CHOLESTEROL 177 0 - 240 mg/dL [facility] TRIGLYCERIDES 112 30 - 160 mg/dL [facility] LDL 64 50 - 129 mg/dL [facility] Comment: LDL levels in terms of risk for coronary heart disease: <100 mg/dL: Optimal 100-129 mg/dL: Near or above optimal 130-159 mg/dL: Borderline high 160-189 mg/dL: High >190 mg/dL: Very High CARDIAC RISK RATIO 1.9(L) 3.3 - 4.4 [facility] Blood 04/22/2025 8:05 AM EDT 04/22/2025 8:08 AM EDT us Colt Steele [facility] LAB BLOOD BKR ORDERABLES F inal Result [facility] [address] [place] [address] * BD DXA SPINE AND HIP WITH FOREARM (06/03/2024 3:40 PM EDT) Anatomical Region Laterality Modality Bone Density Bone Density 06/03/2024 3:36 PM EDT Impressions 06/07/2024 7:59 AM EDT Interpretation: Osteoporosis. Narrative 06/07/2024 7:59 AM EDT Referred By: KRISTINA MONTANEZ Scanner: [employer] A with serial# of [id number] located at [facility] Bone Density Scan (DXA) 06/03/24 Details of [...] -2.5), or Osteoporosis (T-score <= -2.5). At [facility], T-scores are compared to peak bone density [...] - 06/07/2024 Referred By: KRISTINA MONTANEZ Scanner: [employer] with serial# of [id number] located at [facility] Bone Density Scan (DXA) 06/03/24 Details of prior DXA scans are available by clicking View Image BMD T- Z- Skeletal Site gm/cm2 score score BMD Change Since Prior Scan ------ ----- PA Spine (L1 L2 L3) 1.020 0.00 2.80 -0.147 (-12.6%)* since07/11/2021 Total Hip (Left) 0.672 -2.20 0.10 -0.108 (-13.8%)* since07/11/2021 Femoral Neck (Left) 0.551 -2.70 -0.20 -0.070 [...] -2.5), or Osteoporosis (T-score <= -2.5). At [facility], T-scores are compared to peak bone density [...] Maintenance Insurance MEDICARE PART A & B [facility] MEDICARE PART A & B [facility] MEDICARE PART A & B [facility] MEDICARE PART A & B [facility] MEDICARE PART A & B [facility] MEDICARE PART A & B [facility] MEDICARE PART A & B [facility] MEDICARE PART A & B [facility] MEDICARE PART A & B [facility] Advance Directives For more information, please contact: [phone] (9AM - 5PM [place], Friday-Friday) Documents on File Type Date Recorded Patient Educational Technology Coordinator Expl anation Healthcare Proxy 04/21/2025 HEALTHCARE PROXY Care Teams Gold And Silver Assayer Relationship Specialty Start Date End Date Colt Steele CNP [address] [facility] [place] [address] PCP - General Family Medicine 10/22/22 JonShay MD [address] [address] & [address] [place] [address] [email or web address] Historical LMR Provider 09/02/17 Jaiden Esparza DO [address] [place] [address] Orthopedics & Sports Medicine, [place] [address] Historical LMR Provider 09/02/17 Larisa Navarro MD [address] [place] [address] Historical LMR Provider 09/02/17 Rocco Alvarenga DO [address] [place] [address] Geriatric Medicine 05/23/25 Additional Source Comments The information contained in this document represents components of the legal health record. It is not the complete legal health record.[facility]
--- OUTSIDE RECORDS SUMMARY | 2025-09-21 17:36 | XMS_ITS | Encounter Summary ---
Author Organization [facility] Address [address] [place] [address] Phone Care Team Providers Care General Warehouse Worker Name Role Phone Shay Webb MD Primary Care Provider Stanley Castro MD Unavailable Shay Webb MD Unavailable [phone] Jaiden Esparza DO Unavailable [phone] Larisa Navarro MD Unavailable [phone] Oziel Archibald MD Unavailable [phone] Larisa Treviño MD Primary Care Provid er Janny Zavala MD Primary Care Provider Colt Steele CNP Primary Care Provider [phone] Rao Arzate DO Unavailable Rocco Alvarenga DO Unavailable Encounter Details Date Type Department Care Team (Latest Contact Info) Description 04/15/2019 Transcribe Orders [address] 2nd [place], [place] [id number] Shay Webb MD 264 [facility] 10 & 12 [place] [address] [email or web address] Fatigue, unspecified type (Primary Dx) Social [...] Description 09/22/2025 10:00 AM EST Office Visit [facility] Orthopedics & Sports Medicine [address] [place] [address] Rosa Elena Jacome MD [address] [place] [address] Orthopedics & Sports Medicine, [facility] [place] [address] [email or web address] documented as of this encounter Results * (ABNORMAL) CBC and differential (04/15/2019 3:05 PM EDT) WBC 6.38 3.40 - 11.20 K/uL [facility] RBC 4.46 3.80 - 4.80 M/uL [facility] HGB 13.0 12.0 - 15.0 g/dL [facility] HCT 39.0 36.0 - 46.0 % [facility] PLT 345 130 - 400 K/uL [facility] MCV 87.4 79.0 - 98.0 [facility] MCH 29.1 27.0 - 34.8 pg [facility] MCHC 33.3 31.5 - 36.0 g/dL [facility] RDW 13.5 10.8 - 14.6 % [facility] MPV 9.2(L) 9.4 - 12.4 [facility] NRBC 0.00 0.00 /100 WBCs [facility] ABSOLUTE NRBC 0.00 0.00 K/uL [facility] DIFF METHOD Auto [facility] NEUTS 71.5 45.30 - 77.70 % [facility] LYMPHS 18.7 12.30 - 39.70 % [facility] MONOS 7.2 4.10 - 12.80 % [facility] EOS 1.4 0 - 7.2 % [facility] BASOS 0.9 0 - 2.80 % [facility] Granulocytes, immature (%) 0.3 0.0 - 0.9 % [facility] ABSOLUTE NEUTS 4.56 1.40 - 7.70 K/uL [facility] ABSOLUTE LYMPHS 1.19 0.60 - 3.20 K/uL [facility] ABSOLUTE MONOS 0.46 0.11 - 0.59 K/uL [facility] ABSOLUTE EOS 0.09 0.01 - 0.50 K/uL [facility] ABSOLUTE BASOS 0.06 0.00 - 0.08 K/uL [facility] Granulocytes, immature 0.02 0.00 - 0.05 K/uL [facility] Blood 04/15/2019 3:05 PM EDT 04/15/2019 3:08 PM EDT Shay Webb MD LAB BLOOD BKR ORDERABLES Final Result Performing Organization Address City/[facility]/ZIP Co de Phone Number [address] [address] * TSH with reflex (04/15/2019 3:05 PM EDT) TSH 0.75 0.27 - 4.20 uIU/mL [facility] Blood 04/15/2019 3:05 PM EDT 04/15/2019 3:08 PM EDT Shay Webb MD LAB BLOOD BKR ORDERABLES Final Result Performing Organization Address City/[facility]/ZIP Co de Phone Number [address] [address] * (ABNORMAL) Basic metabolic panel (04/15/2019 3:05 PM EDT) SODIUM 130(L) 133 - 146 mmol/L [facility] CHLORIDE 90(L) 96 - 108 mmol/L [facility] POTASSIUM 4.9 3.3 - 5.1 mmol/L [facility] CO2 28 21 - 35 mmol/L [facility] BUN 16 6 - 19 mg/dL [facility] CREATININE 0.70 0.5 - 1.5 mg/dL [facility] GLUCOSE 102(H) 70 - 99 mg/dL [facility] CALCIUM 9.6 8.4 - 10.3 mg/dL [facility] EGFR 81 >59 mL/min/1.7 3m2 [facility] Comment:If patient is black, multiply result by 1.159. Estimated glomerular filtration rate calculated using the CKD-EPI equation. ANION GAP 17 10 - 20 mmol/L [facility] Blood 04/15/2019 3:05 PM EDT 04/15/2019 3:08 PM EDT us Shay Webb MD LAB BLOOD BKR ORDERABLES Final Result [facility] [address] [place] [address] documented in this encounter Visit Diagnoses Diagnosis [...] documented as of this encounter Care Teams General Warehouse Worker Relationship Specialty Start Date End Date Shay Webb MD [address] [place] [address] & [address] [place] [address] [email or web address] PCP - General 05/17/14 03/25/22 Larisa Treviño MD [address] [address] [email or web address] PCP - General Family Medicine 03/26/22 09/19/22 Janny Zavala MD [address] [address] [email or web address] PCP - General Family Medicine 10/03/22 10/21/22 Colt Steele CNP 29 [place] [address] [email or web address] PCP - General Family Medicine 10/22/22 Stanley Castro MD [address] [place] [address] [email or web address] Historical LMR Provider 09/02/17 11/24/21 Shay Webb MD [address] [place] [address] [address] & [address] [place] [address] [email or web address] Historical LMR Provider 09/02/17 Jaiden Esparza DO [address] [place] [address] Orthopedics & Sports Medicine, [place] [address] [email or web address] Historical LMR Provider 09/02/17 Larisa Navarro MD [address] [place] [address] Historical LMR Provider 09/02/17 Oziel Archibald MD 22 [place] [address] Historical LMR Provider 09/02/17 2 Rao Arzate DO [address] [place] [address] [email or web address] Insurance Assigned Provider 02/21/24 11/22/24 Rocco Alvarenga DO 22 [place] [address] [email or web address] Geriatric Medicine 05/23/25 documented as of this encounter Additional Source Comments The information contained in this document represents components of the legal health record. It is not the complete legal health record.[facility]
--- OUTSIDE RECORDS SUMMARY | 2025-09-21 17:36 | XMS_ITS | Encounter Summary ---
Author Organization [facility] Address [address] [place] [address] Phone Care Team Providers Care Agricultural Services Director Name Role Phone Shay Webb MD Primary Care Provider Stanley Castro MD Unavailable Shay Webb MD Unavailable [phone] Jaiden Esparza DO Unavailable Larisa Navarro MD Unavailable [phone] Oziel Archibald MD Unavailable [phone] Larisa Treviño MD Primary Care Provid er Janny Zavala MD Primary Care Provider [phone] Colt Steele [facility] Primary Care Provider Rao Arzate DO Unavailable Rocco Alvarenga DO Unavailable [phone] Reason for Referral * MRI/CAT Scan - Closed Specialty Diagnoses / Procedures Referred By Contac t Referred To Contact Radiology Diagnoses Post laminectomy syndrome Neck pain Spondylosis of cervical region without myelopathy or radiculopathy Procedures MRI Cervical Spine MRI Cervical Spine Silver Tomlin DO Phone: tel: fax: [email or web address] Referral ID Status Reason Start Date Expiration Date Visits Re quested Visits Authorized [id number] Closed 06/14/2021 06/14/2022 1 1 Encounter Details Date Type Department Care Team (Latest Contact Info) Description 06/14/2021 Ancillary Orders Virtual Department 30 [place] [address] Silver Tomlin DO [address] [place] [address] [email or web address] Post laminectomy syndrome; Neck pain; Spondylosis of [...] 10:11 PM EDT Hector Isaac, JOSEFA * [place] Suicide Severity Rating Scale (Screener/Recent Self-Report) Question [...] Description 09/22/2025 10:00 AM EST Office Visit [facility] Orthopedics & Sports Medicine [address] [place] [address] Rosa Elena Jacome MD [address] [place] [address] Orthopedics & Sports [place] [address] [email or web address] documented as of this encounter Results * [...] degree of canal stenosis hasmildly improved from 2009. No bone marrow edema. 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 2.Multilevel degenerative changes, not significantly progressed [id number]. 3.Moderate canal stenosis at C7-T1, improved from 2009. us Silver Tomlin DO IMG MR XSPECIALTY Final [...] documented as of this encounter Care Teams Agricultural Services Director Relationship Specialty Start Date End Date Jon, Shay Garcia MD [address] [place] [address] 10 & 12 [place] [address] [email or web address] PCP - General 05/17/14 03/25/22 Larisa Treviño MD [address] [place] [address] [email or web address] PCP - General Family Medicine 03/26/22 09/19/22 Janny Zavala MD [address] [address] [email or web address] PCP - General Family Medicine 10/03/22 10/21/22 Colt Steele CNP [address] [place] [address] [email or web address] PCP - General Family Medicine 10/22/22 Stanley Castro MD 22 [place] [address] [email or web address] Historical LMR Provider 09/02/17 11/24/21 Shay Webb MD [address] [facility] [address] [place] [address] [email or web address] Historical LMR Provider 09/02/17 Jaiden Esparza DO [address] [place] [address] Orthopedics & Sports Medicine, [place] [address] [email or web address] Historical LMR Provider 09/02/17 Larisa Navarro MD [address] [place] [address] Historical LMR Provider 09/02/17 Oziel Archibald MD 22 [place] [address] Historical LMR Provider 09/02/17 2 Rao Arzate DO [address] [place] [address] [email or web address] Insurance Assigned Provider 02/21/24 11/22/24 Rocco Alvarenga DO [address] [place] [address] [email or web address] Geriatric Medicine 05/23/25 documented as of this encounter Additional Source Comments The information contained in this document represents components of the legal health record. It is not the complete legal health record.[facility]
--- OUTSIDE RECORDS SUMMARY | 2025-09-21 17:36 | XMS_ITS | Encounter Summary ---
Author Organization [facility] Address [address] [place] [address] Phone Care Team Providers Care Grill Chef Name Role Phone Shay Webb MD Unavailable [phone] Jaiden Esparza DO Unavailable Larisa Navarro MD Unavailable [phone] Colt Steele [employer]IVATE [employer] Primary Care Provider [phone] Rocco Alvarenga DO Unavailable Reason for Visit * Reason Onset Date Comments Medication Refill 07/25/2025 Encounter Details Date Type Department Care Team (Late st Contact Info) Description 07/25/2025 Telephone [employer] [address] [address] Colt Steele, PRIVATE CHEF [address] [place] [address] [email or web address] Medication Refill Social History Tobacco Use Types [...] as of this encounter Progress Notes * Aldairtanvi Annie Tay - 07/25/2025 8:44 AM EDT Pt called to request refill of - pt is currently out of medication temazepam (RESTORIL) 15 mg capsule to [facility] [address] (FamilyMeds 827) - [place], [place] - [address] [place] [address] Support [employer] (Please do not reply to this user; this inbox is not monitored.) Thank you. documented in this encounter Plan of Treatment Upcoming Encounters Date Type Department Care Team (Late st Contact Info) Description 09/22/2025 10:00 AM EST Office Visit [facility] Orthopedics & Sports Medicine [address] [place] [address] Rosa Elena Jacome MD [address] [place] [address] Orthopedics & Sports Medicine, [facility] [place] [address] documented as of this encounter Visit Diagnoses Not on filedocumented in this encounter Additional Health Concerns Assessment Noted Time PHQ-2 Depression Total Score: 0 04/19/20 22 12:42 PM EDT documented as of this encounter Care Teams Grill Chef Relationship Specialty Start Date End Date Colt Steele CNP 29 [facility] [place] [address] [email or web address] PCP - General Family Medicine 10/22/22 Shay Webb MD 264 [facility] [address] [place] [address] [email or web address] Historical LMR Provider 09/02/17 Jaiden Esparza DO [address] [place] [address] Orthopedics & Sports Medicine, [facility] [place] [address] [email or web address] Historical LMR Provider 09/02/17 Larisa Navarro MD [address] [place] [address] Historical LMR Provider 09/02/17 Rocco Alvarenga DO [address] [place] [address] [email or web address] Geriatric Medicine 05/23/25 documented as of this encounter Additional Source Comments The information contained in this document represents components of the legal health record. It is not the complete legal health record.[facility]
--- OUTSIDE RECORDS SUMMARY | 2025-09-21 17:36 | XMS_ITS | Encounter Summary ---
Author Organization [facility] Address [address] [place] [address] Phone Care Team Providers Care Insulation Power Unit Tender Name Role Phone Shay Webb MD Primary Care Provider Stanley Castro MD Unavailable hSay Webb MD Unavailable [phone] Jaiden Esparza DO Unavailable Larisa Navarro MD Unavailable [phone] Oziel Archibald MD Unavailable [phone] Larisa Treviño MD Primary Care Provid er Janny Zavala MD Primary Care Provider [phone] Colt Steele CNP Primary Care Provider [phone] Rao Arzate DO Unavailable Rococ Alvarenga DO Unavailable Encounter Details Date Type Department Care Team (Late st Contact Info) Description 12/23/2020 Procedure Pass [facility], [address] [id number] Social History Tobacco Use Types Packs/Day Years [...] Description 09/22/2025 10:00 AM EST Office Visit [facility] Orthopedics & Sports Medicine [address] [place] [address] Rosa Elena Jacome MD [address] [place] [address] Orthopedics & Sports Medicine, [facility] [place] [address] [email or web address] documented as of this encounter Visit Diagnoses Not on filedocumented in this encounter Additional Health Concerns Infection Onset Date Last Indicated Resolved Time CoV-Risk 07/18/2023 07/18/2023 07/29/2023 1:22 AM EDT CoV-Risk 10/06/2023 10/06/2023 10/17/2023 1:22 AM EST documented as of this encounter Care Teams Insulation Power Unit Tender Relationship Specialty Start Date End Date Shay Webb MD [address] [place] [address] 10 & 12 [place] [address] [email or web address] PCP - General 05/17/14 03/25/22 Larisa Treviño MD [address] [place] [address] [email or web address] PCP - General Family Medicine 03/26/22 09/19/22 Janny Zavala MD [address] [place] [address] [email or web address] PCP - General Family Medicine 10/03/22 10/21/22 Colt Steele CNP 29 [place] [address] [email or web address] PCP - General Family Medicine 10/22/22 Stanley Castro MD 22 [place] [address] [email or web address] Historical LMR Provider 09/02/17 11/24/21 Shay Webb MD [address] [place] [address] & [address] [place] [address] [email or web address] Historical LMR Provider 09/02/17 Jaiden Esparza DO [address] [place] [address] Orthopedics & Sports Medicine, [place] [address] [email or web address] Historical LMR Provider 09/02/17 Larisa Navarro MD [address] [place] [address] Historical LMR Provider 09/02/17 Oziel Archibald MD 22 [place] [address] Historical LMR Provider 09/02/17 2 Rao Arzate DO 29 [place] [address] [email or web address] Insurance Assigned Provider 02/21/24 11/22/24 Rocco Alvarenga DO [address] [place] [address] [email or web address] Geriatric Medicine 05/23/25 documented as of this encounter Additional Source Comments The information contained in this document represents components of the legal health record. It is not the complete legal health record.[facility]
--- OUTSIDE RECORDS SUMMARY | 2025-09-21 17:37 | XMS_ITS | Encounter Summary ---
Author Organization [facility] Address [address] [place] [address] Phone Care Team Providers Care Funeral Counselor Name Role Phone JonShay MD Unavailable Jaiden Esparza DO Unavailable [phone] Larisa Navarro MD Unavailable [phone] Colt Steele [facility] Primary Care Provider [phone] Rocco Alvarenga DO Unavailable Encounter Details Date Type Department Care Team (Late st Contact Info) Description 01/17/2025 Procedure Pass [facility], [address] [address] Social History Tobacco Use Types Packs/Day Years [...] Description 09/22/2025 10:00 AM EST Office Visit [facility] Orthopedics & Sports Medicine [address] [place], [place] [phone] Rosa Elena Jacome MD [address] [place] [address] Orthopedics & Sports Medicine, [place], [place] [phone] [email or web address] documented as of this encounter Visit Diagnoses Not on filedocumented in this encounter Additional Health Concerns Assessment Noted Time PHQ-2 Depression Total Score: 0 04/19/20 22 12:42 PM EDT documented as of this encounter Care Teams Funeral Counselor Relationship Specialty Start Date End Date Colt Steele CNP 29 [facility] [place] [address] [email or web address] PCP - General Family Medicine 10/22/22 JonShay MD [address] [place] [address] & [address] [place] [address] [email or web address] Historical LMR Provider 09/02/17 Jaiden Esparza DO [address] [place] [address] Orthopedics & Sports [facility], [place] [address] Historical LMR Provider 09/02/17 Larisa Navarro MD [address] [place] [address] Historical LMR Provider 09/02/17 Rocco Alvarenga DO 22 [place] [address] Geriatric Medicine 05/23/25 documented as of this encounter Additional Source Comments The information contained in this document represents components of the legal health record. It is not the complete legal health record.[facility]
== END 2025-09-21 14:58 | disposition home or self-care (01) ==
LOC: HO.HNS 14:28
PROVIDERS: PCP Registered Nurse; Visit Provider Neurological Surgery
DX: M54.16 Radiculopathy, lumbar region (principal)
CPT/HCPCS: 99024

== ENCOUNTER → 2025-09-21 14:27 | Outpatient (BNVA) | payer MEDICARE, BC, SELFPAY | PROVIDERS: PCP Registered Nurse; Visit Provider Neurological Surgery | DX: M54.16 Radiculopathy, lumbar region (principal); Z98.890 Other specified postprocedural states | CPT/HCPCS: 99212 ==